=== PATIENT | female | born 1930 | race Caucasian/White ===

== ENCOUNTER → 2017-06-02 | Outpatient (CLI) | payer BC ==
[~2017-06-02] MED LIST: ACET1TAB84 PO; ALPPOPS5 OPL; AMLO2.5T PO; ASCA500 PO; ASCO100061 PO; CALCTAB7 PO; CARB0.5D28 OPL; CITA20TA9 PO; CLTP PO; DORZ1SOL6 OPL; GLCSC500400 PO; GLUC500C60 PO; LATA0.009 OPL; MULT-602 PO; MULT60CA PO; MULTTAB58 PO; NAPR1TAB9 PO; OMEG10007 PO; OMEP40CA PO; OMEP40CA41 PO; POTA20TA16 PO; PRD10 PO; SIMV20TA2 PO; SYMIN160 INH; XLTOPS OPL
[2017-06-02 13:32] LABS: BASO % 0.2 %; BASO ABS # 0.01 K/uL (0-0.2); COMPLETE YES; EOS % 1.3 %; HEMATOCRIT 39.7 % (37-47); IG% 0.2 %; LYMPH % 22.9 %; LYMPH ABS # 1.03 K/uL (1.2-3.4); MEAN CELL VOLUME 100.3 fL (80-100); MEAN CORPUSCULAR HEMOGLOBIN 34.8 pg (25-34); MEAN CORPUSCULAR HGB CONC 34.8 g/dl (32-36); MEAN PLATELET VOLUME 11.3 fL (7.4-10.4); NEUT % 61.4 %; PLATELET COUNT 165 K/uL (130-400); RED BLOOD COUNT 3.96 M/uL (4.2-5.4); WHITE BLOOD COUNT 4.49 K/uL (4.8-10.8)
[2017-06-02 14:00] LABS: ALT/SGPT 23 U/L (12-78); AST/SGOT 15 U/L (15-37); BLOOD UREA NITROGEN 18 mg/dl (7-18); BUN/CREATININE RATIO 16.2 (10-20); CALCIUM 8.8 mg/dl (8.5-10.1); CARBON DIOXIDE 32 mmol/L (21-32); CHLORIDE 105 mmol/L (98-107); GLUCOSE 94 mg/dl (70-99); POTASSIUM 3.7 mmol/L (3.5-5.1); SODIUM 141 mmol/L (136-145)
[2017-06-02 14:11] LABS: ALB/GLOB RATIO 1.2 (0.9-2); ALKALINE PHOSPHATASE 47 U/L (45-117); CHOLESTEROL 197 mg/dl (0-200); CHOLESTEROL/HDL RATIO 2.5; HDL CHOLESTEROL 78 mg/dl; LDL CHOLESTEROL CALCULATED 103 mg/dl; TRIGLYCERIDES 79 mg/dl (0-150); VERY LOW DENSITY LIPOPROT CALC 16 mg/dl
--- NOTE | 2017-06-19 10:44 | CODING QUERY MEDICAL NECESSITY ---
SUPPORTING DIAGNOSIS NEEDED Dr. Church, A supporting diagnosis is required for the test/procedure performed on this patient in order for us to be reimbursed by the patient's insurance. Please provide a supporting diagnosis for the following test/procedure listed below next to the test name along with your signature. *If there is no additional diagnosis for this patient that would support the following test/procedure please document that below next to the test/procedure. Test(s)/Procedure(s) that require a supporting diagnosis: * ([id number]) VITAMIN D ASSAY DIAGNOSIS: DATE OF SERVICE: 06/02/17 Provider Signature: Date: Thank you Andry Garcia [facility] Information Management Once completed, please kindly fax back to [phone] For questions please call [phone]
== END | disposition home or self-care (01) ==
LOC: C.LABBC 09:16
PROVIDERS: ATTEND Internal Medicine
DX: Z87.19 Personal history of other diseases of the digestive system (principal); M81.0 Age-related osteoporosis without current pathological fracture

== ENCOUNTER → 2017-07-17 | Outpatient (CLI) | payer BC | END | disposition home or self-care (01) | LOC: C.RDSM 17:09 | PROVIDERS: ATTEND Physical Medicine & Rehabilitation Sports Medicine | DX: S89.92XA Unspecified injury of left lower leg, initial encounter (principal); X58.XXXA Exposure to other specified factors, initial encounter; M70.52 Other bursitis of knee, left knee; M25.552 Pain in left hip; M17.12 Unilateral primary osteoarthritis, left knee ==

== ENCOUNTER 2017-08-05 03:24 | Inpatient (IN) | payer BC, OTHER ==
[2017-08-05] VITALS (8 sets, daily range): BP systolic 131–181; BP diastolic 76–89; PULSE 77–86; TEMP 36.4–37.6; O2SAT 90–95; Ht 154.9 cm; Wt 70.7 kg
[~2017-08-05] VITALS: Ht 154.9 cm; Wt 70.7 kg
[~2017-08-05 03:24] MED LIST changes: -ACET1TAB84 PO; -ALPPOPS5 OPL; -ASCO100061 PO; -CALCTAB7 PO; -CARB0.5D28 OPL; -GLUC500C60 PO; -LATA0.009 OPL; -MULT-602 PO; -OMEP40CA41 PO; -PRD10 PO
[2017-08-05] MEDS ORDERED: MoRPHine SULFATE 4 MG/ML 1 ML CARP\\VIAL IV STA ×2 (03:41→04:59)
--- NOTE | 2017-08-05 03:42 | EMERGENCY ROOM VISIT NOTE ---
History Report prepared by Geraldine: Marina Portillo Under the Supervision of: Dr. Merrill Almaraz M.D. First contact with patient: 03:33 Chief Complaint: KNEEPAIN Stated Complaint: RT. KNEE PAIN History of Present Illness The patient is a 87 year old female who presents to the Emergency Room with complaints of sudden right knee pain beginning at 1600 today. She rates her pain at a 10/10. The patient denies falling, and states that she has taken 6 Tylenol today. The patient reports that she has an itching problem. She states that she has a history of knee and hip surgeries, and a history of cellulitis on her great toe. The patient denies having other symptoms. Source of History: patient Onset: 1600 today Position: knee (right) Symptom Intensity: rated at a 10/10 Timing: other (sudden) Associated Symptoms: No fevers Review of Systems See HPI for pertinent positives & negatives. A total of 10 systems reviewed and were otherwise negative. Past Medical & Surgical Medical Problems: (1) ASTHMA, UNSPECIFIED (2) Episode of syncope (3) HYPERLIPIDEMIA NEC/NOS (4) HYPERTENSION NOS (5) Left knee pain (6) Right leg DVT (7) syncope (8) syncope Family History Hypertension Social History Smoking Status: Never Smoker Alcohol Use: none, occasionally Drug Use: none Marital Status: single Occupation Status: employed Current/Historical Medications Scheduled Acetaminophen (Tylenol Arthritis Ext Rel), 1,300 MG PO AMPM Amlodipine (Norvasc), 2.5 MG PO DAILY Ascorbic Acid (Ascorbic Acid), 1,000 MG PO DAILY Brimonidine Tartrate (Alphagan P), 1 DROPS OPL TID Budesonide/Formoterol Fumarate (Symbicort 160/4.5 Inhaler ), 2 PUFFS INH BID Calcium Carbonate-Vitamin D W/ (Caltrate 600 Plus), 1 TAB PO DAILY Carboxymethylcellulose Sodium (Refresh Tears), 1 DROP OPL QID Citalopram Hydrobromide (Celexa), 30 MG PO DAILY Dorzolamide Hcl-Timolol Maleat (Cosopt Oph), 1 DROP OPL BID Fish Oil (Oberlin-3), 1 CAP PO DAILY Glucosamine-Chondroitin 500MG/400 Mg (Glucosamine-Chondroitin 500 Mg/400 Mg), 1 CAP PO DAILY Latanoprost (Xalatan 0.005% Oph Marifer), 1 DROPS OPL HS Multiple Vitamins W/ Minerals (Womens 50+ Multi Vitamin), 1 TAB PO DAILY Omeprazole (Prilosec), 40 MG PO DAILY Potassium Ext Rel (Klor-Con), 20 MEQ PO DAILY Prednisone (Prednisone), 20 MG PO DAILY Simvastatin (Zocor), 20 MG PO QPM Allergies Coded Allergies: No Known Allergies (Verified , 08/05/17) Physical Exam Vital Signs Date Time Temp Pulse Resp B/P (MAP) Pulse Ox O2 Delivery O2 Flow Rate FiO2 08/05/17 05:41 79 18 159/81 98 Room Air 08/05/17 03:27 36.7 73 18 171/95 96 Room Air Physical Exam GENERAL: Patient is anxious appearing and in moderate distress. HEENT: No acute trauma, normocephalic atraumatic, mucous membranes moist, no nasal congestion, no scleral icterus. NECK: No stridor, no adenopathy, no meningismus, trachea is midline. LUNGS: No dyspnea. Clear to auscultation and equal bilaterally. No wheeze, no rhonchi. HEART: Regular rate and rhythm. No murmurs, rubs, gallops appreciated. ABDOMEN: Soft, nontender, bowel sounds positive, no masses appreciated, no peritonitis. BACK: No midline tenderness, no CVA tenderness EXTREMITIES: Erythema and warmth over anterior right knee extending down to the anterior right gonzalez to the medial malleolus. Bruising of inner right thigh and petechiae bilaterally on the anterior shins which she states is due to itching chronically. NEUROLOGIC: Alert and oriented, no acute motor or sensory deficits, no focal weakness, cranial nerves grossly intact. SKIN: No rash, no jaundice, no diaphoresis. Medical Decision & Procedures ER Provider Diagnostic Interpretation: Radiology results and stated below per my review and radiologist interpretation: 2 View right knee: Status post knee replacement. No fracture, no dislocation. Moderate arthritic changes. No significant effusion. Laboratory Results 08/05/17 03:54 Red Blood Count 3.89, Mean Corpuscular Volume 99.2, Mean Corpuscular Hemoglobin 34.2, Mean Corpuscular Hemoglobin Concent 34.5, Mean Platelet Volume 10.0, Neutrophils (%) (Auto) 87.0, Lymphocytes (%) (Auto) 5.9, Monocytes (%) (Auto) 6.8, Eosinophils (%) (Auto) 0.0, Basophils (%) (Auto) 0.0, Neutrophils # (Auto) 16.80, Lymphocytes # (Auto) 1.15, Monocytes # (Auto) 1.32, Eosinophils # (Auto) 0.00, Basophils # (Auto) 0.00 08/05/17 03:54 Test 08/05/17 03:54 08/05/17 05:13 White Blood Count 19.33 K/uL (4.8-10.8) Red Blood Count 3.89 M/uL (4.2-5.4) Hemoglobin 13.3 g/dL (12.0-16.0) Hematocrit 38.6 % (37-47) Mean Corpuscular Volume 99.2 fL (80-100) Mean Corpuscular Hemoglobin 34.2 pg (25-34) Mean Corpuscular Hemoglobin Concent 34.5 g/dl (32-36) Platelet Count 154 K/uL (130-400) Mean Platelet Volume 10.0 fL (7.4-10.4) Neutrophils (%) (Auto) 87.0 % Lymphocytes (%) (Auto) 5.9 % Monocytes (%) (Auto) 6.8 % Eosinophils (%) (Auto) 0.0 % Basophils (%) (Auto) 0.0 % Neutrophils # (Auto) 16.80 K/uL (1.4-6.5) Lymphocytes # (Auto) 1.15 K/uL (1.2-3.4) Monocytes # (Auto) 1.32 K/uL (0.11-0.59) Eosinophils # (Auto) 0.00 K/uL (0-0.5) Basophils # (Auto) 0.00 K/uL (0-0.2) RDW Standard Deviation 49.6 fL (36.4-46.3) RDW Coefficient of Variation 13.9 % (11.5-14.5) Immature Granulocyte % (Auto) 0.3 % Immature Granulocyte # (Auto) 0.06 K/uL (0.00-0.02) Prothrombin Time 10.0 SECONDS (9.0-12.0) Prothromb Time International Ratio 0.9 (0.9-1.1) Activated Partial Thromboplast Time 23.1 SECONDS (21.0-31.0) Partial Thromboplastin Ratio 0.9 Anion Gap 5.0 mmol/L (3-11) Est Creatinine Clear Calc Drug Dose 33.0 ml/min Estimated GFR () 52.3 Estimated GFR (Non- 45.1 BUN/Creatinine Ratio 16.8 (10-20) Calcium Level 8.8 mg/dl (8.5-10.1) Total Bilirubin 0.9 mg/dl (0.2-1) Direct Bilirubin 0.3 mg/dl (0-0.2) Aspartate Amino Transf (AST/SGOT) 13 U/L (15-37) Alanine Aminotransferase (ALT/SGPT) 29 U/L (12-78) Alkaline Phosphatase 55 U/L (45-117) C-Reactive Protein 8.28 mg/dl (0-0.29) Total Protein 6.4 gm/dl (6.4-8.2) Albumin 3.3 gm/dl (3.4-5.0) Bedside Lactic Acid Venous 1.39 mmol/L (0.90-1.70) Laboratory results as reviewed by me. Medications Administered Medications (Trade) Dose Ordered Sig/Peterson Route Start Time Stop Time Status Last Admin Dose Admin Morphine Sulfate (MoRPHine SULFATE INJ) 4 mg NOW STAT IV 08/05/17 03:41 08/05/17 03:42 DC 08/05/17 04:02 4 MG Vancomycin HCl 1800 mg/Sodium Chloride 536 ml @ 200 mls/hr ONE STAT IV 08/05/17 04:54 08/05/17 07:34 08/05/17 05:14 200 MLS/HR Ceftriaxone Sodium (Rocephin Inj) 1 gm NOW STAT IV 08/05/17 04:54 08/05/17 04:56 DC 08/05/17 05:13 1 GM Morphine Sulfate (MoRPHine SULFATE INJ) 4 mg NOW STAT IV 08/05/17 04:59 08/05/17 05:00 DC 08/05/17 05:13 4 MG Heparin Sodium/ Dextrose (Heparin 25,000 Unit/500ml D5W) 25,000 unit STK-MED ONCE .ROUTE 08/05/17 06:44 08/05/17 06:45 DC 08/05/17 06:50 25,000 UNIT ED Course 0335: The patient was evaluated in room A10. A complete history and physical exam was performed. 0341: Ordered Morphine Sulfate 4 mg IV. 0454: Ordered Vancomycin HCl 1,800 mg/Sodium Chloride 536 ml @ 200 mls/hr IV. 0457: The patient states that her pain is starting to return. She is willing to be admitted. 0459: Ordered Morphine Sulfate 4 mg IV. 0500: Discussed the patient's case with Dr. Funez of [facility]. 0505: Upon reevaluation, the patient is resting. Discussed results and treatment plan with the patient. She verbalized understanding and agreement with the treatment plan. The patient will be evaluated for further management. Medical Decision Differential: Fracture, Dislocation, Cellulitis, Septic Joint, Ligamentous Injury, Effusion, DVT, amongst other pathologies entertained. 87 yr old female with rash and erythema/pain of anterior right knee. On exam she has cellulitis of anterior right knee without clear evidence of septic joint. Cellulitis extends from medial right ankle radiating up above knee. Suspect from scratching area. Also with bruising inner thigh which she related to scratching hard. No over swelling though there are some petechia bilateral lower shins. With WBC 19 and infection in her age/medical history I feel she will need to come in for sepsis treatment. Discussed US with hospitalist who will order that. She is not septic shock and is not overtly dehydrated nor needing significant fluid resus at this time. Medication Reconcilliation Current Medication List: was personally reviewed by me Blood Pressure Screening Patient's blood pressure: Elevated blood pressure will be monitored by hospitalist Consults Time Called: 0450 Consulting Physician: Dr. Funez- [facility] Returned Call: 0500 Discussed the patient's case with Dr. Funez of [facility]. The patient will be evaluated for further treatment and disposition. Impression Primary Impression: Cellulitis Additional Impression: Sepsis Scribe Attestation The scribe's documentation has been prepared under my direction and personally reviewed by me in its entirety. I confirm that the note above accurately reflects all work, treatment, procedures, and medical decision making performed by me. Departure Information Dispostion Being Evaluated By Hospitalist Referrals Lucio Church M.D. (PCP) Patient Instructions [facility] Health Problem Qualifiers
[2017-08-05] MEDS ORDERED: CALCTAB7 PO (03:59)
[2017-08-05] MEDS ORDERED: OMEP40CA41 PO (03:59)
[2017-08-05] MEDS ORDERED: GLUC500C60 PO (03:59)
[2017-08-05] MEDS ORDERED: ALPPOPS5 OPL (03:59)
[2017-08-05] MEDS ORDERED: PRD10 PO (03:59)
[2017-08-05] MEDS ORDERED: CARB0.5D28 OPL (03:59)
[2017-08-05] MEDS ORDERED: ASCO100061 PO (03:59)
[2017-08-05] MEDS ORDERED: LATA0.009 OPL (03:59)
[2017-08-05] MEDS ORDERED: MULT-602 PO (03:59)
[2017-08-05] MEDS ORDERED: ACET1TAB84 PO (03:59)
[2017-08-05 04:16] LABS: INR 0.9 (0.9-1.1); PARTIAL THROMBOPLASTIN RATIO 0.9
[2017-08-05 04:28] LABS: COMPLETE YES; HEMATOCRIT 38.6 % (37-47); IG% 0.3 %; LYMPH % 5.9 %; LYMPH ABS # 1.15 K/uL (1.2-3.4); MEAN CELL VOLUME 99.2 fL (80-100); MEAN CORPUSCULAR HEMOGLOBIN 34.2 pg (25-34); MEAN CORPUSCULAR HGB CONC 34.5 g/dl (32-36); MONO % 6.8 %; PLATELET COUNT 154 K/uL (130-400); RED BLOOD COUNT 3.89 M/uL (4.2-5.4); WHITE BLOOD COUNT 19.33 K/uL (4.8-10.8)
[2017-08-05 04:31] LABS: BUN/CREATININE RATIO 16.8 (10-20); CALCIUM 8.8 mg/dl (8.5-10.1); CREATININE 1.1 mg/dl (0.60-1.20); POTASSIUM 3.5 mmol/L (3.5-5.1)
[2017-08-05 04:34] LABS: C-REACTIVE PROTEIN 8.28 mg/dl (0-0.29)
[2017-08-05] MEDS ORDERED: VANCOMYCIN INJ 1,800 MG in SODIUM CHLORIDE 0.9% 500ML 500 ML IV STA (04:54)
[2017-08-05] MEDS ORDERED: CEFTRIAXONE SOD INJ 1 GM ADDVIAL IV STA (04:54)
--- NOTE | 2017-08-05 06:08 | History and Physical ---
History & Physical Date & Time of Service: Aug 05, 2017 at 06:07 Chief Complaint: Rt. Knee Pain Primary Care Physician: Lucio Church M.D. History of Present Illness Source: patient, hospital records Mrs Leonard is an 87 year old female who presents to the ER with leg swelling, right knee pain and erythema. Her symptoms started at 4pm the previous day, getting slowly progressively worse. The pain became so intense overnight that she decided to come to the ER. Her pain was 10/10 in the ER, currently 2/10 until I press on her knee. She denies any trauma or fall. She is concerned about cellulitis as she had this in her big toe in 2016. 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 The persistent scratching causes petechia. Past Medical/Surgical History Medical Problems: (1) ASTHMA, UNSPECIFIED Status: Chronic (2) Episode of syncope Status: Resolved (3) HYPERLIPIDEMIA NEC/NOS Status: Chronic (4) HYPERTENSION NOS Status: Chronic (5) syncope Status: Resolved (6) syncope Status: Resolved Family History Hypertension Social History Smoking Status: Never Smoker Smokeless Tobacco Use: No Alcohol Use: none Drug Use: none Marital Status: single Housing status: lives alone Occupational Status: employed Immunizations History of Influenza Vaccine: N/A History of Tetanus Vaccine?: Yes History of Pneumococcal: Yes History of Hepatitis B Vaccine: Unknown Multi-Drug Resistant Organisms History of MDRO: No Allergies Coded Allergies: No Known Allergies (Verified , 08/05/17) Home Medications Scheduled Acetaminophen (Tylenol Arthritis Ext Rel), 1,300 MG PO AMPM Amlodipine (Norvasc), 2.5 MG PO DAILY Apixaban (Eliquis), 2.5 MG PO BID Ascorbic Acid (Ascorbic Acid), 1,000 MG PO DAILY Brimonidine Tartrate (Alphagan P), 1 DROPS OPL TID Budesonide/Formoterol Fumarate (Symbicort 160/4.5 Inhaler ), 2 PUFFS INH BID Calcium Carbonate-Vitamin D W/ (Caltrate 600 Plus), 1 TAB PO DAILY Carboxymethylcellulose Sodium (Refresh Tears), 1 DROP OPL QID Cefazolin In D5w (Cefazolin Sodium), 2 GM IV Q8 Citalopram Hydrobromide (Celexa), 30 MG PO DAILY Dorzolamide Hcl-Timolol Maleat (Cosopt Oph), 1 DROP OPL BID Fish Oil (Milroy-3), 1 CAP PO DAILY Glucosamine-Chondroitin 500MG/400 Mg (Glucosamine-Chondroitin 500 Mg/400 Mg), 1 CAP PO DAILY Latanoprost (Xalatan 0.005% Oph Marifer), 1 DROPS OPL HS Metoprolol Tartrate (Lopressor) (Lopressor), 50 MG PO BID Multiple Vitamins W/ Minerals (Womens 50+ Multi Vitamin), 1 TAB PO DAILY Omeprazole (Prilosec), 40 MG PO DAILY Potassium Ext Rel (Klor-Con), 20 MEQ PO DAILY Prednisone (Prednisone), 20 MG PO DAILY Simvastatin (Zocor), 20 MG PO QPM Scheduled PRN Oxycodone HCl (Oxycodone HCl), 5-10 MG PO Q4H PRN for Pain Review of Systems Constitutional: + chills, No fever Eyes: No worsening of vision ENT: No hearing loss Cardiovascular: No chest pain, No edema Abdomen: No pain, No nausea, No vomiting, No diarrhea, No constipation, No GI bleeding Musculoskeletal: No joint pain, No muscle pain Genitourinary - Female: No dysuria Hematologic / Lymphatic: + abnormal bleeding/bruising (petechia on skin from itching) Integumentary: + rash Physical Exam Vital Signs Date Time Temp Pulse Resp B/P (MAP) Pulse Ox O2 Delivery O2 Flow Rate FiO2 08/05/17 05:41 79 18 159/81 98 Room Air 08/05/17 03:27 36.7 73 18 171/95 96 Room Air General Appearance: WD/WN, no apparent distress Head: normocephalic, atraumatic Eyes: normal inspection, PERRL, EOMI Neck: supple, no JVD Respiratory/Chest: chest non-tender, lungs clear, normal breath sounds, no respiratory distress, no accessory muscle use Cardiovascular: regular rate, rhythm, no murmur, normal peripheral pulses Abdomen/GI: normal bowel sounds, non tender, soft Extremities/Musculoskelatal: no calf tenderness (but R > L size), normal capillary refill, + pedal edema (3+ up to thighs right sided, 1+ left sided), + pertinent finding (flex knee to 20 degrees after which she resists due to pain, anterior inferior knee joint pain on palpation both medially and laterally) 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, no motor/sensory deficits, alert, oriented x 3 Skin: + pertinent finding (petechial rash on bilateral legs and arm but more extensive on her right leg.) Diagnostics Laboratory Results Results Past 24 Hours Test 08/05/17 03:54 08/05/17 05:13 Range/Units White Blood Count 19.33 4.8-10.8 K/uL Red Blood Count 3.89 4.2-5.4 M/uL Hemoglobin 13.3 12.0-16.0 g/dL Hematocrit 38.6 37-47 % Mean Corpuscular Volume 99.2 80-100 fL Mean Corpuscular Hemoglobin 34.2 25-34 pg Mean Corpuscular Hemoglobin Concent 34.5 32-36 g/dl Platelet Count 154 130-400 K/uL Mean Platelet Volume 10.0 7.4-10.4 fL Neutrophils (%) (Auto) 87.0 % Lymphocytes (%) (Auto) 5.9 % Monocytes (%) (Auto) 6.8 % Eosinophils (%) (Auto) 0.0 % Basophils (%) (Auto) 0.0 % Neutrophils # (Auto) 16.80 1.4-6.5 K/uL Lymphocytes # (Auto) 1.15 1.2-3.4 K/uL Monocytes # (Auto) 1.32 0.11-0.59 K/uL Eosinophils # (Auto) 0.00 0-0.5 K/uL Basophils # (Auto) 0.00 0-0.2 K/uL RDW Standard Deviation 49.6 36.4-46.3 fL RDW Coefficient of Variation 13.9 11.5-14.5 % Immature Granulocyte % (Auto) 0.3 % Immature Granulocyte # (Auto) 0.06 0.00-0.02 K/uL Prothrombin Time 10.0 9.0-12.0 SECONDS Prothromb Time International Ratio 0.9 0.9-1.1 Activated Partial Thromboplast Time 23.1 21.0-31.0 SECONDS Partial Thromboplastin Ratio 0.9 Sodium Level 136 136-145 mmol/L Potassium Level 3.5 3.5-5.1 mmol/L Chloride Level 101 98-107 mmol/L Carbon Dioxide Level 30 21-32 mmol/L Anion Gap 5.0 3-11 mmol/L Blood Urea Nitrogen 18 7-18 mg/dl Creatinine 1.10 0.60-1.20 mg/dl Est Creatinine Clear Calc Drug Dose 33.0 ml/min Estimated GFR () 52.3 Estimated GFR (Non- 45.1 BUN/Creatinine Ratio 16.8 10-20 Random Glucose 158 70-99 mg/dl Calcium Level 8.8 8.5-10.1 mg/dl Total Bilirubin 0.9 0.2-1 mg/dl Direct Bilirubin 0.3 0-0.2 mg/dl Aspartate Amino Transf (AST/SGOT) 13 15-37 U/L Alanine Aminotransferase (ALT/SGPT) 29 12-78 U/L Alkaline Phosphatase 55 45-117 U/L C-Reactive Protein 8.28 0-0.29 mg/dl Total Protein 6.4 6.4-8.2 gm/dl Albumin 3.3 3.4-5.0 gm/dl Bedside Lactic Acid Venous 1.39 0.90-1.70 mmol/L Microbiology Results 08/05/17 Blood Culture, Received Pending 08/05/17 Blood Culture, Received Pending Diagnostic Radiology R KNEE 1 OR 2 VIEWS ROUTINE HISTORY: 87 years-old Female right knee pain/rash acute right knee pain with a skin rash COMPARISON: knee radiographs 02/02/2015 TECHNIQUE: 2 views of the right knee FINDINGS: Right knee arthroplasty in place without evidence of complication. Prior patellar resurfacing. Small to moderate joint effusion is noted without acute fracture or dislocation. Vascular calcifications are noted. Mild soft tissue prominence is seen about the knee. There is a 2.0 cm linear calcification within the distribution of the proximal MCL compatible with dystrophic calcification (Pradip-Stieda lesion). IMPRESSION: 1. No acute fracture or dislocation. 2. Mild soft tissue swelling about the knee with small to moderate joint effusion. The above report was generated using voice recognition software. It may contain grammatical, syntax or spelling errors. Electronically signed by: Neftlay Doe M.D. 08/05/2017 8:48 AM Dictated Date/Time: 08/05/2017 8:47 AM BILATERAL LOWER EXTREMITY VENOUS DOPPLER HISTORY: Acute right lower extremity pain and swelling RLE swelling and pain COMPARISON STUDY: Right knee radiographs of same day. FINDINGS: One of the peroneal veins is not compressible with occlusive deep venous thrombosis. Otherwise, there is normal compressibility, flow, and augmentation within the remaining right lower extremity deep venous structures. Incidentally noted is a fluid collection within the anterior suprapatellar distribution. IMPRESSION: 1. Occlusive deep venous thrombosis of the right peroneal vein. No DVT seen above the level of the knee. 2. Incidental note is made of a small fluid collection within the anterior suprapatellar region suggesting joint effusion as seen on comparison radiographs. Electronically signed by: Neftaly Doe M.D. 08/05/2017 7:33 AM Dictated Date/Time: 08/05/2017 7:30 AM EKG Sinus rhythm with premature ventricular or aberrantly conducted complexes (PAC) ; rate 82bpm Inferior infarct , age undetermined T wave abnormality, consider anterior ischemia When compared with ECG of 23-JUL-2015 11:13, Premature ventricular complexes are now Present Anterior T inversions are more prominent Impression Assessment and Plan 87 year old female admitted with rapid progressively worsening leg edema and right knee pain. Right lower leg DVT - heparin IV drip - stop antibiotics; does not appear cellulitic HTN - continue amlodipine 2.5 mg PO daily Glaucoma - continue Alphagan P, Cosopt ophthalmic, Xalatan GERD - switch omeprazole to pantoprazole 40mg PO daily COPD - continue Symbicort. Hyperlipidemia - continue simvastatin 20mg HS Depression - continue citalopram 30mg PO daily .Attending Addendum: I have physically seen and examined this patient, have directed the resident medical activities, and agree with the H&P as noted above with the following exceptions as noted. Assessment and Plan: Right lower extremity DVT-- Patient examination was consistent with DVT, as was demonstrated by venous Dopplers that I ordered. Start heparin drip standard dose without bolus per protocol. Patient be relative bedrest for the first 24 hours. Allow to use bedside commode. She has received IV antibiotics in the ED for possible overlying cellulitis of right lower extremity. Follow clinical examination and cultures. Hypertension-- continue amlodipine 2.5 mg by mouth daily. Glaucoma-- Continue Alphagan P, Cosopt ophthalmic, Xalatan. GERD-- Change omeprazole 40 mg by mouth daily to pantoprazole 40 mg by mouth daily. COPD-- Continue Symbicort. Hyperlipidemia-- Continue simvastatin 20 mg at bedtime and Fish oil daily. Depression-- Continue citalopram 30 mg by mouth daily. Level of Care Telemetry Advanced Directives Existing Advance Directive: No Existing Living Will: No Existing Power of Line Erector: No Resuscitation Status FULL RESUSCITATION VTE Prophylaxis Risk Level: High Given or contraindicated: Unfractionated heparin SQ Additional Copies To Lucio Church M.D. Resident Tracking Resident Involvement: Resident Care Provided Care Provided: Adult Hospital Medicine
[2017-08-05] MEDS ORDERED: HEPARIN 25000 UNIT/500 ML D5W ONE (06:44)
--- NOTE | 2017-08-05 07:35 | DIAGNOSTIC IMAGING REPORT ---
BILATERAL LOWER EXTREMITY VENOUS DOPPLER HISTORY: Acute right lower extremity pain and swelling RLE swelling and pain COMPARISON STUDY: Right knee radiographs of same day. FINDINGS: One of the peroneal veins is not compressible with occlusive deep venous thrombosis. Otherwise, there is normal compressibility, flow, and augmentation within the remaining right lower extremity deep venous structures. Incidentally noted is a fluid collection within the anterior suprapatellar distribution. IMPRESSION: 1. Occlusive deep venous thrombosis of the right peroneal vein. No DVT seen above the level of the knee. 2. Incidental note is made of a small fluid collection within the anterior suprapatellar region suggesting joint effusion as seen on comparison radiographs. Electronically signed by: Neftaly Doe M.D. 08/05/2017 7:33 AM Dictated Date/Time: 08/05/2017 7:30 AM
[2017-08-05] MEDS ORDERED: NSS + 20MEQ KCL 1000ML 1,000 ML IV SCH (08:00)
--- NOTE | 2017-08-05 08:49 | DIAGNOSTIC IMAGING REPORT ---
R KNEE 1 OR 2 VIEWS ROUTINE HISTORY: 87 years-old Female right knee pain/rash acute right knee pain with a skin rash COMPARISON: knee radiographs 02/02/2015 TECHNIQUE: 2 views of the right knee FINDINGS: Right knee arthroplasty in place without evidence of complication. Prior patellar resurfacing. Small to moderate joint effusion is noted without acute fracture or dislocation. Vascular calcifications are noted. Mild soft tissue prominence is seen about the knee. There is a 2.0 cm linear calcification within the distribution of the proximal MCL compatible with dystrophic calcification (Pradip-Stieda lesion). IMPRESSION: 1. No acute fracture or dislocation. 2. Mild soft tissue swelling about the knee with small to moderate joint effusion. The above report was generated using voice recognition software. It may contain grammatical, syntax or spelling errors. Electronically signed by: Neftaly Doe M.D. 08/05/2017 8:48 AM Dictated Date/Time: 08/05/2017 8:47 AM
[2017-08-05] MEDS ORDERED: [UNRECOGNIZED DRUG - OTHER] PO SCH (09:00)
[2017-08-05] MEDS ORDERED: GLUCOSAMINE CHONDROITIN PO SCH (09:00)
[2017-08-05] MEDS: CALCIUM 600MG + VIT D 400 IU TAB PO SCH (09:04)
[2017-08-05] MEDS: ASCORBIC ACID 500 MG TAB PO SCH (09:04)
[2017-08-05] MEDS: ACETAMINOPHEN 325 MG TAB PO PRN ×2 (09:04→19:05)
[2017-08-05] MEDS: OMEGA-3 (PURIFIED FISH OIL) 1 GM CAP PO SCH (09:05)
[2017-08-05] MEDS: CEROVITE ADV FORMULA TAB PO SCH (09:05)
[2017-08-05] MEDS: POTASSIUM CHLORIDE 20 MEQ TABCR PO SCH (09:05)
[2017-08-05] MEDS: BRIMONIDINE TARTRATE-P 0.15% 5 ML BTL OPL SCH ×3 (09:06→20:30)
[2017-08-05] MEDS: DORZOLAMIDE/TIMOLOL 22.3/6.8MG/ML 10 ML BTL OPL SCH ×2 (09:06→20:31)
[2017-08-05] MEDS: BUDESONIDE/FORMOTEROL FUMARATE 160/4.5 60 PUFFS/INHALER INH SCH ×2 (09:07→20:30)
[2017-08-05] MEDS ORDERED: MoRPHine SULFATE 4 MG/ML 1 ML CARP\\VIAL IM ONE (09:15)
[2017-08-05] MEDS ORDERED: NURSING VERBAL MED ORDER ONE (10:00)
[2017-08-05] MEDS ORDERED: MoRPHine SULFATE 4 MG/ML 1 ML CARP\\VIAL IV ONE (10:15)
[2017-08-05] MEDS: AMLODIPINE BESYLATE 5 MG TAB PO SCH (10:17)
[2017-08-05] MEDS: PANTOprazole SOD 40 MG TAB PO SCH (10:17)
[2017-08-05] MEDS: CITALOPRAM 20 MG TAB PO SCH (10:17)
--- NOTE | 2017-08-05 10:53 | Family Medicine Progress Note ---
Progress Note Date of Service Aug 05, 2017. Subjective Pt evaluation today including: conversation w/ patient, conversation w/ family , physical exam, chart review, lab review, review of inpatient medication list Pain: 10/10 pain reported in right leg PO Intake: Tolerating PO intake Voiding: no voiding problems Ms. Leonard states that she is experiencing 10/10 pain in her left leg. She states it came on suddenly at 4pm yesterday. She has no prior history of blood clots, no recent surgeries, no recent long haul flights or car rides, and is not on any hormone supplementation. This is her first blood clot, and she has previously had her right knee replaced. 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 She denies chest pain, shortness of breath, or coughing. Constitutional: No fever, No chills, No sweats ENT: + hearing loss (wears hearing aids) Respiratory: No cough, No sputum, No wheezing, No shortness of breath, No dyspnea on exertion, No hemoptysis Cardiovascular: No chest pain, No orthopnea, No PND Abdomen: No pain, No nausea, No vomiting All Other Systems: Reviewed and Negative Medications Current Inpatient Medications Medications (Trade) Dose Ordered Sig/Peterson Route Start Time Stop Time Status Last Admin Dose Admin Heparin Sodium/ Dextrose 1 ea Q15M N/A 08/05/17 06:37 09/04/17 06:36 Potassium Chloride/Sodium Chloride 1,000 ml @ 100 mls/hr Q10H IV 08/05/17 08:00 09/04/17 07:59 08/05/17 08:57 100 MLS/HR Acetaminophen (Tylenol Tab) 650 mg Q4H PRN PO 08/05/17 06:45 09/04/17 06:44 08/05/17 09:04 650 MG Amlodipine Besylate (Norvasc Tab) 2.5 mg DAILY PO 08/05/17 09:00 09/04/17 08:59 08/05/17 10:17 2.5 MG Brimonidine Tartrate (Alphagan-P 0.15% Oph Soln) 1 drops TID OPL 08/05/17 09:00 09/04/17 08:59 08/05/17 09:06 1 DROPS Budesonide/ Formoterol Fumarate (Symbicort 160/ 4.5 Inh) 2 puffs BID INH 08/05/17 09:00 09/04/17 08:59 08/05/17 09:07 2 PUFFS Calcium/Vitamin D (Caltrate Plus Tab) 1 tab DAILY PO 08/05/17 09:00 09/04/17 08:59 08/05/17 09:04 1 TAB Citalopram Hydrobromide (celeXA TAB) 30 mg DAILY PO 08/05/17 09:00 09/04/17 08:59 08/05/17 10:17 30 MG Dorzolamide/ Timolol (Cosopt Op Soln) 1 drops BID OPL 08/05/17 09:00 09/04/17 08:59 08/05/17 09:06 1 DROPS Fish Oil ([place]-3 (Purified Fish Oil) Cap) 1 gm DAILY PO 08/05/17 09:00 09/04/17 08:59 08/05/17 09:05 1 GM Latanoprost (Xalatan Oph Soln) 1 drops HS OPL 08/05/17 21:00 09/04/17 20:59 Multivitamins/ Minerals (Multivitamin W/ Minerals Tab) 1 tab DAILY PO 08/05/17 09:00 09/04/17 08:59 08/05/17 09:05 1 TAB Potassium Chloride (Klor-Con Tab) 20 meq DAILY PO 08/05/17 09:00 09/04/17 08:59 08/05/17 09:05 20 MEQ Prednisone (PredniSONE TAB) 20 mg DAILY PO 08/05/17 09:00 09/04/17 08:59 08/05/17 09:05 20 MG Simvastatin (Zocor Tab) 20 mg QPM PO 08/05/17 21:00 09/04/17 20:59 Ascorbic Acid (Vitamin C Tab) 1,000 mg DAILY PO 08/05/17 09:00 09/04/17 08:59 08/05/17 09:04 1,000 MG Artificial Tears (Artificial Tears) 1 drops QID OPL 08/05/17 09:00 09/04/17 08:59 Pantoprazole Sodium (Protonix Tab) 40 mg QAM PO 08/05/17 09:00 09/04/17 08:59 08/05/17 10:17 40 MG Objective Vital Signs Date Time Temp Pulse Resp B/P (MAP) Pulse Ox O2 Delivery O2 Flow Rate FiO2 08/05/17 09:00 36.5 82 18 152/76 94 Room Air 08/05/17 05:41 79 18 159/81 98 Room Air 08/05/17 03:27 36.7 73 18 171/95 96 Room Air Physical Exam General Appearance: WD/WN, no apparent distress Respiratory/Chest: chest non-tender, lungs clear, normal breath sounds, no respiratory distress, no accessory muscle use Cardiovascular: regular rate, rhythm, no edema, no gallop, no JVD, no murmur Abdomen: normal bowel sounds, non tender, soft Extremities: normal capillary refill, + calf tenderness, + pertinent finding ( swollen right knee and leg, hot to touch, excoriations on anterior aspect of calf) Laboratory Results Last 24 Hours Test 08/05/17 03:54 08/05/17 05:13 08/05/17 13:08 White Blood Count 19.33 K/uL Red Blood Count 3.89 M/uL Hemoglobin 13.3 g/dL Hematocrit 38.6 % Mean Corpuscular Volume 99.2 fL Mean Corpuscular Hemoglobin 34.2 pg Mean Corpuscular Hemoglobin Concent 34.5 g/dl Platelet Count 154 K/uL Mean Platelet Volume 10.0 fL Neutrophils (%) (Auto) 87.0 % Lymphocytes (%) (Auto) 5.9 % Monocytes (%) (Auto) 6.8 % Eosinophils (%) (Auto) 0.0 % Basophils (%) (Auto) 0.0 % Neutrophils # (Auto) 16.80 K/uL Lymphocytes # (Auto) 1.15 K/uL Monocytes # (Auto) 1.32 K/uL Eosinophils # (Auto) 0.00 K/uL Basophils # (Auto) 0.00 K/uL RDW Standard Deviation 49.6 fL RDW Coefficient of Variation 13.9 % Immature Granulocyte % (Auto) 0.3 % Immature Granulocyte # (Auto) 0.06 K/uL Prothrombin Time 10.0 SECONDS Prothromb Time International Ratio 0.9 Activated Partial Thromboplast Time 23.1 SECONDS 68.9 SECONDS Partial Thromboplastin Ratio 0.9 2.7 Sodium Level 136 mmol/L Potassium Level 3.5 mmol/L Chloride Level 101 mmol/L Carbon Dioxide Level 30 mmol/L Anion Gap 5.0 mmol/L Blood Urea Nitrogen 18 mg/dl Creatinine 1.10 mg/dl Est Creatinine Clear Calc Drug Dose 33.0 ml/min Estimated GFR () 52.3 Estimated GFR (Non- 45.1 BUN/Creatinine Ratio 16.8 Random Glucose 158 mg/dl Calcium Level 8.8 mg/dl Total Bilirubin 0.9 mg/dl Direct Bilirubin 0.3 mg/dl Aspartate Amino Transf (AST/SGOT) 13 U/L Alanine Aminotransferase (ALT/SGPT) 29 U/L Alkaline Phosphatase 55 U/L C-Reactive Protein 8.28 mg/dl Total Protein 6.4 gm/dl Albumin 3.3 gm/dl Bedside Lactic Acid Venous 1.39 mmol/L Assessment and Plan 87 year old female admitted with sudden onset severe pain in her left leg Right lower extremity DVT- - Venous dopplers revealed an occlusive DVT in the right peroneal vein - heparin drip discontinued and 10mg Apixaban started - will d/c on 3 months of apixaban - transferred to med/surg and counselled to begin walking and moving around 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 Glaucoma - Continue Alphagan P, Cosopt ophthalmic, Xalatan. GERD - Change omeprazole 40 mg by mouth daily to pantoprazole 40 mg by mouth daily. COPD - Continue Symbicort. Hyperlipidemia - Continue simvastatin 20 mg at bedtime and Fish oil daily. Depression - Continue citalopram 30 mg by mouth daily. Disposition: step down to med/surg Code: Full DVT Prophylaxis: Giovanni Resident Physician Supervision Note: I interviewed and examined the patient. Discussed with Dr. Fierro and agree with findings and plan as documented in the note. Any exceptions or clarifications are listed here: None Documented By: Carl Baron pain improved discussed DVT extensively w pt and family - discussed that actually she's quite stable and pain was the main reason to require hospital - with improvement in pain anticipate home tomorrrow. discussed NOAC vs coumadin she's OK w noac vitals noted nad RLE diffuse dull edema and scattered petechaie mild tender notes was better than before (+) DP pulse acute distal DVT - main reason for treatment and obs is pain control - move to med surg, start eliquis, pain better - as long as can walk then home tomorrow leukocytosis - ?etiology - admitting team started brian for concern on leg cellulitis - will continue for now pending f/u otherwise as above Resident Tracking Resident Involvement: Resident Care Provided Care Provided: Adult Hospital Medicine
[2017-08-05] MEDS ORDERED: INFLUENZA ADMINISTRATION CHARGE ONE (12:15)
[2017-08-05] MEDS ORDERED: INFLUENZA VACCINE HIGH DOSE 65+ 0.5 ML SYR IM. ONE (12:15)
[2017-08-05 13:41] LABS: PARTIAL THROMBOPLASTIN RATIO 2.7
[2017-08-05] MEDS ORDERED: HEPARIN 25,000 UNIT/500ML D5W 500 ML IV PRN (15:45)
[2017-08-05] MEDS: ARTIFICIAL TEARS OP SOLN OPL SCH ×6 (16:00→20:30)
[2017-08-05] MEDS: SIMVASTATIN 20 MG TAB PO SCH (20:31)
[2017-08-05] MEDS: LATANOPROST 0.005% OP SOLN 2.5 ML BTL OPL SCH (20:31)
[2017-08-05] MEDS: APIXABAN 2.5 MG TAB PO SCH (21:26)
[2017-08-05] MEDS ORDERED: VANCOMYCIN CONSULT ACTIVE PRN (23:45)
[2017-08-06] MEDS ORDERED: CEFTRIAXONE SOD INJ 1 GM in DEXTROSE 5% ADD-VANTAGE 50ML 50 ML IV SCH (05:00)
[2017-08-06] MEDS ORDERED: VANCOMYCIN INJ 1,000 MG in SODIUM CHLORIDE 0.9% 250ML 250 ML IV SCH (05:00)
[2017-08-06 07:16] VITALS: BP 163/79; PULSE 86; TEMP 37; O2SAT 92
[2017-08-06] MEDS: BUDESONIDE/FORMOTEROL FUMARATE 160/4.5 60 PUFFS/INHALER INH SCH ×2 (08:44→20:53)
[2017-08-06] MEDS: BRIMONIDINE TARTRATE-P 0.15% 5 ML BTL OPL SCH ×3 (08:44→20:53)
[2017-08-06] MEDS: DORZOLAMIDE/TIMOLOL 22.3/6.8MG/ML 10 ML BTL OPL SCH ×2 (08:45→20:53)
[2017-08-06] MEDS: CITALOPRAM 20 MG TAB PO SCH (08:46)
[2017-08-06] MEDS: CEROVITE ADV FORMULA TAB PO SCH (08:46)
[2017-08-06] MEDS: AMLODIPINE BESYLATE 5 MG TAB PO SCH (08:46)
[2017-08-06] MEDS: CALCIUM 600MG + VIT D 400 IU TAB PO SCH (08:46)
[2017-08-06] MEDS: PANTOprazole SOD 40 MG TAB PO SCH (08:46)
[2017-08-06] MEDS: POTASSIUM CHLORIDE 20 MEQ TABCR PO SCH (08:48)
[2017-08-06] MEDS: OMEGA-3 (PURIFIED FISH OIL) 1 GM CAP PO SCH (08:48)
[2017-08-06] MEDS: ASCORBIC ACID 500 MG TAB PO SCH (08:48)
[2017-08-06] MEDS: APIXABAN 2.5 MG TAB PO SCH (08:48)
[2017-08-06] MEDS: ARTIFICIAL TEARS OP SOLN OPL SCH ×8 (08:49→20:53)
[2017-08-06] MEDS: ACETAMINOPHEN 325 MG TAB PO PRN (10:29)
--- NOTE | 2017-08-06 10:39 | Family Medicine Progress Note ---
Progress Note Date of Service Aug 06, 2017. Subjective Pt evaluation today including: conversation w/ patient, conversation w/ family , physical exam, chart review, review of studies, review of inpatient medication list Pain: 8/10 pain reported on standing/walking PO Intake: Tolerating PO intake Voiding: no voiding problems Ms. Leonard reports she feels well today. She does not have any pain lying in bed, but states that it goes up to a 8-9/10 when she tries to walk. She denies chest pain, shortness of breath. She states she has no history of trauma to the right knee, no history of ulcers on that side, but reports that her right leg can be more swollen at times than her left leg, and that she often has excoriations due to scratching from her asteatotic dermatitis. She also states that she is often dehydrated and has come in to [facility] after collapsing due to dehydration. Constitutional: No fever, No chills, No sweats, No weight loss Respiratory: No cough, No sputum, No wheezing, No shortness of breath, No dyspnea on exertion Cardiovascular: No chest pain Abdomen: No pain, No nausea, No vomiting Musculoskeletal: + joint pain, + swelling All Other Systems: Reviewed and Negative Medications Current Inpatient Medications Medications (Trade) Dose Ordered Sig/Peterson Route Start Time Stop Time Status Last Admin Dose Admin Acetaminophen (Tylenol Tab) 650 mg Q4H PRN PO 08/05/17 06:45 09/04/17 06:44 08/06/17 10:29 650 MG Amlodipine Besylate (Norvasc Tab) 2.5 mg DAILY PO 08/05/17 09:00 09/04/17 08:59 08/06/17 08:46 2.5 MG Brimonidine Tartrate (Alphagan-P 0.15% Oph Soln) 1 drops TID OPL 08/05/17 09:00 09/04/17 08:59 08/06/17 08:44 1 DROPS Budesonide/ Formoterol Fumarate (Symbicort 160/ 4.5 Inh) 2 puffs BID INH 08/05/17 09:00 09/04/17 08:59 08/06/17 08:44 2 PUFFS Calcium/Vitamin D (Caltrate Plus Tab) 1 tab DAILY PO 08/05/17 09:00 09/04/17 08:59 08/06/17 08:46 1 TAB Citalopram Hydrobromide (celeXA TAB) 30 mg DAILY PO 08/05/17 09:00 09/04/17 08:59 08/06/17 08:46 30 MG Dorzolamide/ Timolol (Cosopt Op Soln) 1 drops BID OPL 08/05/17 09:00 09/04/17 08:59 08/06/17 08:45 1 DROPS Fish Oil ([place]-3 (Purified Fish Oil) Cap) 1 gm DAILY PO 08/05/17 09:00 09/04/17 08:59 08/06/17 08:48 1 GM Latanoprost (Xalatan Oph Soln) 1 drops HS OPL 08/05/17 21:00 09/04/17 20:59 08/05/17 20:31 1 DROPS Multivitamins/ Minerals (Multivitamin W/ Minerals Tab) 1 tab DAILY PO 08/05/17 09:00 09/04/17 08:59 08/06/17 08:46 1 TAB Potassium Chloride (Klor-Con Tab) 20 meq DAILY PO 08/05/17 09:00 09/04/17 08:59 08/06/17 08:48 20 MEQ Prednisone (PredniSONE TAB) 20 mg DAILY PO 08/05/17 09:00 09/04/17 08:59 08/06/17 08:47 20 MG Simvastatin (Zocor Tab) 20 mg QPM PO 08/05/17 21:00 09/04/17 20:59 08/05/17 20:31 20 MG Ascorbic Acid (Vitamin C Tab) 1,000 mg DAILY PO 08/05/17 09:00 09/04/17 08:59 08/06/17 08:48 1,000 MG Artificial Tears (Artificial Tears) 1 drops QID OPL 08/05/17 09:00 09/04/17 08:59 08/06/17 08:49 1 DROPS Pantoprazole Sodium (Protonix Tab) 40 mg QAM PO 08/05/17 09:00 09/04/17 08:59 08/06/17 08:46 40 MG Apixaban (Eliquis Tab) 10 mg BID PO 08/05/17 21:00 08/12/17 20:59 08/06/17 08:48 10 MG Vancomycin HCl 1000 mg/Sodium Chloride 270 ml @ 125 mls/hr DAILY@0500 IV 08/06/17 05:00 08/18/17 07:10 08/06/17 06:00 125 MLS/HR Ceftriaxone Sodium 1 gm/ Dextrose 50 ml @ 100 mls/hr Q24H IV 08/06/17 05:00 08/18/17 05:29 08/06/17 04:56 100 MLS/HR Vancomycin HCl (Consult) 1 ea UD PRN N/A 08/05/17 23:45 09/04/17 23:44 Objective Vital Signs Date Time Temp Pulse Resp B/P (MAP) Pulse Ox O2 Delivery O2 Flow Rate FiO2 08/06/17 07:59 Room Air 08/06/17 07:16 37.0 86 18 163/79 (107) 92 Room Air 08/06/17 00:15 Room Air 08/05/17 22:50 36.9 78 18 153/81 (105) 94 Room Air 08/05/17 22:11 155/76 (102) 08/05/17 21:00 36.8 78 16 95 08/05/17 21:00 36.8 78 16 179/80 (113) 95 Room Air 08/05/17 21:00 95 Room Air 08/05/17 19:45 37.6 78 22 152/80 (104) 90 Room Air 08/05/17 16:35 83 169/89 (115) 08/05/17 16:00 Room Air 08/05/17 16:00 36.4 86 18 181/82 (115) 90 Room Air 08/05/17 12:29 36.7 77 18 131/78 (95) 92 08/05/17 12:00 Room Air Physical Exam General Appearance: WD/WN, no apparent distress Respiratory/Chest: chest non-tender, lungs clear, normal breath sounds, no respiratory distress, no accessory muscle use Cardiovascular: regular rate, rhythm, no edema, no gallop, no JVD, no murmur Abdomen: normal bowel sounds, non tender, soft Extremities: + pertinent finding (Swollen, tender and hot to touch right knee. Anterior calf also has excoriations from scratching) Laboratory Results Last 24 Hours Test 08/05/17 13:08 Activated Partial Thromboplast Time 68.9 SECONDS Partial Thromboplastin Ratio 2.7 Assessment and Plan 87 year old female admitted with sudden onset severe pain in her right leg Septic arthritis - right knee is hot, swollen and exquisitely tender - Dr. Shin from ortho consulted - thank you for input - joint aspirated, awaiting cell counts and culture - surgery is best management - however pt is on Eliquis and took one dose this morning - surgery tomorrow - will be NPO after midnight, and on maintenance fluids - ringer's lactate at 125 mls/hr - continue vanc Right lower extremity DVT- - Venous dopplers revealed an occlusive DVT in the right peroneal vein - hold apixaban given upcoming surgery - will d/c on 3 months of apixaban Positive Blood Cultures - staph aureus x2, awaiting sensitivities - likely from excoriations on her right leg - continue vanc (day 1) - ID consulted - d/c Rocephin 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 Glaucoma - Continue Alphagan P, Cosopt ophthalmic, Xalatan. GERD - Continue pantoprazole 40 mg by mouth daily. COPD - Continue Symbicort. Hyperlipidemia - Continue simvastatin 20 mg at bedtime and Fish oil daily. Depression - Continue citalopram 30 mg by mouth daily. Disposition: remains on med/surg. Will need PT/OT evals before d/c to determine [facility] Code: Full DVT Prophylaxis: Eliquis on hold Resident Physician Supervision Note: I interviewed and examined the patient. Discussed with Dr. Fierro and agree with findings and plan as documented in the note. Any exceptions or clarifications are listed here: see below Documented By: Carl Loraine knee hurts worse. blood cultures noted. extensive discussion w pt and dtr later d/w ortho, consulted ID - input appreciated vitals noted nad breathing unlabored, R knee edematous, joint effusion noted, VERY tender c/w septic joint a/p staph bacteremia - likely from skin source. did tell ortho re dental visit this past week, but with current skin condition and constant pruritis, suspect breaks in skin from itching as source. vanco pending further ID and S septic knee - likely seeding from above - ortho to surgically eval tomorrow ( allowing time off NOAC since non-emergent) distal DVT - since needing surgery, will hold anticoagulation altogether for now , and follow as needed w serial dopplers. given the pain she had (and it seemed separate from the septic joint since she was in more pain w DVT prior to septic knee "blossoming") i would prefer to treat DVT w anticoagulation post knee surgery unless a clear contraindication arises. for now since small and distal DVT and pain improved from this, will hold all anticoagulation. surgery asked when safe to proceed - given short half life and the fact that she'd had 2 doses, i suspect by tomorrow >24hrs off all dosing she should be safe, will ask anticoagulation physician for opinion as well Resident Tracking Resident Involvement: Resident Care Provided Care Provided: Adult Hospital Medicine
[2017-08-06 11:27] VITALS: BP 152/77; PULSE 85
[2017-08-06] MEDS ORDERED: NURSING VERBAL MED ORDER ONE (13:00)
[2017-08-06] MEDS ORDERED: LIDOCAINE HCL 1% MPF 5 ML VIAL IV ONE (14:00)
[2017-08-06 14:41] LABS: FLUID APPEARANCE TURBID; FLUID MONONUC 4.7 %; FLUID POLYNUC 95.3 %; FLUID RBC (A) 48000 /uL; FLUID WBC (A) 118890 /uL
--- NOTE | 2017-08-06 15:10 | Orthopedic Consultation ---
Orthopedic Consultation Date of Consultation: Aug 06, 2017. Attending Physician: Carl Baron D.O. Reason for Consultation: Right knee pain History of Present Illness Mrs. Leonard is a very pleasant 87-year-old female who came into the emergency room on early Monday morning after her knee began hurting on Monday afternoon and worsening throughout the evening. 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 She said the knee has been doing perfectly fine up until Monday. A Doppler ultrasound was ordered and a small popliteal DVT was noticed. She was therefore admitted to internal medicine and started on a heparin drip transitioning to Eliquis. Her most recent dose of Eliquis was at 9:00 this morning. Orthopedics was consult it at 12:30 after she already had her lunch. The patient states she went to the dentist on Monday this week and had her teeth cleaned. She did not take antibiotics before teeth cleaning. She has been on prednisone 20 mg twice a day for history of dermatitis which is causing her significant itching. However she has not had any redness or pain in the areas where she's been scratching. Patient was seen on the floor. She denies any fevers or chills. She says her knee hurts all over. She says it is painful to move her knee or bear any weight. Past Medical/Surgical History Medical Problems: (1) Cellulitis Status: Acute (2) Cellulitis of great toe of right foot Status: Acute (3) Knee pain Status: Acute (4) Osteoarthritis Status: Acute (5) Sepsis Status: Acute Family History Hypertension Social History Smoking Status: Never Smoker Smokeless Tobacco Use: No Alcohol Use: none Drug Use: none Marital Status: single Occupation Status: employed Allergies Coded Allergies: No Known Allergies (Verified , 08/05/17) Home Medications Scheduled Acetaminophen (Tylenol Arthritis Ext Rel), 1,300 MG PO AMPM Amlodipine (Norvasc), 2.5 MG PO DAILY Ascorbic Acid (Ascorbic Acid), 1,000 MG PO DAILY Brimonidine Tartrate (Alphagan P), 1 DROPS OPL TID Budesonide/Formoterol Fumarate (Symbicort 160/4.5 Inhaler ), 2 PUFFS INH BID Calcium Carbonate-Vitamin D W/ (Caltrate 600 Plus), 1 TAB PO DAILY Carboxymethylcellulose Sodium (Refresh Tears), 1 DROP OPL QID Citalopram Hydrobromide (Celexa), 30 MG PO DAILY Dorzolamide Hcl-Timolol Maleat (Cosopt Oph), 1 DROP OPL BID Fish Oil ([place]-3), 1 CAP PO DAILY Glucosamine-Chondroitin 500MG/400 Mg (Glucosamine-Chondroitin 500 Mg/400 Mg), 1 CAP PO DAILY Latanoprost (Xalatan 0.005% Oph Marifer), 1 DROPS OPL HS Multiple Vitamins W/ Minerals (Womens 50+ Multi Vitamin), 1 TAB PO DAILY Omeprazole (Prilosec), 40 MG PO DAILY Potassium Ext Rel (Klor-Con), 20 MEQ PO DAILY Prednisone (Prednisone), 20 MG PO DAILY Simvastatin (Zocor), 20 MG PO QPM Current Inpatient Medications Current Inpatient Medications Medications (Trade) Dose Ordered Sig/Peterson Route Start Time Stop Time Status Last Admin Dose Admin Acetaminophen (Tylenol Tab) 650 mg Q4H PRN PO 08/05/17 06:45 09/04/17 06:44 08/06/17 10:29 650 MG Amlodipine Besylate (Norvasc Tab) 2.5 mg DAILY PO 08/05/17 09:00 09/04/17 08:59 08/06/17 08:46 2.5 MG Brimonidine Tartrate (Alphagan-P 0.15% Oph Soln) 1 drops TID OPL 08/05/17 09:00 09/04/17 08:59 08/06/17 13:43 1 DROPS Budesonide/ Formoterol Fumarate (Symbicort 160/ 4.5 Inh) 2 puffs BID INH 08/05/17 09:00 09/04/17 08:59 08/06/17 08:44 2 PUFFS Calcium/Vitamin D (Caltrate Plus Tab) 1 tab DAILY PO 08/05/17 09:00 09/04/17 08:59 08/06/17 08:46 1 TAB Citalopram Hydrobromide (celeXA TAB) 30 mg DAILY PO 08/05/17 09:00 09/04/17 08:59 08/06/17 08:46 30 MG Dorzolamide/ Timolol (Cosopt Op Soln) 1 drops BID OPL 08/05/17 09:00 09/04/17 08:59 08/06/17 08:45 1 DROPS Fish Oil ([place]-3 (Purified Fish Oil) Cap) 1 gm DAILY PO 08/05/17 09:00 09/04/17 08:59 08/06/17 08:48 1 GM Latanoprost (Xalatan Oph Soln) 1 drops HS OPL 08/05/17 21:00 09/04/17 20:59 08/05/17 20:31 1 DROPS Multivitamins/ Minerals (Multivitamin W/ Minerals Tab) 1 tab DAILY PO 08/05/17 09:00 09/04/17 08:59 08/06/17 08:46 1 TAB Potassium Chloride (Klor-Con Tab) 20 meq DAILY PO 08/05/17 09:00 09/04/17 08:59 08/06/17 08:48 20 MEQ Prednisone (PredniSONE TAB) 20 mg DAILY PO 08/05/17 09:00 09/04/17 08:59 Future Hold 08/06/17 08:47 20 MG Simvastatin (Zocor Tab) 20 mg QPM PO 08/05/17 21:00 09/04/17 20:59 08/05/17 20:31 20 MG Ascorbic Acid (Vitamin C Tab) 1,000 mg DAILY PO 08/05/17 09:00 09/04/17 08:59 08/06/17 08:48 1,000 MG Artificial Tears (Artificial Tears) 1 drops QID OPL 08/05/17 09:00 09/04/17 08:59 08/06/17 12:43 1 DROPS Pantoprazole Sodium (Protonix Tab) 40 mg QAM PO 08/05/17 09:00 09/04/17 08:59 08/06/17 08:46 40 MG Apixaban (Eliquis Tab) 10 mg BID PO 08/05/17 21:00 08/12/17 20:59 Future Hold 08/06/17 08:48 10 MG Vancomycin HCl 1000 mg/Sodium Chloride 270 ml @ 125 mls/hr DAILY@0500 IV 08/06/17 05:00 08/18/17 07:10 08/06/17 06:00 125 MLS/HR Vancomycin HCl (Consult) 1 ea UD PRN N/A 08/05/17 23:45 09/04/17 23:44 Ibuprofen (Motrin Tab) 600 mg TID PRN PO 08/06/17 11:30 09/05/17 11:29 Review of Systems Constitutional: No fever, No chills, No sweats Cardiovascular: No chest pain Musculoskeletal: + joint pain, + swelling Physical Exam Date Time Temp Pulse Resp B/P (MAP) Pulse Ox O2 Delivery O2 Flow Rate FiO2 08/06/17 11:27 85 152/77 (102) 08/06/17 07:59 Room Air 08/06/17 07:16 37.0 86 18 163/79 (107) 92 Room Air 08/06/17 00:15 Room Air 08/05/17 22:50 36.9 78 18 153/81 (105) 94 Room Air 08/05/17 22:11 155/76 (102) 08/05/17 21:00 36.8 78 16 95 08/05/17 21:00 36.8 78 16 179/80 (113) 95 Room Air 08/05/17 21:00 95 Room Air 08/05/17 19:45 37.6 78 22 152/80 (104) 90 Room Air 08/05/17 16:35 83 169/89 (115) 08/05/17 16:00 Room Air 08/05/17 16:00 36.4 86 18 181/82 (115) 90 Room Air General Appearance: no apparent distress Extremities/Musculoskelatal: + swelling, + pertinent finding (examination of her right knee reveals the patient to have tenderness along the medial and lateral joint lines as well as into the suprapatellar pouch and the gutters. Range of motion is limited both actively and passively secondary to pain. Actively she can go from 20-30. Passively I can bring her from 10 to 40 but with significant pain. Her knee is warm compared with the remainder of her skin. It is swollen. There is really no swelling at her ankle or into her foot and toes. She has palpable posterior tibialis pulse. Toes are warm and well perfused. She sensory intact to light touch throughout. She has some well -healed midline incision from her prior total knee.) Laboratory Results Last 24 Hours Test 08/06/17 13:35 08/06/17 14:25 Body Fluid Source KNEE Body Fluid Color DEEPALI Body Fluid Appearance TURBID Body Fluid WBC 649512 /uL Body Fluid RBC 15692 /uL Body Fluid Polynuclear WBCs (%) 95.3 % Body Fluid Mononuclear WBCs (%) 4.7 % Erythrocyte Sedimentation Rate 38 mm/hr Assessment & Plan Impression right total knee acute hematogenous infection likely secondary to recent dental cleaning. Plan after informed consent was obtained knee was scrubbed chlorhexidine and draped out sterilely. The skin was numbed with 5 mL 1% lidocaine. An 18-gauge spinal needle was then placed into the suprapatellar pouch and 25 mL of cloudy fluid was aspirated. This fluid was sent for cell count as well as stat Gram stain and culture. There was evidence of purulence and is concerning for infection. She has blood cultures are growing staph aureus. The stat Gram stain came back with gram-positive cocci. I spoke with Dr. Marshall. Our plan is to do an I&D and poly-exchange of her knee tomorrow. Because she is taken Eliquis we need to wait to allow her coagulopathy to reverse, otherwise she is at real risk of getting a postoperative hematoma in her knee which would require a second I&D surgical procedure with associated risks. She will remain on broad-spectrum antibiotics. She'll be nothing by mouth after midnight tonight with fluids. Informed consent was obtained for tomorrow's procedure and the surgical site was marked. The plan was discussed with the primary team.
[2017-08-06 15:29] VITALS: BP 136/76; PULSE 75; TEMP 36.4; O2SAT 94
[2017-08-06 17:05] LABS: CREATININE 1.3 mg/dl (0.60-1.20)
--- NOTE | 2017-08-06 17:28 | Medical Consult ---
Consultation Date of Consultation: Aug 06, 2017. Attending Physician: Carl Baron D.O. Reason for Consultation: Gram-positive bacteremia History of Present Illness 87-year-old female in relatively good health was well until 2 days prior to admission, when she noted the onset of severe pain in her right leg associated with swelling and erythema. She developed low-grade fever and increasing swelling of her knee and was brought to the emergency department and admitted for further management. she is found to have evidence of deep vein thrombosis in right leg and started on anticoagulation. She has now been found to have positive blood cultures for Staph aureus, and has been seen by Orthopedic surgery with aspiration of right knee showing purulent fluid. Patient now scheduled for arthroscopy tomorrow. Patient states she has been feeling entirely well prior to this event, with no systemic complaints. She has been treated for chronic dermatitis and has been on prednisone. No other localized pain. Has been started on vancomycin and tolerating without apparent difficulty. Past Medical/Surgical History Medical Problems: (1) Cellulitis Status: Acute (2) Cellulitis of great toe of right foot Status: Acute (3) Knee pain Status: Acute (4) Osteoarthritis Status: Acute (5) Sepsis Status: Acute Medical Problems: (1) ASTHMA, UNSPECIFIED (2) Episode of syncope (3) HYPERLIPIDEMIA NEC/NOS (4) HYPERTENSION NOS (5) Left knee pain (6) Right leg DVT (7) syncope (8) syncope Family History Hypertension Social History Smoking Status: Never Smoker Smokeless Tobacco Use: No Alcohol Use: none Drug Use: none Marital Status: single Occupation Status: employed Allergies Coded Allergies: No Known Allergies (Verified , 08/05/17) Current Inpatient Medications Current Inpatient Medications Medications (Trade) Dose Ordered Sig/Peterson Route Start Time Stop Time Status Last Admin Dose Admin Acetaminophen (Tylenol Tab) 650 mg Q4H PRN PO 08/05/17 06:45 09/04/17 06:44 08/06/17 10:29 650 MG Amlodipine Besylate (Norvasc Tab) 2.5 mg DAILY PO 08/05/17 09:00 09/04/17 08:59 08/06/17 08:46 2.5 MG Brimonidine Tartrate (Alphagan-P 0.15% Oph Soln) 1 drops TID OPL 08/05/17 09:00 09/04/17 08:59 08/06/17 13:43 1 DROPS Budesonide/ Formoterol Fumarate (Symbicort 160/ 4.5 Inh) 2 puffs BID INH 08/05/17 09:00 09/04/17 08:59 08/06/17 08:44 2 PUFFS Calcium/Vitamin D (Caltrate Plus Tab) 1 tab DAILY PO 08/05/17 09:00 09/04/17 08:59 08/06/17 08:46 1 TAB Citalopram Hydrobromide (celeXA TAB) 30 mg DAILY PO 08/05/17 09:00 09/04/17 08:59 08/06/17 08:46 30 MG Dorzolamide/ Timolol (Cosopt Op Soln) 1 drops BID OPL 08/05/17 09:00 09/04/17 08:59 08/06/17 08:45 1 DROPS Fish Oil ([place]-3 (Purified Fish Oil) Cap) 1 gm DAILY PO 08/05/17 09:00 09/04/17 08:59 08/06/17 08:48 1 GM Latanoprost (Xalatan Oph Soln) 1 drops HS OPL 08/05/17 21:00 09/04/17 20:59 08/05/17 20:31 1 DROPS Multivitamins/ Minerals (Multivitamin W/ Minerals Tab) 1 tab DAILY PO 08/05/17 09:00 09/04/17 08:59 08/06/17 08:46 1 TAB Potassium Chloride (Klor-Con Tab) 20 meq DAILY PO 08/05/17 09:00 09/04/17 08:59 08/06/17 08:48 20 MEQ Prednisone (PredniSONE TAB) 20 mg DAILY PO 08/05/17 09:00 09/04/17 08:59 Future Hold 08/06/17 08:47 20 MG Simvastatin (Zocor Tab) 20 mg QPM PO 08/05/17 21:00 09/04/17 20:59 08/05/17 20:31 20 MG Ascorbic Acid (Vitamin C Tab) 1,000 mg DAILY PO 08/05/17 09:00 09/04/17 08:59 08/06/17 08:48 1,000 MG Artificial Tears (Artificial Tears) 1 drops QID OPL 08/05/17 09:00 09/04/17 08:59 08/06/17 12:43 1 DROPS Pantoprazole Sodium (Protonix Tab) 40 mg QAM PO 08/05/17 09:00 09/04/17 08:59 08/06/17 08:46 40 MG Apixaban (Eliquis Tab) 10 mg BID PO 08/05/17 21:00 08/12/17 20:59 Future Hold 08/06/17 08:48 10 MG Vancomycin HCl 1000 mg/Sodium Chloride 270 ml @ 125 mls/hr DAILY@0500 IV 08/06/17 05:00 08/18/17 07:10 08/06/17 06:00 125 MLS/HR Vancomycin HCl (Consult) 1 ea UD PRN N/A 08/05/17 23:45 09/04/17 23:44 Ibuprofen (Motrin Tab) 600 mg TID PRN PO 08/06/17 11:30 09/05/17 11:29 Lactated Ringer's 1,000 ml @ 125 mls/hr Q8H IV 08/07/17 00:00 09/06/17 00:00 Review of Systems All systems were reviewed and are negative except as per HPI Physical Exam Date Time Temp Pulse Resp B/P (MAP) Pulse Ox O2 Delivery O2 Flow Rate FiO2 08/06/17 15:45 Room Air 08/06/17 15:29 36.4 75 16 136/76 (96) 94 Room Air 08/06/17 11:27 85 152/77 (102) 08/06/17 07:59 Room Air 08/06/17 07:16 37.0 86 18 163/79 (107) 92 Room Air 08/06/17 00:15 Room Air 08/05/17 22:50 36.9 78 18 153/81 (105) 94 Room Air 08/05/17 22:11 155/76 (102) 08/05/17 21:00 36.8 78 16 95 08/05/17 21:00 36.8 78 16 179/80 (113) 95 Room Air 08/05/17 21:00 95 Room Air 08/05/17 19:45 37.6 78 22 152/80 (104) 90 Room Air General Appearance: WD/WN, no apparent distress Head: normocephalic, atraumatic Eyes: normal inspection, EOMI, sclerae normal ENT: normal ENT inspection, pharynx normal Neck: supple, no adenopathy, thyroid normal, trachea midline Respiratory/Chest: chest non-tender, lungs clear, normal breath sounds, no respiratory distress Cardiovascular: regular rate, rhythm, no gallop, no murmur Abdomen/GI: normal bowel sounds, non tender, soft, no organomegaly Back: normal inspection, no CVA tenderness Extremities/Musculoskelatal: + inflammation ( right leg below knee), + swelling ( right leg) Neurologic/Psych: alert, oriented x 3 Skin: normal color, no rash Lymphatic: no adenopathy Laboratory Results the Date/Time Source Procedure Growth Status 08/06/17 13:35 Joint Fluid/Space (Synovial) Knee Right Gram Stain - Final Resulted 08/06/17 13:35 Joint Fluid/Space (Synovial) Knee Right Bacterial Culture Pending Resulted 08/06/17 13:45 Nasal MRSA DNA Surveillance Screen - Final Specimen Negative for MRSA by DNA Probe Complete Last 24 Hours Test 08/06/17 13:35 08/06/17 14:25 08/06/17 16:22 Body Fluid Source KNEE Body Fluid Color DEEPALI Body Fluid Appearance TURBID Body Fluid WBC 995915 /uL Body Fluid RBC 35922 /uL Body Fluid Polynuclear WBCs (%) 95.3 % Body Fluid Mononuclear WBCs (%) 4.7 % Erythrocyte Sedimentation Rate 38 mm/hr Creatinine 1.30 mg/dl Est Creatinine Clear Calc Drug Dose 27.4 ml/min Estimated GFR () 42.7 Estimated GFR (Non- 36.9 Patient Name: VITALIY YOO Unit Number: [id number] Dictated: 08/05/17729 Transcribed: 08/05/17729 JRB Printed Date/Time: [~ rep prt dt]/[~ rep prt tm] [~ rep ct labl] - [~ rep ct ivnm] [facility] [place] [address] Dictated: 08/05/17729 Transcribed: 08/05/17729 JRB Printed Date/Time: [~ rep prt dt]/[~ rep prt tm] [~ rep ct labl] - [~ rep ct ivnm] BILATERAL LOWER EXTREMITY VENOUS DOPPLER HISTORY: Acute right lower extremity pain and swelling RLE swelling and pain COMPARISON STUDY: Right knee radiographs of same day. FINDINGS: One of the peroneal veins is not compressible with occlusive deep venous thrombosis. Otherwise, there is normal compressibility, flow, and augmentation within the remaining right lower extremity deep venous structures. Incidentally noted is a fluid collection within the anterior suprapatellar distribution. IMPRESSION: 1. Occlusive deep venous thrombosis of the right peroneal vein. No DVT seen above the level of the knee. 2. Incidental note is made of a small fluid collection within the anterior suprapatellar region suggesting joint effusion as seen on comparison radiographs. Electronically signed by: Neftaly Doe M.D. 08/05/2017 7:33 AM Dictated Date/Time: 08/05/2017 7:30 AM The status of this report is Signed. Draft = Not yet reviewed or approved by Radiologist. Signed = Reviewed and approved by Radiologist. <AttendingPhy></AttendingPhy> <FamilyPhy>Lucio Church M.D.</FamilyPhy> < PrimaryPhy>Lucio Church M.D.</PrimaryPhy> <UnitNumber>[id number]</UnitNumber> <VisitNumber>[id number]</VisitNumber> <PatientName>VITALIY YOO</ PatientName> <DateOfBirth>1930</DateOfBirth> <Location>[facility]</Location> < ServiceDate>08/05/17</ServiceDate> <MNE>ESINDI</MNE> <OrderingPhy>Kye Martinez M.D.</OrderingPhy> <OrderingPhyMNE>f rep ord dr obrien</OrderingPhyMNE> < DictatingPhyMNE>f rep dict dr obrien</DictatingPhyMNE> <CCListMNE>f rep ct micah</ CCListMNE> <AdmittingPhyMNE>f pt admit dr obrien</AdmittingPhyMNE> <AttendingPhyMNE >f pt attend dr obrien</AttendingPhyMNE> <ConsultingPhyMNE>f pt consult dr obrien</ConsultingPhyMNE> <FamilyPhyMNE>f pt fam dr obrien</FamilyPhyMNE> <OtherPhyMNE>f pt other dr obrien</OtherPhyMNE> < PrimaryPhyMNE>f pt prim care dr obrien</PrimaryPhyMNE> <ReferringPhyMNE>f pt referring dr obrien</ReferringPhyMNE> Assessment & Plan 87-year-old female with remote history of right knee replacement, now presents with acute deep vein thrombosis of right leg but with likely septic arthritis with bacteremia with Staph aureus, potentially from skin source. Vancomycin appropriate therapy pending sensitivity results. 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 Will discuss with all involved. Will follow.
--- NOTE | 2017-08-06 17:32 | Pharmacy Progress Note ---
Pharmacy Abx Initial Consult Date of Service Aug 06, 2017. Pharmacy Dosing Scope Date of Consult: 08/05/07 Consultation requested by: Dr. Funez Pharmacy is consulted to initiate Vancomycin IV dosing therapy, order appropriate labs and adjust drug dose/frequency. Subjective The patient is a 87 year old female admitted on Aug 05, 2017 at 06:31. Objective Height (Feet): 5 Height (Inches): 1.00 Weight (Kilograms): 70.700 Vital Signs (Past 12Hrs) Vital Signs Past 12 Hours Date Time Temp Pulse Resp B/P (MAP) Pulse Ox O2 Delivery O2 Flow Rate FiO2 08/06/17 15:45 Room Air 08/06/17 15:29 36.4 75 16 136/76 (96) 94 Room Air 08/06/17 11:27 85 152/77 (102) 08/06/17 07:59 Room Air 08/06/17 07:16 37.0 86 18 163/79 (107) 92 Room Air Lab Results (24Hrs) Item Value Date Time White Blood Count 19.33 K/uL H 08/05/17353 Red Blood Count 3.89 M/uL L 08/05/17353 Hemoglobin 13.3 g/dL 08/05/17353 Hematocrit 38.6 % 08/05/17353 Mean Corpuscular Volume 99.2 fL 08/05/17353 Mean Corpuscular Hemoglobin 34.2 pg H 08/05/17353 Mean Corpuscular Hemoglobin Concent 34.5 g/dl 08/05/17353 RDW Standard Deviation 49.6 fL H 08/05/17353 RDW Coefficient of Variation 13.9 % 08/05/17353 Platelet Count 154 K/uL 08/05/17353 Mean Platelet Volume 10.0 fL 08/05/17353 Immature Granulocyte % (Auto) 0.3 % 08/05/17353 Neutrophils (%) (Auto) 87.0 % 08/05/17353 Lymphocytes (%) (Auto) 5.9 % 08/05/17353 Monocytes (%) (Auto) 6.8 % 08/05/17353 Eosinophils (%) (Auto) 0.0 % 08/05/17353 Basophils (%) (Auto) 0.0 % 10/7/17 0354 Immature Granulocyte # (Auto) 0.06 K/uL H 08/05/17 0354 Neutrophils # (Auto) 16.80 K/uL H 08/05/17 0354 Lymphocytes # (Auto) 1.15 K/uL L 08/05/17 0354 Monocytes # (Auto) 1.32 K/uL H 08/05/17 0354 Item Value Date Time Creatinine 1.30 mg/dl H 08/06/17 1622 Est Creatinine Clear Calc Drug Dose 27.4 ml/min 08/06/17 1622 Estimated GFR () 42.7 08/06/17 1622 Estimated GFR (Non- 36.9 08/06/17 1622 Laboratory Tests (24 Hours) Test 08/06/17 14:25 Erythrocyte Sedimentation Rate 38 mm/hr (0-21) H Micro Results Date/Time Source Procedure Growth Status 08/05/17 05:07 Blood Blood Culture - Preliminary Staphylococcus Aureus Resulted 08/05/17 05:04 Blood Blood Culture - Preliminary Gram Positive Cocci Resulted 08/06/17 13:35 Joint Fluid/Space (Synovial) Knee Right Gram Stain - Final Resulted 08/06/17 13:35 Joint Fluid/Space (Synovial) Knee Right Bacterial Culture Pending Resulted 08/06/17 13:45 Nasal MRSA DNA Surveillance Screen - Final Specimen Negative for MRSA by DNA Probe Complete Assessment & Plan Assessment 87 year old female admitted with right painful swollen knee. Impression right total knee acute hematogenous infection likely secondary to recent dental cleaning. Vancomycin for treatment of positive blood cultures x 2 and joint aspiration of right knee with moderate gram + cocci. Vancomycin IV * Loading dose: 1800 mg (25.3 mg/kg) started 08/05 @0514 * Maintenance dose: 1000 mg IV (14.1 mg/kg) every 24 hours started 08/06 @0500 * Goal trough level for bacteremia/joint : 15 to 20 mcg/mL * Random level ordered for 08/06/17 @1622 reported as 14.5 mcg/ml. Plan Vancomycin IV * Vancomycin 1250mg IV x 1 ordered for 08/06 @1800 * Random level ordered for 08/07/17 with am labs Will assess level and continued vancomycin dosing with am labs. Patient with changing renal function and positive cultures scheduled for OR tomorrow. Pharmacy will continue to follow and will adjust dose/frequency as necessary. Thank you.
[2017-08-06] MEDS ORDERED: VANCOMYCIN INJ 1,250 MG in SODIUM CHLORIDE 0.9% 250ML 250 ML IV STA (17:35)
[2017-08-06] MEDS: LATANOPROST 0.005% OP SOLN 2.5 ML BTL OPL SCH (20:53)
[2017-08-06] MEDS: SIMVASTATIN 20 MG TAB PO SCH (20:54)
--- NOTE | 2017-08-06 21:06 | PROGRESS NOTE ---
DATE: 08/06/2017 At this point in time, the patient is resting comfortably in bed. She denies chest pain, shortness of breath, fever, chills, nausea or vomiting. She is afebrile. Exam of the knee reveals it to be warm and has pain with range of motion. As the history as noted, she was fine until 2 days ago. Knee has been in for over 8 years now. Whether or not it is related to dental cleaning or related to dermatitis and scratching of the skin is a moot point. She will require semi-urgent I&D and poly exchange. At this point in time since she is on Eliquis and took her dose today, will have to wait 24 hours to let that canseco off a bit. Appreciate ID input. Due to scheduling issues, Dr. Shin will likely be the operating surgeon. The patient is aware of that and she is consenting to that and has no issues with that. We will follow daily. LUCRECIA
[2017-08-06 23:35] VITALS: BP 165/75; PULSE 72; TEMP 37; O2SAT 92
[2017-08-07] VITALS (8 sets, daily range): BP systolic 130–199; BP diastolic 63–97; PULSE 74–118; TEMP 36.3–36.9; O2SAT 92–97
[2017-08-07] MEDS: LACTATED RINGER'S 1000ML 1,000 ML IV SCH ×4 (00:03→23:46)
[2017-08-07] MEDS ORDERED: HydrALAZINE HCL 20 MG/ML VIAL IV. STA (04:04)
[2017-08-07] MEDS ORDERED: HydrALAZINE HCL 20 MG/ML VIAL ONE (04:15)
[2017-08-07 06:08] LABS: BASO % 0.1 %; BASO ABS # 0.01 K/uL (0-0.2); COMPLETE YES; HEMATOCRIT 38.4 % (37-47); IG% 0.5 %; LYMPH % 2.8 %; LYMPH ABS # 0.47 K/uL (1.2-3.4); MEAN CELL VOLUME 99.7 fL (80-100); MEAN CORPUSCULAR HEMOGLOBIN 33.5 pg (25-34); MEAN CORPUSCULAR HGB CONC 33.6 g/dl (32-36); MEAN PLATELET VOLUME 10.3 fL (7.4-10.4); MONO % 9.3 %; NEUT % 87.3 %; PLATELET COUNT 154 K/uL (130-400); RED BLOOD COUNT 3.85 M/uL (4.2-5.4); WHITE BLOOD COUNT 16.69 K/uL (4.8-10.8)
[2017-08-07 06:15] LABS: PARTIAL THROMBOPLASTIN RATIO 1.1; PROTHROMBIN TIME (PATIENT) 10.2 SECONDS (9.0-12.0)
[2017-08-07 06:49] LABS: BUN/CREATININE RATIO 18.9 (10-20); CALCIUM 9.1 mg/dl (8.5-10.1); CREATININE 1.2 mg/dl (0.60-1.20); POTASSIUM 3.5 mmol/L (3.5-5.1)
[2017-08-07] MEDS ORDERED: VANCOMYCIN INJ 1,000 MG in SODIUM CHLORIDE 0.9% 250ML 250 ML IV STA (08:09)
--- NOTE | 2017-08-07 08:27 | Pharmacy Progress Note ---
Pharmacy Abx Dose Short Note Date of Service Aug 07, 2017. Assessment & Plan Assessment * 87 year old female receiving vancomycin IV for treatment of staph aureus bacteremia + septic arthritis of R knee in setting of TKA * Today is Day # 3 IV vancomycin therapy * Patient is likely to go to the OR today ~24 hrs after last dose of Eliquis Plan Vancomycin * Thus far patient has received: * 1800mg x 1 08/05 @ 0514 * 1000mg x 1 08/06 @ 0600 * 1250mg x 1 08/06 @ 1807 * Random vancomycin level drawn this AM = 18.7, therapeutic * Will repeat a 1gm IV dose x 1 this AM per prior pharmacist report that dose needed VIK * Will repeat random level w/ AM labs tomorrow * Goal trough level for bacteremia / bone/joint infxn : 15 to 20 mcg/mL Pharmacy will continue to follow and will adjust dose/frequency as necessary. Thank you.
[2017-08-07] MEDS: BUDESONIDE/FORMOTEROL FUMARATE 160/4.5 60 PUFFS/INHALER INH SCH ×2 (08:48→20:39)
[2017-08-07] MEDS: BRIMONIDINE TARTRATE-P 0.15% 5 ML BTL OPL SCH ×3 (08:49→20:39)
[2017-08-07] MEDS: ARTIFICIAL TEARS OP SOLN OPL SCH ×8 (08:49→20:35)
[2017-08-07] MEDS: CALCIUM 600MG + VIT D 400 IU TAB PO SCH (08:50)
[2017-08-07] MEDS: DORZOLAMIDE/TIMOLOL 22.3/6.8MG/ML 10 ML BTL OPL SCH ×2 (08:50→20:35)
[2017-08-07] MEDS: CITALOPRAM 20 MG TAB PO SCH (08:51)
[2017-08-07] MEDS: POTASSIUM CHLORIDE 20 MEQ TABCR PO SCH (08:52)
[2017-08-07] MEDS: CEROVITE ADV FORMULA TAB PO SCH (08:53)
[2017-08-07] MEDS: PANTOprazole SOD 40 MG TAB PO SCH (08:54)
[2017-08-07] MEDS: AMLODIPINE BESYLATE 5 MG TAB PO SCH (08:54)
[2017-08-07] MEDS: OMEGA-3 (PURIFIED FISH OIL) 1 GM CAP PO SCH (08:55)
[2017-08-07] MEDS: ASCORBIC ACID 500 MG TAB PO SCH (08:56)
[2017-08-07] MEDS ORDERED: EpHEDrine SULFATE 50MG/5ML SYR ONE (09:09)
[2017-08-07] MEDS ORDERED: PROPOFOL IV EMULSION 10 MG/ML 20 ML VIAL IV ONE (09:09)
[2017-08-07] MEDS ORDERED: LIDOCAINE HCL 2% 2 ML VIAL (20MG/ML) ONE (09:09)
[2017-08-07] MEDS ORDERED: FENTANYL CITRATE INJ 50 MCG/1 ML 2 ML VIAL ONE ×2 (09:10→12:38)
[2017-08-07] MEDS ORDERED: MIDAZOLAM HCL 1 MG/ML 2ML VIAL ONE (09:10)
[2017-08-07] MEDS ORDERED: BACITRACIN 50000 UNIT VIAL ONE ×2 (09:34→12:26)
[2017-08-07] MEDS ORDERED: ORTHO JOINT ANESTHETIC ONE (09:34)
[2017-08-07] MEDS ORDERED: POVIDONE-IODINE OP SOLN 30 ML BTL ONE (09:34)
[2017-08-07] MEDS ORDERED: BUPIVACAINE 0.25% 30 ML VIAL ONE (09:52)
[2017-08-07] MEDS ORDERED: BUPIVACAINE 0.5 % 5 MG/1 ML PF 10ML VIAL ONE (09:52)
[2017-08-07] MEDS ORDERED: METOPROLOL TARTRATE 1 MG/ML VIAL IV ONE ×2 (11:00)
[2017-08-07] MEDS ORDERED: ONDANSETRON INJ 2 MG/ML 2 ML VIAL IV PRN (12:00)
[2017-08-07] MEDS ORDERED: HYDROmorphone INJ 1 MG/ML SYR IV PRN (12:00)
[2017-08-07] MEDS: CEFAZOLIN IV 2,000 MG in DEXTROSE 5% 50ML 50 ML IV SCH ×2 (12:00→20:33)
[2017-08-07] MEDS ORDERED: ATROPINE SULFATE 0.1 MG/ML 5ML SYR IV PRN (12:00)
[2017-08-07] MEDS ORDERED: EpHEDrine SULFATE INJ 50 MG/ML AMP IV PRN (12:00)
[2017-08-07] MEDS ORDERED: FENTANYL CITRATE INJ 50 MCG/1 ML 2 ML VIAL IV PRN (12:00)
--- NOTE | 2017-08-07 12:13 | History & Physical Bridge Note ---
H&P Re-Evaluation Bridge Note: I have examined the patient, reviewed the History & Physical and in the interval since the performance of the History & Physical I have noted the following changes of clinical significance: No changes noted
--- NOTE | 2017-08-07 12:33 | Progress Note ---
Subjective Date of Service: Aug 07, 2017. Subjective Pt evaluation today including: conversation w/ patient, conversation w/ family , physical exam Right knee swelling and pain and right lower extremity swelling and pain is much better No fever and chill This morning nurse reported patient possible has A. fib EKG was done Patient denied chest pain Problem List Medical Problems: (1) Cellulitis Status: Acute (2) Cellulitis of great toe of right foot Status: Acute (3) Knee pain Status: Acute (4) Osteoarthritis Status: Acute (5) Sepsis Status: Acute Review of Systems Constitutional: No fever, No chills, No sweats, No weight loss, No weakness, No fatigue, No problem reported Eyes: No worsening of vision, No eye pain, No redness, No discharge, No diplopia ENT: No hearing loss, No unusual epistaxis, No nasal symptoms, No sore throat, No tinnitus, No dental problems, No trouble swallowing Respiratory: No cough, No sputum, No wheezing, No shortness of breath, No dyspnea on exertion, No dyspnea at rest, No hemoptysis Cardiac: No chest pain, No orthopnea, No PND, No edema, No claudication, No palpitations Abdomen: No pain, No nausea, No vomiting, No diarrhea, No constipation Musculoskeletal: + see HPI, + joint pain, + swelling, + calf pain, No muscle pain Female : No dysuria, No urinary frequency, No hematuria, No incontinence, No abnormal vaginal bleeding, No vaginal discharge Neurologic: No memory loss, No paralysis, No weakness, No numbness/tingling, No vertigo, No balance problems Psychiatric: No depression symptoms, No anhedonism, No anxiety, No insomnia, No substance abuse Heme: No abnormal bleeding/bruising, No clotting problems, No swollen lymph nodes, No night sweats Endo: No fatigue, No excessive thirst, No excessive urination Skin: No rash, No itch, No new/changing skin lesions, No color change, No bleeding Objective Vital Signs Date Time Temp Pulse Resp B/P (MAP) Pulse Ox O2 Delivery O2 Flow Rate FiO2 08/07/17 10:39 36.9 118 18 92 08/07/17 07:15 Room Air 08/07/17 07:14 36.9 89 18 152/91 (111) 92 Room Air 08/07/17 03:54 87 182/82 (115) 08/07/17 03:30 98 199/63 (108) 08/06/17 23:35 37.0 72 16 165/75 (105) 92 Room Air 08/06/17 23:30 Room Air 08/06/17 15:45 Room Air 08/06/17 15:29 36.4 75 16 136/76 (96) 94 Room Air Physical Exam General Appearance: WD/WN, no apparent distress Eyes: normal inspection, PERRL, EOMI, sclerae normal ENT: normal ENT inspection, hearing grossly normal, pharynx normal Neck: supple, no adenopathy, thyroid normal, no JVD, no carotid bruits, trachea midline Respiratory/Chest: chest non-tender, normal breath sounds, no respiratory distress, no accessory muscle use, + decreased breath sounds Cardiovascular: no edema, no gallop, no JVD, no murmur, + irregularly irregular Abdomen: normal bowel sounds, non tender, soft, no organomegaly, no pulsatile mass Extremities: normal range of motion, normal inspection, normal capillary refill , pelvis stable, + calf tenderness (in right lower extremity), + swelling ( right lower treatment) 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, no motor/sensory deficits, alert, normal mood/affect, oriented x 3 Skin: normal color, warm/dry, no rash Lymphatic: no adenopathy Laboratory Results Last 24 Hours Test 08/06/17 13:35 08/06/17 14:25 08/06/17 16:22 08/07/17 05:38 Body Fluid Source KNEE Body Fluid Color DEEPALI Body Fluid Appearance TURBID Body Fluid WBC 097559 /uL Body Fluid RBC 51109 /uL Body Fluid Polynuclear WBCs (%) 95.3 % Body Fluid Mononuclear WBCs (%) 4.7 % Erythrocyte Sedimentation Rate 38 mm/hr Creatinine 1.30 mg/dl 1.20 mg/dl Est Creatinine Clear Calc Drug Dose 27.4 ml/min 29.7 ml/min Estimated GFR () 42.7 47.1 Estimated GFR (Non- 36.9 40.6 Random Vancomycin Level 14.5 mcg/ml 18.7 mcg/ml White Blood Count 16.69 K/uL Red Blood Count 3.85 M/uL Hemoglobin 12.9 g/dL Hematocrit 38.4 % Mean Corpuscular Volume 99.7 fL Mean Corpuscular Hemoglobin 33.5 pg Mean Corpuscular Hemoglobin Concent 33.6 g/dl Platelet Count 154 K/uL Mean Platelet Volume 10.3 fL Neutrophils (%) (Auto) 87.3 % Lymphocytes (%) (Auto) 2.8 % Monocytes (%) (Auto) 9.3 % Eosinophils (%) (Auto) 0.0 % Basophils (%) (Auto) 0.1 % Neutrophils # (Auto) 14.56 K/uL Lymphocytes # (Auto) 0.47 K/uL Monocytes # (Auto) 1.56 K/uL Eosinophils # (Auto) 0.00 K/uL Basophils # (Auto) 0.01 K/uL RDW Standard Deviation 51.3 fL RDW Coefficient of Variation 14.1 % Immature Granulocyte % (Auto) 0.5 % Immature Granulocyte # (Auto) 0.09 K/uL Prothrombin Time 10.2 SECONDS Prothromb Time International Ratio 1.0 Activated Partial Thromboplast Time 28.4 SECONDS Partial Thromboplastin Ratio 1.1 Sodium Level 139 mmol/L Potassium Level 3.5 mmol/L Chloride Level 104 mmol/L Carbon Dioxide Level 24 mmol/L Anion Gap 11.0 mmol/L Blood Urea Nitrogen 23 mg/dl BUN/Creatinine Ratio 18.9 Random Glucose 136 mg/dl Calcium Level 9.1 mg/dl Assessment and Plan 87 year old female admitted on August 05 because of sudden right knee pain beginning at 1600 today. Per report She rates her pain at a 10/10. The patient denies falling, and states that she has taken 6 Tylenol today. The patient reports that she has an itching problem. She states that she has a history of knee and hip surgeries, and a history of cellulitis on her great toe. She was phoned has possible right knee sepsis, and right lower extremity acute DVT staph bacteremia - likely from skin source. Likely from right knee sepsis , all from recent dental work, continue vanco , and appreciate infectious disease input septic knee - likely seeding from from previous procedure years ago ortho to surgically is going to do I&D, Eliquis has been hold , distal acute right lower extremity DVT Hold oral anticoagulation Will need to start heparin drip as soon as possible if surgeon agree or if patient tolerate New diagnosis of A. fib with rapid ventricular response heart rate at 110, transferred to telemetry for now and continue school bus monitor after procedure Discussed with patient and family, discussed proper and cons of the procedure, family weaning to take on the risks Discussed with anesthesiologist, he will be taking care outpatient during the procedure, we agreed to put the patient in school bus monitor after the procedure , Will order echocardiogram, TSH, GI prophylaxis is ordered DVT prophylaxis we will talk to surgeon PT OT and discharge plan Continued [facility] stay due to: multiple IV medications needed Discharge planning: rehab hospital
[2017-08-07] MEDS ORDERED: METOPROLOL TARTRATE 1 MG/ML VIAL ONE (12:38)
[2017-08-07] MEDS ORDERED: ONDANSETRON INJ 2 MG/ML 2 ML VIAL ONE (12:39)
[2017-08-07] MEDS ORDERED: ROPIVACAINE 5MG/ML 30 ML 150 MG, BUPIVACAINE/EPINEPHR 0.5% MPF 30 ML, KETOROLAC TROMETH... INFIL SCH ×7 (13:00)
--- NOTE | 2017-08-07 14:03 | [facility] Post Operative Brief Note ---
Immediate Operative Summary Operative Date Aug 07, 2017. Pre-Operative Diagnosis Infected Right Total Knee Post-Operative Diagnosis Infected Right Total Knee Procedure(s) Performed Incision and Drainage, Poly Exchange Right Knee Surgeon Dr. Shin Surface Supervisor Surgeon(s) Byron Connolly PA-C Estimated Blood Loss 100 cc Findings No chronic synovitis. Synovectomy performed. New poly liner place, same size as one implanted (3 rotating platform, 10 thickness). Fluids (cc crystalloids) 1300 Specimens Cultures: #1 Right Knee Synovial Fluid gram stain aerobic and anaerobic #2 Suprapatellar Synovium gram stain, culture and sensitivity, aerobic and anaerobic #3 Medial Gutter Synovium gram stain, culture and sensitivity, aerobic and anaerobic Specimen: A: explanted hardware Drains None Anesthesia General with local Complication(s) None Disposition Recovery Room / PACU
--- NOTE | 2017-08-07 14:10 | [facility] Operative Report ---
Operative Report Operative Date Aug 07, 2017. Pre-Operative Diagnosis Infected Right Total Knee Post-Operative Diagnosis Infected Right Total Knee Procedure(s) Performed Incision and Drainage, Poly Exchange Right Knee Surgeon Dr. Shin Counter Server Surgeon(s) Byron Connolly PA-C Estimated Blood Loss 100 cc Findings n/a Fluids 1300 Specimens Cultures: #1 Right Knee Synovial Fluid gram stain aerobic and anaerobic #2 Suprapatellar Synovium gram stain, culture and sensitivity, aerobic and anaerobic #3 Medial Gutter Synovium gram stain, culture and sensitivity, aerobic and anaerobic Specimen: A: explanted hardware Drains None Anesthesia General with local Complication(s) None Disposition Recovery Room / PACU I attest to the content of the Intraoperative Record and any orders documented therein. Any exceptions are noted below.
--- NOTE | 2017-08-07 14:13 | Medical Consult ---
Consultation Note Date of Service Aug 07, 2017. Consultation Note Asked by medical service to provide opinion on this 87 year old woman who is s/p right total knee replacement in 2007; now presenting with pain and swelling in the right lower extremity. Ultrasound of the right leg showed an occlusive deep venous thrombosis of the peroneal vein. No DVT was present above the level of the knee. She was started on IV heparin but was subsequently switched to Apixaban 10 mg BID. She received two doses. Joint fluid was subsequently aspirated and showed a purulent material with culture positive for Staph aureus. Blood cultures are similarly positive for Staph aureus. She is now in atrial fibrillation. She requires immediate incision and drainage of her knee and I am asked to provided opinion on the length of time needed for the effects of apixaban to be eliminated. Case discussed with Drs. Wilkerson and Kip. The patient received two (2) 10 mg doses of Apixaban. Given her renal function, the estimated half life of the drug is about 17 hours, thus the anticoagulation effects of a 10 mg dose will likely still be present at 24 hours. Fortunately, since she received only two doses, she has not had a chance to accumulate drug. While additional elimination time would be optimal, the clinical situation warrants the procedure be done as soon as possible. General anesthesia will be utilized, to avoid any issues with neuraxial procedures. The surgeon will have the OR contact me on my cell should an abnormal bleeding situation arise. As far as resumption of anticoagulation post procedure, I would resume anticoagulation with intravenous heparin, low dose nomogram, without a bolus, as soon as the surgeon is confident that hemostasis has been achieved. Additional anticoagulation recommendations will be based on the patient's clinical course.
--- NOTE | 2017-08-07 14:34 | Anesthesiology Progress Note ---
Anesthesia Post Op Note Date & Time Aug 07, 2017 at 14:33 Vital Signs Pain Intensity: 0 Vital Signs Past 12 Hours Date Time Temp Pulse Resp B/P (MAP) Pulse Ox O2 Delivery O2 Flow Rate FiO2 08/07/17 14:22 112 23 08/07/17 14:22 127 23 95 08/07/17 14:21 157/97 08/07/17 14:17 115 21 97 08/07/17 14:17 122 21 08/07/17 14:16 168/84 08/07/17 14:12 119 20 96 08/07/17 14:12 117 20 08/07/17 14:11 159/78 08/07/17 14:10 159/102 08/07/17 14:08 169/107 08/07/17 14:07 118 93 08/07/17 14:07 36.4 116 18 159/102 (106) 95 Mask 10 08/07/17 14:07 118 08/07/17 10:39 36.9 118 18 92 08/07/17 07:15 Room Air 08/07/17 07:14 36.9 89 18 152/91 (111) 92 Room Air 08/07/17 03:54 87 182/82 (115) 08/07/17 03:30 98 199/63 (108) Notes Mental Status: alert / awake / arousable, participated in evaluation Pt Amnestic to Procedure: Yes Nausea / Vomiting: adequately controlled Pain: adequately controlled Airway Patency, RR, SpO2: stable & adequate BP & HR: stable & adequate, see Notes Hydration State: stable & adequate Anesthetic Complications: no major complications apparent Patient found to be in A fib with RVR this AM. Primary team aware but proceeded with surgery given that her knee was infected. Worked in lopressor during the case to control her HR and added labetalol for both HR and BP control postoperatively. Patient is awake and conversant. Plan is for patient to go to telemetry once she meets discharge criteria and has medication PRN for HR control. Primary team to continue to manage her A fib.
[2017-08-07] MEDS ORDERED: LABETALOL HCL IV 5 MG/ML 20ML IV ONE (14:35)
[2017-08-07] MEDS ORDERED: LABETALOL HCL IV 5 MG/ML 20ML IV PRN (14:45)
--- NOTE | 2017-08-07 14:52 | Infectious Disease Progress Nt ---
Progress Note Date of Service Aug 07, 2017. Subjective Pt evaluation today including: conversation w/ patient, conversation w/ family , physical exam, chart review, conversation w/ credit consultant, review of inpatient medication list Status post right knee debridement and poly exchange. Expected postop discomfort. Currently afebrile, hemodynamically stable. Operative cultures and Gram stain pending. Blood culture with methicillin sensitive Staph aureus. Antibiotics changed to cefazolin. All Other Systems: Reviewed and Negative Medications Current Inpatient Medications Medications (Trade) Dose Ordered Sig/Peterson Route Start Time Stop Time Status Last Admin Dose Admin Acetaminophen (Tylenol Tab) 650 mg Q4H PRN PO 08/05/17 06:45 09/04/17 06:44 08/06/17 10:29 650 MG Amlodipine Besylate (Norvasc Tab) 2.5 mg DAILY PO 08/05/17 09:00 09/04/17 08:59 08/07/17 08:54 2.5 MG Brimonidine Tartrate (Alphagan-P 0.15% Oph Soln) 1 drops TID OPL 08/05/17 09:00 09/04/17 08:59 08/07/17 08:49 1 DROPS Budesonide/ Formoterol Fumarate (Symbicort 160/ 4.5 Inh) 2 puffs BID INH 08/05/17 09:00 09/04/17 08:59 08/07/17 08:48 2 PUFFS Calcium/Vitamin D (Caltrate Plus Tab) 1 tab DAILY PO 08/05/17 09:00 09/04/17 08:59 08/07/17 08:50 1 TAB Citalopram Hydrobromide (celeXA TAB) 30 mg DAILY PO 08/05/17 09:00 09/04/17 08:59 08/07/17 08:51 30 MG Dorzolamide/ Timolol (Cosopt Op Soln) 1 drops BID OPL 08/05/17 09:00 09/04/17 08:59 08/07/17 08:50 1 DROPS Fish Oil ([place]-3 (Purified Fish Oil) Cap) 1 gm DAILY PO 08/05/17 09:00 09/04/17 08:59 08/07/17 08:55 1 GM Latanoprost (Xalatan Oph Soln) 1 drops HS OPL 08/05/17 21:00 09/04/17 20:59 08/06/17 20:53 1 DROPS Multivitamins/ Minerals (Multivitamin W/ Minerals Tab) 1 tab DAILY PO 08/05/17 09:00 09/04/17 08:59 08/07/17 08:53 1 TAB Potassium Chloride (Klor-Con Tab) 20 meq DAILY PO 08/05/17 09:00 09/04/17 08:59 08/07/17 08:52 20 MEQ Prednisone (PredniSONE TAB) 20 mg DAILY PO 08/05/17 09:00 09/04/17 08:59 Future Hold 08/06/17 08:47 20 MG Simvastatin (Zocor Tab) 20 mg QPM PO 08/05/17 21:00 09/04/17 20:59 08/06/17 20:54 20 MG Ascorbic Acid (Vitamin C Tab) 1,000 mg DAILY PO 08/05/17 09:00 09/04/17 08:59 08/07/17 08:56 1,000 MG Artificial Tears (Artificial Tears) 1 drops QID OPL 08/05/17 09:00 09/04/17 08:59 08/07/17 08:49 1 DROPS Pantoprazole Sodium (Protonix Tab) 40 mg QAM PO 08/05/17 09:00 09/04/17 08:59 08/07/17 08:54 40 MG Apixaban (Eliquis Tab) 10 mg BID PO 08/05/17 21:00 08/12/17 20:59 Future Hold 08/06/17 08:48 10 MG Ibuprofen (Motrin Tab) 600 mg TID PRN PO 08/06/17 11:30 09/05/17 11:29 Lactated Ringer's 1,000 ml @ 125 mls/hr Q8H IV 08/07/17 00:00 09/06/17 00:00 08/07/17 08:45 125 MLS/HR Prednisone (PredniSONE TAB) 20 mg DAILY PO 08/07/17 09:00 09/06/17 08:59 08/07/17 08:55 20 MG Metoprolol Tartrate (Lopressor Iv) 2.5 mg Q6 IV. 08/07/17 18:00 09/06/17 17:59 Cefazolin Sodium 2000 mg/Dextrose 60 ml @ 100 mls/hr Q8H IV 08/07/17 12:00 09/18/17 11:59 Fentanyl Citrate (Fentanyl Inj) 25 mcg Q5M PRN IV 08/07/17 12:00 08/07/17 17:00 Hydromorphone HCl (Dilaudid Inj) 0.25 mg Q5M PRN IV 08/07/17 12:00 08/07/17 17:00 Ondansetron HCl (Zofran Inj) 4 mg ONE PRN IV 08/07/17 12:00 08/07/17 17:00 Ephedrine Sulfate (EpHEDrine SULFATE INJ) 5 mg Q5M PRN IV 08/07/17 12:00 08/07/17 17:00 Atropine Sulfate (Atropine Sulfate 0.1MG/Ml Inj) 0.5 mg Q1M PRN IV 08/07/17 12:00 08/07/17 17:00 Labetalol HCl (Normodyne IV) 5 mg Q5M PRN IV 08/07/17 14:45 08/07/17 19:45 Objective Vital Signs Date Time Temp Pulse Resp B/P (MAP) Pulse Ox O2 Delivery O2 Flow Rate FiO2 08/07/17 14:22 112 23 08/07/17 14:22 127 23 95 08/07/17 14:21 157/97 08/07/17 14:17 115 21 97 08/07/17 14:17 122 21 08/07/17 14:16 168/84 08/07/17 14:12 119 20 96 08/07/17 14:12 117 20 08/07/17 14:11 159/78 08/07/17 14:10 159/102 08/07/17 14:08 169/107 08/07/17 14:07 118 93 08/07/17 14:07 36.4 116 18 159/102 (106) 95 Mask 10 08/07/17 14:07 118 08/07/17 10:39 36.9 118 18 92 08/07/17 07:15 Room Air 08/07/17 07:14 36.9 89 18 152/91 (111) 92 Room Air 08/07/17 03:54 87 182/82 (115) 08/07/17 03:30 98 199/63 (108) 08/06/17 23:35 37.0 72 16 165/75 (105) 92 Room Air 08/06/17 23:30 Room Air 08/06/17 15:45 Room Air 08/06/17 15:29 36.4 75 16 136/76 (96) 94 Room Air Physical Exam General Appearance: WD/WN, no apparent distress Eyes: normal inspection, sclerae normal ENT: normal ENT inspection, pharynx normal Neck: supple, no adenopathy, trachea midline Respiratory/Chest: chest non-tender, lungs clear, normal breath sounds, no respiratory distress Cardiovascular: regular rate, rhythm, no gallop, no murmur Abdomen: normal bowel sounds, non tender, soft, no organomegaly Extremities: non-tender, no calf tenderness Neurologic/Psychiatric: alert, oriented x 3 Skin: normal color, no rash, + pertinent finding (Surgical dressing intact right knee) Lymphatic: no adenopathy Laboratory Results Date/Time Source Procedure Growth Status 08/07/17 12:45 Joint Fluid/Space (Synovial) Knee Right Gram Stain Pending Received 08/07/17 12:45 Joint Fluid/Space (Synovial) Knee Right Bacterial Culture Pending Received 08/07/17 12:55 Tissue Knee Right Gram Stain Pending Received 08/07/17 12:55 Tissue Knee Right Bacterial Culture Pending Received 08/07/17 12:51 Tissue Knee Right Gram Stain Pending Received 08/07/17 12:51 Tissue Knee Right Bacterial Culture Pending Received Last 24 Hours Test 08/06/17 16:22 08/07/17 05:38 Creatinine 1.30 mg/dl 1.20 mg/dl Est Creatinine Clear Calc Drug Dose 27.4 ml/min 29.7 ml/min Estimated GFR () 42.7 47.1 Estimated GFR (Non- 36.9 40.6 Random Vancomycin Level 14.5 mcg/ml 18.7 mcg/ml White Blood Count 16.69 K/uL Red Blood Count 3.85 M/uL Hemoglobin 12.9 g/dL Hematocrit 38.4 % Mean Corpuscular Volume 99.7 fL Mean Corpuscular Hemoglobin 33.5 pg Mean Corpuscular Hemoglobin Concent 33.6 g/dl Platelet Count 154 K/uL Mean Platelet Volume 10.3 fL Neutrophils (%) (Auto) 87.3 % Lymphocytes (%) (Auto) 2.8 % Monocytes (%) (Auto) 9.3 % Eosinophils (%) (Auto) 0.0 % Basophils (%) (Auto) 0.1 % Neutrophils # (Auto) 14.56 K/uL Lymphocytes # (Auto) 0.47 K/uL Monocytes # (Auto) 1.56 K/uL Eosinophils # (Auto) 0.00 K/uL Basophils # (Auto) 0.01 K/uL RDW Standard Deviation 51.3 fL RDW Coefficient of Variation 14.1 % Immature Granulocyte % (Auto) 0.5 % Immature Granulocyte # (Auto) 0.09 K/uL Prothrombin Time 10.2 SECONDS Prothromb Time International Ratio 1.0 Activated Partial Thromboplast Time 28.4 SECONDS Partial Thromboplastin Ratio 1.1 Sodium Level 139 mmol/L Potassium Level 3.5 mmol/L Chloride Level 104 mmol/L Carbon Dioxide Level 24 mmol/L Anion Gap 11.0 mmol/L Blood Urea Nitrogen 23 mg/dl BUN/Creatinine Ratio 18.9 Random Glucose 136 mg/dl Calcium Level 9.1 mg/dl Assessment and Plan 87-year-old female with remote history of right knee replacement, now presents with acute deep vein thrombosis of right leg but with likely septic arthritis with bacteremia with Staph aureus, potentially from skin source. Patient be continued on IV cefazolin, will need prolonged IV 6-8 weeks of IV antibiotic therapy. Will follow..
--- NOTE | 2017-08-07 18:35 | OPERATIVE REPORT ---
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 POSTOPERATIVE DIAGNOSIS: Same. PROCEDURE: Irrigation and debridement with poly exchange of the right knee. SURGEON: Lucio Shin MD DIRECTOR INTELLIGENCE ANALYSIS PROGRAMS: Byron Connolly PA-C ESTIMATED BLOOD LOSS: 100 mL. FLUIDS: 1300 mL. SPECIMENS: 1. Right knee synovial fluid. 2. Suprapatellar synovium. 3. Medial gutter synovium all sent for Gram stain, aerobic and anaerobic culture. FINDINGS: There was no chronic synovitis or changes consistent with the chronic infection. This is clearly an acute hematogenous infection. A synovectomy was performed. The same size polyethylene liner was placed which was DePuy size 3 rotating platform 10 mm thickness. ANESTHESIA: General with local. COMPLICATIONS: None. INDICATIONS FOR PROCEDURE: Mrs. Leonard is an 87-year-old female status post right total knee arthroplasty by my partner Dr. Marshall in 2007. She was doing perfectly well until this Monday afternoon when she started getting pain in the knee. She presented to the Emergency Room on Monday where she was found to have a clot below the knee in a distal location and admitted to the hospital and started on Eliquis for anticoagulation. Orthopedics was consulted on Monday. I saw her yesterday and was concern for an infected total knee. An aspirate showed 118,000 white cells with over 95% polys. Her exam was consistent with infected total knee as well with pain with any motion, warmth and tenderness along the entirety of the synovium. Surgery is indicated to eradicate the infection and improve her long-term outcome. A long discussion was had with the patient and her family about the risks and benefits of the surgery, alternatives to surgery and expected outcomes. All questions were answered. Informed consent was signed. DESCRIPTION OF PROCEDURE: The patient was identified in the preoperative holding area where her surgical site was marked. She was brought back to main operating room. She was placed on the operating room table and general anesthesia was administered. All bony prominences were padded. Perioperative antibiotics were administered. She was prepped and draped in the normal sterile fashion. Prior to incision, a multidisciplinary timeout was called. All in the room were in agreement. We began by exsanguinating the knee with an Esmarch bandage. The tourniquet was inflated to 250 mmHg. Her previous incision was opened up for its length of approximately 16 cm. Also we dissected down through subcutaneous tissues to the level of fascia. The previous Ethibond sutures which were used to repair her arthrotomy were identified. The arthrotomy was carried down through the Ethibond suture markings following the medial border of the patella and down on to the proximal tibia. Suture material was then removed from the wound and discarded. The medial release was performed with electrocautery. Wound swabs from the joint fluid were sent for culture. Synovium was then excised from the suprapatellar pouch and sent for tissue culture. A third and final culture of the synovium from the medial gutter was sent for tissue culture as well. The patella was then subluxed laterally and the knee was flexed up. The old polyethylene liner was removed and it was confirmed to be a size 3 10 mm thickness as per the previous operative report. We then irrigated out the wound with copious amounts of normal saline for a total of 9 liters of irrigation through the duration of the case. I then placed the trial polyethylene 10 mm liner and a trial. She had full extension and flexion up to 130 degrees without difficulty. There was slight medial gapping at full extension at 30 degrees secondary to the medial release. We therefore elected to place the same size liner and simply place her in a hinged knee brace after surgery for added protection. At this point, the trial polyethylene was removed. 20 mL of the injection cocktail containing ropivacaine, clonidine and Toradol with epinephrine was injected into the posterior capsule, taking great care to aspirate first to ensure there was no intravascular injection. The arthrotomy was also injected with another 20 mL of the cocktail. We then continued to irrigate the wound and once we were finished irrigating, the new drape was placed on the field. All of our gloves were changed. New instruments were brought up on the table including a new sucker tip and new Bovie. The tourniquet was let down. Meticulous hemostasis was achieved. We then flexed the knee back up and placed the real polyethylene liner. Her knee was again examined through a full range of motion and was similar to her trial. We then irrigated the knee with a Betadine impregnated saline and closed the arthrotomy with #1 PDS sutures. We then irrigated the superficial tissues once again. A running #1 PDS was used for the deep subcutaneous layer. A 2-0 Quill was used for the deep dermis followed by a 3-0 Monocryl in a subcuticular fashion for the skin. Steri-Strips were applied followed by a Silverlon dressing. A compressive dressing with 4 x 4's, and ABDs was placed over the top of the Silverlon. The patient was placed into a hinged knee immobilizer. Of note, we did inject the remaining of the cocktail into the subcutaneous tissues prior to closure. The patient was then awoken from anesthesia and transferred to the recovery room in stable condition. POSTOPERATIVE COURSE: The patient will be readmitted to the floor from the recovery room. We will get postoperative x-rays in the recovery room. We will plan on placing her in a hinged knee brace simply for protection of her knee. She will be allowed full range of motion and be weightbearing as tolerated. We will keep her locked in extension, however, for the first couple of days to let her wound calm down. We will start her on Lovenox 40 mg once daily tomorrow morning and start her on Coumadin as per the protocol. The total duration of the Coumadin given her DVT will be at the discretion of the internal medicine service. I attest to the content of the Intraoperative Record and any orders documented therein. Any exception s are noted below.
[2017-08-07] MEDS: METOPROLOL TARTRATE 1 MG/ML VIAL IV. SCH ×2 (19:39→23:46)
[2017-08-07] MEDS: LATANOPROST 0.005% OP SOLN 2.5 ML BTL OPL SCH (20:35)
[2017-08-07] MEDS: SIMVASTATIN 20 MG TAB PO SCH (21:09)
[2017-08-08] VITALS (9 sets, daily range): BP systolic 146–179; BP diastolic 77–99; PULSE 72–93; TEMP 36.5–36.9; O2SAT 91–96
[2017-08-08] MEDS: CEFAZOLIN IV 2,000 MG in DEXTROSE 5% 50ML 50 ML IV SCH ×3 (04:17→19:53)
[2017-08-08] MEDS ORDERED: VANCOMYCIN TROUGH SCH (04:30)
[2017-08-08] MEDS: METOPROLOL TARTRATE 1 MG/ML VIAL IV. SCH ×4 (06:00→23:50)
--- NOTE | 2017-08-08 08:05 | Anesthesiology Progress Note ---
Anesthesia Post Op Note Date & Time Aug 08, 2017 at 08:04 Vital Signs Vital Signs Past 12 Hours Date Time Temp Pulse Resp B/P (MAP) Pulse Ox O2 Delivery O2 Flow Rate FiO2 08/08/17 06:00 56 08/08/17 05:04 36.6 89 18 160/77 (104) 96 08/08/17 04:00 Nasal Cannula 2.0 08/08/17 00:37 36.9 72 18 146/81 (102) 96 08/07/17 23:59 Nasal Cannula 2.0 08/07/17 23:46 69 146/81 Notes Mental Status: alert / awake / arousable, participated in evaluation Pt Amnestic to Procedure: Yes Nausea / Vomiting: adequately controlled Pain: adequately controlled Airway Patency, RR, SpO2: stable & adequate BP & HR: stable & adequate Hydration State: stable & adequate Anesthetic Complications: no major complications apparent
[2017-08-08 08:15] LABS: COMPLETE YES; HEMATOCRIT 32.8 % (37-47); IG% 0.5 %; LYMPH ABS # 0.89 K/uL (1.2-3.4); MEAN CELL VOLUME 100.6 fL (80-100); MEAN CORPUSCULAR HGB CONC 33.8 g/dl (32-36); MEAN PLATELET VOLUME 9.8 fL (7.4-10.4); MONO % 6.9 %; NEUT % 86.6 %; PLATELET COUNT 144 K/uL (130-400); RED BLOOD COUNT 3.26 M/uL (4.2-5.4); WHITE BLOOD COUNT 14.93 K/uL (4.8-10.8)
[2017-08-08] MEDS: LACTATED RINGER'S 1000ML 1,000 ML IV SCH (08:29)
[2017-08-08] MEDS: BUDESONIDE/FORMOTEROL FUMARATE 160/4.5 60 PUFFS/INHALER INH SCH ×2 (08:30→19:53)
[2017-08-08] MEDS: DORZOLAMIDE/TIMOLOL 22.3/6.8MG/ML 10 ML BTL OPL SCH ×2 (08:30→19:53)
[2017-08-08] MEDS: BRIMONIDINE TARTRATE-P 0.15% 5 ML BTL OPL SCH ×3 (08:31→19:53)
[2017-08-08] MEDS: ARTIFICIAL TEARS OP SOLN OPL SCH ×8 (08:31→19:55)
[2017-08-08] MEDS: IBUPROFEN 600 MG TAB PO PRN ×2 (08:32→18:13)
[2017-08-08 08:48] LABS: BUN/CREATININE RATIO 20.2 (10-20); CALCIUM 8.3 mg/dl (8.5-10.1); CREATININE 1.1 mg/dl (0.60-1.20); MAGNESIUM 2.2 mg/dl (1.8-2.4); POTASSIUM 4.3 mmol/L (3.5-5.1)
--- NOTE | 2017-08-08 08:52 | Progress Note ---
Orthopedic SOAP Note Subjective Date of Service: Aug 08, 2017. Post OP Day: 1 Reports: feeling well, pain controlled w PO medications, Denies: complaints, chest pain, SOB, nausea / vomiting, light headedness, calf pain, using MERCHANDISE CLERK Problem List Medical Problems: (1) Cellulitis Status: Acute (2) Cellulitis of great toe of right foot Status: Acute (3) Knee pain Status: Acute (4) Osteoarthritis Status: Acute (5) Sepsis Status: Acute Objective calves soft nontender, N/V intact, capillary refill less than 2 sec., dressing C /D/I, A&O x3, toes mobile hinged knee brace locked in full extension and intact. Ice placed on the anterior aspect of the right knee. Date Time Temp Pulse Resp B/P (MAP) Pulse Ox O2 Delivery O2 Flow Rate FiO2 08/08/17 08:00 36.7 74 22 178/99 (125) 95 Nasal Cannula 2.0 08/08/17 06:00 56 08/08/17 05:04 36.6 89 18 160/77 (104) 96 08/08/17 04:00 Nasal Cannula 2.0 08/08/17 00:37 36.9 72 18 146/81 (102) 96 08/07/17 23:59 Nasal Cannula 2.0 08/07/17 23:46 69 146/81 08/07/17 19:57 36.6 75 22 95 Nasal Cannula 2.0 08/07/17 19:39 79 139/84 08/07/17 19:25 Room Air 08/07/17 17:10 74 18 130/77 (94) 96 Nasal Cannula 2.0 08/07/17 16:50 75 18 142/80 (100) 97 Nasal Cannula 2.0 08/07/17 16:45 Nasal Cannula 2.0 08/07/17 16:35 36.3 80 18 132/75 (94) 96 Nasal Cannula 2.0 08/07/17 16:25 79 18 94 08/07/17 16:25 78 18 08/07/17 16:20 75 25 95 08/07/17 16:20 77 25 08/07/17 16:16 135/71 08/07/17 16:15 76 22 08/07/17 16:15 75 22 95 08/07/17 16:10 77 22 10/9/17 16:10 77 22 95 9/17 16:05 76 23 94 9/17 16:05 76 23 9/17 16:01 143/78 917 16:00 77 18 96 17 16:00 76 18 9/17 15:55 78 26 9/17 15:55 80 26 95 9/17 15:50 76 18 98 9/17 15:50 75 18 9/17 15:49 74 20 97 9/17 15:49 74 20 9/17 15:46 150/77 9/17 15:44 74 19 96 9/17 15:44 74 19 917 15:39 68 20 917 15:39 74 20 96 17 15:34 71 19 17 15:34 73 19 96 917 15:31 139/75 17 15:29 107 20 94 17 15:29 105 20 17 15:26 126/88 17 15:24 110 20 17 15:24 115 20 95 17 15:21 147/84 17 15:19 117 21 08/07/17 15:19 112 21 96 17 15:16 144/84 17 15:14 98 18 08/07/17 15:14 108 18 93 08/07/17 15:11 128/91 08/07/17 15:09 107 19 128/91 95 Nasal Cannula 3 08/07/17 15:09 100 27 17 15:09 102 27 94 08/07/17 15:06 143/97 17 15:04 97 21 08/07/17 15:04 97 21 95 08/07/17 15:01 140/92 08/07/17 14:59 36.5 108 19 142/89 95 Nasal Cannula 3 08/07/17 14:59 102 19 94 08/07/17 14:59 105 19 08/07/17 14:56 142/89 17 14:54 102 17 08/07/17 14:54 99 17 94 08/07/17 14:53 125 17 93 08/07/17 14:53 115 17 08/07/17 14:51 140/84 08/07/17 14:49 36.5 104 19 140/84 95 Nasal Cannula 3 08/07/17 14:48 104 19 91 08/07/17 14:48 106 19 08/07/17 14:46 146/108 08/07/17 14:43 105 24 93 08/07/17 14:43 106 24 08/07/17 14:41 152/96 08/07/17 14:38 93 22 08/07/17 14:38 108 22 94 08/07/17 14:36 155/98 08/07/17 14:33 114 20 08/07/17 14:33 112 20 94 08/07/17 14:31 162/108 08/07/17 14:28 124 22 92 08/07/17 14:28 122 22 08/07/17 14:26 164/91 08/07/17 14:23 133 22 90 08/07/17 14:23 132 22 08/07/17 14:22 112 23 08/07/17 14:22 127 23 95 08/07/17 14:21 157/97 08/07/17 14:17 115 21 97 08/07/17 14:17 122 21 08/07/17 14:16 168/84 08/07/17 14:12 119 20 96 08/07/17 14:12 117 20 08/07/17 14:11 159/78 08/07/17 14:10 159/102 08/07/17 14:08 169/107 08/07/17 14:07 118 93 08/07/17 14:07 36.4 116 18 159/102 (106) 95 Mask 10 08/07/17 14:07 118 08/07/17 10:39 36.9 118 18 92 Laboratory Results 24 Hours: Test 08/08/17 07:38 White Blood Count 14.93 K/uL Red Blood Count 3.26 M/uL Hemoglobin 11.1 g/dL Hematocrit 32.8 % Mean Corpuscular Volume 100.6 fL Mean Corpuscular Hemoglobin 34.0 pg Mean Corpuscular Hemoglobin Concent 33.8 g/dl Platelet Count 144 K/uL Mean Platelet Volume 9.8 fL Neutrophils (%) (Auto) 86.6 % Lymphocytes (%) (Auto) 6.0 % Monocytes (%) (Auto) 6.9 % Eosinophils (%) (Auto) 0.0 % Basophils (%) (Auto) 0.0 % Neutrophils # (Auto) 12.94 K/uL Lymphocytes # (Auto) 0.89 K/uL Monocytes # (Auto) 1.03 K/uL Eosinophils # (Auto) 0.00 K/uL Basophils # (Auto) 0.00 K/uL Assessment S/P Right knee I&D and poly exchange DVT right lower extremity Plan continue post op care Keep dressing intact for now knee brace locked in full extension but is permitted to be weightbearing with her walker and assist ice/elevate resume diet post-operative anticoagulation with Lovenox 40mg daily and Coumadin nomogram, Eliquis has been stopped and is not to be getting pain control with prescribed medications PT/OT ordered to mobilize and assist with gait training, otherwise understands they are to keep the knee in extension continue with ID and medicine input no other questions or concerns this morning by the patient or family call [facility] with any other questions, thank you
[2017-08-08] MEDS ORDERED: ENOXAPARIN 40 MG/0.4 ML SYR SQ SCH (09:00)
--- NOTE | 2017-08-08 09:51 | Hospitalist Progress Note ---
Hospitalist Progress Note Date of Service Aug 08, 2017. Subjective Pt evaluation today including: conversation w/ patient, conversation w/ family , physical exam, chart review, lab review, review of studies, conversation w/ industrial methods consultant Pain: None PO Intake: Good Voiding: no voiding problems The patient was seen and examined this morning. Pt reports doing well, she has no acute complaints. Family is present at bedside including her daughter and granddaughter, and another family friend. She reports ortho was in to see her this morning and loosened her brace due to worsening swelling in the RLE. Pt denies any acute pain in her leg or numbness or tingling. She has not yet worked with PT/OT. She denies any chest pain, sob, palpitations or flutter. Constitutional: No fever, No chills, No sweats Eyes: No redness, No diplopia ENT: No nasal symptoms, No sore throat, No trouble swallowing Respiratory: No cough, No shortness of breath Cardiovascular: No chest pain, No edema, No palpitations Abdomen: + problem reported (last BM was day of surgery), No pain, No nausea , No vomiting, No diarrhea, No constipation, No GI bleeding Musculoskeletal: + swelling (BLE), No joint pain Female : No dysuria, No hematuria Psychiatric: No depression symptoms, No anxiety Endo: No fatigue Skin: No rash, No itch Objective Vital Signs Date Time Temp Pulse Resp B/P (MAP) Pulse Ox O2 Delivery O2 Flow Rate FiO2 08/08/17 08:00 36.7 74 22 178/99 (125) 95 Nasal Cannula 2.0 08/08/17 08:00 95 Nasal Cannula 2.0 08/08/17 06:00 56 08/08/17 05:04 36.6 89 18 160/77 (104) 96 08/08/17 04:00 Nasal Cannula 2.0 08/08/17 00:37 36.9 72 18 146/81 (102) 96 08/07/17 23:59 Nasal Cannula 2.0 08/07/17 23:46 69 146/81 08/07/17 19:57 36.6 75 22 95 Nasal Cannula 2.0 08/07/17 19:39 79 139/84 08/07/17 19:25 Room Air 08/07/17 17:10 74 18 130/77 (94) 96 Nasal Cannula 2.0 08/07/17 16:50 75 18 142/80 (100) 97 Nasal Cannula 2.0 08/07/17 16:45 Nasal Cannula 2.0 08/07/17 16:35 36.3 80 18 132/75 (94) 96 Nasal Cannula 2.0 08/07/17 16:25 79 18 94 08/07/17 16:25 78 18 08/07/17 16:20 75 25 95 08/07/17 16:20 77 25 17 16:16 135/71 08/07/17 16:15 76 22 08/07/17 16:15 75 22 95 08/07/17 16:10 77 22 08/07/17 16:10 77 22 95 08/07/17 16:05 76 23 94 08/07/17 16:05 76 23 08/07/17 16:01 143/78 08/07/17 16:00 77 18 96 08/07/17 16:00 76 18 08/07/17 15:55 78 26 08/07/17 15:55 80 26 95 08/07/17 15:50 76 18 98 08/07/17 15:50 75 18 08/07/17 15:49 74 20 97 08/07/17 15:49 74 20 08/07/17 15:46 150/77 08/07/17 15:44 74 19 96 08/07/17 15:44 74 19 08/07/17 15:39 68 20 08/07/17 15:39 74 20 96 08/07/17 15:34 71 19 08/07/17 15:34 73 19 96 08/07/17 15:31 139/75 08/07/17 15:29 107 20 94 08/07/17 15:29 105 20 08/07/17 15:26 126/88 08/07/17 15:24 110 20 08/07/17 15:24 115 20 95 08/07/17 15:21 147/84 08/07/17 15:19 117 21 08/07/17 15:19 112 21 96 08/07/17 15:16 144/84 08/07/17 15:14 98 18 08/07/17 15:14 108 18 93 08/07/17 15:11 128/91 08/07/17 15:09 107 19 128/91 95 Nasal Cannula 3 08/07/17 15:09 100 27 08/07/17 15:09 102 27 94 08/07/17 15:06 143/97 08/07/17 15:04 97 21 08/07/17 15:04 97 21 95 08/07/17 15:01 140/92 08/07/17 14:59 36.5 108 19 142/89 95 Nasal Cannula 3 08/07/17 14:59 102 19 94 08/07/17 14:59 105 19 08/07/17 14:56 142/89 08/07/17 14:54 102 17 08/07/17 14:54 99 17 94 08/07/17 14:53 125 17 93 08/07/17 14:53 115 17 08/07/17 14:51 140/84 08/07/17 14:49 36.5 104 19 140/84 95 Nasal Cannula 3 08/07/17 14:48 104 19 91 08/07/17 14:48 106 19 08/07/17 14:46 146/108 08/07/17 14:43 105 24 93 08/07/17 14:43 106 24 08/07/17 14:41 152/96 08/07/17 14:38 93 22 08/07/17 14:38 108 22 94 08/07/17 14:36 155/98 08/07/17 14:33 114 20 08/07/17 14:33 112 20 94 08/07/17 14:31 162/108 08/07/17 14:28 124 22 92 08/07/17 14:28 122 22 08/07/17 14:26 164/91 08/07/17 14:23 133 22 90 08/07/17 14:23 132 22 08/07/17 14:22 112 23 08/07/17 14:22 127 23 95 08/07/17 14:21 157/97 08/07/17 14:17 115 21 97 08/07/17 14:17 122 21 08/07/17 14:16 168/84 08/07/17 14:12 119 20 96 08/07/17 14:12 117 20 08/07/17 14:11 159/78 08/07/17 14:10 159/102 08/07/17 14:08 169/107 08/07/17 14:07 118 93 08/07/17 14:07 36.4 116 18 159/102 (106) 95 Mask 10 08/07/17 14:07 118 08/07/17 10:39 36.9 118 18 92 Physical Exam General Appearance: WD/WN, no apparent distress Eyes: PERRL, EOMI ENT: pharynx normal, + pertinent finding (Hard of hearing) Neck: no adenopathy, no JVD Respiratory/Chest: no respiratory distress, no accessory muscle use, + pertinent finding (On 2 L O2 via NC, diminished breath sounds at bases, no adventitious sounds.) Cardiovascular: regular rate, rhythm, no murmur, + pertinent finding (few extra beats) Abdomen: normal bowel sounds, non tender, soft Extremities: non-tender, + pedal edema (2+ pitting edema in RLE worse than the LLE) Neurologic/Psychiatric: alert, oriented x 3 Skin: normal color, warm/dry Laboratory Results Last 24 Hours Test 08/08/17 07:38 White Blood Count 14.93 K/uL Red Blood Count 3.26 M/uL Hemoglobin 11.1 g/dL Hematocrit 32.8 % Mean Corpuscular Volume 100.6 fL Mean Corpuscular Hemoglobin 34.0 pg Mean Corpuscular Hemoglobin Concent 33.8 g/dl Platelet Count 144 K/uL Mean Platelet Volume 9.8 fL Neutrophils (%) (Auto) 86.6 % Lymphocytes (%) (Auto) 6.0 % Monocytes (%) (Auto) 6.9 % Eosinophils (%) (Auto) 0.0 % Basophils (%) (Auto) 0.0 % Neutrophils # (Auto) 12.94 K/uL Lymphocytes # (Auto) 0.89 K/uL Monocytes # (Auto) 1.03 K/uL Eosinophils # (Auto) 0.00 K/uL Basophils # (Auto) 0.00 K/uL RDW Standard Deviation 52.5 fL RDW Coefficient of Variation 14.3 % Immature Granulocyte % (Auto) 0.5 % Immature Granulocyte # (Auto) 0.07 K/uL Sodium Level 134 mmol/L Potassium Level 4.3 mmol/L Chloride Level 101 mmol/L Carbon Dioxide Level 27 mmol/L Anion Gap 6.0 mmol/L Blood Urea Nitrogen 22 mg/dl Creatinine 1.10 mg/dl Est Creatinine Clear Calc Drug Dose 32.4 ml/min Estimated GFR () 52.3 Estimated GFR (Non- 45.1 BUN/Creatinine Ratio 20.2 Random Glucose 145 mg/dl Calcium Level 8.3 mg/dl Magnesium Level 2.2 mg/dl Assessment and Plan This is an 87 Yo F with PMHx of S/p R knee revision and washout for Staph Bacteremia causing sepsis - POD #[address] Shin - Continue cefazolin per ID- likely will need 6-8 weeks of IV abx per their recommendations - Eliquis on hold - PT/OT on board - CM to assist with d/c planning for acute rehab Acute Distal peroneal RLE DVT - Was on eliquis prior to this admission and has been held- POD #1 - Discussion held with Jonn Santos PA-C regarding anticoagulation- Reports Dr. Jones who is caring for the patient does NOT want her started on heparin gtt, lovenox or coumadin. He wants her to resume eliquis 10 mg BID 24 hours after surgery which is at 1400. - Will start the first dose tonight - family updated New diagnosis of A. fib with RVR at time of admission heart rate at 110, transferred to telemetry for now and continue monitor tech after procedure - Discussed with anesthesiologist, he will be taking care outpatient during the procedure, we agreed to put the patient in monitor tech after the procedure - since being on tele she has been in NSR with few PACs. - ? need for cardiology consult - will at least need f/u with PCP regarding afib after dc. DVT prophylaxis: eliquis BID CODE STATUS: Full code Disposition: PT/OT, discharge per primary team
[2017-08-08] MEDS: CITALOPRAM 20 MG TAB PO SCH (10:10)
[2017-08-08] MEDS: PANTOprazole SOD 40 MG TAB PO SCH (10:10)
[2017-08-08] MEDS: OMEGA-3 (PURIFIED FISH OIL) 1 GM CAP PO SCH (10:11)
[2017-08-08] MEDS: AMLODIPINE BESYLATE 5 MG TAB PO SCH (10:11)
[2017-08-08] MEDS: ASCORBIC ACID 500 MG TAB PO SCH (10:11)
[2017-08-08 10:12] LABS: INR 0.9 (0.9-1.1); PROTHROMBIN TIME (PATIENT) 9.9 SECONDS (9.0-12.0)
[2017-08-08] MEDS: CALCIUM 600MG + VIT D 400 IU TAB PO SCH (10:12)
[2017-08-08] MEDS: CEROVITE ADV FORMULA TAB PO SCH (10:12)
[2017-08-08] MEDS: POTASSIUM CHLORIDE 20 MEQ TABCR PO SCH (10:12)
[2017-08-08] MEDS ORDERED: HEPARIN IV BOLUS 3,000 UNIT in SYRINGE 0 ML IV ONE (10:30)
[2017-08-08] MEDS ORDERED: HEPARIN 25,000 UNIT/500ML D5W 500 ML IV PRN (10:30)
--- NOTE | 2017-08-08 11:29 | DIAGNOSTIC IMAGING REPORT ---
R KNEE 1 OR 2 VIEWS ROUTINE CLINICAL HISTORY: Status post right knee incision and drainage. COMPARISON: Right knee radiographs August 05, 2017. FINDINGS: Alignment of the right knee arthroplasty is anatomic. No fracture or unexpected radiopaque foreign body is evident. Lateral view is compromised due to overlying devices. A linear calcific density along the medial femoral condyle suggest an old MCL injury. IMPRESSION: Total right knee arthroplasty. No periprosthetic fracture or unexpected radiopaque foreign body. Electronically signed by: Zach Nava M.D. 08/08/2017 11:28 AM Dictated Date/Time: 08/08/2017 11:17 AM
--- NOTE | 2017-08-08 12:28 | Infectious Disease Progress Nt ---
Progress Note Date of Service Aug 08, 2017. Subjective Pt evaluation today including: conversation w/ patient, conversation w/ family , physical exam, chart review, lab review, review of studies, conversation w/ renewable energy consultant, review of inpatient medication list Patient appears comfortable. Currently afebrile. Pain controlled. Operative cultures all growing Staph aureus. All Other Systems: Reviewed and Negative Medications Current Inpatient Medications Medications (Trade) Dose Ordered Sig/Peterson Route Start Time Stop Time Status Last Admin Dose Admin Acetaminophen (Tylenol Tab) 650 mg Q4H PRN PO 08/05/17 06:45 09/04/17 06:44 08/06/17 10:29 650 MG Amlodipine Besylate (Norvasc Tab) 2.5 mg DAILY PO 08/05/17 09:00 09/04/17 08:59 08/08/17 10:11 2.5 MG Brimonidine Tartrate (Alphagan-P 0.15% Oph Soln) 1 drops TID OPL 08/05/17 09:00 09/04/17 08:59 08/08/17 08:31 1 DROPS Budesonide/ Formoterol Fumarate (Symbicort 160/ 4.5 Inh) 2 puffs BID INH 08/05/17 09:00 09/04/17 08:59 08/08/17 08:30 2 PUFFS Calcium/Vitamin D (Caltrate Plus Tab) 1 tab DAILY PO 08/05/17 09:00 09/04/17 08:59 08/08/17 10:12 1 TAB Citalopram Hydrobromide (celeXA TAB) 30 mg DAILY PO 08/05/17 09:00 09/04/17 08:59 08/08/17 10:10 30 MG Dorzolamide/ Timolol (Cosopt Op Soln) 1 drops BID OPL 08/05/17 09:00 09/04/17 08:59 08/08/17 08:30 1 DROPS Fish Oil (Enfield-3 (Purified Fish Oil) Cap) 1 gm DAILY PO 08/05/17 09:00 09/04/17 08:59 08/08/17 10:11 1 GM Latanoprost (Xalatan Oph Soln) 1 drops HS OPL 08/05/17 21:00 09/04/17 20:59 08/07/17 20:35 1 DROPS Multivitamins/ Minerals (Multivitamin W/ Minerals Tab) 1 tab DAILY PO 08/05/17 09:00 09/04/17 08:59 08/08/17 10:12 1 TAB Potassium Chloride (Klor-Con Tab) 20 meq DAILY PO 08/05/17 09:00 09/04/17 08:59 08/08/17 10:12 20 MEQ Prednisone (PredniSONE TAB) 20 mg DAILY PO 08/05/17 09:00 09/04/17 08:59 Future Hold 08/06/17 08:47 20 MG Simvastatin (Zocor Tab) 20 mg QPM PO 08/05/17 21:00 09/04/17 20:59 08/07/17 21:09 20 MG Ascorbic Acid (Vitamin C Tab) 1,000 mg DAILY PO 08/05/17 09:00 09/04/17 08:59 08/08/17 10:11 1,000 MG Artificial Tears (Artificial Tears) 1 drops QID OPL 08/05/17 09:00 09/04/17 08:59 08/08/17 08:31 1 DROPS Pantoprazole Sodium (Protonix Tab) 40 mg QAM PO 08/05/17 09:00 09/04/17 08:59 08/08/17 10:10 40 MG Ibuprofen (Motrin Tab) 600 mg TID PRN PO 08/06/17 11:30 09/05/17 11:29 08/08/17 08:32 600 MG Lactated Ringer's 1,000 ml @ 125 mls/hr Q8H IV 08/07/17 00:00 09/06/17 00:00 08/08/17 08:29 125 MLS/HR Prednisone (PredniSONE TAB) 20 mg DAILY PO 08/07/17 09:00 09/06/17 08:59 08/08/17 10:12 20 MG Metoprolol Tartrate (Lopressor Iv) 2.5 mg Q6 IV. 08/07/17 18:00 09/06/17 17:59 08/08/17 12:14 2.5 MG Cefazolin Sodium 2000 mg/Dextrose 60 ml @ 100 mls/hr Q8H IV 08/07/17 12:00 09/18/17 11:59 08/08/17 12:13 100 MLS/HR Apixaban (Eliquis Tab) 10 mg BID PO 08/08/17 21:00 08/15/17 09:01 Objective Vital Signs Date Time Temp Pulse Resp B/P (MAP) Pulse Ox O2 Delivery O2 Flow Rate FiO2 08/08/17 12:14 74 08/08/17 12:00 95 Nasal Cannula 2.0 08/08/17 11:55 36.7 75 22 167/82 (110) 91 Nasal Cannula 2.0 08/08/17 08:00 36.7 74 22 178/99 (125) 95 Nasal Cannula 2.0 08/08/17 08:00 95 Nasal Cannula 2.0 08/08/17 06:00 56 08/08/17 05:04 36.6 89 18 160/77 (104) 96 08/08/17 04:00 Nasal Cannula 2.0 08/08/17 00:37 36.9 72 18 146/81 (102) 96 08/07/17 23:59 Nasal Cannula 2.0 08/07/17 23:46 69 146/81 08/07/17 19:57 36.6 75 22 95 Nasal Cannula 2.0 08/07/17 19:39 79 139/84 08/07/17 19:25 Room Air 08/07/17 17:10 74 18 130/77 (94) 96 Nasal Cannula 2.0 08/07/17 16:50 75 18 142/80 (100) 97 Nasal Cannula 2.0 08/07/17 16:45 Nasal Cannula 2.0 08/07/17 16:35 36.3 80 18 132/75 (94) 96 Nasal Cannula 2.0 08/07/17 16:25 79 18 94 08/07/17 16:25 78 18 08/07/17 16:20 75 25 95 08/07/17 16:20 77 25 08/07/17 16:16 135/71 08/07/17 16:15 76 22 08/07/17 16:15 75 22 95 08/07/17 16:10 77 22 08/07/17 16:10 77 22 95 08/07/17 16:05 76 23 94 08/07/17 16:05 76 23 08/07/17 16:01 143/78 08/07/17 16:00 77 18 96 08/07/17 16:00 76 18 08/07/17 15:55 78 26 08/07/17 15:55 80 26 95 08/07/17 15:50 76 18 98 08/07/17 15:50 75 18 08/07/17 15:49 74 20 97 08/07/17 15:49 74 20 08/07/17 15:46 150/77 08/07/17 15:44 74 19 96 08/07/17 15:44 74 19 08/07/17 15:39 68 20 08/07/17 15:39 74 20 96 08/07/17 15:34 71 19 08/07/17 15:34 73 19 96 08/07/17 15:31 139/75 08/07/17 15:29 107 20 94 08/07/17 15:29 105 20 08/07/17 15:26 126/88 08/07/17 15:24 110 20 08/07/17 15:24 115 20 95 08/07/17 15:21 147/84 08/07/17 15:19 117 21 08/07/17 15:19 112 21 96 08/07/17 15:16 144/84 08/07/17 15:14 98 18 08/07/17 15:14 108 18 93 08/07/17 15:11 128/91 08/07/17 15:09 107 19 128/91 95 Nasal Cannula 3 08/07/17 15:09 100 27 08/07/17 15:09 102 27 94 08/07/17 15:06 143/97 08/07/17 15:04 97 21 08/07/17 15:04 97 21 95 08/07/17 15:01 140/92 08/07/17 14:59 36.5 108 19 142/89 95 Nasal Cannula 3 08/07/17 14:59 102 19 94 08/07/17 14:59 105 19 08/07/17 14:56 142/89 08/07/17 14:54 102 17 08/07/17 14:54 99 17 94 08/07/17 14:53 125 17 93 08/07/17 14:53 115 17 08/07/17 14:51 140/84 08/07/17 14:49 36.5 104 19 140/84 95 Nasal Cannula 3 08/07/17 14:48 104 19 91 08/07/17 14:48 106 19 08/07/17 14:46 146/108 08/07/17 14:43 105 24 93 08/07/17 14:43 106 24 08/07/17 14:41 152/96 08/07/17 14:38 93 22 08/07/17 14:38 108 22 94 08/07/17 14:36 155/98 08/07/17 14:33 114 20 08/07/17 14:33 112 20 94 08/07/17 14:31 162/108 08/07/17 14:28 124 22 92 08/07/17 14:28 122 22 08/07/17 14:26 164/91 08/07/17 14:23 133 22 90 08/07/17 14:23 132 22 08/07/17 14:22 112 23 08/07/17 14:22 127 23 95 08/07/17 14:21 157/97 08/07/17 14:17 115 21 97 08/07/17 14:17 122 21 08/07/17 14:16 168/84 08/07/17 14:12 119 20 96 08/07/17 14:12 117 20 08/07/17 14:11 159/78 08/07/17 14:10 159/102 08/07/17 14:08 169/107 08/07/17 14:07 118 93 08/07/17 14:07 36.4 116 18 159/102 (106) 95 Mask 10 08/07/17 14:07 118 Physical Exam General Appearance: WD/WN, no apparent distress Eyes: normal inspection, EOMI, sclerae normal ENT: normal ENT inspection, hearing grossly normal, pharynx normal Neck: supple, no adenopathy, + adenopathy present Respiratory/Chest: chest non-tender, lungs clear, normal breath sounds, no respiratory distress Cardiovascular: regular rate, rhythm, no gallop, no murmur Abdomen: normal bowel sounds, non tender, soft, no organomegaly Extremities: no calf tenderness, + swelling ( Right leg) Neurologic/Psychiatric: alert, oriented x 3 Skin: normal color, no rash Lymphatic: no adenopathy Laboratory Results RUN DATE: 08/08/17 [facility] LAB PAGE 1 RUN TIME: 0853 Specimen Inquiry PATIENT: VITALIY YOO LOC: [facility] U # : [id number] AGE/SX: 87/F ROOM: [facility] REG : 08/05/[address]: Merrill Wilkerson MD, PhD : 1930 BED: 1 DIS : STATUS: ADM IN TLOC: SPEC #: [id number] GIACOMO: 08/07/17 STATUS: RES REQ #: [id number] RECD: 08/07/[address] [facility] [address]: Merrill Wilkerson MD , PhD SOURCE: JOINT [facility]SP ENTR: 08/07/[address] [facility] [address]: Juventino Henriquez MD SPDESC: KNEE RIGHT Lucio Church M.D. Herickhoff, Paul K., MD Pasquariello, Rick D M.D. Tarmohamed, Zenovia ., M.D. ORDERED: AER/RUCHI CULTSMR Procedure Result Verified Site GRAM STAIN Final 08/08/17 RESULT MANY WBCs SEEN FEW GRAM POSITIVE COCCI OR AER/RUCHI CULT Preliminary 08/08/17 Organism 1 STAPHYLOCOCCUS AUREUS QUANITY FEW SENS SENSITIVITY TO FOLLOW Last 24 Hours Test 08/08/17 07:38 08/08/17 09:52 White Blood Count 14.93 K/uL Red Blood Count 3.26 M/uL Hemoglobin 11.1 g/dL Hematocrit 32.8 % Mean Corpuscular Volume 100.6 fL Mean Corpuscular Hemoglobin 34.0 pg Mean Corpuscular Hemoglobin Concent 33.8 g/dl Platelet Count 144 K/uL Mean Platelet Volume 9.8 fL Neutrophils (%) (Auto) 86.6 % Lymphocytes (%) (Auto) 6.0 % Monocytes (%) (Auto) 6.9 % Eosinophils (%) (Auto) 0.0 % Basophils (%) (Auto) 0.0 % Neutrophils # (Auto) 12.94 K/uL Lymphocytes # (Auto) 0.89 K/uL Monocytes # (Auto) 1.03 K/uL Eosinophils # (Auto) 0.00 K/uL Basophils # (Auto) 0.00 K/uL RDW Standard Deviation 52.5 fL RDW Coefficient of Variation 14.3 % Immature Granulocyte % (Auto) 0.5 % Immature Granulocyte # (Auto) 0.07 K/uL Sodium Level 134 mmol/L Potassium Level 4.3 mmol/L Chloride Level 101 mmol/L Carbon Dioxide Level 27 mmol/L Anion Gap 6.0 mmol/L Blood Urea Nitrogen 22 mg/dl Creatinine 1.10 mg/dl Est Creatinine Clear Calc Drug Dose 32.4 ml/min Estimated GFR () 52.3 Estimated GFR (Non- 45.1 BUN/Creatinine Ratio 20.2 Random Glucose 145 mg/dl Calcium Level 8.3 mg/dl Magnesium Level 2.2 mg/dl Prothrombin Time 9.9 SECONDS Prothromb Time International Ratio 0.9 Activated Partial Thromboplast Time 26.8 SECONDS Partial Thromboplastin Ratio 1.0 Assessment and Plan 87-year-old female with remote history of right knee replacement, admitted with right leg DVT, now found to have septic arthritis with methicillin sensitive Staph aureus involving her right knee. She is status post debridement and poly exchange. She will continue on IV cefazolin for now, will require prolonged IV antibiotics. Will follow.
[2017-08-08] MEDS ORDERED: WARFARIN SOD 3 MG TAB PO SCH (16:00)
--- NOTE | 2017-08-08 16:30 | ECHOCARDIOGRAM REPORT ---
*NOTICE TO RECEIVING CONSTITUTION [employer]Y AGENCY This information is strictly Confidential and protected under [place] law. [place] law prohibits you from making any further disclosure of this information unless further disclosure is expressly permitted by the written consent of the person to whom it pertains or is authorized by law. A general authorization for the release of medical or other information is not sufficient for this purpose. Hospital accepts no responsibility if the information is made available to any other person, INCLUDING THE PATIENT. Interpretation Summary * Name: VITALIY YOO Study Date: 08/08/2017 07:05 AM BP: 160/77 mmHg * Patient Location: C.2T\S\S243\S\1 HR: 89 * : 1930 (M/d/yyyy) Gender: Female Height: 61 in * Age: 87 yrs Ethnicity: [place] Weight: 155 lb * Ordering Physician: Merrill Wilkerson * Performed By: Eunice Maldonado * * Reason For Study: A-FIB * BSA: 1.7 m2 * -- Conclusions -- * 1. Normal LV size. Mild concentric LVH. * 2. Normal LV systolic function. LVEF 60-65%. No regional wall motion abnormalities. * 3. Normal RV size and function. * 4. Mild mitral regurgitation. * 5. Grade II diastolic dysfunctin. * 6. Compared with prior study on 07/24/2015: No significant changes. Procedure Details * A complete two-dimensional transthoracic echocardiogram was performed (2D, M-mode, Doppler and color flow Doppler). * The study was technically difficult. * There were technical limitations due to patient'spoor positioning Left Ventricle * The left ventricle is grossly normal size. * There is mild concentric left ventricular hypertrophy. * Ejection Fraction = 60-65%. * No regional wall motion abnormalities noted. Right Ventricle * The right ventricle is grossly normal size. * The right ventricular systolic function is normal as assessed by tricuspid annular plane systolic excursion (TAPSE) (normal >1.5 cm). Atria * The left atrium is mildly dilated. * The right atrium is mildly dilated. * No ASD detected; PFO is not assessed. Mitral Valve * The mitral valve is grossly normal. * Mitral stenosis is absent. * There is mild mitral regurgitation. Tricuspid Valve * The tricuspid valve is not well visualized, but is grossly normal. * There is no tricuspid stenosis. * There is trace tricuspid regurgitation. Aortic Valve * The aortic valve opens well. * The aortic valve is trileaflet. * No hemodynamically significant valvular aortic stenosis. * There is no significant aortic regurgitation. Pulmonic Valve * The pulmonary valve is inadequately visualized, but the Doppler data is adequate for interpretation. * Mild pulmonic valvular regurgitation. Great Vessels * The aortic root and proximal ascending aorta are normal sized. Pericardium/Pleural * There is no pericardial effusion. Great Vessels * Normal inferior vena cava size and collapsability with sniff indicates a normal right atrial pressure of 3 mmHg Left Ventricular Diastolic Function * Diastolic dysfunction, Grade II (pseudonormalization pattern). MMode 2D Measurements and Calculations IVSd 1.5 cm IVSs 2.3 cm LVIDd 4.2 cm LVIDs 2.8 cm LVPWd 1.3 cm LVPWs 2.1 cm IVS/LVPW 1.1 FS 33.2 % EDV(Teich) 76.5 ml ESV(Teich) 28.9 ml EF(Teich) 62.2 % EDV(cubed) 71.6 ml ESV(cubed) 21.4 ml EF(cubed) 70.1 % % IVS thick 57.8 % % LVPW thick 58.7 % LV mass(C)d 220.3 grams LV mass(C)dI 130.0 grams/m\S\2 LV mass(C)s 293.6 grams LV mass(C)sI 173.2 grams/m\S\2 SV(Teich) 47.6 ml SI(Teich) 28.1 ml/m\S\2 SV(cubed) 50.2 ml SI(cubed) 29.6 ml/m\S\2 ACS 1.6 cm LA dimension 4.2 cm asc Aorta Diam 3.3 cm LVOT diam 1.5 cm LVOT area 1.8 cm\S\2 LVAd ap4 21.8 cm\S\2 LVLd ap4 6.5 cm EDV(MOD-sp4) 59.9 ml EDV(sp4-el) 62.4 ml LVAs ap4 12.4 cm\S\2 LVLs ap4 5.6 cm ESV(MOD-sp4) 22.1 ml ESV(sp4-el) 23.6 ml EF(MOD-sp4) 63.1 % EF(sp4-el) 62.2 % LVAd ap2 17.6 cm\S\2 LVLd ap2 5.7 cm EDV(MOD-sp2) 42.8 ml EDV(sp2-el) 45.6 ml LVAs ap2 9.9 cm\S\2 LVLs ap2 5.0 cm ESV(MOD-sp2) 15.7 ml ESV(sp2-el) 16.4 ml EF(MOD-sp2) 63.3 % EF(sp2-el) 64.2 % LVLd %diff -12.34 % EDV(MOD-bp) 53.3 ml LVLs %diff -10.26 % ESV(MOD-bp) 19.9 ml EF(MOD-bp) 62.6 % SV(MOD-sp4) 37.8 ml SI(MOD-sp4) 22.3 ml/m\S\2 SV(MOD-sp2) 27.1 ml SI(MOD-sp2) 16.0 ml/m\S\2 SV(MOD-bp) 33.3 ml SI(MOD-bp) 19.7 ml/m\S\2 SV(sp4-el) 38.8 ml SI(sp4-el) 22.9 ml/m\S\2 SV(sp2-el) 29.3 ml SI(sp2-el) 17.3 ml/m\S\2 Doppler Measurements and Calculations MV E max latesha 110.0 cm/sec MV A max latesha 36.1 cm/sec MV E/A 3.0 MV dec time 0.19 sec Ao V2 max 106.4 cm/sec Ao max PG 4.5 mmHg Ao max PG (full) 1.3 mmHg JOSE(V,A) 1.5 cm\S\2 JOSE(V,D) 1.5 cm\S\2 LV V1 max PG 3.2 mmHg LV V1 max 89.5 cm/sec MR max latehsa 360.2 cm/sec MR max PG 51.9 mmHg PA V2 max 70.1 cm/sec PA max PG 2.0 mmHg PI end-d latesha 96.6 cm/sec TR max latesha 267.8 cm/sec
[2017-08-08] MEDS: IPRATROPIUM BROMIDE NEB SOLN 0.02% 2.5 ML VIAL INH SCH (19:51)
[2017-08-08] MEDS: LEVALBUTEROL 1.25MG/0.5ML NEB INH SCH (19:51)
[2017-08-08] MEDS: LATANOPROST 0.005% OP SOLN 2.5 ML BTL OPL SCH (19:54)
[2017-08-08] MEDS: SIMVASTATIN 20 MG TAB PO SCH (19:54)
[2017-08-08] MEDS: APIXABAN 2.5 MG TAB PO SCH (19:54)
[2017-08-08] MEDS ORDERED: LEVALBUTEROL/IPRATROPIUM NEB INH SCH (21:00)
[2017-08-09] VITALS (16 sets, daily range): BP systolic 144–176; BP diastolic 79–98; PULSE 71–134; TEMP 36.4–37.2; O2SAT 91–100
[2017-08-09] MEDS: LEVALBUTEROL 1.25MG/0.5ML NEB INH SCH ×4 (02:23→19:51)
[2017-08-09] MEDS: IPRATROPIUM BROMIDE NEB SOLN 0.02% 2.5 ML VIAL INH SCH ×4 (02:23→19:51)
[2017-08-09] MEDS: IBUPROFEN 600 MG TAB PO PRN ×2 (03:27→08:02)
[2017-08-09] MEDS: CEFAZOLIN IV 2,000 MG in DEXTROSE 5% 50ML 50 ML IV SCH ×3 (03:28→20:31)
[2017-08-09] MEDS: METOPROLOL TARTRATE 1 MG/ML VIAL IV. SCH ×2 (06:12→11:13)
[2017-08-09 07:40] LABS: HEMATOCRIT 32.8 % (37-47); MEAN CELL VOLUME 100.3 fL (80-100); MEAN CORPUSCULAR HGB CONC 32.9 g/dl (32-36); MEAN PLATELET VOLUME 9.2 fL (7.4-10.4); PLATELET COUNT 161 K/uL (130-400); RED BLOOD COUNT 3.27 M/uL (4.2-5.4); WHITE BLOOD COUNT 10.29 K/uL (4.8-10.8)
[2017-08-09 07:48] LABS: PROTHROMBIN TIME (PATIENT) 10.7 SECONDS (9.0-12.0)
[2017-08-09] MEDS: BUDESONIDE/FORMOTEROL FUMARATE 160/4.5 60 PUFFS/INHALER INH SCH ×2 (08:00→20:17)
[2017-08-09] MEDS: BRIMONIDINE TARTRATE-P 0.15% 5 ML BTL OPL SCH ×3 (08:00→20:17)
[2017-08-09] MEDS: OMEGA-3 (PURIFIED FISH OIL) 1 GM CAP PO SCH (08:00)
[2017-08-09] MEDS: DORZOLAMIDE/TIMOLOL 22.3/6.8MG/ML 10 ML BTL OPL SCH ×2 (08:00→20:18)
[2017-08-09] MEDS: ARTIFICIAL TEARS OP SOLN OPL SCH ×8 (08:00→20:17)
[2017-08-09] MEDS: PANTOprazole SOD 40 MG TAB PO SCH (08:01)
[2017-08-09] MEDS: CEROVITE ADV FORMULA TAB PO SCH (08:01)
[2017-08-09] MEDS: ASCORBIC ACID 500 MG TAB PO SCH (08:01)
[2017-08-09] MEDS: CALCIUM 600MG + VIT D 400 IU TAB PO SCH (08:01)
[2017-08-09] MEDS: AMLODIPINE BESYLATE 5 MG TAB PO SCH (08:01)
[2017-08-09] MEDS: POTASSIUM CHLORIDE 20 MEQ TABCR PO SCH (08:02)
[2017-08-09] MEDS: APIXABAN 2.5 MG TAB PO SCH ×2 (08:02→20:20)
[2017-08-09] MEDS: CITALOPRAM 20 MG TAB PO SCH (08:03)
[2017-08-09 08:11] LABS: CREATININE 1.1 mg/dl (0.60-1.20)
--- NOTE | 2017-08-09 08:49 | Progress Note ---
Orthopedic SOAP Note Subjective Date of Service: Aug 09, 2017. Reports: feeling well, pain controlled w PO medications, Denies: complaints, chest pain, SOB, nausea / vomiting, light headedness, calf pain, using NANNY BAB[employer]ITTER Problem List Medical Problems: (1) Cellulitis Status: Acute (2) Cellulitis of great toe of right foot Status: Acute (3) Knee pain Status: Acute (4) Osteoarthritis Status: Acute (5) Sepsis Status: Acute Objective calves soft nontender, N/V intact, capillary refill less than 2 sec., dressing C /D/I (I changed dressing today, placed THOMAS hose over multiple layers of webril and adjusted brace, which is locked in full extension.), incision C/D/I ( subcuticular suturing used for wound closure with steri-strips), A&O x3, toes mobile Resting comfortably in bed. Eating breakfast. Pleasant as always. Date Time Temp Pulse Resp B/P (MAP) Pulse Ox O2 Delivery O2 Flow Rate FiO2 08/09/17 07:45 36.7 82 20 151/91 (111) 95 Nasal Cannula 3.0 08/09/17 07:35 91 16 94 Nasal Cannula 3.0 08/09/17 06:12 98 163/95 08/09/17 04:00 Nasal Cannula 3.0 08/09/17 02:55 36.5 92 20 144/85 (104) 94 3.0 08/09/17 02:24 100 16 91 Nasal Cannula 3.0 08/08/17 23:59 Nasal Cannula 3.0 08/08/17 23:50 93 162/95 08/08/17 23:40 36.6 93 20 162/95 (117) 95 Nasal Cannula 3.0 08/08/17 20:11 36.5 84 20 179/95 (123) 94 Nasal Cannula 3.0 08/08/17 20:00 Nasal Cannula 3.0 08/08/17 19:56 73 14 92 Nasal Cannula 3.0 08/08/17 18:09 84 170/84 08/08/17 16:11 36.6 84 20 170/84 (112) 91 Nasal Cannula 2.0 08/08/17 16:00 Nasal Cannula 2.0 08/08/17 12:14 74 08/08/17 12:00 95 Nasal Cannula 2.0 08/08/17 11:55 36.7 75 22 167/82 (110) 91 Nasal Cannula 2.0 Laboratory Results 24 Hours: Test 08/08/17 09:52 08/09/17 07:14 Prothromb Time International Ratio 0.9 1.0 Prothrombin Time 9.9 SECONDS 10.7 SECONDS Hematocrit 32.8 % Hemoglobin 10.8 g/dL Assessment S/P Right knee I&D and poly exchange DVT right lower extremity Plan continue post op care Dressing changed this AM by myself knee brace locked in full extension but is permitted to be weightbearing with her walker and assist ice/elevate continue diet post-operative anticoagulation with Eliquis pain control with prescribed medications PT/OT ordered to mobilize and assist with gait training, otherwise understands they are to keep the knee in extension continue with ID and medicine input no other questions or concerns this morning by the patient or family will discuss findings further with Dr. Marshall call [facility] with any other questions, thank you
--- NOTE | 2017-08-09 09:23 | Hospitalist Progress Note ---
Hospitalist Progress Note Date of Service Aug 09, 2017. Subjective Pt evaluation today including: conversation w/ patient, physical exam, chart review, lab review, review of studies Pain: None PO Intake: Good Voiding: no voiding problems The patient was seen and examined this morning. Pt reports doing well. She was just up and walking with the physical therapist and did well, was able to ambulate to the bathroom. Her pain is well controlled and swelling seems to be decreasing. She denies any chest pain, palpitations, flutter, headache or dizziness. Shes tolerating a diet without difficulty. Her bowels have not moved since surgery but she is passing gas. Denies n/v/d. Denies any numbness or tingling into her foot on the surgical leg. Overnight events: Pt flipped into afib around 2100 - has been relatively rate controlled ROS: 6 point ROS reviewed and otherwise neg. Objective Vital Signs Date Time Temp Pulse Resp B/P (MAP) Pulse Ox O2 Delivery O2 Flow Rate FiO2 08/09/17 08:00 95 Nasal Cannula 2.0 08/09/17 07:45 36.7 82 20 151/91 (111) 95 Nasal Cannula 3.0 08/09/17 07:35 91 16 94 Nasal Cannula 3.0 08/09/17 06:12 98 163/95 08/09/17 04:00 Nasal Cannula 3.0 08/09/17 02:55 36.5 92 20 144/85 (104) 94 3.0 08/09/17 02:24 100 16 91 Nasal Cannula 3.0 08/08/17 23:59 Nasal Cannula 3.0 08/08/17 23:50 93 162/95 08/08/17 23:40 36.6 93 20 162/95 (117) 95 Nasal Cannula 3.0 08/08/17 20:11 36.5 84 20 179/95 (123) 94 Nasal Cannula 3.0 08/08/17 20:00 Nasal Cannula 3.0 08/08/17 19:56 73 14 92 Nasal Cannula 3.0 08/08/17 18:09 84 170/84 08/08/17 16:11 36.6 84 20 170/84 (112) 91 Nasal Cannula 2.0 08/08/17 16:00 Nasal Cannula 2.0 08/08/17 12:14 74 08/08/17 12:00 95 Nasal Cannula 2.0 08/08/17 11:55 36.7 75 22 167/82 (110) 91 Nasal Cannula 2.0 Physical Exam Notes: General Appearance: WD/WN, no apparent distress Eyes: PERRL, EOMI ENT: pharynx normal, + pertinent finding (Hard of hearing) Neck: no adenopathy, no JVD Respiratory/Chest: no respiratory distress, no accessory muscle use, + pertinent finding (On 2 L O2 via NC, diminished breath sounds at bases, no adventitious sounds.) Cardiovascular: + irregularly irregular, rate controlled. Abdomen: normal bowel sounds, non tender, soft Extremities: non-tender, + pedal edema (1+ pitting edema in RLE , minimal edema in the LLE. appears improved today) Neurologic/Psychiatric: alert, oriented x 3 Skin: normal color, warm/dry Laboratory Results Last 24 Hours Test 08/08/17 09:52 08/09/17 07:14 Prothrombin Time 9.9 SECONDS 10.7 SECONDS Prothromb Time International Ratio 0.9 1.0 Activated Partial Thromboplast Time 26.8 SECONDS 26.4 SECONDS Partial Thromboplastin Ratio 1.0 1.0 White Blood Count 10.29 K/uL Red Blood Count 3.27 M/uL Hemoglobin 10.8 g/dL Hematocrit 32.8 % Mean Corpuscular Volume 100.3 fL Mean Corpuscular Hemoglobin 33.0 pg Mean Corpuscular Hemoglobin Concent 32.9 g/dl RDW Standard Deviation 51.9 fL RDW Coefficient of Variation 14.2 % Platelet Count 161 K/uL Mean Platelet Volume 9.2 fL Creatinine 1.10 mg/dl Est Creatinine Clear Calc Drug Dose 32.4 ml/min Estimated GFR () 52.3 Estimated GFR (Non- 45.1 Assessment and Plan This is an 87 Yo F with PMHx of S/p R knee revision and washout for Staph Bacteremia causing sepsis - POD #[address] Shin - Continue cefazolin per ID- likely will need 6-8 weeks of IV abx per their recommendations - Repeat blood cultures drawn for negatives. Will then proceed with PICC placement. - Eliquis resumed - PT/OT on board- will need PT at time of discharge- referrals to [facility] have been placed. - CM to assist with d/c planning for acute rehab Acute Distal peroneal RLE DVT - Was on eliquis prior to this admission and has been held- POD #1 - Discussion held with Jonn Santos PA-C regarding anticoagulation- Reports Dr. Jones who is caring for the patient does NOT want her started on heparin gtt, lovenox or coumadin. He wants her to resume eliquis 10 mg BID 24 hours after surgery which is at 1400. - Will start the first dose tonight - family updated New diagnosis of A. fib with RVR at time of admission heart rate at 110, transferred to telemetry for now and continue desk monitor after procedure - Pt is back in afib this morning but is relatively rate controlled in the low 100s, she has occasional bursts up into the 120s with activity. - She is asymptomatic - Echo complete: * 1. Normal LV size. Mild concentric LVH. * 2. Normal LV systolic function. LVEF 60-65%. No regional wall motion abnormalities. * 3. Normal RV size and function. * 4. Mild mitral regurgitation. * 5. Grade II diastolic dysfunctin. * 6. Compared with prior study on 07/24/2015: No significant changes. - Continue Eliquis 10 mg BID for anticoagulation - May initiate PO rate control agent if does develop high rates - for now continue w/ IV lopressor prn. DVT prophylaxis: eliquis BID CODE STATUS: Full code Disposition: PT/OT, move off tele to med surg today with rate controlled afib and asymptomatic, d/c per primary team.
[2017-08-09] MEDS ORDERED: MULTIVITAMIN TAB PO SCH (09:34)
[2017-08-09] MEDS ORDERED: PANTOprazole SOD 40 MG TAB PO SCH (09:34)
[2017-08-09] MEDS ORDERED: ENOXAPARIN 40 MG/0.4 ML SYR SQ SCH (09:34)
[2017-08-09] MEDS ORDERED: BISACODYL 10 MG SUPP PR PRN (09:45)
[2017-08-09] MEDS ORDERED: ONDANSETRON INJ 2 MG/ML 2 ML VIAL IV PRN (09:45)
[2017-08-09] MEDS ORDERED: MAGNESIUM HYDROXIDE SUSP 30 ML UDC PO PRN (09:45)
[2017-08-09] MEDS ORDERED: DiphenhydrAMINE HCL 50 MG/ML VIAL IV PRN (09:45)
[2017-08-09] MEDS ORDERED: METOCLOPRAMIDE HCL INJ 5 MG/ML 2 ML VIAL IV PRN (09:45)
[2017-08-09] MEDS ORDERED: MoRPHine SULFATE 2 MG/ML CARP IV PRN ×2 (09:45→12:30)
[2017-08-09] MEDS ORDERED: ALUMINUM/MAGNESIUM/SIMETH (MAALOX MAX) 30 ML UDC PO PRN (09:45)
[2017-08-09] MEDS ORDERED: MoRPHine SULFATE 4 MG/ML 1 ML CARP\\VIAL IV PRN ×2 (12:15→12:30)
[2017-08-09] MEDS: FERROUS GLUCONATE 324 MG TAB PO SCH ×2 (13:14→17:29)
[2017-08-09] MEDS: DOCUSATE SODIUM 100 MG CAP PO SCH ×2 (13:14→20:19)
--- NOTE | 2017-08-09 13:27 | DIAGNOSTIC IMAGING REPORT ---
R KNEE 1 OR 2 VIEWS ROUTINE CLINICAL HISTORY: 87 years-old Female presenting with AP/LATERAL IN PACU RIGHT KNEE. TECHNIQUE: Frontal and lateral views of the right knee were obtained. COMPARISON: 08/08/2017. 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 Expected intra-articular gas. Apparent malalignment evidenced by medial joint space loss on frontal view is likely projectional as no joint space loss is evident on lateral view. No fracture. Linear calcification along the medial femoral condyle suggests prior medial collateral ligament injury. Atherosclerosis. 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 Apparent malalignment on frontal view is likely due to suboptimal positioning. Recommend repeat frontal radiograph for confirmation. Electronically signed by: Lucio Cabrera M.D. 08/09/2017 1:25 PM Dictated Date/Time: 08/09/2017 1:22 PM
--- NOTE | 2017-08-09 13:43 | Progress Note ---
Progress Note Date of Service Aug 09, 2017. Progress Note Patient is tired because of PT. Denies chest pain but she's back in atrial fibrillation. Vital signs stable afebrile. Wound is clean. Assessment awaiting placement however atrial fibrillation issues make this more complicated. Will continue with present antibiotic regimen per infectious disease. Will likely need viscose supplementation treatment for the left knee. Dictated not read.
[2017-08-09] MEDS: OXYCODONE HCL IR 5 MG TAB (IMMEDIATE RELEASE) PO PRN (14:07)
[2017-08-09] MEDS ORDERED: METOPROLOL TARTRATE 1 MG/ML VIAL IV PRN (15:15)
[2017-08-09] MEDS: METOPROLOL TARTRATE 25 MG TAB PO SCH ×2 (15:38→20:22)
[2017-08-09] MEDS ORDERED: NURSING VERBAL MED ORDER ONE (17:30)
[2017-08-09] MEDS ORDERED: METOPROLOL TARTRATE 25 MG TAB PO ONE (17:30)
--- NOTE | 2017-08-09 20:03 | Infectious Disease Progress Nt ---
Progress Note Date of Service Aug 09, 2017. Subjective Pt evaluation today including: conversation w/ patient, physical exam, chart review, lab review, review of studies, conversation w/ weight loss sales consultant, review of inpatient medication list offering no new complaints today. Pain controlled. Remains afebrile. Cultures are growing Staph aureus. Follow-up blood cultures negative so far. All Other Systems: Reviewed and Negative Medications Current Inpatient Medications Medications (Trade) Dose Ordered Sig/Peterson Route Start Time Stop Time Status Last Admin Dose Admin Acetaminophen (Tylenol Tab) 650 mg Q4H PRN PO 08/05/17 06:45 09/04/17 06:44 08/06/17 10:29 650 MG Amlodipine Besylate (Norvasc Tab) 2.5 mg DAILY PO 08/05/17 09:00 09/04/17 08:59 08/09/17 08:01 2.5 MG Brimonidine Tartrate (Alphagan-P 0.15% Oph Soln) 1 drops TID OPL 08/05/17 09:00 09/04/17 08:59 08/09/17 13:15 1 DROPS Budesonide/ Formoterol Fumarate (Symbicort 160/ 4.5 Inh) 2 puffs BID INH 08/05/17 09:00 09/04/17 08:59 08/09/17 08:00 2 PUFFS Calcium/Vitamin D (Caltrate Plus Tab) 1 tab DAILY PO 08/05/17 09:00 09/04/17 08:59 08/09/17 08:01 1 TAB Citalopram Hydrobromide (celeXA TAB) 30 mg DAILY PO 08/05/17 09:00 09/04/17 08:59 08/09/17 08:03 30 MG Dorzolamide/ Timolol (Cosopt Op Soln) 1 drops BID OPL 08/05/17 09:00 09/04/17 08:59 08/09/17 08:00 1 DROPS Fish Oil (Liberty-3 (Purified Fish Oil) Cap) 1 gm DAILY PO 08/05/17 09:00 09/04/17 08:59 08/09/17 08:00 1 GM Latanoprost (Xalatan Oph Soln) 1 drops HS OPL 08/05/17 21:00 09/04/17 20:59 08/08/17 19:54 1 DROPS Multivitamins/ Minerals (Multivitamin W/ Minerals Tab) 1 tab DAILY PO 08/05/17 09:00 09/04/17 08:59 08/09/17 08:01 1 TAB Potassium Chloride (Klor-Con Tab) 20 meq DAILY PO 08/05/17 09:00 09/04/17 08:59 08/09/17 08:02 20 MEQ Prednisone (PredniSONE TAB) 20 mg DAILY PO 08/05/17 09:00 09/04/17 08:59 Future Hold 08/06/17 08:47 20 MG Simvastatin (Zocor Tab) 20 mg QPM PO 08/05/17 21:00 09/04/17 20:59 08/08/17 19:54 20 MG Ascorbic Acid (Vitamin C Tab) 1,000 mg DAILY PO 08/05/17 09:00 09/04/17 08:59 08/09/17 08:01 1,000 MG Artificial Tears (Artificial Tears) 1 drops QID OPL 08/05/17 09:00 09/04/17 08:59 08/09/17 13:14 1 DROPS Pantoprazole Sodium (Protonix Tab) 40 mg QAM PO 08/05/17 09:00 09/04/17 08:59 08/09/17 08:01 40 MG Ibuprofen (Motrin Tab) 600 mg TID PRN PO 08/06/17 11:30 09/05/17 11:29 08/09/17 08:02 600 MG Prednisone (PredniSONE TAB) 20 mg DAILY PO 08/07/17 09:00 09/06/17 08:59 08/09/17 08:02 20 MG Cefazolin Sodium 2000 mg/Dextrose 60 ml @ 100 mls/hr Q8H IV 08/07/17 12:00 09/18/17 11:59 08/09/17 12:36 100 MLS/HR Apixaban (Eliquis Tab) 10 mg BID PO 08/08/17 21:00 08/15/17 09:01 08/09/17 08:02 10 MG Levalbuterol (Xopenex 1.25MG/ 0.5ML Neb) 1.25 mg Q6R INH 08/08/17 21:00 09/07/17 20:59 08/09/17 19:51 1.25 MG Ipratropium [place] (Atrovent 0.02% 0.5MG/2.5ML Neb) 0.5 mg Q6R INH 08/08/17 21:00 09/07/17 20:59 08/09/17 19:51 0.5 MG Oxycodone HCl (Roxicodone Immediate Rel Tab) 1 TABLET FOR PAIN RATING... Q4H PRN PO 08/09/17 09:45 08/23/17 09:44 08/09/17 14:07 10 MG Magnesium Hydroxide (Milk Of Magnesia Susp) 30 ml Q6H PRN PO 08/09/17 09:45 09/08/17 09:44 Bisacodyl (Dulcolax Supp) 10 mg DAILY PRN DC 08/09/17 09:45 09/08/17 09:44 Senna (Senokot Tab) 17.2 mg HS PO 08/09/17 21:00 09/08/17 20:59 Docusate Sodium (coLACE CAP) 100 mg BID PO 08/09/17 13:00 09/08/17 12:59 08/09/17 13:14 100 MG Diphenhydramine HCl (Benadryl Inj) 25 mg Q8H PRN IV 08/09/17 09:45 09/08/17 09:44 Al Hydrox/Mg Hydrox/Simethicone (Maalox Max Susp) 15 ml Q4H PRN PO 08/09/17 09:45 09/08/17 09:44 Ondansetron HCl (Zofran Inj) 4 mg Q6H PRN IV 08/09/17 09:45 09/08/17 09:44 Metoclopramide HCl (Reglan Inj) 10 mg Q6H PRN IV 08/09/17 09:45 09/08/17 09:44 Ferrous Gluconate (Ferrous Gluconate Tab) 324 mg TIDM PO 08/09/17 13:00 09/08/17 12:59 08/09/17 17:29 324 MG Morphine Sulfate (MoRPHine SULFATE INJ) 2 mg Q4H PRN IV 08/09/17 12:30 08/23/17 12:29 Morphine Sulfate (MoRPHine SULFATE INJ) 4 mg Q4H PRN IV 08/09/17 12:30 08/23/17 12:29 Metoprolol Tartrate (Lopressor Tab) 12.5 mg BID PO 08/09/17 15:30 09/08/17 15:29 08/09/17 15:38 12.5 MG Metoprolol Tartrate (Lopressor Iv) 2.5 mg Q6 PRN IV 08/09/17 15:15 09/08/17 15:14 Objective Vital Signs Date Time Temp Pulse Resp B/P (MAP) Pulse Ox O2 Delivery O2 Flow Rate FiO2 08/09/17 19:52 71 16 100 Nasal Cannula 3.0 08/09/17 17:25 134 163/96 (118) 08/09/17 16:00 Nasal Cannula 3.0 08/09/17 15:27 36.4 106 18 176/79 (111) 97 Nasal Cannula 3.0 08/09/17 14:33 104 16 95 Nasal Cannula 3.0 08/09/17 13:03 104 08/09/17 12:00 95 Nasal Cannula 2.0 08/09/17 11:58 37.2 76 20 155/98 (117) 93 Nasal Cannula 3.0 08/09/17 11:50 92 99 08/09/17 11:13 112 08/09/17 09:03 36.5 08/09/17 08:00 95 Nasal Cannula 2.0 08/09/17 07:45 36.7 82 20 151/91 (111) 95 Nasal Cannula 3.0 08/09/17 07:35 91 16 94 Nasal Cannula 3.0 08/09/17 06:12 98 163/95 08/09/17 04:00 Nasal Cannula 3.0 08/09/17 02:55 36.5 92 20 144/85 (104) 94 3.0 08/09/17 02:24 100 16 91 Nasal Cannula 3.0 08/08/17 23:59 Nasal Cannula 3.0 08/08/17 23:50 93 162/95 08/08/17 23:40 36.6 93 20 162/95 (117) 95 Nasal Cannula 3.0 08/08/17 20:11 36.5 84 20 179/95 (123) 94 Nasal Cannula 3.0 Physical Exam General Appearance: WD/WN, no apparent distress Eyes: normal inspection, EOMI, sclerae normal ENT: normal ENT inspection, pharynx normal Neck: supple, no adenopathy ( Right now), thyroid normal, trachea midline Respiratory/Chest: chest non-tender, lungs clear, normal breath sounds ( [employer] 1), no respiratory distress Cardiovascular: regular rate, rhythm ( but on what), no gallop, no murmur Abdomen: normal bowel sounds, non tender ( all ), soft, no organomegaly ( home are got 20,000) Extremities: normal range of motion, no calf tenderness, normal capillary refill Neurologic/Psychiatric: alert, oriented x 3 Skin: normal color, no rash Lymphatic: no adenopathy Laboratory Results Last 24 Hours Test 08/09/17 07:14 White Blood Count 10.29 K/uL Red Blood Count 3.27 M/uL Hemoglobin 10.8 g/dL Hematocrit 32.8 % Mean Corpuscular Volume 100.3 fL Mean Corpuscular Hemoglobin 33.0 pg Mean Corpuscular Hemoglobin Concent 32.9 g/dl RDW Standard Deviation 51.9 fL RDW Coefficient of Variation 14.2 % Platelet Count 161 K/uL Mean Platelet Volume 9.2 fL Prothrombin Time 10.7 SECONDS Prothromb Time International Ratio 1.0 Activated Partial Thromboplast Time 26.4 SECONDS Partial Thromboplastin Ratio 1.0 Creatinine 1.10 mg/dl Est Creatinine Clear Calc Drug Dose 32.4 ml/min Estimated GFR () 52.3 Estimated GFR (Non- 45.1 Assessment and Plan 87-year-old female with remote history of right knee replacement, admitted with right leg DVT, now found to have septic arthritis with methicillin sensitive Staph aureus involving her right knee. She is status post debridement and poly exchange. She will continue on IV cefazolin for now, will require prolonged IV antibiotics. Will follow.
[2017-08-09] MEDS: LATANOPROST 0.005% OP SOLN 2.5 ML BTL OPL SCH (20:18)
[2017-08-09] MEDS: SENNA 8.6 MG TAB PO SCH (20:19)
[2017-08-09] MEDS: SIMVASTATIN 20 MG TAB PO SCH (20:22)
[2017-08-10] VITALS (13 sets, daily range): BP systolic 151–169; BP diastolic 73–96; PULSE 69–103; TEMP 36.5–37; O2SAT 91–100
[2017-08-10] MEDS: LEVALBUTEROL 1.25MG/0.5ML NEB INH SCH ×4 (01:58→19:15)
[2017-08-10] MEDS: IPRATROPIUM BROMIDE NEB SOLN 0.02% 2.5 ML VIAL INH SCH ×4 (01:58→19:15)
[2017-08-10] MEDS: CEFAZOLIN IV 2,000 MG in DEXTROSE 5% 50ML 50 ML IV SCH ×3 (03:20→20:18)
[2017-08-10] MEDS: OXYCODONE HCL IR 5 MG TAB (IMMEDIATE RELEASE) PO PRN ×2 (03:20→20:23)
[2017-08-10 07:21] LABS: PROTHROMBIN TIME (PATIENT) 10.5 SECONDS (9.0-12.0)
[2017-08-10] MEDS: DOCUSATE SODIUM 100 MG CAP PO SCH ×2 (08:13→19:38)
[2017-08-10] MEDS: OMEGA-3 (PURIFIED FISH OIL) 1 GM CAP PO SCH (08:13)
[2017-08-10] MEDS: ASCORBIC ACID 500 MG TAB PO SCH (08:13)
[2017-08-10] MEDS: BUDESONIDE/FORMOTEROL FUMARATE 160/4.5 60 PUFFS/INHALER INH SCH ×2 (08:14→19:39)
[2017-08-10] MEDS: LATANOPROST 0.005% OP SOLN 2.5 ML BTL OPL SCH (08:14)
[2017-08-10] MEDS: POTASSIUM CHLORIDE 20 MEQ TABCR PO SCH (08:14)
[2017-08-10] MEDS: FERROUS GLUCONATE 324 MG TAB PO SCH ×3 (08:14→16:47)
[2017-08-10] MEDS: BRIMONIDINE TARTRATE-P 0.15% 5 ML BTL OPL SCH ×3 (08:15→19:39)
[2017-08-10] MEDS: ARTIFICIAL TEARS OP SOLN OPL SCH ×8 (08:15→19:39)
[2017-08-10] MEDS: DORZOLAMIDE/TIMOLOL 22.3/6.8MG/ML 10 ML BTL OPL SCH ×2 (08:15→19:42)
[2017-08-10] MEDS: CALCIUM 600MG + VIT D 400 IU TAB PO SCH (08:16)
[2017-08-10] MEDS: PANTOprazole SOD 40 MG TAB PO SCH (08:16)
[2017-08-10] MEDS: CEROVITE ADV FORMULA TAB PO SCH (08:16)
[2017-08-10] MEDS: AMLODIPINE BESYLATE 5 MG TAB PO SCH (08:16)
[2017-08-10] MEDS: CITALOPRAM 20 MG TAB PO SCH (08:17)
[2017-08-10] MEDS: APIXABAN 2.5 MG TAB PO SCH ×2 (08:17→19:39)
[2017-08-10] MEDS: METOPROLOL TARTRATE 25 MG TAB PO SCH ×2 (08:18→19:38)
[2017-08-10] MEDS: IBUPROFEN 600 MG TAB PO PRN (08:20)
--- NOTE | 2017-08-10 09:52 | Orthopedic Progress Note ---
Orthopedic Progress Note Date of Service Aug 10, 2017. Subjective Post OP Day: 3 Reports: feeling well, pain controlled w PO medications, Denies: complaints, chest pain, SOB, nausea / vomiting, light headedness, calf pain, using ETYMOLOGY TEACHER Objective calves soft nontender, N/V intact, capillary refill less than 2 sec., dressing C /D/I, incision C/D/I, A&O x3, toes mobile, CMS intact Date Time Temp Pulse Resp B/P (MAP) Pulse Ox O2 Delivery O2 Flow Rate FiO2 08/10/17 08:00 95 Nasal Cannula 2.0 08/10/17 07:33 99 16 93 Nasal Cannula 2.0 08/10/17 07:30 36.8 69 24 158/89 (112) 100 Nasal Cannula 2.0 08/10/17 04:00 36.7 92 16 169/84 (112) 95 Nasal Cannula 2.0 08/10/17 04:00 Nasal Cannula 2.0 08/10/17 01:58 93 16 98 Nasal Cannula 2.0 08/10/17 00:00 Nasal Cannula 2.0 08/09/17 23:37 36.4 90 18 175/91 (119) 93 Nasal Cannula 2.0 08/09/17 20:00 Nasal Cannula 2.0 08/09/17 19:52 71 16 100 Nasal Cannula 3.0 08/09/17 19:21 36.8 82 18 144/92 (109) 95 Nasal Cannula 3.0 08/09/17 17:25 134 163/96 (118) 08/09/17 16:00 Nasal Cannula 3.0 08/09/17 15:27 36.4 106 18 176/79 (111) 97 Nasal Cannula 3.0 08/09/17 14:33 104 16 95 Nasal Cannula 3.0 08/09/17 13:03 104 08/09/17 12:00 95 Nasal Cannula 2.0 08/09/17 11:58 37.2 76 20 155/98 (117) 93 Nasal Cannula 3.0 08/09/17 11:50 92 99 08/09/17 11:13 112 Laboratory Results 24 Hours: Test 08/10/17 06:34 Prothromb Time International Ratio 1.0 Prothrombin Time 10.5 SECONDS Assessment & Plan Assessment: Day 3 S/P Right knee I&D and poly exchange DVT right lower extremity Plan: continue post op care Dressing changed this AM by myself knee brace locked in full extension but is permitted to be weightbearing with her walker and assist ice/elevate continue diet post-operative anticoagulation with Eliquis pain control with prescribed medications PT/OT ordered to mobilize and assist with gait training, otherwise understands they are to keep the knee in extension continue with ID and medicine input no other questions or concerns this morning by the patient or family will discuss findings further with Dr. Marshall call [facility] with any other questions, thank you
--- NOTE | 2017-08-10 10:19 | Hospitalist Progress Note ---
Hospitalist Progress Note Date of Service Aug 10, 2017. Subjective Pt evaluation today including: conversation w/ patient, conversation w/ family , physical exam, chart review, lab review, review of studies Pain: minimal soreness PO Intake: Good Voiding: no voiding problems The patient was seen and examined this morning. Pts son in law is present at bedside. Pt reports she is doing well this morning, her pain is well controlled , and the dressing over her just was changed. She has been ambulating to the bathroom without difficulty, using a walker. Discussion was held regarding afib and rate control - it appears better overnight with intitiation of metprolol 12.5 BID, but was given an extra dose of metprolol last evening for elevated rate. She denies any sensation of lightheadedness, dizziness, chest pain, tightness or flutter/palpitations. They are requesting a cardiology consultation at this time. Constitutional: No fever, No chills, No sweats Eyes: No diplopia ENT: No nasal symptoms, No trouble swallowing Respiratory: No cough, No sputum, No wheezing, No shortness of breath Cardiovascular: + edema (RLE), No chest pain, No palpitations Abdomen: + constipation (last BM was 3 days ago), No pain, No nausea, No vomiting, No diarrhea Musculoskeletal: + swelling (RLE), No joint pain Neurologic: No weakness, No numbness/tingling, No balance problems Skin: No rash, No itch Objective Vital Signs Date Time Temp Pulse Resp B/P (MAP) Pulse Ox O2 Delivery O2 Flow Rate FiO2 08/10/17 08:00 95 Nasal Cannula 2.0 08/10/17 07:33 99 16 93 Nasal Cannula 2.0 08/10/17 07:30 36.8 69 24 158/89 (112) 100 Nasal Cannula 2.0 08/10/17 04:00 36.7 92 16 169/84 (112) 95 Nasal Cannula 2.0 08/10/17 04:00 Nasal Cannula 2.0 08/10/17 01:58 93 16 98 Nasal Cannula 2.0 08/10/17 00:00 Nasal Cannula 2.0 08/09/17 23:37 36.4 90 18 175/91 (119) 93 Nasal Cannula 2.0 08/09/17 20:00 Nasal Cannula 2.0 08/09/17 19:52 71 16 100 Nasal Cannula 3.0 08/09/17 19:21 36.8 82 18 144/92 (109) 95 Nasal Cannula 3.0 08/09/17 17:25 134 163/96 (118) 08/09/17 16:00 Nasal Cannula 3.0 08/09/17 15:27 36.4 106 18 176/79 (111) 97 Nasal Cannula 3.0 08/09/17 14:33 104 16 95 Nasal Cannula 3.0 08/09/17 13:03 104 08/09/17 12:00 95 Nasal Cannula 2.0 08/09/17 11:58 37.2 76 20 155/98 (117) 93 Nasal Cannula 3.0 08/09/17 11:50 92 99 08/09/17 11:13 112 Physical Exam Notes: General Appearance: WD/WN, no apparent distress Eyes: PERRL, EOMI ENT: pharynx normal, + pertinent finding (Hard of hearing) Neck: no adenopathy, no JVD Respiratory/Chest: no respiratory distress, no accessory muscle use, + pertinent finding (On 2 L O2 via NC, improving breath sounds, still diminished in bilateral bases, no adventitious sounds.) Cardiovascular: + irregularly irregular, rate controlled. Abdomen: normal bowel sounds, non tender, soft Extremities: non-tender, + pedal edema (1+ pitting edema in RLE , minimal edema in the LLE) Neurologic/Psychiatric: alert, oriented x 3 Skin: normal color, warm/dry Laboratory Results Last 24 Hours Test 08/10/17 06:34 Prothrombin Time 10.5 SECONDS Prothromb Time International Ratio 1.0 Activated Partial Thromboplast Time 26.8 SECONDS Partial Thromboplastin Ratio 1.0 Assessment and Plan This is an 87 Yo F with PMHx of S/p R knee revision and washout for Staph Bacteremia causing sepsis - POD #[address] Shin - Continue cefazolin per ID- likely will need 6-8 weeks of IV abx per their recommendations - Repeat blood cultures drawn for negatives on 08/09 - should have results by tomorrow. Will then proceed with PICC placement. - Eliquis resumed - PT/OT on board- will need PT at time of discharge- referrals to [facility] have been placed. - CM to assist with d/c planning for acute rehab Acute Distal peroneal RLE DVT - Was on eliquis prior to this admission and had been held for surgery- Discussion held with Jonn Santos PA-C regarding anticoagulation on 08/08- Reports Dr. Jones who is caring for the patient does NOT want her started on heparin gtt, lovenox or coumadin. - Resumed eliquis New diagnosis of A. fib with RVR at time of admission heart rate at 110, transferred to telemetry for now and continue secured entrance monitor after procedure - Started metoprolol 12.5 mg BID on 08/09 with improvement in rate control. She did have an extra 12.5 mg administered after dinner last night. Overnight was in the low 100s-110s. BP has room for increase in metoprolol- Family is requesting cardiology consultation- will ask them to make adjustments to meds if indicated - appreciate. - Continue Eliquis 10 mg BID for anticoagulation - remains asymptomatic - Echo complete: * 1. Normal LV size. Mild concentric LVH. * 2. Normal LV systolic function. LVEF 60-65%. No regional wall motion abnormalities. * 3. Normal RV size and function. * 4. Mild mitral regurgitation. * 5. Grade II diastolic dysfunctin. * 6. Compared with prior study on 07/24/2015: No significant changes. DVT prophylaxis: eliquis BID CODE STATUS: Full code Disposition: PT/OT, possible will move off tele to med surg todayif remains rate controlled afib and asymptomatic, d/c per primary team.
--- NOTE | 2017-08-10 11:46 | Cardiology Consultation ---
Cardiology Consultation Date of Consultation: Aug 10, 2017. Requesting Physician: Dr. Flores Reason for Consultation: Atrial fibrillation Pt evaluation today including: conversation w/ patient, physical exam, lab review, review of studies, review of inpatient medication list History of Present Illness This is a very pleasant 87-year-old woman who was recently identified as having atrial fibrillation during this hospitalization. Historically she is not known to have atrial fibrillation but has symptoms possibly compatible with it, she is unaware of it here in the hospital and does not have palpitations. Several years ago she had an episode of loss of consciousness where she was hospitalized and that was felt to be due to dehydration, however she has intermittent lightheaded spells which she is quite vague in describing but they only last a few minutes and occur sporadically. These are possibly episodes of atrial fibrillation. She has had paroxysmal atrial fibrillation during this hospitalization, it was identified prior to her surgery and I don't think is related to the surgery. She does not have exertional cardiac vascular symptoms but she does not perform very much exertion due to her arthritis and now her knee infection. At home she was on no AV sandee blocking medications, but she was on medications for hypertension. Here she is on metoprolol 12.5 mg twice a day following identification of atrial fibrillation. I believe her atrial fibrillation was identified on the morning of 08/07/2017 prior to surgery. This was identified on routine vital signs, she was transferred to telemetry. Initial rhythm strips suggest atrial flutter, although the ventricular response is irregular. The heart rate on initial evaluation on the rhythm strip appears quite fast, around 120 bpm. Subsequently she was in sinus rhythm, and then had recurrence of atrial fibrillation, now with a more controlled heart rate. Currently she is sitting in her chair next to the bed, she is in atrial fibrillation but has no awareness of it. She has no palpitations, lightheadedness or dizziness. Past Medical/Surgical History (1) ASTHMA, UNSPECIFIED (2) HYPERTENSION NOS (3) syncope (4) Right leg DVT Family History Hypertension Social History Smoking Status: Never Smoker History of Alcohol Use: No Review of Systems Constitutional: No fever, No weight loss, No weakness Respiratory: No cough, No sputum, No wheezing, No shortness of breath Cardiac: + edema (RLE), No chest pain, No palpitations Abdomen: No pain, No nausea, No vomiting, No diarrhea, No GI bleeding Female : No problem reported Neurologic: No paralysis, No weakness, No numbness/tingling, No balance problems Heme: No abnormal bleeding/bruising, No clotting problems Endo: No fatigue Skin: No problem reported Right knee discomfort following surgery All Other Systems: Reviewed and Negative Allergies Coded Allergies: No Known Allergies (Verified , 08/05/17) Medications Current Inpatient Medications Medications (Trade) Dose Ordered Sig/Peterson Route Start Time Stop Time Status Last Admin Dose Admin Acetaminophen (Tylenol Tab) 650 mg Q4H PRN PO 08/05/17 06:45 09/04/17 06:44 08/06/17 10:29 650 MG Amlodipine Besylate (Norvasc Tab) 2.5 mg DAILY PO 08/05/17 09:00 09/04/17 08:59 08/10/17 08:16 2.5 MG Brimonidine Tartrate (Alphagan-P 0.15% Oph Soln) 1 drops TID OPL 08/05/17 09:00 09/04/17 08:59 08/10/17 08:15 1 DROPS Budesonide/ Formoterol Fumarate (Symbicort 160/ 4.5 Inh) 2 puffs BID INH 08/05/17 09:00 09/04/17 08:59 08/10/17 08:14 2 PUFFS Calcium/Vitamin D (Caltrate Plus Tab) 1 tab DAILY PO 08/05/17 09:00 09/04/17 08:59 08/10/17 08:16 1 TAB Citalopram Hydrobromide (celeXA TAB) 30 mg DAILY PO 08/05/17 09:00 09/04/17 08:59 08/10/17 08:17 30 MG Dorzolamide/ Timolol (Cosopt Op Soln) 1 drops BID OPL 08/05/17 09:00 09/04/17 08:59 08/10/17 08:15 1 DROPS Fish Oil ([place]-3 (Purified Fish Oil) Cap) 1 gm DAILY PO 08/05/17 09:00 09/04/17 08:59 08/10/17 08:13 1 GM Latanoprost (Xalatan Oph Soln) 1 drops HS OPL 08/05/17 21:00 09/04/17 20:59 08/10/17 08:14 1 DROPS Multivitamins/ Minerals (Multivitamin W/ Minerals Tab) 1 tab DAILY PO 08/05/17 09:00 09/04/17 08:59 08/10/17 08:16 1 TAB Potassium Chloride (Klor-Con Tab) 20 meq DAILY PO 08/05/17 09:00 09/04/17 08:59 08/10/17 08:14 20 MEQ Prednisone (PredniSONE TAB) 20 mg DAILY PO 08/05/17 09:00 09/04/17 08:59 Future Hold 08/06/17 08:47 20 MG Simvastatin (Zocor Tab) 20 mg QPM PO 08/05/17 21:00 09/04/17 20:59 08/09/17 20:22 20 MG Ascorbic Acid (Vitamin C Tab) 1,000 mg DAILY PO 08/05/17 09:00 09/04/17 08:59 08/10/17 08:13 1,000 MG Artificial Tears (Artificial Tears) 1 drops QID OPL 08/05/17 09:00 09/04/17 08:59 08/10/17 08:15 1 DROPS Pantoprazole Sodium (Protonix Tab) 40 mg QAM PO 08/05/17 09:00 09/04/17 08:59 08/10/17 08:16 40 MG Ibuprofen (Motrin Tab) 600 mg TID PRN PO 08/06/17 11:30 09/05/17 11:29 08/10/17 08:20 600 MG Prednisone (PredniSONE TAB) 20 mg DAILY PO 08/07/17 09:00 09/06/17 08:59 08/10/17 08:16 20 MG Cefazolin Sodium 2000 mg/Dextrose 60 ml @ 100 mls/hr Q8H IV 08/07/17 12:00 09/18/17 11:59 08/10/17 03:20 100 MLS/HR Apixaban (Eliquis Tab) 10 mg BID PO 08/08/17 21:00 08/15/17 09:01 08/10/17 08:17 10 MG Levalbuterol (Xopenex 1.25MG/ 0.5ML Neb) 1.25 mg Q6R INH 08/08/17 21:00 09/07/17 20:59 08/10/17 07:33 1.25 MG Ipratropium [place] (Atrovent 0.02% 0.5MG/2.5ML Neb) 0.5 mg Q6R INH 08/08/17 21:00 09/07/17 20:59 08/10/17 07:33 0.5 MG Oxycodone HCl (Roxicodone Immediate Rel Tab) 1 TABLET FOR PAIN RATING... Q4H PRN PO 08/09/17 09:45 08/23/17 09:44 08/10/17 03:20 10 MG Magnesium Hydroxide (Milk Of Magnesia Susp) 30 ml Q6H PRN PO 08/09/17 09:45 09/08/17 09:44 Bisacodyl (Dulcolax Supp) 10 mg DAILY PRN RI 08/09/17 09:45 09/08/17 09:44 Senna (Senokot Tab) 17.2 mg HS PO 08/09/17 21:00 09/08/17 20:59 08/09/17 20:19 17.2 MG Docusate Sodium (coLACE CAP) 100 mg BID PO 08/09/17 13:00 09/08/17 12:59 08/10/17 08:13 100 MG Diphenhydramine HCl (Benadryl Inj) 25 mg Q8H PRN IV 08/09/17 09:45 09/08/17 09:44 Al Hydrox/Mg Hydrox/Simethicone (Maalox Max Susp) 15 ml Q4H PRN PO 08/09/17 09:45 09/08/17 09:44 Ondansetron HCl (Zofran Inj) 4 mg Q6H PRN IV 08/09/17 09:45 09/08/17 09:44 Metoclopramide HCl (Reglan Inj) 10 mg Q6H PRN IV 08/09/17 09:45 09/08/17 09:44 Ferrous Gluconate (Ferrous Gluconate Tab) 324 mg TIDM PO 08/09/17 13:00 09/08/17 12:59 08/10/17 08:14 324 MG Morphine Sulfate (MoRPHine SULFATE INJ) 2 mg Q4H PRN IV 08/09/17 12:30 08/23/17 12:29 Morphine Sulfate (MoRPHine SULFATE INJ) 4 mg Q4H PRN IV 08/09/17 12:30 10/25/17 12:29 Metoprolol Tartrate (Lopressor Tab) 12.5 mg BID PO 08/09/17 15:30 09/08/17 15:29 08/10/17 08:18 12.5 MG Metoprolol Tartrate (Lopressor Iv) 2.5 mg Q6 PRN IV 08/09/17 15:15 09/08/17 15:14 Physical Exam Vital Signs Past 12 Hours Date Time Temp Pulse Resp B/P (MAP) Pulse Ox O2 Delivery O2 Flow Rate FiO2 08/10/17 08:00 95 Nasal Cannula 2.0 08/10/17 07:33 99 16 93 Nasal Cannula 2.0 08/10/17 07:30 36.8 69 24 158/89 (112) 100 Nasal Cannula 2.0 08/10/17 04:00 36.7 92 16 169/84 (112) 95 Nasal Cannula 2.0 08/10/17 04:00 Nasal Cannula 2.0 08/10/17 01:58 93 16 98 Nasal Cannula 2.0 08/10/17 00:00 Nasal Cannula 2.0 08/09/17 23:37 36.4 90 18 175/91 (119) 93 Nasal Cannula 2.0 Constitutional: General Apperance: heathly-appearing Level of Distress: NAD Psychiatric: Mental Status: active & alert Head: normocephalic Eyes: EOM: EOMI ENMT: normal ENT inspection, pertinent finding (quite hard of hearing without her hearing aids) Neck: supple, no masses Lungs: Respiratory effort: no dyspnea, good air movement Auscultation: breath sounds normal, no wheezing Cardiovascular: Heart Auscultation: no murmurs, no rubs, no gallops, irregular rate rhythm Peripheral Pulses: Bruits: none appreciated Abdomen: Bowel Sounds: normal Inspection & Palpation: soft, no tenderness, guarding & rebound, no masses Musculoskeletal: normal strength (5/5 throughout) Extremities: no edema Neurologic: Cranial Nerves: grossly intact Sensation: grossly intact Data Laboratory Results: Last 24 Hours Test 08/10/17 06:34 Prothrombin Time 10.5 SECONDS Prothromb Time International Ratio 1.0 Activated Partial Thromboplast Time 26.8 SECONDS Partial Thromboplastin Ratio 1.0 Imaging: An echocardiogram on 08/08/2017 shows normal left ventricular size and function with mild left ventricular hypertrophy, normal right ventricular size and function. EKG: an electrocardiogram from 08/05/2017 shows sinus rhythm with premature atrial beats. An electrocardiogram from 08/17/2017 at 7:45 AM shows atrial fibrillation with a heart rate of 116 bpm. Telemetry reviewed: Periods of sinus rhythm but predominantly atrial fibrillation, now with a reasonably well-controlled heart rate although overall is a little bit fast. Assessment & Plan #1. Atrial fibrillation: I suspect this is not a new arrhythmia, she is going in and out of it here in the hospital and I suspect she has had this before. She is asymptomatic and therefore is not aware of it and would not of been at home either. Her baseline rhythm is sinus with premature beats and may be somewhat irregular as well which would make detection of atrial fibrillation more difficult. Since she tolerates it so well and the rate is reasonably well controlled I would recommend leaving her in atrial fibrillation on anticoagulation. I would like to increase her AV sandee blocking medications somewhat but would recommend continuing her on Eliquis for anticoagulation. #2. Intermittent lightheadedness: I suspect this may be also be due to atrial fibrillation but can't be sure, I don't think her rhythm has been recorded during these events. I doubt it is bradycardia since she has not shown that here. If the symptoms continue it would be reasonable to record them, I can't get a sense for how often she has it but it sounds like it is relatively frequent. Perhaps it will resolve with rate control of her atrial arrhythmia. Thank you for allowing me to participate in her care.
[2017-08-10] MEDS ORDERED: METOPROLOL TARTRATE 25 MG TAB PO STA (11:47)
--- NOTE | 2017-08-10 11:56 | Infectious Disease Progress Nt ---
Progress Note Date of Service Aug 10, 2017. Subjective Pt evaluation today including: conversation w/ patient, physical exam, chart review, lab review, review of studies, conversation w/ [employer] consultant, review of inpatient medication list Pain relatively well controlled. Being treated for atrial fibrillation. No fever. Follow-up blood cultures negative thus far. All Other Systems: Reviewed and Negative Medications Current Inpatient Medications Medications (Trade) Dose Ordered Sig/Peterson Route Start Time Stop Time Status Last Admin Dose Admin Acetaminophen (Tylenol Tab) 650 mg Q4H PRN PO 08/05/17 06:45 09/04/17 06:44 08/06/17 10:29 650 MG Amlodipine Besylate (Norvasc Tab) 2.5 mg DAILY PO 08/05/17 09:00 09/04/17 08:59 08/10/17 08:16 2.5 MG Brimonidine Tartrate (Alphagan-P 0.15% Oph Soln) 1 drops TID OPL 08/05/17 09:00 09/04/17 08:59 08/10/17 08:15 1 DROPS Budesonide/ Formoterol Fumarate (Symbicort 160/ 4.5 Inh) 2 puffs BID INH 08/05/17 09:00 09/04/17 08:59 08/10/17 08:14 2 PUFFS Calcium/Vitamin D (Caltrate Plus Tab) 1 tab DAILY PO 08/05/17 09:00 09/04/17 08:59 08/10/17 08:16 1 TAB Citalopram Hydrobromide (celeXA TAB) 30 mg DAILY PO 08/05/17 09:00 09/04/17 08:59 08/10/17 08:17 30 MG Dorzolamide/ Timolol (Cosopt Op Soln) 1 drops BID OPL 08/05/17 09:00 09/04/17 08:59 08/10/17 08:15 1 DROPS Fish Oil ([place]-3 (Purified Fish Oil) Cap) 1 gm DAILY PO 08/05/17 09:00 09/04/17 08:59 08/10/17 08:13 1 GM Latanoprost (Xalatan Oph Soln) 1 drops HS OPL 08/05/17 21:00 09/04/17 20:59 08/10/17 08:14 1 DROPS Multivitamins/ Minerals (Multivitamin W/ Minerals Tab) 1 tab DAILY PO 08/05/17 09:00 09/04/17 08:59 08/10/17 08:16 1 TAB Potassium Chloride (Klor-Con Tab) 20 meq DAILY PO 08/05/17 09:00 09/04/17 08:59 08/10/17 08:14 20 MEQ Prednisone (PredniSONE TAB) 20 mg DAILY PO 08/05/17 09:00 09/04/17 08:59 Future Hold 08/06/17 08:47 20 MG Simvastatin (Zocor Tab) 20 mg QPM PO 08/05/17 21:00 09/04/17 20:59 08/09/17 20:22 20 MG Ascorbic Acid (Vitamin C Tab) 1,000 mg DAILY PO 08/05/17 09:00 09/04/17 08:59 08/10/17 08:13 1,000 MG Artificial Tears (Artificial Tears) 1 drops QID OPL 08/05/17 09:00 09/04/17 08:59 08/10/17 08:15 1 DROPS Pantoprazole Sodium (Protonix Tab) 40 mg QAM PO 08/05/17 09:00 09/04/17 08:59 08/10/17 08:16 40 MG Ibuprofen (Motrin Tab) 600 mg TID PRN PO 08/06/17 11:30 09/05/17 11:29 08/10/17 08:20 600 MG Prednisone (PredniSONE TAB) 20 mg DAILY PO 08/07/17 09:00 09/06/17 08:59 08/10/17 08:16 20 MG Cefazolin Sodium 2000 mg/Dextrose 60 ml @ 100 mls/hr Q8H IV 08/07/17 12:00 09/18/17 11:59 08/10/17 11:53 100 MLS/HR Apixaban (Eliquis Tab) 10 mg BID PO 08/08/17 21:00 08/15/17 09:01 08/10/17 08:17 10 MG Levalbuterol (Xopenex 1.25MG/ 0.5ML Neb) 1.25 mg Q6R INH 08/08/17 21:00 09/07/17 20:59 08/10/17 07:33 1.25 MG Ipratropium [place] (Atrovent 0.02% 0.5MG/2.5ML Neb) 0.5 mg Q6R INH 08/08/17 21:00 09/07/17 20:59 08/10/17 07:33 0.5 MG Oxycodone HCl (Roxicodone Immediate Rel Tab) 1 TABLET FOR PAIN RATING... Q4H PRN PO 08/09/17 09:45 08/23/17 09:44 08/10/17 03:20 10 MG Magnesium Hydroxide (Milk Of Magnesia Susp) 30 ml Q6H PRN PO 08/09/17 09:45 09/08/17 09:44 Bisacodyl (Dulcolax Supp) 10 mg DAILY PRN AL 08/09/17 09:45 09/08/17 09:44 Senna (Senokot Tab) 17.2 mg HS PO 08/09/17 21:00 09/08/17 20:59 08/09/17 20:19 17.2 MG Docusate Sodium (coLACE CAP) 100 mg BID PO 08/09/17 13:00 09/08/17 12:59 08/10/17 08:13 100 MG Diphenhydramine HCl (Benadryl Inj) 25 mg Q8H PRN IV 08/09/17 09:45 09/08/17 09:44 Al Hydrox/Mg Hydrox/Simethicone (Maalox Max Susp) 15 ml Q4H PRN PO 08/09/17 09:45 09/08/17 09:44 Ondansetron HCl (Zofran Inj) 4 mg Q6H PRN IV 08/09/17 09:45 09/08/17 09:44 Metoclopramide HCl (Reglan Inj) 10 mg Q6H PRN IV 08/09/17 09:45 09/08/17 09:44 Ferrous Gluconate (Ferrous Gluconate Tab) 324 mg TIDM PO 08/09/17 13:00 09/08/17 12:59 08/10/17 11:54 324 MG Morphine Sulfate (MoRPHine SULFATE INJ) 2 mg Q4H PRN IV 08/09/17 12:30 08/23/17 12:29 Morphine Sulfate (MoRPHine SULFATE INJ) 4 mg Q4H PRN IV 08/09/17 12:30 08/23/17 12:29 Metoprolol Tartrate (Lopressor Iv) 2.5 mg Q6 PRN IV 08/09/17 15:15 09/08/17 15:14 Metoprolol Tartrate (Lopressor Tab) 12.5 mg NOW STAT PO 08/10/17 11:47 08/10/17 11:48 UNV Metoprolol Tartrate (Lopressor Tab) 25 mg BID PO 08/10/17 21:00 09/09/17 20:59 UNV Objective Vital Signs Date Time Temp Pulse Resp B/P (MAP) Pulse Ox O2 Delivery O2 Flow Rate FiO2 08/10/17 11:48 36.5 103 16 160/96 (117) 99 Nasal Cannula 2.0 08/10/17 08:00 95 Nasal Cannula 2.0 08/10/17 07:33 99 16 93 Nasal Cannula 2.0 08/10/17 07:30 36.8 69 24 158/89 (112) 100 Nasal Cannula 2.0 08/10/17 04:00 36.7 92 16 169/84 (112) 95 Nasal Cannula 2.0 08/10/17 04:00 Nasal Cannula 2.0 08/10/17 01:58 93 16 98 Nasal Cannula 2.0 08/10/17 00:00 Nasal Cannula 2.0 08/09/17 23:37 36.4 90 18 175/91 (119) 93 Nasal Cannula 2.0 08/09/17 20:00 Nasal Cannula 2.0 08/09/17 19:52 71 16 100 Nasal Cannula 3.0 08/09/17 19:21 36.8 82 18 144/92 (109) 95 Nasal Cannula 3.0 08/09/17 17:25 134 163/96 (118) 08/09/17 16:00 Nasal Cannula 3.0 08/09/17 15:27 36.4 106 18 176/79 (111) 97 Nasal Cannula 3.0 08/09/17 14:33 104 16 95 Nasal Cannula 3.0 08/09/17 13:03 104 08/09/17 12:00 95 Nasal Cannula 2.0 08/09/17 11:58 37.2 76 20 155/98 (117) 93 Nasal Cannula 3.0 Physical Exam General Appearance: WD/WN, no apparent distress Eyes: normal inspection, EOMI, sclerae normal ENT: normal ENT inspection, pharynx normal Neck: supple, no adenopathy, trachea midline Respiratory/Chest: chest non-tender, lungs clear, normal breath sounds, no respiratory distress Cardiovascular: regular rate, rhythm, no gallop, no murmur Abdomen: normal bowel sounds, non tender, soft, no organomegaly Extremities: non-tender, no calf tenderness Neurologic/Psychiatric: alert, oriented x 3 Skin: normal color, no rash Lymphatic: no adenopathy Laboratory Results Last 24 Hours Test 08/10/17 06:34 Prothrombin Time 10.5 SECONDS Prothromb Time International Ratio 1.0 Activated Partial Thromboplast Time 26.8 SECONDS Partial Thromboplastin Ratio 1.0 Assessment and Plan 87-year-old female with remote history of right knee replacement, admitted with right leg DVT, now found to have septic arthritis with methicillin sensitive Staph aureus involving her right knee. She is status post debridement and poly exchange. She will continue on IV cefazolin for now, will require prolonged IV antibiotics. Will follow.
[2017-08-10] MEDS: SENNA 8.6 MG TAB PO SCH (19:38)
[2017-08-10] MEDS: SIMVASTATIN 20 MG TAB PO SCH (19:39)
[2017-08-11] VITALS (11 sets, daily range): BP systolic 129–177; BP diastolic 80–106; PULSE 68–104; TEMP 36.4–36.9; O2SAT 93–99
[2017-08-11] MEDS: LEVALBUTEROL 1.25MG/0.5ML NEB INH SCH ×4 (01:43→19:11)
[2017-08-11] MEDS: IPRATROPIUM BROMIDE NEB SOLN 0.02% 2.5 ML VIAL INH SCH ×4 (01:43→19:11)
[2017-08-11] MEDS: CEFAZOLIN IV 2,000 MG in DEXTROSE 5% 50ML 50 ML IV SCH ×3 (04:07→20:06)
[2017-08-11] MEDS: OXYCODONE HCL IR 5 MG TAB (IMMEDIATE RELEASE) PO PRN ×2 (06:28→10:59)
[2017-08-11 07:25] LABS: HEMATOCRIT 33.7 % (37-47); MEAN CELL VOLUME 98.8 fL (80-100); MEAN CORPUSCULAR HEMOGLOBIN 33.1 pg (25-34); MEAN CORPUSCULAR HGB CONC 33.5 g/dl (32-36); MEAN PLATELET VOLUME 9.2 fL (7.4-10.4); PLATELET COUNT 184 K/uL (130-400); RED BLOOD COUNT 3.41 M/uL (4.2-5.4); WHITE BLOOD COUNT 12.36 K/uL (4.8-10.8)
--- NOTE | 2017-08-11 07:26 | ORTHOPEDICS PROGRESS NOTE ---
DATE: 08/11/2017 This is based on seeing her yesterday afternoon. At this point in time, the patient is moving well. Helped her get from the bathroom to bed. She sat up for a while. Her dressing was changed and the wound was clean. Neurovascular check is normal. She is anticoagulated per medicine. At this point in time, IV antibiotic choice is per Dr. Henriquez and infectious disease. From an orthopedic perspective, can be discharged at any point. Dressing does not need to be changed daily. If it is clean and dry, just leave in place. She will need to be followed up roughly 2-1/2 weeks postop for staple removal.
[2017-08-11 07:33] LABS: PROTHROMBIN TIME (PATIENT) 10.9 SECONDS (9.0-12.0)
[2017-08-11] MEDS: BUDESONIDE/FORMOTEROL FUMARATE 160/4.5 60 PUFFS/INHALER INH SCH ×2 (07:52→20:06)
[2017-08-11] MEDS: FERROUS GLUCONATE 324 MG TAB PO SCH ×3 (07:52→18:01)
[2017-08-11] MEDS: DORZOLAMIDE/TIMOLOL 22.3/6.8MG/ML 10 ML BTL OPL SCH ×2 (07:53→20:07)
[2017-08-11] MEDS: ARTIFICIAL TEARS OP SOLN OPL SCH ×8 (07:53→20:07)
[2017-08-11] MEDS: BRIMONIDINE TARTRATE-P 0.15% 5 ML BTL OPL SCH ×3 (07:53→20:07)
[2017-08-11] MEDS: CALCIUM 600MG + VIT D 400 IU TAB PO SCH (07:54)
[2017-08-11] MEDS: DOCUSATE SODIUM 100 MG CAP PO SCH ×2 (07:54→20:08)
[2017-08-11] MEDS: CITALOPRAM 20 MG TAB PO SCH (07:54)
[2017-08-11] MEDS: APIXABAN 2.5 MG TAB PO SCH ×2 (07:55→20:09)
[2017-08-11] MEDS: POTASSIUM CHLORIDE 20 MEQ TABCR PO SCH (07:55)
[2017-08-11] MEDS: CEROVITE ADV FORMULA TAB PO SCH (07:55)
[2017-08-11] MEDS: METOPROLOL TARTRATE 25 MG TAB PO SCH (07:55)
[2017-08-11] MEDS: ASCORBIC ACID 500 MG TAB PO SCH (07:56)
[2017-08-11] MEDS: AMLODIPINE BESYLATE 5 MG TAB PO SCH (07:56)
[2017-08-11] MEDS: PANTOprazole SOD 40 MG TAB PO SCH (07:56)
[2017-08-11] MEDS: OMEGA-3 (PURIFIED FISH OIL) 1 GM CAP PO SCH (07:56)
--- NOTE | 2017-08-11 09:10 | Cardiology Follow-Up ---
Subjective Date of Service: Aug 11, 2017. Pt evaluation today including: conversation w/ patient, physical exam, lab review, review of studies, review of inpatient medication list History of Present Illness This is a very pleasant 87-year-old woman who was recently identified as having atrial fibrillation during this hospitalization. Historically she is not known to have atrial fibrillation but has symptoms possibly compatible with it, she is unaware of it here in the hospital and does not have palpitations. Several years ago she had an episode of loss of consciousness where she was hospitalized and that was felt to be due to dehydration, however she has intermittent lightheaded spells which she is quite vague in describing but they only last a few minutes and occur sporadically. These are possibly episodes of atrial fibrillation. She has had paroxysmal atrial fibrillation during this hospitalization, it was identified prior to her surgery and I don't think is related to the surgery. She does not have exertional cardiac vascular symptoms but she does not perform very much exertion due to her arthritis and now her knee infection. At home she was on no AV sandee blocking medications, but she was on medications for hypertension. Here she is on metoprolol 12.5 mg twice a day following identification of atrial fibrillation. I believe her atrial fibrillation was identified on the morning of 08/07/2017 prior to surgery. This was identified on routine vital signs, she was transferred to telemetry. Initial rhythm strips suggest atrial flutter, although the ventricular response is irregular. The heart rate on initial evaluation on the rhythm strip appears quite fast, around 120 bpm. Subsequently she was in sinus rhythm, and then had recurrence of atrial fibrillation, which is evidently paroxysmal. I did increase her metoprolol to 25 mg twice a day yesterday. Currently she is sitting in her chair next to the bed, she continues to have atrial fibrillation but does not feel it. She has no palpitations, lightheadedness or dizziness. Social History Smoking Status: Never Smoker History of Alcohol Use: No Review of Systems Respiratory: No cough, No sputum, No wheezing, No shortness of breath Cardiac: + edema (RLE), No chest pain, No palpitations Right knee discomfort following surgery Medications Cardiovascular: Item Value Date Time Metoprolol 25 mg 08/10/17 2100 Tartrate BID/PO 08/11/17 0755 (Lopressor Tab) Apixaban 10 mg 08/08/17 2100 (Eliquis Tab) BID/PO 08/11/17 0755 Simvastatin 20 mg 08/05/17 2100 (Zocor Tab) QPM/PO 08/10/17 1939 Amlodipine 2.5 mg 08/05/17 0900 Besylate DAILY/PO 08/11/17 0756 (Norvasc Tab) Objective Vital Signs Past 12 Hours Date Time Temp Pulse Resp B/P (MAP) Pulse Ox O2 Delivery O2 Flow Rate FiO2 08/11/17 07:36 36.9 70 16 174/80 (111) 98 Nasal Cannula 2.0 08/11/17 07:16 78 16 98 Nasal Cannula 2.0 08/11/17 05:05 36.9 104 20 155/90 (111) 99 Nasal Cannula 2.0 08/11/17 04:00 Nasal Cannula 2.0 08/11/17 01:43 81 16 98 Nasal Cannula 2.0 08/11/17 00:00 Nasal Cannula 2.0 08/10/17 22:58 37.0 100 18 153/78 (103) 97 Nasal Cannula 2.0 Last Recorded Weight-Kilograms: 70.700 Physical Exam Constitutional: General Apperance: heathly-appearing Level of Distress: NAD Lungs: Respiratory effort: no dyspnea, good air movement Auscultation: breath sounds normal, no wheezing Cardiovascular: Heart Auscultation: no murmurs, no rubs, no gallops, irregular rate rhythm Peripheral Pulses: Bruits: none appreciated Extremities: no edema Data Laboratory Results: Last 24 Hours Test 08/11/17 06:40 08/11/17 06:52 Prothrombin Time 10.9 SECONDS Prothromb Time International Ratio 1.0 Activated Partial Thromboplast Time 26.7 SECONDS Partial Thromboplastin Ratio 1.0 White Blood Count 12.36 K/uL Red Blood Count 3.41 M/uL Hemoglobin 11.3 g/dL Hematocrit 33.7 % Mean Corpuscular Volume 98.8 fL Mean Corpuscular Hemoglobin 33.1 pg Mean Corpuscular Hemoglobin Concent 33.5 g/dl RDW Standard Deviation 50.2 fL RDW Coefficient of Variation 14.1 % Platelet Count 184 K/uL Mean Platelet Volume 9.2 fL Nucleated RBC Absolute Count (auto) 0.02 K/uL Nucleated Red Blood Cells % 0.2 % Telemetry reviewed: Remains in atrial fibrillation with a somewhat rapid heart rate, generally over 100 bpm Assessment and Plan #1. Atrial fibrillation: I suspect this is not a new arrhythmia, she is going in and out of it here in the hospital and I suspect she has had this before. She is asymptomatic and therefore is not aware of it and would not of been at home either. Her baseline rhythm is sinus with premature beats and may be somewhat irregular as well which would make detection of atrial fibrillation more difficult on exam. Since she tolerates it well and if we can get the rate controlled I would recommend leaving her in atrial fibrillation on anticoagulation. I would like to increase her AV sandee blocking medications again today and would recommend continuing her on Eliquis for anticoagulation. #2. Intermittent lightheadedness: I suspect this may be also be due to atrial fibrillation but can't be sure, I don't think her rhythm has been recorded during these events. I doubt it is bradycardia since she has not shown that here. If the symptoms continue it would be reasonable to record them, I can't get a sense for how often she has it but it sounds like it is relatively frequent. Perhaps it will resolve with rate control of her atrial arrhythmia. Thank you for allowing me to participate in her care.
[2017-08-11] MEDS ORDERED: METOPROLOL TARTRATE 25 MG TAB PO ONE (09:30)
--- NOTE | 2017-08-11 14:49 | Infectious Disease Progress Nt ---
Progress Note Date of Service Aug 11, 2017. Subjective Pt evaluation today including: conversation w/ patient, physical exam, chart review, lab review, review of studies, conversation w/ licensed tax consultant, review of inpatient medication list Cardiology follow-up noted. Patient offers no new complaints today. Remains afebrile. Tolerating antibiotics without apparent difficulty.Follow-up blood cultures remain negative All Other Systems: Reviewed and Negative Medications Current Inpatient Medications Medications (Trade) Dose Ordered Sig/Peterson Route Start Time Stop Time Status Last Admin Dose Admin Acetaminophen (Tylenol Tab) 650 mg Q4H PRN PO 08/05/17 06:45 09/04/17 06:44 08/06/17 10:29 650 MG Amlodipine Besylate (Norvasc Tab) 2.5 mg DAILY PO 08/05/17 09:00 09/04/17 08:59 08/11/17 07:56 2.5 MG Brimonidine Tartrate (Alphagan-P 0.15% Oph Soln) 1 drops TID OPL 08/05/17 09:00 09/04/17 08:59 08/11/17 13:37 1 DROPS Budesonide/ Formoterol Fumarate (Symbicort 160/ 4.5 Inh) 2 puffs BID INH 08/05/17 09:00 09/04/17 08:59 08/11/17 07:52 2 PUFFS Calcium/Vitamin D (Caltrate Plus Tab) 1 tab DAILY PO 08/05/17 09:00 09/04/17 08:59 08/11/17 07:54 1 TAB Citalopram Hydrobromide (celeXA TAB) 30 mg DAILY PO 08/05/17 09:00 09/04/17 08:59 08/11/17 07:54 30 MG Dorzolamide/ Timolol (Cosopt Op Soln) 1 drops BID OPL 08/05/17 09:00 09/04/17 08:59 08/11/17 07:53 1 DROPS Fish Oil ([place]-3 (Purified Fish Oil) Cap) 1 gm DAILY PO 08/05/17 09:00 09/04/17 08:59 08/11/17 07:56 1 GM Latanoprost (Xalatan Oph Soln) 1 drops HS OPL 08/05/17 21:00 09/04/17 20:59 08/10/17 08:14 1 DROPS Multivitamins/ Minerals (Multivitamin W/ Minerals Tab) 1 tab DAILY PO 08/05/17 09:00 09/04/17 08:59 08/11/17 07:55 1 TAB Potassium Chloride (Klor-Con Tab) 20 meq DAILY PO 08/05/17 09:00 09/04/17 08:59 08/11/17 07:55 20 MEQ Prednisone (PredniSONE TAB) 20 mg DAILY PO 08/05/17 09:00 09/04/17 08:59 Future Hold 08/06/17 08:47 20 MG Simvastatin (Zocor Tab) 20 mg QPM PO 08/05/17 21:00 09/04/17 20:59 08/10/17 19:39 20 MG Ascorbic Acid (Vitamin C Tab) 1,000 mg DAILY PO 08/05/17 09:00 09/04/17 08:59 08/11/17 07:56 1,000 MG Artificial Tears (Artificial Tears) 1 drops QID OPL 08/05/17 09:00 09/04/17 08:59 08/11/17 13:37 1 DROPS Pantoprazole Sodium (Protonix Tab) 40 mg QAM PO 08/05/17 09:00 09/04/17 08:59 08/11/17 07:56 40 MG Ibuprofen (Motrin Tab) 600 mg TID PRN PO 08/06/17 11:30 09/05/17 11:29 08/10/17 08:20 600 MG Prednisone (PredniSONE TAB) 20 mg DAILY PO 08/07/17 09:00 09/06/17 08:59 08/11/17 07:56 20 MG Cefazolin Sodium 2000 mg/Dextrose 60 ml @ 100 mls/hr Q8H IV 08/07/17 12:00 09/18/17 11:59 08/11/17 11:45 100 MLS/HR Apixaban (Eliquis Tab) 10 mg BID PO 08/08/17 21:00 08/15/17 09:01 08/11/17 07:55 10 MG Levalbuterol (Xopenex 1.25MG/ 0.5ML Neb) 1.25 mg Q6R INH 08/08/17 21:00 09/07/17 20:59 08/11/17 14:08 1.25 MG Ipratropium [place] (Atrovent 0.02% 0.5MG/2.5ML Neb) 0.5 mg Q6R INH 08/08/17 21:00 09/07/17 20:59 08/11/17 14:08 0.5 MG Oxycodone HCl (Roxicodone Immediate Rel Tab) 1 TABLET FOR PAIN RATING... Q4H PRN PO 08/09/17 09:45 08/23/17 09:44 08/11/17 10:59 10 MG Magnesium Hydroxide (Milk Of Magnesia Susp) 30 ml Q6H PRN PO 08/09/17 09:45 09/08/17 09:44 Bisacodyl (Dulcolax Supp) 10 mg DAILY PRN OR 08/09/17 09:45 09/08/17 09:44 Senna (Senokot Tab) 17.2 mg HS PO 08/09/17 21:00 09/08/17 20:59 08/10/17 19:38 17.2 MG Docusate Sodium (coLACE CAP) 100 mg BID PO 08/09/17 13:00 09/08/17 12:59 08/11/17 07:54 100 MG Diphenhydramine HCl (Benadryl Inj) 25 mg Q8H PRN IV 08/09/17 09:45 09/08/17 09:44 Al Hydrox/Mg Hydrox/Simethicone (Maalox Max Susp) 15 ml Q4H PRN PO 08/09/17 09:45 09/08/17 09:44 Ondansetron HCl (Zofran Inj) 4 mg Q6H PRN IV 08/09/17 09:45 09/08/17 09:44 Metoclopramide HCl (Reglan Inj) 10 mg Q6H PRN IV 08/09/17 09:45 09/08/17 09:44 Ferrous Gluconate (Ferrous Gluconate Tab) 324 mg TIDM PO 08/09/17 13:00 09/08/17 12:59 08/11/17 10:59 324 MG Morphine Sulfate (MoRPHine SULFATE INJ) 2 mg Q4H PRN IV 08/09/17 12:30 08/23/17 12:29 Morphine Sulfate (MoRPHine SULFATE INJ) 4 mg Q4H PRN IV 08/09/17 12:30 08/23/17 12:29 Metoprolol Tartrate (Lopressor Iv) 2.5 mg Q6 PRN IV 08/09/17 15:15 09/08/17 15:14 Metoprolol Tartrate (Lopressor Tab) 50 mg BID PO 08/11/17 21:00 09/10/17 20:59 Objective Vital Signs Date Time Temp Pulse Resp B/P (MAP) Pulse Ox O2 Delivery O2 Flow Rate FiO2 08/11/17 14:10 68 16 97 Room Air 08/11/17 12:41 36.4 101 16 177/106 (129) 96 Room Air 165/96 (119) 08/11/17 12:00 Room Air 08/11/17 08:00 Nasal Cannula 2.0 08/11/17 07:36 36.9 70 16 174/80 (111) 98 Nasal Cannula 2.0 08/11/17 07:16 78 16 98 Nasal Cannula 2.0 08/11/17 05:05 36.9 104 20 155/90 (111) 99 Nasal Cannula 2.0 08/11/17 04:00 Nasal Cannula 2.0 08/11/17 01:43 81 16 98 Nasal Cannula 2.0 08/11/17 00:00 Nasal Cannula 2.0 08/10/17 22:58 37.0 100 18 153/78 (103) 97 Nasal Cannula 2.0 08/10/17 20:01 37.0 94 18 154/91 (112) 98 Nasal Cannula 2.0 08/10/17 20:00 Nasal Cannula 2.0 08/10/17 19:17 77 16 98 Nasal Cannula 2.0 08/10/17 16:00 95 Nasal Cannula 2.0 08/10/17 15:21 36.6 96 20 151/73 (99) 96 Nasal Cannula 2.0 Physical Exam General Appearance: WD/WN, no apparent distress Eyes: normal inspection, EOMI, sclerae normal ENT: normal ENT inspection, pharynx normal Neck: supple, no adenopathy, thyroid normal, trachea midline Respiratory/Chest: chest non-tender, lungs clear, normal breath sounds, no respiratory distress Cardiovascular: no gallop, no murmur, + irregularly irregular Abdomen: normal bowel sounds, non tender, soft, no organomegaly Extremities: normal range of motion, non-tender, normal capillary refill Neurologic/Psychiatric: alert, oriented x 3 Skin: normal color, no rash Lymphatic: no adenopathy Laboratory Results Last 24 Hours Test 08/11/17 06:40 08/11/17 06:52 Prothrombin Time 10.9 SECONDS Prothromb Time International Ratio 1.0 Activated Partial Thromboplast Time 26.7 SECONDS Partial Thromboplastin Ratio 1.0 White Blood Count 12.36 K/uL Red Blood Count 3.41 M/uL Hemoglobin 11.3 g/dL Hematocrit 33.7 % Mean Corpuscular Volume 98.8 fL Mean Corpuscular Hemoglobin 33.1 pg Mean Corpuscular Hemoglobin Concent 33.5 g/dl RDW Standard Deviation 50.2 fL RDW Coefficient of Variation 14.1 % Platelet Count 184 K/uL Mean Platelet Volume 9.2 fL Nucleated RBC Absolute Count (auto) 0.02 K/uL Nucleated Red Blood Cells % 0.2 % Assessment and Plan 87-year-old female with remote history of right knee replacement, admitted with right leg DVT, now found to have septic arthritis with methicillin sensitive Staph aureus involving her right knee. She is status post debridement and poly exchange. Would continue on IV cefazolin for now, and would continue this if she goes to rehab. If she is being discharged home, would consider change to daptomycin to allow easier outpatient therapy.
--- NOTE | 2017-08-11 16:17 | Progress Note ---
Subjective Date of Service: Aug 11, 2017. Subjective Pt evaluation today including: conversation w/ patient, conversation w/ family , physical exam, chart review, lab review, review of studies, conversation w/ senior management consultant, review of inpatient medication list Has been out of bed and up and walk with walker, and walk with therapist in the hallway, blood pressure and heart rate is still not optimized, business support specialist is adjusting medication Patient has no complaint Problem List Medical Problems: (1) Cellulitis Status: Acute (2) Cellulitis of great toe of right foot Status: Acute (3) Knee pain Status: Acute (4) Osteoarthritis Status: Acute (5) Sepsis Status: Acute Review of Systems Constitutional: + weakness, + fatigue, No fever, No chills, No sweats, No weight loss, No problem reported Eyes: No worsening of vision, No eye pain, No redness, No discharge, No diplopia ENT: No hearing loss, No unusual epistaxis, No nasal symptoms, No sore throat, No tinnitus, No dental problems, No trouble swallowing Respiratory: No cough, No sputum, No wheezing, No shortness of breath, No dyspnea on exertion, No dyspnea at rest, No hemoptysis Cardiac: No chest pain, No orthopnea, No PND, No edema, No claudication, No palpitations Abdomen: No pain, No nausea, No vomiting, No diarrhea, No constipation Musculoskeletal: + joint pain, No muscle pain, No swelling, No calf pain Female : No dysuria, No urinary frequency, No hematuria, No incontinence, No abnormal vaginal bleeding, No vaginal discharge Neurologic: No memory loss, No paralysis, No weakness, No numbness/tingling, No vertigo, No balance problems Psychiatric: No depression symptoms, No anhedonism, No anxiety, No insomnia, No substance abuse Heme: No abnormal bleeding/bruising, No clotting problems, No swollen lymph nodes, No night sweats Endo: No fatigue, No excessive thirst, No excessive urination Skin: No rash, No itch, No new/changing skin lesions, No color change, No bleeding Objective Vital Signs Date Time Temp Pulse Resp B/P (MAP) Pulse Ox O2 Delivery O2 Flow Rate FiO2 08/11/17 14:10 68 16 97 Room Air 08/11/17 12:41 36.4 101 16 177/106 (129) 96 Room Air 165/96 (119) 08/11/17 12:00 Room Air 08/11/17 08:00 Nasal Cannula 2.0 08/11/17 07:36 36.9 70 16 174/80 (111) 98 Nasal Cannula 2.0 08/11/17 07:16 78 16 98 Nasal Cannula 2.0 08/11/17 05:05 36.9 104 20 155/90 (111) 99 Nasal Cannula 2.0 08/11/17 04:00 Nasal Cannula 2.0 08/11/17 01:43 81 16 98 Nasal Cannula 2.0 08/11/17 00:00 Nasal Cannula 2.0 08/10/17 22:58 37.0 100 18 153/78 (103) 97 Nasal Cannula 2.0 08/10/17 20:01 37.0 94 18 154/91 (112) 98 Nasal Cannula 2.0 08/10/17 20:00 Nasal Cannula 2.0 08/10/17 19:17 77 16 98 Nasal Cannula 2.0 Physical Exam General Appearance: WD/WN, no apparent distress, + pertinent finding (present conversational) Eyes: normal inspection, PERRL, EOMI, sclerae normal ENT: normal ENT inspection, hearing grossly normal, pharynx normal Neck: supple, no adenopathy, thyroid normal, no JVD, no carotid bruits, trachea midline Respiratory/Chest: chest non-tender, normal breath sounds, no respiratory distress, no accessory muscle use Cardiovascular: regular rate, rhythm, no edema, no gallop, no JVD, no murmur, + irregularly irregular Abdomen: normal bowel sounds, non tender, soft, no organomegaly, no pulsatile mass Extremities: normal range of motion, non-tender, normal inspection, no pedal edema, no calf tenderness, normal capillary refill, pelvis stable Neurologic/Psychiatric: physician relations manager II-XII nml as tested, no motor/sensory deficits, alert, normal mood/affect, oriented x 3 Skin: normal color, warm/dry, no rash Lymphatic: no adenopathy Laboratory Results Last 24 Hours Test 08/11/17 06:40 08/11/17 06:52 Prothrombin Time 10.9 SECONDS Prothromb Time International Ratio 1.0 Activated Partial Thromboplast Time 26.7 SECONDS Partial Thromboplastin Ratio 1.0 White Blood Count 12.36 K/uL Red Blood Count 3.41 M/uL Hemoglobin 11.3 g/dL Hematocrit 33.7 % Mean Corpuscular Volume 98.8 fL Mean Corpuscular Hemoglobin 33.1 pg Mean Corpuscular Hemoglobin Concent 33.5 g/dl RDW Standard Deviation 50.2 fL RDW Coefficient of Variation 14.1 % Platelet Count 184 K/uL Mean Platelet Volume 9.2 fL Nucleated RBC Absolute Count (auto) 0.02 K/uL Nucleated Red Blood Cells % 0.2 % Assessment and Plan 87 year old female admitted on August 05 because of sudden right knee pain Per report She rates her pain at a 10/10. The patient denies falling, and states that she has taken 6 Tylenol was found possible right knee sepsis, and right lower extremity acute DVT staph bacteremia - likely from skin source. Likely from right knee sepsis , or from recent dental work, was on Vanco And was changed to Ancef for totally six-week , Repeated blood culture was negative for more than 48 hours, has request benign for on time antibiotic treatment septic knee - likely seeding from from previous procedure years ago ortho to surgically did I&D, antibiotic see above distal acute right lower extremity DVT Continue Eliquis New diagnosis of A. fib with rapid ventricular response HR still high and blood pressure is out off range Cardiology increase metoprolol to 50 twice a day DVT prophylaxis is covered, Full resuscitation called daughter , updated her patient Continued [facility] stay due to: multiple IV medications needed Discharge planning: rehab hospital
--- NOTE | 2017-08-11 16:56 | Consultant Recommendations ---
Wood Car Builder Recommendations Date of Service Aug 11, 2017. Wood Car Builder Recommendations From an orthopedic standpoint patient is cleared to be discharged to a rehab facility. We will have patient f/u in our clinic in ~2 wks for staple removal from her Right knee / post surgical eval (Irrigation and debridement with Poly exchange). Patient will cont on Eliquis for DVT / PE prophylaxis. Cont to be WBAT on Right LE with knee locked in extension (by brace) and with aid of a walker until your 2 wk f/u with [facility] . Pain Expect to be in a fair amount of pain after surgery. Remember, our goal is not to eliminate your pain, but to make it tolerable. It is a good idea to stay ahead of your pain by taking the medications you were prescribed once you get home. Typically, the pain starts improving 3-7 days after surgery. You should start weaning off the narcotic pain medication (oxycodone, hydrocodone, hydromorphone, morphine) as soon as your pain improves. Please call our office if your pain is not adequately controlled. Ice Ice your operative site at least 5 times a day for 15-30 minutes at a time. Make sure you have a thin cloth between the ice or cooling unit and your skin to prevent thompson bite. This is especially important if you received a nerve block. Continue icing your operative site for the first 5-7 days after surgery , then as needed. Wound care and showering We will inspect your wound at your first post-operative visit, and may do a dressing change at that time. Most patients will be in a water-proof dressing that is removed 14 days after surgery. It is normal to see some dried blood on the dressing. Do not remove your dressing, paper strips or sutures yourself unless you are given permission. Showering is allowed the day after surgery. Do not scrub or remove any dressings. The wound should not be submerged underwater (i.e. in a bathtub or pool) until 4 weeks after surgery THOMAS stockings If you were given white stockings, these are to be worn at all times except to shower (on both legs) for the first 2 weeks after surgery. When to call the office It is normal to have swelling and bruising in the limb that was operated on. This will improve with time. It is also normal to have fevers for the first 2 days after surgery. Reasons you should call your doctor include: Uncontrolled pain; Nausea, vomiting, or constipation that does not improve with medication; Fevers over 101.5, chills, sweats; Drainage or bleeding from the wound; Foul odor; Spreading areas of redness; Any other concerns. Cont IV ABX per Infections Disease. Will need cardiology f/u due to new onset Atrial Fibrillation. Pending medicine clearance and discharge.
--- NOTE | 2017-08-11 18:07 | DIAGNOSTIC IMAGING REPORT ---
SINGLE VIEW CHEST CLINICAL HISTORY: PICC placement. FINDINGS: An AP, portable, upright chest radiograph is compared to study dated 07/23/2015. The examination is degraded by portable technique and patient rotation. A right PICC line has been placed. The tip of the catheter projects over the cavoatrial junction. The heart is enlarged and there is atherosclerotic calcification of the thoracic aorta. The pulmonary vasculature is noncongested. Chronic interstitial thickening is similar to previous. Bibasilar atelectasis is noted. No airspace consolidation, pleural effusion, or pneumothorax is seen. The skeletal structures are osteopenic. The bony thorax is grossly intact. There is mild thoracolumbar scoliosis. IMPRESSION: 1. A right PICC line has been placed. The tip projects over the cavoatrial junction. 2. Cardiomegaly with no acute cardiopulmonary abnormality. Electronically signed by: Telly Roach M.D. 08/11/2017 6:05 PM Dictated Date/Time: 08/11/2017 5:59 PM
[2017-08-11] MEDS: LATANOPROST 0.005% OP SOLN 2.5 ML BTL OPL SCH (20:07)
[2017-08-11] MEDS: METOPROLOL TARTRATE 50 MG TAB PO SCH (20:09)
[2017-08-11] MEDS: SENNA 8.6 MG TAB PO SCH (20:10)
[2017-08-11] MEDS: SIMVASTATIN 20 MG TAB PO SCH (20:10)
[2017-08-12] VITALS (14 sets, daily range): BP systolic 119–158; BP diastolic 80–107; PULSE 78–98; TEMP 36.4–36.8; O2SAT 93–97
[2017-08-12] MEDS: OXYCODONE HCL IR 5 MG TAB (IMMEDIATE RELEASE) PO PRN ×2 (01:27→07:26)
[2017-08-12] MEDS: LEVALBUTEROL 1.25MG/0.5ML NEB INH SCH ×4 (02:19→19:21)
[2017-08-12] MEDS: IPRATROPIUM BROMIDE NEB SOLN 0.02% 2.5 ML VIAL INH SCH ×4 (02:19→19:21)
[2017-08-12] MEDS: CEFAZOLIN IV 2,000 MG in DEXTROSE 5% 50ML 50 ML IV SCH ×3 (04:20→20:42)
[2017-08-12 06:37] LABS: BUN/CREATININE RATIO 23.5 (10-20); CALCIUM 8.3 mg/dl (8.5-10.1); CREATININE 1.2 mg/dl (0.60-1.20); MAGNESIUM 2.3 mg/dl (1.8-2.4); POTASSIUM 3.7 mmol/L (3.5-5.1)
[2017-08-12 06:40] LABS: PHOSPHORUS 2.6 mg/dl (2.5-4.9)
[2017-08-12] MEDS: POTASSIUM CHLORIDE 20 MEQ TABCR PO SCH (08:36)
[2017-08-12] MEDS: OMEGA-3 (PURIFIED FISH OIL) 1 GM CAP PO SCH (08:36)
[2017-08-12] MEDS: CEROVITE ADV FORMULA TAB PO SCH (08:36)
[2017-08-12] MEDS: IBUPROFEN 600 MG TAB PO PRN (08:36)
[2017-08-12] MEDS: METOPROLOL TARTRATE 50 MG TAB PO SCH ×2 (08:36→20:58)
[2017-08-12] MEDS: ASCORBIC ACID 500 MG TAB PO SCH (08:36)
[2017-08-12] MEDS: AMLODIPINE BESYLATE 5 MG TAB PO SCH (08:37)
[2017-08-12] MEDS: FERROUS GLUCONATE 324 MG TAB PO SCH ×3 (08:37→17:07)
[2017-08-12] MEDS: DOCUSATE SODIUM 100 MG CAP PO SCH ×2 (08:37→20:55)
[2017-08-12] MEDS: BUDESONIDE/FORMOTEROL FUMARATE 160/4.5 60 PUFFS/INHALER INH SCH ×2 (08:37→20:51)
[2017-08-12] MEDS: PANTOprazole SOD 40 MG TAB PO SCH (08:37)
[2017-08-12] MEDS: CITALOPRAM 20 MG TAB PO SCH (08:37)
[2017-08-12] MEDS: CALCIUM 600MG + VIT D 400 IU TAB PO SCH (08:37)
[2017-08-12] MEDS: DORZOLAMIDE/TIMOLOL 22.3/6.8MG/ML 10 ML BTL OPL SCH ×2 (08:38→20:53)
[2017-08-12] MEDS: ARTIFICIAL TEARS OP SOLN OPL SCH ×8 (08:38→20:59)
[2017-08-12] MEDS: APIXABAN 2.5 MG TAB PO SCH ×2 (08:38→20:54)
[2017-08-12] MEDS: BRIMONIDINE TARTRATE-P 0.15% 5 ML BTL OPL SCH ×3 (08:38→20:59)
--- NOTE | 2017-08-12 10:33 | ORTHOPEDICS PROGRESS NOTE ---
DATE: 08/12/2017 DATE: 08/12/2017 SUBJECTIVE: Followup of her right knee. At this point in time, the patient has been afebrile. She notes that she had some pain this morning which was well managed with medication. She notes that she has no fever, chills, nausea, vomiting or headache. She denies any chest pain, shortness of breath. Vital signs are stable. She is afebrile. Wound dressing clean, dry and intact. Brace is not digging in anywhere in her leg. Sensorimotor exam both lower extremities within normal limits. ASSESSMENT: Status post incision and drainage with poly exchange secondarily septic right knee from either dental source, unprotected dental cleaning versus skin scratch cellulitis/dermatitis which she was also being suppressed with steroids. At this point in time she seems to have responded well to present surgical and IV antibiotic management. PICC line was inserted yesterday. PLAN: At this point in time is to continue with brace for 1 more week. Follow up as an outpatient in roughly 1 week for staple removal. Keep the knee immobilized for 1 more week to protect the wound. Again, weightbearing as tolerated. Deep venous thrombosis prophylaxis per medicine. Follow up in roughly a week.
--- NOTE | 2017-08-12 15:59 | Progress Note ---
Subjective Date of Service: Aug 12, 2017. Subjective Pt evaluation today including: conversation w/ patient, conversation w/ family , physical exam, chart review, lab review, review of studies, conversation w/ workforce consultant, review of inpatient medication list Reported was have right knee pain possible from cast, no pain now Problem List Medical Problems: (1) Cellulitis Status: Acute (2) Cellulitis of great toe of right foot Status: Acute (3) Knee pain Status: Acute (4) Osteoarthritis Status: Acute (5) Sepsis Status: Acute Review of Systems Constitutional: + fatigue, No fever, No chills, No sweats, No weight loss, No weakness, No problem reported Eyes: No worsening of vision, No eye pain, No redness, No discharge, No diplopia ENT: No hearing loss, No unusual epistaxis, No nasal symptoms, No sore throat, No tinnitus, No dental problems, No trouble swallowing Respiratory: No cough, No sputum, No wheezing, No shortness of breath, No dyspnea on exertion, No dyspnea at rest, No hemoptysis Cardiac: No chest pain, No orthopnea, No PND, No edema, No claudication, No palpitations Abdomen: No pain, No nausea, No vomiting, No diarrhea, No constipation Musculoskeletal: + problem reported (right knee dress and supported with cast) , No muscle pain, No swelling, No calf pain Female : No dysuria, No urinary frequency, No hematuria, No incontinence, No abnormal vaginal bleeding, No vaginal discharge Neurologic: No memory loss, No paralysis, No weakness, No numbness/tingling, No vertigo, No balance problems Psychiatric: No depression symptoms, No anhedonism, No anxiety, No insomnia, No substance abuse Heme: No abnormal bleeding/bruising, No clotting problems, No swollen lymph nodes, No night sweats Endo: No fatigue, No excessive thirst, No excessive urination Skin: No rash, No itch, No new/changing skin lesions, No color change, No bleeding Objective Vital Signs Date Time Temp Pulse Resp B/P (MAP) Pulse Ox O2 Delivery O2 Flow Rate FiO2 08/12/17 12:14 36.4 79 16 158/91 (113) 93 Room Air 08/12/17 12:00 95 Nasal Cannula 2.0 08/12/17 08:00 95 Nasal Cannula 2.0 08/12/17 07:53 36.4 84 18 154/107 (123) 97 Room Air 08/12/17 06:53 95 16 94 Room Air 08/12/17 04:15 Room Air 08/12/17 04:06 36.7 82 19 158/99 (118) 96 Room Air 08/12/17 02:20 95 16 94 Room Air 08/12/17 00:20 Room Air 08/11/17 23:09 36.8 93 19 135/86 (102) 95 Room Air 08/11/17 20:30 96 Room Air 08/11/17 19:41 36.7 91 18 129/83 (98) 96 Room Air 08/11/17 19:12 81 16 94 Room Air 08/11/17 16:01 36.5 94 18 154/93 (113) 93 Room Air 08/11/17 16:00 Room Air Physical Exam General Appearance: WD/WN, no apparent distress Eyes: normal inspection, PERRL, EOMI, sclerae normal ENT: normal ENT inspection, hearing grossly normal, pharynx normal Neck: supple, no adenopathy, thyroid normal, no JVD, no carotid bruits, trachea midline Respiratory/Chest: chest non-tender, normal breath sounds, no respiratory distress, no accessory muscle use, + decreased breath sounds Cardiovascular: regular rate, rhythm, no edema, no gallop, no JVD, no murmur, + pertinent finding (right knee in Cast and support) Abdomen: normal bowel sounds, non tender, soft, no organomegaly, no pulsatile mass Extremities: non-tender, normal inspection, no pedal edema, no calf tenderness , normal capillary refill, pelvis stable, + pertinent finding Neurologic/Psychiatric: form setter II-XII nml as tested, no motor/sensory deficits, alert, normal mood/affect, oriented x 3 Skin: normal color, warm/dry, no rash Lymphatic: no adenopathy Laboratory Results Last 24 Hours Test 08/12/17 05:38 Activated Partial Thromboplast Time 26.6 SECONDS Partial Thromboplastin Ratio 1.0 Sodium Level 134 mmol/L Potassium Level 3.7 mmol/L Chloride Level 98 mmol/L Carbon Dioxide Level 29 mmol/L Anion Gap 7.0 mmol/L Blood Urea Nitrogen 28 mg/dl Creatinine 1.20 mg/dl Est Creatinine Clear Calc Drug Dose 29.7 ml/min Estimated GFR () 47.1 Estimated GFR (Non- 40.6 BUN/Creatinine Ratio 23.5 Random Glucose 116 mg/dl Calcium Level 8.3 mg/dl Phosphorus Level 2.6 mg/dl Magnesium Level 2.3 mg/dl Assessment and Plan 87 year old female admitted on August 05 because of sudden right knee pain. Per report She rates her pain at a 10/10. The patient denies falling, and states that she has taken 6 Tylenol , was found possible right knee sepsis, and right lower extremity acute DVT staph bacteremia - likely from skin source. Likely from right knee sepsis , was on Vanco was changed to Ancef for totally six-week , Repeated blood culture was negative for more than 48 hours, PICC line placed for long-term antibiotic treatment, 5 out of 42 days septic knee - likely seeding from from previous procedure years ago ortho to surgically did I&D, antibiotic see above distal acute right lower extremity DVT Continue Eliquis New diagnosis of A. fib with rapid ventricular response HR improved, however and blood pressure is out off range Cardiology increase metoprolol to 50 twice a day 2 days ago, DVT prophylaxis is covered, Full resuscitation called daughter , updated her patient , possible discharge tomorrow Continued [facility] stay due to: multiple IV medications needed Discharge planning: rehab hospital
--- NOTE | 2017-08-12 17:05 | Infectious Disease Progress Nt ---
Progress Note Date of Service Aug 12, 2017. Subjective Pt evaluation today including: conversation w/ patient, physical exam, chart review, lab review, review of studies, conversation w/ travel consultant, review of inpatient medication list had worsening right knee pain overnight, now much improved. Remains afebrile. Tolerating antibiotics without apparent difficulty. All Other Systems: Reviewed and Negative Medications Current Inpatient Medications Medications (Trade) Dose Ordered Sig/Peterson Route Start Time Stop Time Status Last Admin Dose Admin Acetaminophen (Tylenol Tab) 650 mg Q4H PRN PO 08/05/17 06:45 09/04/17 06:44 08/06/17 10:29 650 MG Amlodipine Besylate (Norvasc Tab) 2.5 mg DAILY PO 08/05/17 09:00 09/04/17 08:59 08/12/17 08:37 2.5 MG Brimonidine Tartrate (Alphagan-P 0.15% Oph Soln) 1 drops TID OPL 08/05/17 09:00 09/04/17 08:59 08/12/17 14:35 1 DROPS Budesonide/ Formoterol Fumarate (Symbicort 160/ 4.5 Inh) 2 puffs BID INH 08/05/17 09:00 09/04/17 08:59 08/12/17 08:37 2 PUFFS Calcium/Vitamin D (Caltrate Plus Tab) 1 tab DAILY PO 08/05/17 09:00 09/04/17 08:59 08/12/17 08:37 1 TAB Citalopram Hydrobromide (celeXA TAB) 30 mg DAILY PO 08/05/17 09:00 09/04/17 08:59 08/12/17 08:37 30 MG Dorzolamide/ Timolol (Cosopt Op Soln) 1 drops BID OPL 08/05/17 09:00 09/04/17 08:59 08/12/17 08:38 1 DROPS Fish Oil ([place]-3 (Purified Fish Oil) Cap) 1 gm DAILY PO 08/05/17 09:00 09/04/17 08:59 08/12/17 08:36 1 GM Latanoprost (Xalatan Oph Soln) 1 drops HS OPL 08/05/17 21:00 09/04/17 20:59 08/11/17 20:07 1 DROPS Multivitamins/ Minerals (Multivitamin W/ Minerals Tab) 1 tab DAILY PO 08/05/17 09:00 09/04/17 08:59 08/12/17 08:36 1 TAB Potassium Chloride (Klor-Con Tab) 20 meq DAILY PO 08/05/17 09:00 09/04/17 08:59 08/12/17 08:36 20 MEQ Prednisone (PredniSONE TAB) 20 mg DAILY PO 08/05/17 09:00 09/04/17 08:59 Future Hold 08/06/17 08:47 20 MG Simvastatin (Zocor Tab) 20 mg QPM PO 08/05/17 21:00 09/04/17 20:59 08/11/17 20:10 20 MG Ascorbic Acid (Vitamin C Tab) 1,000 mg DAILY PO 08/05/17 09:00 09/04/17 08:59 08/12/17 08:36 1,000 MG Artificial Tears (Artificial Tears) 1 drops QID OPL 08/05/17 09:00 09/04/17 08:59 08/12/17 08:38 1 DROPS Pantoprazole Sodium (Protonix Tab) 40 mg QAM PO 08/05/17 09:00 09/04/17 08:59 08/12/17 08:37 40 MG Ibuprofen (Motrin Tab) 600 mg TID PRN PO 08/06/17 11:30 09/05/17 11:29 08/12/17 08:36 600 MG Prednisone (PredniSONE TAB) 20 mg DAILY PO 08/07/17 09:00 09/06/17 08:59 08/12/17 08:37 20 MG Cefazolin Sodium 2000 mg/Dextrose 60 ml @ 100 mls/hr Q8H IV 08/07/17 12:00 09/18/17 11:59 08/12/17 12:10 100 MLS/HR Apixaban (Eliquis Tab) 10 mg BID PO 08/08/17 21:00 08/15/17 09:01 08/12/17 08:38 10 MG Levalbuterol (Xopenex 1.25MG/ 0.5ML Neb) 1.25 mg Q6R INH 08/08/17 21:00 09/07/17 20:59 08/12/17 14:07 1.25 MG Ipratropium [place] (Atrovent 0.02% 0.5MG/2.5ML Neb) 0.5 mg Q6R INH 08/08/17 21:00 09/07/17 20:59 08/12/17 14:07 0.5 MG Oxycodone HCl (Roxicodone Immediate Rel Tab) 1 TABLET FOR PAIN RATING... Q4H PRN PO 08/09/17 09:45 08/23/17 09:44 08/12/17 07:26 10 MG Magnesium Hydroxide (Milk Of Magnesia Susp) 30 ml Q6H PRN PO 08/09/17 09:45 09/08/17 09:44 Bisacodyl (Dulcolax Supp) 10 mg DAILY PRN [place] 08/09/17 09:45 09/08/17 09:44 Senna (Senokot Tab) 17.2 mg HS PO 08/09/17 21:00 09/08/17 20:59 08/11/17 20:10 17.2 MG Docusate Sodium (coLACE CAP) 100 mg BID PO 08/09/17 13:00 09/08/17 12:59 08/12/17 08:37 100 MG Diphenhydramine HCl (Benadryl Inj) 25 mg Q8H PRN IV 08/09/17 09:45 09/08/17 09:44 Al Hydrox/Mg Hydrox/Simethicone (Maalox Max Susp) 15 ml Q4H PRN PO 08/09/17 09:45 09/08/17 09:44 Ondansetron HCl (Zofran Inj) 4 mg Q6H PRN IV 08/09/17 09:45 09/08/17 09:44 Metoclopramide HCl (Reglan Inj) 10 mg Q6H PRN IV 08/09/17 09:45 09/08/17 09:44 Ferrous Gluconate (Ferrous Gluconate Tab) 324 mg TIDM PO 08/09/17 13:00 09/08/17 12:59 08/12/17 12:10 324 MG Morphine Sulfate (MoRPHine SULFATE INJ) 2 mg Q4H PRN IV 08/09/17 12:30 08/23/17 12:29 08/12/17 09:26 2 MG Morphine Sulfate (MoRPHine SULFATE INJ) 4 mg Q4H PRN IV 08/09/17 12:30 08/23/17 12:29 Metoprolol Tartrate (Lopressor Iv) 2.5 mg Q6 PRN IV 08/09/17 15:15 09/08/17 15:14 Metoprolol Tartrate (Lopressor Tab) 50 mg BID PO 08/11/17 21:00 09/10/17 20:59 08/12/17 08:36 50 MG Heparin Sodium (Porcine) (Heparin 10 Unit/ ml 5 ml Flush) 5 ml PRN PRN FLUSH 08/11/17 18:00 09/10/17 17:59 Objective Vital Signs Date Time Temp Pulse Resp B/P (MAP) Pulse Ox O2 Delivery O2 Flow Rate FiO2 08/12/17 16:09 36.4 91 18 119/80 (93) 97 Room Air 08/12/17 16:00 95 Nasal Cannula 2.0 08/12/17 12:14 36.4 79 16 158/91 (113) 93 Room Air 08/12/17 12:00 95 Nasal Cannula 2.0 08/12/17 08:00 95 Nasal Cannula 2.0 08/12/17 07:53 36.4 84 18 154/107 (123) 97 Room Air 08/12/17 06:53 95 16 94 Room Air 08/12/17 04:15 Room Air 08/12/17 04:06 36.7 82 19 158/99 (118) 96 Room Air 08/12/17 02:20 95 16 94 Room Air 08/12/17 00:20 Room Air 08/11/17 23:09 36.8 93 19 135/86 (102) 95 Room Air 08/11/17 20:30 96 Room Air 08/11/17 19:41 36.7 91 18 129/83 (98) 96 Room Air 08/11/17 19:12 81 16 94 Room Air Physical Exam General Appearance: WD/WN, no apparent distress Eyes: normal inspection, sclerae normal ENT: normal ENT inspection, hearing grossly normal, pharynx normal Neck: supple, no adenopathy, trachea midline Respiratory/Chest: chest non-tender, lungs clear, normal breath sounds, no respiratory distress Cardiovascular: regular rate, rhythm, no gallop, no murmur Abdomen: normal bowel sounds, non tender, soft, no organomegaly Extremities: non-tender, no calf tenderness Neurologic/Psychiatric: alert, oriented x 3 Skin: normal color, no rash, + pertinent finding ( Surgical dressing intact) Lymphatic: no adenopathy Laboratory Results Last 24 Hours Test 08/12/17 05:38 Activated Partial Thromboplast Time 26.6 SECONDS Partial Thromboplastin Ratio 1.0 Sodium Level 134 mmol/L Potassium Level 3.7 mmol/L Chloride Level 98 mmol/L Carbon Dioxide Level 29 mmol/L Anion Gap 7.0 mmol/L Blood Urea Nitrogen 28 mg/dl Creatinine 1.20 mg/dl Est Creatinine Clear Calc Drug Dose 29.7 ml/min Estimated GFR () 47.1 Estimated GFR (Non- 40.6 BUN/Creatinine Ratio 23.5 Random Glucose 116 mg/dl Calcium Level 8.3 mg/dl Phosphorus Level 2.6 mg/dl Magnesium Level 2.3 mg/dl Assessment and Plan 87-year-old female with remote history of right knee replacement, admitted with right leg DVT, now found to have septic arthritis with methicillin sensitive Staph aureus involving her right knee. She is status post debridement and poly exchange. Would continue on IV cefazolin for now, and would continue this if she goes to rehab. If she is being discharged home, would consider change to daptomycin to allow easier outpatient therapy. will follow.
[2017-08-12] MEDS: LATANOPROST 0.005% OP SOLN 2.5 ML BTL OPL SCH (20:49)
[2017-08-12] MEDS: SENNA 8.6 MG TAB PO SCH (20:55)
[2017-08-12] MEDS: SIMVASTATIN 20 MG TAB PO SCH (20:55)
[2017-08-13] VITALS (8 sets, daily range): BP systolic 133–172; BP diastolic 70–97; PULSE 72–102; TEMP 36.4–36.7; O2SAT 92–95
[2017-08-13] MEDS: LEVALBUTEROL 1.25MG/0.5ML NEB INH SCH ×4 (02:03→19:26)
[2017-08-13] MEDS: IPRATROPIUM BROMIDE NEB SOLN 0.02% 2.5 ML VIAL INH SCH ×4 (02:03→19:26)
[2017-08-13] MEDS: CEFAZOLIN IV 2,000 MG in DEXTROSE 5% 50ML 50 ML IV SCH ×3 (03:45→20:20)
[2017-08-13] MEDS: OXYCODONE HCL IR 5 MG TAB (IMMEDIATE RELEASE) PO PRN ×2 (03:56→09:26)
[2017-08-13 06:30] LABS: HEMATOCRIT 30.9 % (37-47); MEAN CELL VOLUME 99.4 fL (80-100); MEAN CORPUSCULAR HEMOGLOBIN 34.1 pg (25-34); MEAN CORPUSCULAR HGB CONC 34.3 g/dl (32-36); MEAN PLATELET VOLUME 9.1 fL (7.4-10.4); PLATELET COUNT 231 K/uL (130-400); RED BLOOD COUNT 3.11 M/uL (4.2-5.4)
[2017-08-13 07:11] LABS: BUN/CREATININE RATIO 24.6 (10-20); CALCIUM 8.6 mg/dl (8.5-10.1); MAGNESIUM 2.4 mg/dl (1.8-2.4); POTASSIUM 3.7 mmol/L (3.5-5.1)
[2017-08-13] MEDS ORDERED: RXC5 PO (07:21)
[2017-08-13] MEDS ORDERED: PRD10 PO (07:21)
[2017-08-13] MEDS ORDERED: METO50TA16 PO (07:21)
[2017-08-13] MEDS ORDERED: CEFA1INJ3 IV (07:21)
[2017-08-13] MEDS ORDERED: ELQ25 PO (07:21)
--- NOTE | 2017-08-13 07:22 | Discharge Instructions ---
Discharge Instructions Date of Service Aug 13, 2017. Admission Reason for Admission: Rt Leg Dvt Discharge Discharge Diagnosis / Problem: staph bacteremia, right knee sepsis DVT Discharge Goals Goal(s): Decrease discomfort, Improve function, Increase independence, Improve disease control, Improve nutritional status, Learn about illness, Diagnostic testing, Therapeutic intervention, Prevent Disease Progression, Specific goals Activity Recommendations Activity Level: Assistance Required Therapies: Physical Therapy, Occupational Therapy . Additional Information Patient informed of condition: Yes Advance Directives: No DNR: No Level of Care: Skilled Communicable Disease: No Prognosis: Other (guarded) Instructions / Follow-Up Instructions / Follow-Up you have staph bacteremia Likely from right knee sepsis , you can continue on IV cefazolin for now, and would continue this if she goes to rehab. Per infectious disease Dr. Henriquez, if you are going discharged home from rehab , would consider change to daptomycin to allow easier outpatient therapy. you need to follow up with dr. Henriquez in 2-3 weeks you have distal acute right lower extremity DVT, Continue Eliquis you have New diagnosis of A. 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 Keep the knee immobilized for 1 more week to protect the wound, weightbearing as tolerated. - you need to follow up with your primary care physician in 1 week, - take medication as instructed, never overdose or any misuse, or take with alcohol, because misuse of medicine may cause organ damage or , call your primary care physician if have questions of medicaitons. - call your primary care physician OR go to local emergency room if has any fever/chill, chest pain, shortness of breathing, nausea/vomiting/abdominal pain , facial droop/slurry speech/local weakness, or if has any questions. - fall precaution - diet as instructed - you need to follow up with your subspecialists - you should understand that it is important to follow up the above instruction , and "not following the above instruction" may cause delayed or missed care of your medical conditions which may cause permanent organ damage and even . Current Hospital Diet Patient's current hospital diet: Regular Diet Discharge Diet Recommended Diet: Regular Diet Procedures Procedures Performed: Incision and Drainage, Poly Exchange Right Knee Pending Studies Studies pending at discharge: no Physician Orders On Transfer POLST Discussion: without POLST completion Laboratory Results Lipid Panel Test 06/02/17 09:20 Range/Units Triglycerides Level 79 0-150 mg/dl Cholesterol Level 197 0-200 mg/dl HDL Cholesterol 78 mg/dl Cholesterol/HDL Ratio 2.5 LDL Cholesterol, Calculated 103 mg/dl Medical Emergencies . Who to Call and When: Medical Emergencies: If at any time you feel your situation is an emergency, please call 911 immediately. . Non-Emergent Contact Non-Emergency issues call your: Primary Care Provider, Business Solutions Architect, Surgeon Call Non-Emergent contact if: you have a fever . . "Provider Documentation" section prepared by Merrill Wilkerson. . Acetylene Operator Recommendations Acetylene Operator Recommendations: From an orthopedic standpoint patient is cleared to be discharged to a rehab facility. We will have patient f/u in our clinic in ~2 wks for staple removal from her Right knee / post surgical eval (Irrigation and debridement with Poly exchange). Patient will cont on Eliquis for DVT / PE prophylaxis. Cont to be WBAT on Right LE with knee locked in extension (by brace) and with aid of a walker until your 2 wk f/u with [facility] . Pain Expect to be in a fair amount of pain after surgery. Remember, our goal is not to eliminate your pain, but to make it tolerable. It is a good idea to stay ahead of your pain by taking the medications you were prescribed once you get home. Typically, the pain starts improving 3-7 days after surgery. You should start weaning off the narcotic pain medication (oxycodone, hydrocodone, hydromorphone, morphine) as soon as your pain improves. Please call our office if your pain is not adequately controlled. Ice Ice your operative site at least 5 times a day for 15-30 minutes at a time. Make sure you have a thin cloth between the ice or cooling unit and your skin to prevent thompson bite. This is especially important if you received a nerve block. Continue icing your operative site for the first 5-7 days after surgery , then as needed. Wound care and showering We will inspect your wound at your first post-operative visit, and may do a dressing change at that time. Most patients will be in a water-proof dressing that is removed 14 days after surgery. It is normal to see some dried blood on the dressing. Do not remove your dressing, paper strips or sutures yourself unless you are given permission. Showering is allowed the day after surgery. Do not scrub or remove any dressings. The wound should not be submerged underwater (i.e. in a bathtub or pool) until 4 weeks after surgery THOMAS stockings If you were given white stockings, these are to be worn at all times except to shower (on both legs) for the first 2 weeks after surgery. When to call the office It is normal to have swelling and bruising in the limb that was operated on. This will improve with time. It is also normal to have fevers for the first 2 days after surgery. Reasons you should call your doctor include: Uncontrolled pain; Nausea, vomiting, or constipation that does not improve with medication; Fevers over 101.5, chills, sweats; Drainage or bleeding from the wound; Foul odor; Spreading areas of redness; Any other concerns. Cont IV ABX per Infections Disease. Will need cardiology f/u due to new onset Atrial Fibrillation. Pending medicine clearance and discharge. Core Measure Problem Core Measures: VTE VTE Core Measures Date of VTE Diagnosis: Aug 05, 2017 Time of VTE Diagnosis: 07:30 Reason no anticoag overlap I/P: Treatment provided - N/A Reason no anticoag overlap @DC: Treatment provided - N/A
[2017-08-13] MEDS: BUDESONIDE/FORMOTEROL FUMARATE 160/4.5 60 PUFFS/INHALER INH SCH ×2 (08:56→20:38)
[2017-08-13] MEDS: FERROUS GLUCONATE 324 MG TAB PO SCH ×3 (08:57→18:27)
[2017-08-13] MEDS: CEROVITE ADV FORMULA TAB PO SCH (08:57)
[2017-08-13] MEDS: PANTOprazole SOD 40 MG TAB PO SCH (08:57)
[2017-08-13] MEDS: ASCORBIC ACID 500 MG TAB PO SCH (08:58)
[2017-08-13] MEDS: OMEGA-3 (PURIFIED FISH OIL) 1 GM CAP PO SCH (08:59)
[2017-08-13] MEDS: METOPROLOL TARTRATE 50 MG TAB PO SCH ×2 (08:59→20:37)
[2017-08-13] MEDS: POTASSIUM CHLORIDE 20 MEQ TABCR PO SCH (08:59)
[2017-08-13] MEDS: DOCUSATE SODIUM 100 MG CAP PO SCH ×2 (09:00→20:39)
[2017-08-13] MEDS: APIXABAN 2.5 MG TAB PO SCH ×2 (09:00→20:39)
[2017-08-13] MEDS: AMLODIPINE BESYLATE 5 MG TAB PO SCH (09:00)
[2017-08-13] MEDS: CALCIUM 600MG + VIT D 400 IU TAB PO SCH (09:01)
[2017-08-13] MEDS: CITALOPRAM 20 MG TAB PO SCH (09:01)
[2017-08-13] MEDS: ARTIFICIAL TEARS OP SOLN OPL SCH ×8 (09:02→20:38)
[2017-08-13] MEDS: LATANOPROST 0.005% OP SOLN 2.5 ML BTL OPL SCH ×2 (09:02→20:39)
[2017-08-13] MEDS: DORZOLAMIDE/TIMOLOL 22.3/6.8MG/ML 10 ML BTL OPL SCH ×2 (09:04→20:38)
[2017-08-13] MEDS: BRIMONIDINE TARTRATE-P 0.15% 5 ML BTL OPL SCH ×3 (09:04→20:38)
--- NOTE | 2017-08-13 09:59 | Progress Note ---
Subjective Date of Service: Aug 13, 2017. Subjective Pt evaluation today including: conversation w/ patient, conversation w/ family , physical exam, chart review, lab review, review of studies, review of inpatient medication list Voiding: no voiding problems Doing well, no complaining, pain fairly controlled Problem List Medical Problems: (1) Cellulitis Status: Acute (2) Cellulitis of great toe of right foot Status: Acute (3) Knee pain Status: Acute (4) Osteoarthritis Status: Acute (5) Sepsis Status: Acute Review of Systems Constitutional: + weakness, + fatigue, No fever, No chills, No sweats, No weight loss, No problem reported Eyes: No worsening of vision, No eye pain, No redness, No discharge, No diplopia ENT: No hearing loss, No unusual epistaxis, No nasal symptoms, No sore throat, No tinnitus, No dental problems, No trouble swallowing Respiratory: No cough, No sputum, No wheezing, No shortness of breath, No dyspnea on exertion, No dyspnea at rest, No hemoptysis Cardiac: No chest pain, No orthopnea, No PND, No edema, No claudication, No palpitations Abdomen: No pain, No nausea, No vomiting, No diarrhea, No constipation Musculoskeletal: No joint pain, No muscle pain, No swelling, No calf pain Female : No dysuria, No urinary frequency, No hematuria, No incontinence, No abnormal vaginal bleeding, No vaginal discharge Neurologic: No memory loss, No paralysis, No weakness, No numbness/tingling, No vertigo, No balance problems Psychiatric: No depression symptoms, No anhedonism, No anxiety, No insomnia, No substance abuse Heme: No abnormal bleeding/bruising, No clotting problems, No swollen lymph nodes, No night sweats Endo: No fatigue, No excessive thirst, No excessive urination Skin: No rash, No itch, No new/changing skin lesions, No color change, No bleeding Objective Vital Signs Date Time Temp Pulse Resp B/P (MAP) Pulse Ox O2 Delivery O2 Flow Rate FiO2 08/13/17 07:20 36.6 74 16 172/97 (122) 94 Room Air 08/13/17 07:05 72 16 93 Room Air 08/13/17 02:04 75 16 95 Room Air 08/13/17 00:00 Room Air 08/12/17 22:55 36.5 85 17 146/81 (102) 97 Room Air 08/12/17 20:57 84 151/93 (112) 08/12/17 19:24 98 16 93 Room Air 08/12/17 18:40 36.8 78 18 142/82 (102) 96 Room Air 08/12/17 18:40 96 Room Air 08/12/17 18:40 36.8 78 18 142/82 (102) 96 Room Air 08/12/17 18:13 36.4 91 18 97 2.0 08/12/17 16:09 36.4 91 18 119/80 (93) 97 Room Air 08/12/17 16:00 95 Nasal Cannula 2.0 08/12/17 12:14 36.4 79 16 158/91 (113) 93 Room Air 08/12/17 12:00 95 Nasal Cannula 2.0 Physical Exam General Appearance: WD/WN, no apparent distress Eyes: normal inspection, PERRL, EOMI, sclerae normal ENT: normal ENT inspection, hearing grossly normal, pharynx normal Neck: supple, no adenopathy, thyroid normal, no JVD, no carotid bruits, trachea midline Respiratory/Chest: chest non-tender, normal breath sounds, no respiratory distress, no accessory muscle use, + decreased breath sounds Cardiovascular: regular rate, rhythm, no edema, no gallop, no JVD, no murmur Abdomen: normal bowel sounds, non tender, soft, no organomegaly, no pulsatile mass Extremities: normal inspection, no pedal edema, no calf tenderness, normal capillary refill, pelvis stable, + pertinent finding (right knee in dress and cast) Neurologic/Psychiatric: bottom pounder cement shoes II-XII nml as tested, no motor/sensory deficits, alert, normal mood/affect, oriented x 3, + abnormal cerebellar tests Skin: normal color, warm/dry, no rash Lymphatic: no adenopathy Laboratory Results Last 24 Hours Test 08/13/17 05:36 White Blood Count 12.10 K/uL Red Blood Count 3.11 M/uL Hemoglobin 10.6 g/dL Hematocrit 30.9 % Mean Corpuscular Volume 99.4 fL Mean Corpuscular Hemoglobin 34.1 pg Mean Corpuscular Hemoglobin Concent 34.3 g/dl RDW Standard Deviation 50.7 fL RDW Coefficient of Variation 14.2 % Platelet Count 231 K/uL Mean Platelet Volume 9.1 fL Activated Partial Thromboplast Time 26.4 SECONDS Partial Thromboplastin Ratio 1.0 Sodium Level 136 mmol/L Potassium Level 3.7 mmol/L Chloride Level 100 mmol/L Carbon Dioxide Level 31 mmol/L Anion Gap 5.0 mmol/L Blood Urea Nitrogen 25 mg/dl Creatinine 1.00 mg/dl Est Creatinine Clear Calc Drug Dose 35.6 ml/min Estimated GFR () 58.7 Estimated GFR (Non- 50.6 BUN/Creatinine Ratio 24.6 Random Glucose 117 mg/dl Calcium Level 8.6 mg/dl Magnesium Level 2.4 mg/dl Assessment and Plan 87 year old female admitted on August 05 because of sudden right knee pain. Per report She rates her pain at a 10/10. The patient denies falling, and states that she has taken 6 Tylenol , was found possible right knee sepsis, and right lower extremity acute DVT staph bacteremia - likely from skin source. Likely from right knee sepsis , was on Vanco was changed to Ancef for totally six-week per recommendation of infectious disease, Repeated blood culture was negative for more than 48 hours, PICC line placed for long-term antibiotic treatment, 6 out of [address] Henriquez, if you are going discharged home from rehab , would consider change to daptomycin to allow easier outpatient therapy. you need to follow up with dr. Henriquez in 2-3 weeks septic knee - likely seeding from from previous procedure years ago ortho to surgically did I&D, antibiotic see above per ortho, for right knee sepsis continue with brace for 1 more week, follow up with orthopedic surgeon as an outpatient in roughly 1 week for staple removal. Keep the knee immobilized for 1 more week to protect the wound, weightbearing as tolerated. distal acute right lower extremity DVT Continue Eliquis New diagnosis of A. fib with rapid ventricular response HR improved, however and blood pressure is out off range Cardiology increase metoprolol to 50 twice a day 2 days ago, DVT prophylaxis is covered, Full resuscitation called daughter , updated her patient , was planning to discharge to [facility] today, however senior care not able to take her, possible discharge tomorrow. Discharge instruction is ready, narcotic prescription is printed Instructions / Follow-Up you have staph bacteremia Likely from right knee sepsis , you can continue on IV cefazolin for now, and would continue this if she goes to rehab. Per infectious disease Dr. Henriquez, if you are going discharged home from rehab , would consider change to daptomycin to allow easier outpatient therapy. you need to follow up with dr. Henriquez in 2-3 weeks you have distal acute right lower extremity DVT, Continue Eliquis you have New diagnosis of A. 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 Keep the knee immobilized for 1 more week to protect the wound, weightbearing as tolerated. - you need to follow up with your primary care physician in 1 week, - take medication as instructed, never overdose or any misuse, or take with alcohol, because misuse of medicine may cause organ damage or , call your primary care physician if have questions of medicaitons. - call your primary care physician OR go to local emergency room if has any fever/chill, chest pain, shortness of breathing, nausea/vomiting/abdominal pain , facial droop/slurry speech/local weakness, or if has any questions. - fall precaution - diet as instructed - you need to follow up with your subspecialists - you should understand that it is important to follow up the above instruction , and "not following the above instruction" may cause delayed or missed care of your medical conditions which may cause permanent organ damage and even . Continued [facility] stay due to: multiple IV medications needed Discharge planning: correction facility
[2017-08-13] MEDS: IBUPROFEN 600 MG TAB PO PRN (18:38)
[2017-08-13] MEDS: SIMVASTATIN 20 MG TAB PO SCH (20:39)
[2017-08-13] MEDS: SENNA 8.6 MG TAB PO SCH (20:39)
[2017-08-14] MEDS: LEVALBUTEROL 1.25MG/0.5ML NEB INH SCH ×2 (02:04→06:56)
[2017-08-14] MEDS: IPRATROPIUM BROMIDE NEB SOLN 0.02% 2.5 ML VIAL INH SCH ×2 (02:05→06:56)
[2017-08-14 02:06] VITALS: PULSE 88; O2SAT 92
[2017-08-14] MEDS: CEFAZOLIN IV 2,000 MG in DEXTROSE 5% 50ML 50 ML IV SCH ×2 (03:40→12:21)
[2017-08-14 06:15] VITALS: BP 159/85; PULSE 95; TEMP 36.6; O2SAT 91
[2017-08-14 06:58] VITALS: PULSE 86; O2SAT 94
[2017-08-14] MEDS: FERROUS GLUCONATE 324 MG TAB PO SCH ×2 (07:27→12:21)
[2017-08-14] MEDS: ARTIFICIAL TEARS OP SOLN OPL SCH ×4 (07:28→12:22)
[2017-08-14] MEDS: BUDESONIDE/FORMOTEROL FUMARATE 160/4.5 60 PUFFS/INHALER INH SCH (07:28)
[2017-08-14] MEDS: BRIMONIDINE TARTRATE-P 0.15% 5 ML BTL OPL SCH ×2 (07:28→13:18)
[2017-08-14] MEDS: CALCIUM 600MG + VIT D 400 IU TAB PO SCH (07:29)
[2017-08-14] MEDS: CITALOPRAM 20 MG TAB PO SCH (07:29)
[2017-08-14] MEDS: DORZOLAMIDE/TIMOLOL 22.3/6.8MG/ML 10 ML BTL OPL SCH (07:29)
[2017-08-14] MEDS: DOCUSATE SODIUM 100 MG CAP PO SCH (07:30)
[2017-08-14] MEDS: APIXABAN 2.5 MG TAB PO SCH (07:31)
[2017-08-14] MEDS: POTASSIUM CHLORIDE 20 MEQ TABCR PO SCH (07:31)
[2017-08-14] MEDS: CEROVITE ADV FORMULA TAB PO SCH (07:31)
[2017-08-14] MEDS: METOPROLOL TARTRATE 50 MG TAB PO SCH (07:31)
[2017-08-14] MEDS: AMLODIPINE BESYLATE 5 MG TAB PO SCH (07:32)
[2017-08-14] MEDS: OMEGA-3 (PURIFIED FISH OIL) 1 GM CAP PO SCH (07:32)
[2017-08-14] MEDS: ASCORBIC ACID 500 MG TAB PO SCH (07:33)
[2017-08-14] MEDS: PANTOprazole SOD 40 MG TAB PO SCH (07:33)
[2017-08-14] MEDS: IBUPROFEN 600 MG TAB PO PRN (07:34)
[2017-08-14 09:46] VITALS: BP 159/85; PULSE 86; TEMP 36.6; O2SAT 94
--- NOTE | 2017-08-14 10:27 | Orthopedic Progress Note ---
Orthopedic Progress Note Date of Service Aug 14, 2017. Subjective Post OP Day: Post op day 7 Reports: feeling well, pain controlled w PO medications, Denies: complaints, chest pain, SOB, nausea / vomiting, light headedness, calf pain, using PHARMACEUTICAL OFFICER Additional Notes: Patient was seen today with Dr. Lucio Shin. Objective calves soft nontender, N/V intact, capillary refill less than 2 sec., dressing C /D/I, incision C/D/I, A&O x3, toes mobile, CMS intact Date Time Temp Pulse Resp B/P (MAP) Pulse Ox O2 Delivery O2 Flow Rate FiO2 08/14/17 09:46 36.6 86 14 94 Room Air 08/14/17 09:12 Room Air 08/14/17 06:58 86 14 94 Room Air 08/14/17 06:15 36.6 95 17 159/85 (109) 91 Room Air 08/14/17 02:06 88 16 92 Room Air 08/13/17 23:55 135/82 (99) 08/13/17 23:45 Room Air 08/13/17 22:51 36.7 80 16 166/95 (118) 95 Room Air 08/13/17 19:30 99 16 92 Room Air 08/13/17 15:40 Room Air 08/13/17 15:15 36.4 102 16 133/70 (91) 93 Room Air 08/13/17 14:17 91 16 94 Room Air 08/13/17 11:47 Room Air Assessment & Plan Assessment: Day 7 S/P Right knee I&D and poly exchange DVT right lower extremity Plan: continue post op care Dressing changed this AM by myself knee brace locked in full extension but is permitted to be weightbearing with her walker and assist ice/elevate continue diet post-operative anticoagulation with Eliquis pain control with prescribed medications PT/OT ordered to mobilize and assist with gait training, otherwise understands they are to keep the knee in extension Will be discharged to [facility] today and will receive IV ABX through her PICC line no other questions or concerns this morning by the patient or family will discuss findings further with Dr. Marshall call [facility] with any other questions, thank you Discharge Planning Discharge Planning: rehab hospital
[2017-08-14] MEDS ORDERED: ELQ25 PO (12:13)
--- NOTE | 2017-08-14 16:10 | Discharge Summary ---
Discharge Summary Date of Service Aug 14, 2017. (Dee Dee Renee PA-C) Discharge Summary Admission Date: Aug 05, 2017 at 06:31 Discharge Date: Aug 14, 2017 [facility] Principal Diagnosis: RLE DVT and Septic R Knee Problems/Secondary Diagnoses: 1. HTN 2. Glaucoma 3. GERD 4. COPD 5. HLD 6. Depression Immunizations: Have You Had Influenza Vaccine: N/A History of Tetanus Vaccine?: Yes History of Pneumococcal: Yes History of Hepatitis B Vaccine: Unknown Procedures: R KNEE 1 OR 2 VIEWS ROUTINE FINDINGS: Right knee arthroplasty in place without evidence of complication. Prior patellar resurfacing. Small to moderate joint effusion is noted without acute fracture or dislocation. Vascular calcifications are noted. Mild soft tissue prominence is seen about the knee. There is a 2.0 cm linear calcification within the distribution of the proximal MCL compatible with dystrophic calcification (Pradip-Stieda lesion). IMPRESSION: 1. No acute fracture or dislocation. 2. Mild soft tissue swelling about the knee with small to moderate joint effusion. R KNEE 1 OR 2 VIEWS ROUTINE FINDINGS: Postsurgical changes of total right knee arthroplasty with patellar resurfacing. Expected intra-articular gas. Apparent malalignment evidenced by medial joint space loss on frontal view is likely projectional as no joint space loss is evident on lateral view. No fracture. Linear calcification along the medial femoral condyle suggests prior medial collateral ligament injury. Atherosclerosis. 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 Apparent malalignment on frontal view is likely due to suboptimal positioning. Recommend repeat frontal radiograph for confirmation. BILATERAL LOWER EXTREMITY VENOUS DOPPLER FINDINGS: One of the peroneal veins is not compressible with occlusive deep venous thrombosis. Otherwise, there is normal compressibility, flow, and augmentation within the remaining right lower extremity deep venous structures. Incidentally noted is a fluid collection within the anterior suprapatellar distribution. IMPRESSION: 1. Occlusive deep venous thrombosis of the right peroneal vein. No DVT seen above the level of the knee. 2. Incidental note is made of a small fluid collection within the anterior suprapatellar region suggesting joint effusion as seen on comparison radiographs. Consultations: 1. Orthopedics 2. Infectious Disease 3. Cardiology (Dee Dee Renee PA-C) Medication Reconciliation New Medications: Cefazolin In D5w (Cefazolin Sodium) 1 Inj Inj 2 GM IV Q8 for 35 Days Apixaban (Eliquis) 2.5 Mg Tab 2.5 MG PO BID for 30 Days, #60 TAB Take 10 mg BID x 3 doses then take 5 mg BID. Metoprolol Tartrate (Lopressor) (Lopressor) 50 Mg Tab 50 MG PO BID for 30 Days, #60 TAB Oxycodone HCl (Oxycodone HCl) 5 Mg Tab 5-10 MG PO Q4H PRN for Pain for 3 Days, #18 TAB Prednisone (Prednisone) 10 Mg Tab 20 MG PO DAILY for 2 Days, #1 TAB 10mg po daily for 2 days, then stop Continued Medications: Acetaminophen (Tylenol Arthritis Ext Rel) 650 Mg Cplt 1300 MG PO AMPM, CAP Amlodipine (Norvasc) 2.5 Mg Tab 2.5 MG PO DAILY, 0 Refills Ascorbic Acid (Ascorbic Acid) 1,000 Mg Tab 1000 MG PO DAILY Brimonidine Tartrate (Alphagan P) 75 Drops/5 Ml Soln 1 DROPS OPL TID, #5 ML 2 Refills Budesonide/Formoterol Fumarate (Symbicort 160/4.5 Inhaler ) Aero 2 PUFFS INH BID, INHALER Calcium Carbonate-Vitamin D W/ (Caltrate 600 Plus) 1 Tab Tab 1 TAB PO DAILY, TAB Carboxymethylcellulose Sodium (Refresh Tears) 0.5 % Matteo 1 DROP OPL QID Citalopram Hydrobromide (Celexa) 20 Mg Tab 30 MG PO DAILY, TAB Dorzolamide Hcl-Timolol Maleat (Cosopt Oph) 1 Marifer Marifer 1 DROP OPL BID, #2 Fish Oil (Sycamore-3) 1 Ea Cap 1 CAP PO DAILY, 0 Refills Glucosamine-Chondroitin 500MG/400 Mg (Glucosamine-Chondroitin 500 Mg/400 Mg) 1 Cap Cap 1 CAP PO DAILY Latanoprost (Xalatan 0.005% Oph Marifer) 0.005 % Marifer 1 DROPS OPL HS for 30 Days, #2.5 ML 6 Refills Multiple Vitamins W/ Minerals (Womens 50+ Multi Vitamin) 1 Tab Tab 1 TAB PO DAILY Omeprazole (Prilosec) 40 Mg Cap 40 MG PO DAILY, CAP Potassium Ext Rel (Klor-Con) 20 Meq Tabcr 20 MEQ PO DAILY, TAB take with food Simvastatin (Zocor) 20 Mg Tab 20 MG PO QPM, 0 Refills Discontinued Medications: Prednisone (Prednisone) 10 Mg Tab 20 MG PO DAILY STARTED 07/24/17-TAKE 20 MG X 2 WEEKS, THEN 10 MG X 1 WEEK. Discharge Exam Review of Systems: Constitutional: No fever, No chills ENT: No sore throat Respiratory: No cough, No shortness of breath Cardiovascular: No chest pain, No palpitations Abdomen: No pain, No nausea, No vomiting, No diarrhea, No constipation Musculoskeletal: + joint pain (R knee), No muscle pain, No swelling, No calf pain, No problem reported Genitourinary - Female: No dysuria Neurologic: No numbness/tingling Hematologic / Lymphatic: No abnormal bleeding/bruising Integumentary: No rash Physical Exam: General Appearance: WD/WN, no apparent distress Eyes: sclerae normal ENT: hearing grossly normal Neck: supple, no JVD, trachea midline Respiratory/Chest: lungs clear, normal breath sounds, no respiratory distress, no accessory muscle use Cardiovascular: regular rate, rhythm, no gallop, no murmur Abdomen / GI: normal bowel sounds, non tender, soft Extremities: no calf tenderness, + pertinent finding (R knee braced and wrapped - C/D/I) Neurologic/Psychiatric: alert, oriented x 3 Skin: normal color, warm/dry (Dee Dee Renee, PA-C) Hospital Course ADMISSION: Mrs Leonard is an 87 year old female who presents to the ER with leg swelling, right knee pain and erythema. Her symptoms started at 4pm the previous day, getting slowly progressively worse. The pain became so intense overnight that she decided to come to the ER. Her pain was 10/10 in the ER, currently 2/10 until I press on her knee. She denies any trauma or fall. She is concerned about cellulitis as she had this in her big toe in 2016. 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 The persistent scratching causes petechia. HOSPITAL COURSE: Ms. Leonard was admitted for R S. aureus Septic Knee, S. aureus Bacteremia, and Acute RLE DVT. She underwent I&D of R knee on 08/07. She was followed by ID with recommendations for 6 weeks IV Abx. PICC line was placed and Cefazolin was provided. Plan for knee brace times 1 week with WBAT. She was placed on Eliquis 10 mg BID x 7 days and will be converted to 5 mg BID. Recommend continued monitoring of kidney function and possible renal dosing if necessary. She was noted to have episodes of paroxysmal A Fib and cardiology was consulted. Question possible arrhythmias in the past and suspect that this is not a new occurrence. She was continued on Metoprolol 50 mg BID and will have anticoagulation per Eliquis. Plan for outpatient F/U with ID in 2-3 weeks and orthopedic in 1 week. She will be D/C'd to [facility]. Total Time Spent: Greater than 30 minutes This includes examination of the patient, discharge planning, medication reconciliation, and communication with other providers. (Dee Dee Renee, PA-C) i personally examined pt and verified all lackey points w A Víctor PAC feeling good ready to go to SNF vitals noted nad breathing unlabored no pallor or icterus bacteremia/septic joint - for ongoing IV abx, stable for SNF (Carl Baron, D.O.) Discharge Instructions Please refer to the electronic Patient Visit Report (Discharge Instructions) for additional information. (Dee Dee Renee, MALA-C) Additional Copies To Lucio Church M.D.
[2017-09-18] MEDS ORDERED: diclofenac sodium (10:54)
[2017-09-18] MEDS ORDERED: APIX1TAB3 PO (10:54)
[2017-09-18] MEDS ORDERED: NYSTCRE11 (10:54)
[2017-09-18] MEDS ORDERED: METO50TA7 PO (10:54)
[2017-09-18] MEDS ORDERED: VNTHFA/IN INH (10:54)
[2017-09-18] MEDS ORDERED: SALI1SPR3 (10:54)
[2017-09-18] MEDS ORDERED: AMOX500C3 PO (10:54)
[2017-09-18] MEDS ORDERED: OXYC1TAB3 PO (10:54)
== END 2017-08-14 14:32 | DRG 486 ==
LOC: EDBD 03:24 → C.EDA 03:25 → C.2T 06:31 → ENRESERV 06:45 → C.MSN 21:05 → CANRESERV 08-07 10:38 → ENRESERV 08-07 10:38 → C.2T 08-07 16:47 → CANBEDREQ 08-09 02:27 → ENRESERV 08-09 10:36 → CANBEDREQ 08-09 11:25 → ENRESERV 08-12 18:07 → EDBEDREQSVC 08-12 18:11 → EDBEDREQ 08-12 18:11 → C.3E 08-12 18:35
PROVIDERS: ADMIT Hospitalist; ATTEND Family Medicine
PROC: 0S9C3ZX Drainage of Right Knee Joint, Percutaneous Approach, Diagnostic (ICD-10-PCS; principal; 2017-08-06)
PROC: 0SUV09Z Supplement Right Knee Joint, Tibial Surface with Liner, Open Approach (ICD-10-PCS; 2017-08-07 07:00)
PROC: 0SPC09Z Removal of Liner from Right Knee Joint, Open Approach (ICD-10-PCS; 2017-08-07 07:00)
DX: T84.53XA Infection and inflammatory reaction due to internal right knee prosthesis, initial encounter (principal); I82.491 Acute embolism and thrombosis of other specified deep vein of right lower extremity; R78.81 Bacteremia; M00.061 Staphylococcal arthritis, right knee; L30.9 Dermatitis, unspecified; L29.9 Pruritus, unspecified; R23.3 Spontaneous ecchymoses; I10 Essential (primary) hypertension; H40.9 Unspecified glaucoma; K21.9 Gastro-esophageal reflux disease without esophagitis; J44.9 Chronic obstructive pulmonary disease, unspecified; E78.5 Hyperlipidemia, unspecified; F32.9 Major depressive disorder, single episode, unspecified; I48.91 Unspecified atrial fibrillation; Y83.1 Surgical operation with implant of artificial internal device as the cause of abnormal reaction of the patient, or of later complication, without mention of misadventure at the time of the procedure; Z96.651 Presence of right artificial knee joint; Z82.49 Family history of ischemic heart disease and other diseases of the circulatory system; Z79.52 Long term (current) use of systemic steroids

== ENCOUNTER → 2017-09-18 | Day surgery (SDC) | payer BC ==
[~2017-09-18] VITALS: Ht 154.9 cm; Wt 75.0 kg
[~2017-09-18] MED LIST changes: +ACET1TAB84 PO; +ALPPOPS5 OPL; +AMOX500C3 PO; +APIX1TAB3 PO; -ASCA500 PO; +ASCO100061 PO; +CALCTAB7 PO; +CARB0.5D28 OPL; +CEFA1INJ3 IV; -CLTP PO; +ELQ25 PO; -GLCSC500400 PO; +GLUC500C60 PO; +LATA0.009 OPL; +METO50TA16 PO; +METO50TA7 PO; +MULT-602 PO; -MULT60CA PO; -MULTTAB58 PO; -NAPR1TAB9 PO; +NYSTCRE11; -OMEP40CA PO; +OMEP40CA41 PO; +OXYC1TAB3 PO; +PRD10 PO; +RXC5 PO; +SALI1SPR3; +VNTHFA/IN INH; -XLTOPS OPL; +diclofenac sodium
[2017-09-18 10:56] VITALS: BP 137/76; PULSE 93; TEMP 36.8; O2SAT 94; Ht 154.9 cm; Wt 75.0 kg
== END | disposition home or self-care (01) ==
LOC: C.MTU 10:16
PROVIDERS: ATTEND Internal Medicine Infectious Disease
DX: T84.53XA Infection and inflammatory reaction due to internal right knee prosthesis, initial encounter (principal); Y83.1 Surgical operation with implant of artificial internal device as the cause of abnormal reaction of the patient, or of later complication, without mention of misadventure at the time of the procedure

== ENCOUNTER 2017-09-25 13:01 | Emergency (ER) | payer BC ==
[~2017-09-25] VITALS: Ht 154.9 cm; Wt 73.0 kg
[~2017-09-25 13:01] MED LIST changes: -CEFA1INJ3 IV; -ELQ25 PO; -METO50TA16 PO; -PRD10 PO; -RXC5 PO
[2017-09-25 13:03] VITALS: TEMP 36.5; Ht 154.9 cm; Wt 73.0 kg
--- NOTE | 2017-09-25 13:43 | DIAGNOSTIC IMAGING REPORT ---
SINGLE VIEW CHEST CLINICAL HISTORY: Dyspnea. Lower extremity edema. FINDINGS: An AP, portable, upright chest radiograph is compared to study dated 08/11/2014 and correlated with chest CT dated 09/11/2013. The heart is enlarged and there is atherosclerotic calcification of the thoracic aorta. The pulmonary vasculature is noncongested. Trace pleural effusions are questioned. Atelectasis versus scarring is seen at the left lung base. No pneumothorax is seen. The skeletal structures are osteopenic. Degenerative change and scoliosis are noted in the thoracic spine. IMPRESSION: 1. Cardiomegaly without radiographic evidence of congestive failure. 2. No airspace consolidation is seen typical for pneumonia. 3. Suspect trace pleural effusions. Electronically signed by: Telly Roach M.D. 09/25/2017 1:41 PM Dictated Date/Time: 09/25/2017 1:40 PM
[2017-09-25 13:45] LABS: BASO % 0.3 %; BASO ABS # 0.02 K/uL (0-0.2); COMPLETE YES; EOS % 0.4 %; IG% 0.4 %; LYMPH % 9.5 %; LYMPH ABS # 0.75 K/uL (1.2-3.4); MEAN CELL VOLUME 100.6 fL (80-100); MEAN CORPUSCULAR HEMOGLOBIN 32.2 pg (25-34); MEAN CORPUSCULAR HGB CONC 32.1 g/dl (32-36); MEAN PLATELET VOLUME 9.1 fL (7.4-10.4); MONO % 11.9 %; NEUT % 77.5 %; PLATELET COUNT 207 K/uL (130-400); RED BLOOD COUNT 3.38 M/uL (4.2-5.4); WHITE BLOOD COUNT 7.91 K/uL (4.8-10.8)
[2017-09-25 13:54] LABS: INR 1.1 (0.9-1.1); PARTIAL THROMBOPLASTIN RATIO 1.2; PROTHROMBIN TIME (PATIENT) 11.4 SECONDS (9.0-12.0)
[2017-09-25 14:07] LABS: BUN/CREATININE RATIO 15.7 (10-20); CALCIUM 8.8 mg/dl (8.5-10.1); CREATININE 1.1 mg/dl (0.60-1.20); MAGNESIUM 2.1 mg/dl (1.8-2.4); POTASSIUM 3.3 mmol/L (3.5-5.1)
[2017-09-25] MEDS ORDERED: FUROSEMIDE 40 MG/4 ML VIAL IV STA (14:17)
[2017-09-25] MEDS ORDERED: CEFA500C2 PO (14:46)
[2017-09-25] MEDS ORDERED: FURO-85 PO (14:58)
[2017-09-25] MEDS ORDERED: IPRASOL4 INH (14:58)
[2017-09-25] MEDS ORDERED: MULTCAP33 PO (14:58)
[2017-09-25] MEDS ORDERED: MELA1TAB5 PO (14:58)
[2017-09-25] MEDS ORDERED: NYSS/ PO (14:58)
[2017-09-25 15:08] LABS: MANUAL MICROSCOPIC REQUIRED? NO; REVIEW REQ? NO; URINE APPEARANCE CLEAR (CLEAR); URINE BILIRUBIN NEG (NEG); URINE COLOR YELLOW; URINE NITRITE NEG (NEG); URINE SPECIFIC GRAVITY 1.011 (1.000-1.030); UROBILINOGEN NEG (NEG); ZZUR CULT IF INDIC CLEAN CATCH NO
[2017-09-25 15:35] VITALS: BP 159/105; PULSE 85; O2SAT 96
--- NOTE | 2017-09-25 15:59 | EMERGENCY ROOM VISIT NOTE ---
"History Report prepared by Geraldine: Landon Serrano Under the Supervision of: Dr. Anyi Crocker M.D. First contact with patient: 13:10 Chief Complaint: REFERRED BY DOCTOR Stated Complaint: EDEMA & AFIB History of Present Illness The patient is a 87 year old female who presents to the Emergency Room with complaints of persistent bilateral leg swelling beginning a few weeks ago. She was referred to the ED by his PCP's office. Per daughter, the patient has a recent diagnosis of A-fib, and has been experiencing a large amount of pedal edema with weeping recently. The patient was started on Lasix two weeks ago, but this has not improved her edema. She states that the patient has hardly urinated since she began taking Lasix. She states that the patient is short of breath at baseline, but has had increased difficulty breathing recently. The patient has a history of a knee replacement, and had a maintenance surgery recently. Her symptoms began several weeks after this surgery. She has a history of RLE DVT. Source of History: patient, family (daughter) Onset: A few weeks ago Position: leg (bilateral) Quality: other (swelling) Timing: other (persistent) Associated Symptoms: + SOB Review of Systems See HPI for pertinent positives & negatives. A total of 10 systems reviewed and were otherwise negative. 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 (6) Left knee pain (7) Right leg DVT (8) syncope (9) syncope Family History Hypertension Social History Smoking Status: Never Smoker Alcohol Use: none, occasionally Drug Use: none Marital Status: single Occupation Status: employed Current/Historical Medications Scheduled Amlodipine (Norvasc), 2.5 MG PO DAILY Apixaban (Eliquis), 5 MG PO BID Ascorbic Acid (Ascorbic Acid), 1,000 MG PO DAILY Brimonidine Tartrate (Alphagan P), 1 DROPS OPL TID Budesonide/Formoterol Fumarate (Symbicort 160/4.5 Inhaler ), 2 PUFFS INH BID Calcium Carbonate-Vitamin D W/ (Caltrate 600 Plus), 1 TAB PO DAILY Carboxymethylcellulose Sodium (Refresh Tears), 1 DROP OPL QID Cefadroxil (Duricef), 1,000 MG PO BID Citalopram Hydrobromide (Celexa), 30 MG PO DAILY Dorzolamide Hcl-Timolol Maleat (Cosopt Oph), 1 DROP OPL BID Fish Oil (Scurry-3), 1 CAP PO DAILY Furosemide (Lasix), 40 MG PO QAM Ipratropium-Albuterol (Duoneb), 1 TREATMENT INH TID Latanoprost (Xalatan 0.005% Oph Marifer), 1 DROPS OPL HS Melatonin (Kp Melatonin), 3 MG PO HS Metoprolol Succ (Toprol Xl) (Toprol-Xl), 75 MG PO BID Multiple Vitamins W/ Minerals (Womens 50+ Multi Vitamin), 1 TAB PO DAILY Multiple Vitamins W/ Minerals (Preservision Areds), 2 CAP PO DAILY Nystatin (Nystatin Suspension), 5 ML PO TID Nystatin/Triamcinolone (Mycogen || ), 1 APPLN BID Omeprazole (Prilosec), 40 MG PO DAILY Potassium Ext Rel (Klor-Con), 20 MEQ PO DAILY Simvastatin (Zocor), 20 MG PO QPM Scheduled PRN Albuterol Hfa (Ventolin Hfa), 2-4 PUFFS INH Q6H PRN for Shortness of Breath Allergies Coded Allergies: Erythromycin (Verified Adverse Reaction, Unknown, nausea, 09/25/17) Nitrofurantoin (Verified Adverse Reaction, Unknown, not sure, 09/25/17) Physical Exam Vital Signs Date Time Temp Pulse Resp B/P (MAP) Pulse Ox O2 Delivery O2 Flow Rate FiO2 09/25/17 15:35 85 22 159/105 96 Room Air 09/25/17 15:15 92 18 159/105 97 Room Air 09/25/17 13:23 85 09/25/17 13:03 36.5 93 20 156/92 98 Room Air Physical Exam Vital signs reviewed. General: Well-appearing female, in no significant distress. HEENT: No scleral icterus, Pale conjunctiva, PERRLA, neck supple. Atraumatic. Dry mucous membranes. Cardiovascular: Irregular heart rate that is controlled. Pulmonary: Crackles at the bases bilaterally. Normal WOB Abdomen: Soft, nontender, nondistended, positive bowel sounds. Musculoskeletal: Atraumatic. 3+ lower extremity edema bilaterally. Several superficial blisters to the lower extremities. No active weeping. No signs of cellulitis. Neurologic: Patient awake alert and oriented x 3. Skin: Warm, dry, no rash Medical Decision & Procedures ER Provider Diagnostic Interpretation: X-ray results as stated below per interpretation by me and the radiologist: SINGLE VIEW CHEST FINDINGS: An AP, portable, upright chest radiograph is compared to study dated 08/11/2014 and correlated with chest CT dated 09/11/2013. The heart is enlarged and there is atherosclerotic calcification of the thoracic aorta. The pulmonary vasculature is noncongested. Trace pleural effusions are questioned. Atelectasis versus scarring is seen at the left lung base. No pneumothorax is seen. The skeletal structures are osteopenic. Degenerative change and scoliosis are noted in the thoracic spine. IMPRESSION: 1. Cardiomegaly without radiographic evidence of congestive failure. 2. No airspace consolidation is seen typical for pneumonia. 3. Suspect trace pleural effusions. Electronically signed by: Telly Roach M.D. 09/25/2017 1:41 PM Laboratory Results 09/25/17 13:30 Red Blood Count 3.38, Mean Corpuscular Volume 100.6, Mean Corpuscular Hemoglobin 32.2, Mean Corpuscular Hemoglobin Concent 32.1, Mean Platelet Volume 9.1, Neutrophils (%) (Auto) 77.5, Lymphocytes (%) (Auto) 9.5, Monocytes (%) ( Auto) 11.9, Eosinophils (%) (Auto) 0.4, Basophils (%) (Auto) 0.3, Neutrophils # (Auto) 6.14, Lymphocytes # (Auto) 0.75, Monocytes # (Auto) 0.94, Eosinophils # ( Auto) 0.03, Basophils # (Auto) 0.02 09/25/17 13:30 Test 09/25/17 13:30 09/25/17 13:38 09/25/17 14:40 White Blood Count 7.91 K/uL (4.8-10.8) Red Blood Count 3.38 M/uL (4.2-5.4) Hemoglobin 10.9 g/dL (12.0-16.0) Hematocrit 34.0 % (37-47) Mean Corpuscular Volume 100.6 fL (80-100) Mean Corpuscular Hemoglobin 32.2 pg (25-34) Mean Corpuscular Hemoglobin Concent 32.1 g/dl (32-36) Platelet Count 207 K/uL (130-400) Mean Platelet Volume 9.1 fL (7.4-10.4) Neutrophils (%) (Auto) 77.5 % Lymphocytes (%) (Auto) 9.5 % Monocytes (%) (Auto) 11.9 % Eosinophils (%) (Auto) 0.4 % Basophils (%) (Auto) 0.3 % Neutrophils # (Auto) 6.14 K/uL (1.4-6.5) Lymphocytes # (Auto) 0.75 K/uL (1.2-3.4) Monocytes # (Auto) 0.94 K/uL (0.11-0.59) Eosinophils # (Auto) 0.03 K/uL (0-0.5) Basophils # (Auto) 0.02 K/uL (0-0.2) RDW Standard Deviation 58.5 fL (36.4-46.3) RDW Coefficient of Variation 15.9 % (11.5-14.5) Immature Granulocyte % (Auto) 0.4 % Immature Granulocyte # (Auto) 0.03 K/uL (0.00-0.02) Prothrombin Time 11.4 SECONDS (9.0-12.0) Prothromb Time International Ratio 1.1 (0.9-1.1) Activated Partial Thromboplast Time 31.1 SECONDS (21.0-31.0) Partial Thromboplastin Ratio 1.2 Anion Gap 10.0 mmol/L (3-11) Est Creatinine Clear Calc Drug Dose 32.9 ml/min Estimated GFR () 52.3 Estimated GFR (Non- 45.1 BUN/Creatinine Ratio 15.7 (10-20) Calcium Level 8.8 mg/dl (8.5-10.1) Magnesium Level 2.1 mg/dl (1.8-2.4) Total Bilirubin 0.8 mg/dl (0.2-1) Direct Bilirubin 0.2 mg/dl (0-0.2) Aspartate Amino Transf (AST/SGOT) 38 U/L (15-37) Alanine Aminotransferase (ALT/SGPT) 31 U/L (12-78) Alkaline Phosphatase 101 U/L (45-117) Total Creatine Kinase 54 U/L (26-192) Creatine Kinase MB 1.6 ng/ml (0.5-3.6) Creatine Kinase MB Ratio 3.0 (0-3.0) Pro-B-Type Natriuretic Peptide 4163 pg/ml (0-1800) Total Protein 7.1 gm/dl (6.4-8.2) Albumin 3.3 gm/dl (3.4-5.0) Bedside Troponin I < 0.030 ng/ml (0-0.045) Urine Color YELLOW Urine Appearance CLEAR (CLEAR) Urine pH 7.0 (4.5-7.5) Urine Specific Freedom 1.011 (1.000-1.030) Urine Protein NEG (NEG) Urine Glucose (UA) NEG (NEG) Urine Ketones NEG (NEG) Urine Occult Blood NEG (NEG) Urine Nitrite NEG (NEG) Urine Bilirubin NEG (NEG) Urine Urobilinogen NEG (NEG) Urine Leukocyte Esterase NEG (NEG) Laboratory results per my review. Medications Administered Medications (Trade) Dose Ordered Sig/Peterson Route Start Time Stop Time Status Last Admin Dose Admin Furosemide (Lasix Inj) 40 mg NOW STAT IV 09/25/17 14:17 09/25/17 14:18 DC 09/25/17 15:34 40 MG ECG Indication: SOB/dyspnea Rate (beats per minute): 83 Rhythm: atrial fibrillation Findings: T-wave inversion (inferior and lateral), other (Previous inferior infarct. ) ED Course 1312: Past medical records reviewed. The patient was evaluated in room A9B. A complete history and physical examination was performed. 1417: Ordered Lasix Inj 40 mg IV. 1555: Upon reevaluation, the patient appeared to have improvement of her symptoms. I discussed findings with her. She verbalized agreement of the treatment plan. The patient was discharged home. Medical Decision Differential diagnosis: Etiologies such as rapid atrial fibrillation, infections, reactive airway disease, pneumonia, pneumothorax, COPD, CHF, cardiac ischemia, pulmonary embolism, musculoskeletal, gastrointestinal, as well as others were entertained. This patient was evaluated and appeared to be in no significant distress. IV access was obtained and laboratory work was drawn. The patient was placed on the monitoring analyst. Patient is a rate controlled atrial fibrillation. Chest x -ray was obtained and is negative for acute CHF. Laboratory work reveals mildly elevated BNP. The patient did void greater than 800 mL at once. A suspicious that perhaps she is retaining urine at times as opposed to a decreased urine output. Patient was given IV Lasix 40 mg for the persistent lower extremity edema. Patient's creatinine is 1.1 today, but creatinine clearance is diminished. Patient and daughter seem comfortable with the plan for discharge. She will follow-up with her PCP this week for reevaluation return to the ER for worsening of symptoms or any medical concerns. Medication Reconcilliation Current Medication List: was personally reviewed by me Blood Pressure Screening Patient's blood pressure: Elevated blood pressure Blood pressure disposition: Elevated BP felt to be situational Impression Primary Impression: Edema, peripheral Additional Impression: Atrial fibrillation Scribe Attestation The scribe's documentation has been prepared under my direction and personally reviewed by me in its entirety. I confirm that the note above accurately reflects all work, treatment, procedures, and medical decision making performed by me. Departure Information Dispostion Home / Self-Care Referrals Lucio Church M.D. (PCP) Forms HOME CARE DOCUMENTATION FORM, IMPORTANT VISIT INFORMATION, WORK / SCHOOL INSTRUCTIONS Patient Instructions My [facility] Additional Instructions Diagnosis: peripheral edema, atrial fibrillation Please continue lasix as prescribed. Follow up with Dr Church this week for reevaluation. Call sooner if edema is not improvong for possible lasix dosing adjustments. Return to the ED for worsening of symptoms or any medical concerns. Problem Qualifiers"
== END 2017-09-25 15:55 | disposition home or self-care (01) ==
LOC: C.EDB 13:02 → C.EDA 15:55
DX: R60.9 Edema, unspecified (principal); I48.91 Unspecified atrial fibrillation; I10 Essential (primary) hypertension; E78.5 Hyperlipidemia, unspecified; J45.909 Unspecified asthma, uncomplicated; Z86.19 Personal history of other infectious and parasitic diseases; Z86.718 Personal history of other venous thrombosis and embolism; Z79.899 Other long term (current) drug therapy; Z88.3 Allergy status to other anti-infective agents; Z88.8 Allergy status to other drugs, medicaments and biological substances; Z82.49 Family history of ischemic heart disease and other diseases of the circulatory system

== ENCOUNTER → 2017-09-29 | Outpatient (CLI) | payer BC ==
[~2017-09-29] MED LIST changes: -ACET1TAB84 PO; -AMOX500C3 PO; +CEFA500C2 PO; +FURO-85 PO; -GLUC500C60 PO; +IPRASOL4 INH; +MELA1TAB5 PO; +MULTCAP33 PO; +NYSS/ PO; -OXYC1TAB3 PO; -SALI1SPR3; -diclofenac sodium
[2017-09-29 12:47] LABS: BLOOD UREA NITROGEN 17 mg/dl (7-18); BUN/CREATININE RATIO 13.5 (10-20); CALCIUM 8.8 mg/dl (8.5-10.1); CARBON DIOXIDE 33 mmol/L (21-32); CHLORIDE 91 mmol/L (98-107); CREATININE 1.28 mg/dl (0.60-1.20); GLUCOSE 134 mg/dl (70-99); POTASSIUM 2.7 mmol/L (3.5-5.1); SODIUM 130 mmol/L (136-145)
== END | disposition home or self-care (01) ==
LOC: C.LAB 10:42
PROVIDERS: ATTEND Physician Assistant Medical
DX: I10 Essential (primary) hypertension (principal); Z87.898 Personal history of other specified conditions; R60.9 Edema, unspecified

== ENCOUNTER → 2017-10-02 | Outpatient (CLI) | payer BC ==
[2017-10-02 16:45] LABS: BLOOD UREA NITROGEN 27 mg/dl (7-18); BUN/CREATININE RATIO 18.9 (10-20); CALCIUM 9.1 mg/dl (8.5-10.1); CARBON DIOXIDE 36 mmol/L (21-32); CHLORIDE 81 mmol/L (98-107); CREATININE 1.44 mg/dl (0.60-1.20); GLUCOSE 130 mg/dl (70-99); POTASSIUM 2.5 mmol/L (3.5-5.1); SODIUM 122 mmol/L (136-145)
== END | disposition home or self-care (01) ==
LOC: C.LAB 15:08
PROVIDERS: ATTEND Physician Assistant
DX: I48.91 Unspecified atrial fibrillation (principal)

== ENCOUNTER → 2017-10-03 | Outpatient (CLI) | payer BC ==
[2017-10-03 10:23] LABS: BLOOD UREA NITROGEN 33 mg/dl (7-18); BUN/CREATININE RATIO 22.1 (10-20); CALCIUM 9.1 mg/dl (8.5-10.1); CARBON DIOXIDE 33 mmol/L (21-32); CHLORIDE 84 mmol/L (98-107); CREATININE 1.48 mg/dl (0.60-1.20); GLUCOSE 197 mg/dl (70-99); POTASSIUM 2.9 mmol/L (3.5-5.1); SODIUM 126 mmol/L (136-145)
== END | disposition home or self-care (01) ==
LOC: C.LAB 08:59
PROVIDERS: ATTEND Physician Assistant
DX: R79.9 Abnormal finding of blood chemistry, unspecified (principal)

== ENCOUNTER → 2017-10-06 | Outpatient (CLI) | payer BC ==
[2017-10-06 09:56] LABS: BLOOD UREA NITROGEN 29 mg/dl (7-18); BUN/CREATININE RATIO 24.9 (10-20); CARBON DIOXIDE 29 mmol/L (21-32); CHLORIDE 94 mmol/L (98-107); CREATININE 1.15 mg/dl (0.60-1.20); GLUCOSE 187 mg/dl (70-99); POTASSIUM 4.1 mmol/L (3.5-5.1); SODIUM 130 mmol/L (136-145)
== END | disposition home or self-care (01) ==
LOC: C.LAB 08:28
PROVIDERS: ATTEND Physician Assistant
DX: R79.9 Abnormal finding of blood chemistry, unspecified (principal)

== ENCOUNTER → 2017-10-12 | Outpatient (CLI) | payer BC ==
[2017-10-12 18:13] LABS: BASO % 0.7 %; BASO ABS # 0.04 K/uL (0-0.2); COMPLETE YES; EOS % 1.3 %; HEMATOCRIT 34.9 % (37-47); IG% 0.5 %; LYMPH % 20.6 %; LYMPH ABS # 1.23 K/uL (1.2-3.4); MEAN CELL VOLUME 100.6 fL (80-100); MEAN CORPUSCULAR HEMOGLOBIN 32.3 pg (25-34); MEAN CORPUSCULAR HGB CONC 32.1 g/dl (32-36); MEAN PLATELET VOLUME 9.1 fL (7.4-10.4); MONO % 16.1 %; NEUT % 60.8 %; PLATELET COUNT 206 K/uL (130-400); RED BLOOD COUNT 3.47 M/uL (4.2-5.4); WHITE BLOOD COUNT 5.98 K/uL (4.8-10.8)
[2017-10-12 18:45] LABS: ALT/SGPT 39 U/L (12-78); AST/SGOT 22 U/L (15-37); BLOOD UREA NITROGEN 27 mg/dl (7-18); BUN/CREATININE RATIO 24.5 (10-20); CALCIUM 8.7 mg/dl (8.5-10.1); CARBON DIOXIDE 29 mmol/L (21-32); CHLORIDE 99 mmol/L (98-107); CREATININE 1.11 mg/dl (0.60-1.20); GLUCOSE 101 mg/dl (70-99); POTASSIUM 4.8 mmol/L (3.5-5.1); SODIUM 131 mmol/L (136-145)
[2017-10-12 18:48] LABS: ALB/GLOB RATIO 0.9 (0.9-2); ALKALINE PHOSPHATASE 85 U/L (45-117)
== END | disposition home or self-care (01) ==
LOC: C.LAB 17:38
PROVIDERS: ATTEND Internal Medicine
DX: E87.6 Hypokalemia (principal)

== ENCOUNTER → 2017-10-27 | Outpatient (CLI) | payer BC ==
[~2017-10-27] MED LIST changes: +IPRA-64 INH; -IPRASOL4 INH; -METO50TA7 PO; +METO50TA8 PO; +POTA-639 PO; -POTA20TA16 PO
[2017-10-27 17:49] LABS: BASO % 0.5 %; BASO ABS # 0.04 K/uL (0-0.2); EOS % 3.7 %; EOS ABS # 0.27 K/uL (0-0.5); HEMATOCRIT 38.1 % (37-47); HEMOGLOBIN 12.4 g/dL (12.0-16.0); IG# 0.02 K/uL (0.00-0.02); LYMPH % 16.9 %; LYMPH ABS # 1.25 K/uL (1.2-3.4); MEAN CORPUSCULAR HEMOGLOBIN 32.5 pg (25-34); MEAN CORPUSCULAR HGB CONC 32.5 g/dl (32-36); MEAN PLATELET VOLUME 10.5 fL (7.4-10.4); MONO % 13.7 %; MONO ABS # 1.01 K/uL (0.11-0.59); NEUT % 64.9 %; NEUT ABS # 4.79 K/uL (1.4-6.5); PLATELET COUNT 253 K/uL (130-400); RED CELL DISTRIBUTION WIDTH CV 15.3 % (11.5-14.5); RED CELL DISTRIBUTION WIDTH SD 56.3 fL (36.4-46.3); WHITE BLOOD COUNT 7.38 K/uL (4.8-10.8)
[2017-10-27 18:09] LABS: BLOOD UREA NITROGEN 37 mg/dl (7-18); CALCIUM 8.7 mg/dl (8.5-10.1); CARBON DIOXIDE 27 mmol/L (21-32); CREATININE 1.45 mg/dl (0.60-1.20); GLUCOSE 121 mg/dl (70-99); POTASSIUM 4.7 mmol/L (3.5-5.1); SODIUM 134 mmol/L (136-145); TRANSFERRIN 267 mg/dl (200-360)
== END | disposition home or self-care (01) ==
LOC: C.LAB 16:19
PROVIDERS: ATTEND Internal Medicine
DX: I10 Essential (primary) hypertension (principal); E87.1 Hypo-osmolality and hyponatremia; D64.9 Anemia, unspecified

== ENCOUNTER → 2017-11-14 | Outpatient (CLI) | payer BC ==
[~2017-11-14] MED LIST changes: -IPRA-64 INH; +IPRASOL4 INH; +METO50TA7 PO; -METO50TA8 PO; -POTA-639 PO; +POTA20TA16 PO
[2017-11-14 17:12] LABS: BLOOD UREA NITROGEN 32 mg/dl (7-18); CALCIUM 9.1 mg/dl (8.5-10.1); CARBON DIOXIDE 29 mmol/L (21-32); CREATININE 1.52 mg/dl (0.60-1.20); GLUCOSE 118 mg/dl (70-99); POTASSIUM 4.1 mmol/L (3.5-5.1); SODIUM 135 mmol/L (136-145)
== END | disposition home or self-care (01) ==
LOC: C.LAB 14:58
PROVIDERS: ATTEND Internal Medicine
DX: I10 Essential (primary) hypertension (principal); I48.91 Unspecified atrial fibrillation; R79.9 Abnormal finding of blood chemistry, unspecified; D64.9 Anemia, unspecified; E87.6 Hypokalemia

== ENCOUNTER → 2017-11-22 | Outpatient (CLI) | payer BC ==
[2017-11-22 13:51] LABS: BASO % 0.3 %; BASO ABS # 0.02 K/uL (0-0.2); EOS % 1.1 %; EOS ABS # 0.07 K/uL (0-0.5); HEMATOCRIT 39.2 % (37-47); HEMOGLOBIN 13.3 g/dL (12.0-16.0); IG# 0.03 K/uL (0.00-0.02); LYMPH % 13.7 %; LYMPH ABS # 0.91 K/uL (1.2-3.4); MEAN CELL VOLUME 98.2 fL (80-100); MEAN CORPUSCULAR HEMOGLOBIN 33.3 pg (25-34); MEAN PLATELET VOLUME 9.4 fL (7.4-10.4); MONO % 14.5 %; MONO ABS # 0.96 K/uL (0.11-0.59); NEUT % 69.9 %; NEUT ABS # 4.64 K/uL (1.4-6.5); PLATELET COUNT 228 K/uL (130-400); RED CELL DISTRIBUTION WIDTH CV 15.2 % (11.5-14.5); RED CELL DISTRIBUTION WIDTH SD 54.7 fL (36.4-46.3); WHITE BLOOD COUNT 6.63 K/uL (4.8-10.8)
[2017-11-22 13:55] LABS: MEAN CORPUSCULAR HGB CONC 33.9 g/dl (32-36)
== END | disposition home or self-care (01) ==
LOC: C.LAB1850 13:19
PROVIDERS: ATTEND Physician Assistant
DX: T84.53XA Infection and inflammatory reaction due to internal right knee prosthesis, initial encounter (principal); Y83.1 Surgical operation with implant of artificial internal device as the cause of abnormal reaction of the patient, or of later complication, without mention of misadventure at the time of the procedure; Z96.651 Presence of right artificial knee joint

== ENCOUNTER → 2018-02-06 | Outpatient (CLI) | payer BC ==
[~2018-02-06] MED LIST changes: -METO50TA7 PO; +METO50TA8 PO; +POTA-639 PO; -POTA20TA16 PO
[2018-02-06 17:13] LABS: BASO % 0.2 %; BASO ABS # 0.02 K/uL (0-0.2); EOS % 0.8 %; EOS ABS # 0.07 K/uL (0-0.5); HEMATOCRIT 40.5 % (37-47); HEMOGLOBIN 13.8 g/dL (12.0-16.0); IG# 0.02 K/uL (0.00-0.02); LYMPH ABS # 0.84 K/uL (1.2-3.4); MEAN CELL VOLUME 100.2 fL (80-100); MEAN CORPUSCULAR HEMOGLOBIN 34.2 pg (25-34); MEAN CORPUSCULAR HGB CONC 34.1 g/dl (32-36); MEAN PLATELET VOLUME 10.1 fL (7.4-10.4); MONO % 10.4 %; MONO ABS # 0.87 K/uL (0.11-0.59); NEUT % 78.4 %; NEUT ABS # 6.55 K/uL (1.4-6.5); PLATELET COUNT 201 K/uL (130-400); RED CELL DISTRIBUTION WIDTH CV 13.7 % (11.5-14.5); RED CELL DISTRIBUTION WIDTH SD 50.3 fL (36.4-46.3); WHITE BLOOD COUNT 8.37 K/uL (4.8-10.8)
[2018-02-06 17:48] LABS: ALBUMIN 3.6 gm/dl (3.4-5.0); ALT/SGPT 23 U/L (12-78); AST/SGOT 17 U/L (15-37); BLOOD UREA NITROGEN 30 mg/dl (7-18); CALCIUM 8.8 mg/dl (8.5-10.1); CARBON DIOXIDE 27 mmol/L (21-32); CREATININE 1.07 mg/dl (0.60-1.20); GLUCOSE 97 mg/dl (70-99); POTASSIUM 4.1 mmol/L (3.5-5.1); SODIUM 136 mmol/L (136-145)
[2018-02-06 17:50] LABS: ALKALINE PHOSPHATASE 71 U/L (45-117); TOTAL PROTEIN 7.3 gm/dl (6.4-8.2)
== END | disposition home or self-care (01) ==
LOC: C.LAB1850 15:56
PROVIDERS: ATTEND Internal Medicine Infectious Disease
DX: T84.53XA Infection and inflammatory reaction due to internal right knee prosthesis, initial encounter (principal); X58.XXXA Exposure to other specified factors, initial encounter

== ENCOUNTER 2019-09-11 05:34 | Inpatient (IN) ==
--- NOTE | 2019-08-14 09:56 | PAT Medication Instructions ---
Medication Instructions Date of Service August 14, 2019 Home Medications Medication Instructions Recorded psyllium husk 0.4 gram capsule 0.4 gm PO BID #30 cap 04/01/19 nystatin-triamcinolone 100,000 1 appln TOP BID PRN #60 gm 07/18/19 unit/gram-0.1 % topical ointment Eliquis 5 mg PO BID Glucosamine Sulf-Chondroitin 1 tab PO DAILY Women's One Daily 1 tab PO QAM Zioptan (PF) 1 drp OPL HS acetaminophen [Tylenol Arthritis Pain] 2 tabs PO TID amlodipine 2.5 mg PO QAM budesonide-formoterol 2 puff INHALATION BID cefadroxil 1,000 mg PO QAM dorzolamide-timolol 1 drp OPL BID furosemide 40 mg PO QAM melatonin 20 mg PO HS PRN metoprolol tartrate [Lopressor] 1.5 tab PO BID simvastatin 20 mg PO QPM Rhopressa 1 drp OPHTHALMIC (EYE) HS ascorbic acid (vitamin C) 500 mg tablet 500 mg PO DAILY diclofenac 1 % topical gel 1 % TOPICAL QID PRN psyllium husk 0.4 gram capsule 0.4 gm PO BID vitamins A,C,C-qfhd-sjbifz 14,320 unit-226 mg-200 unit capsule 1 cap PO BID citalopram 20 mg tablet 30 mg PO QAM gabapentin 300 mg capsule 300 mg PO TID omeprazole 20 mg capsule,delayed release 40 mg PO QAM cannabidiol (CBD) 100 mg/mL oral solution See Rx Instructions PO .COMPLEX carboxymethylcellulose sodium 0.5 % eye drops 1 drops OP BID PRN nystatin-triamcinolone 100,000 unit/gram-0.1 % topical ointment 1 appln TOP BID PRN calcium carbonate-vitamin D3 [Calcium 600 + D(3)] 1 cap PO DAILY potassium chloride 40 meq PO QAM Continue as directed cefadroxil 1,000 mg PO QAM ASK your prescriber and surgeon Eliquis 5 mg PO BID (in order for spinal anesthesia, Eliquis needs to be stopped 72 hours/3 days before surgery. Please check if okay with doctor that prescribes this to you) STOP taking 2 weeks before surgery (or as soon as possible if surgery is within 2 weeks) Glucosamine Sulf-Chondroitin 1 tab PO DAILY vitamins A,C,Q-mcov-vqhsox 14,320 unit-226 mg-200 unit capsule 1 cap PO BID STOP taking 24 hours before surgery diclofenac 1 % topical gel 1 % TOPICAL QID PRN nystatin-triamcinolone 100,000 unit/gram-0.1 % topical ointment 1 appln TOP BID PRN DO NOT take the morning of surgery Women's One Daily 1 tab PO QAM furosemide 40 mg PO QAM ascorbic acid (vitamin C) 500 mg tablet 500 mg PO DAILY psyllium husk 0.4 gram capsule 0.4 gm PO BID cannabidiol (CBD) 100 mg/mL oral solution See Rx Instructions PO .COMPLEX calcium carbonate-vitamin D3 [Calcium 600 + D(3)] 1 cap PO DAILY potassium chloride 40 meq PO QAM Take morning of surgery With a small sip of water, OTHERWISE NOTHING TO EAT OR DRINK AFTER MIDNIGHT: acetaminophen [Tylenol Arthritis Pain] 2 tabs PO TID (okay to take up to 4 hours prior to surgery if needed) amlodipine 2.5 mg PO QAM budesonide-formoterol 2 puff INHALATION BID dorzolamide-timolol 1 drp OPL BID metoprolol tartrate [Lopressor] 1.5 tab PO BID citalopram 20 mg tablet 30 mg PO QAM gabapentin 300 mg capsule 300 mg PO TID omeprazole 20 mg capsule,delayed release 40 mg PO QAM carboxymethylcellulose sodium 0.5 % eye drops 1 drops OP BID PRN (if needed) Take evening before surgery Zioptan (PF) 1 drp OPL HS acetaminophen [Tylenol Arthritis Pain] 2 tabs PO TID budesonide-formoterol 2 puff INHALATION BID dorzolamide-timolol 1 drp OPL BID melatonin 20 mg PO HS PRN (if needed) metoprolol tartrate [Lopressor] 1.5 tab PO BID simvastatin 20 mg PO QPM Rhopressa 1 drp OPHTHALMIC (EYE) HS psyllium husk 0.4 gram capsule 0.4 gm PO BID gabapentin 300 mg capsule 300 mg PO TID carboxymethylcellulose sodium 0.5 % eye drops 1 drops OP BID PRN (if needed) Other Notes If you have any questions please call us at [phone] or [phone] or [phone] or [phone]
--- NOTE | 2019-08-15 15:49 | Anesthesiology Consultation ---
Date of Service August 15, 2019 Assessment & Plan (1) Encounter for pre-operative examination: - PCP: 07/18/19: Paroxysmal atrial fibrillation. Regular today. On rate control and anticoagulation. Presently asymptomatic. Recent echocardiogram reviewed with impaired left atrial dilatation noted. LV and RV function normal. " Using both the geriatric sensitive perioperative cardiac assessment and the revised cardiac risk index, her risk is .4% with both indicators. She is aware of any risk and wishes to proceed." - Cardiology: 06/06/19: "Per her daughter's description she had relatively sudden onset of quite severe peripheral edema, the cause seems unclear and it seems to have resolved quite well with only conservative treatment. I cannot really explain it, it is possible it was a combination of things, perhaps warm weather resulting in more fluid intake, perhaps some salt intake that she did not realize, perhaps leaving her feet down more than normal since she did not have a recliner, perhaps a contribution of the amlodipine, and finally it is conceivable that she has had worsening of her right ventricular function since she did have pulmonary hypertension on an echocardiogram nearly 2 years ago." ECHO ordered for further evaluation. ECHO done 06/2019 with EF 55-60%/No RWMA. F/U one year recommended. Continued on same regimen. - Eliquis: patient made aware that in order for spinal anesthesia, Eliquis needs to be held 72 hours/3 days prior to surgery. Patient voiced understanding/will check if okay with cardiology. Chart Review Chart Review: Pending: Refer to Additional Notes / Consult section (pending preop testing (labs, CXR)) and Patient seen in Pre Admission Testing Teaching & Discussion Pre-Anesthesia Teaching/Discussion Notes: Instructed NPO after midnight before surgery,except medications with 15 cc of water. Medication instructions provided according to the PAT guidelines. History Surgery Operation Date: 09/11/19 07:00 Proposed Procedures p Left Total Hip Arthroplasty - Raffi Marshall MD Height/Weight Height: 5 ft 1 in Weight: 69 kg Allergies Allergy/AdvReac Type Severity Reaction Status Date / Time nitrofurantoin Allergy Unknown unknown Verified 08/15/19 15:46 reaction erythromycin base AdvReac Unknown nausea Verified 08/07/19 10:20 Medications Home Medications Medication Instructions Recorded Confirmed Last Taken Eliquis 5 mg PO BID 08/17/18 08/07/19 02/14/19 Glucosamine Sulf-Chondroitin 1 tab PO DAILY 08/17/18 08/07/19 02/14/19 Women's One Daily 1 tab PO QAM 08/17/18 08/07/19 02/14/19 Zioptan (PF) 1 drp OPL HS 08/17/18 08/07/19 01/24/19 acetaminophen [Tylenol Arthritis 2 tabs PO TID 08/17/18 08/07/19 02/14/19 Pain] amlodipine 2.5 mg PO QAM 08/17/18 08/07/19 02/14/19 budesonide-formoterol 2 puff INHALATION BID 08/17/18 08/07/19 02/14/19 cefadroxil 1,000 mg PO QAM 08/17/18 08/07/19 02/14/19 dorzolamide-timolol 1 drp OPL BID 08/17/18 08/07/19 02/14/19 furosemide 40 mg PO QAM 08/17/18 08/07/19 02/14/19 melatonin 20 mg PO HS PRN 08/17/18 08/07/19 08/30/18 metoprolol tartrate [Lopressor] 1.5 tab PO BID 08/17/18 08/07/19 02/14/19 simvastatin 20 mg PO QPM 08/17/18 08/07/19 02/14/19 Rhopressa 1 drp OPHTHALMIC (EYE) HS 01/10/19 08/07/19 02/14/19 ascorbic acid (vitamin C) 500 mg 500 mg PO DAILY 04/01/19 08/07/19 Unknown tablet diclofenac 1 % topical gel 1 % TOPICAL QID PRN gm 04/01/19 08/07/19 Unknown psyllium husk 0.4 gram capsule 0.4 gm PO BID #30 cap 04/01/19 08/07/19 Unknown vitamins A,C,C-ahdr-dkhslv 14,320 1 cap PO BID 04/01/19 08/07/19 Unknown unit-226 mg-200 unit capsule citalopram 20 mg tablet 30 mg PO QAM #135 tab 06/06/19 08/07/19 Unknown gabapentin 300 mg capsule 300 mg PO TID #90 cap 06/06/19 08/07/19 Unknown omeprazole 20 mg capsule,delayed 40 mg PO QAM 07/12/19 08/07/19 Unknown release cannabidiol (CBD) 100 mg/mL oral See Rx Instructions PO .COMPLEX ml 07/18/19 08/07/19 Unknown solution carboxymethylcellulose sodium 0.5 1 drops OP BID PRN 07/18/19 08/07/19 Unknown % eye drops nystatin-triamcinolone 100,000 1 appln TOP BID PRN #60 gm 07/18/19 08/07/19 Unknown unit/gram-0.1 % topical ointment calcium carbonate-vitamin D3 1 cap PO DAILY 08/07/19 08/07/19 Unknown [Calcium 600 + D(3)] potassium chloride 40 meq PO QAM 08/07/19 08/07/19 Unknown Past Medical History Medical History Anxiety Asthma inhaler Atrial fibrillation Chronic back pain Degenerative disc disease Depression Foot drop, right foot GERD (gastroesophageal reflux disease) Glaucoma Hearing deficit History of infection hx infected right TKA- lifetime suppressive therapy (cefadroxil)-- follows with ID (Dr. Henriquez)/surgeon made aware Hyperlipidemia Hypertension IBS (irritable bowel syndrome) Osteoarthritis Osteoporosis Right leg DVT remote hx Spinal stenosis Vision loss, left eye Exercise / Class Metabolic Activity III < 4 Walking/Shop/Light housework Past Surgical History Surgical History History of appendectomy History of carpal tunnel surgery History of colonoscopy History of right knee surgery (for infection)- 2016 History of tonsillectomy History of total abdominal hysterectomy and bilateral salpingo-oophorectomy History of total right knee replacement (TKR) Status post glaucoma surgery 1 YR AGO /LASER PROCEDURE /LEFT Past Anesthesia History No Hx of Anesthesia Complications and No Family Hx of Anesthesia Complications History of PONV No Hx of PONV Social History Smoking Status: Never smoker Do You Dip or Chew Tobacco: No Hx Alcohol Use: Yes (OCCASSIONAL) Alcohol type: wine alcohol intake frequency: other Hx Substance Use: No substance use type: other Substance Use Type Other:: CBD Review of Systems Patient denies chest pain, shortness of breath, cough, wheezing, palpitations. Physical Exam Vital Signs VITALS BP 126/77 P 67 TEMP 98.0 SP02 96%RA RESP 18 PHYSICAL Full neck and c-spine range of motion. Full TMJ range of motion. TMD 3.5 finger breaths Mallampati Score 4 (small oral opening) Dentition: intact Lungs: clear throughout to auscultation Cardiac: regular rate and rhythm, no murmurs noted Spine: kyphosis Carotid arteries: negative bruit Extremities: no edema Testing Electrocardiogram Date: 06/06/19 SR at 64bpm per cardiology Echocardiogram Date: 07/11/19 EF 55-60%. No RWMA. Moderate LAD. Mild MR/TR. Mild cLVH.
[2019-08-15 17:20] LABS: Basophils # (auto) 0.01 K/uL (0-0.2); Basophils % (auto) 0.2 %; Eosinophils # (auto) 0.06 K/uL (0-0.5); Eosinophils % (auto) 1.2 %; Hematocrit (blood only) 38.5 % (37-47); Hemoglobin 12.5 g/dL (12.0-16.0); Immature Granulocytes # (auto) 0.01 K/uL (0.00-0.02); Immature Granulocytes % (auto) 0.2 %; Lymphocytes # (auto) 0.81 K/uL (1.2-3.4); Lymphocytes % (auto) 16.4 %; Mean Corpuscular Hemoglobin 34.2 pg (25-34); Mean Corpuscular Hgb Conc 32.5 g/dL (32-36); Mean Corpuscular Volume 105.2 fL (80-100); Mean Platelet Volume 10.2 fL (7.4-10.4); Monocytes # (auto) 0.74 K/uL (0.11-0.59); Neutrophils # (auto) 3.31 K/uL (1.4-6.5); Platelet Count 182 K/uL (130-400); RDW Coefficient of Variation 13.7 % (11.5-14.5); RDW Standard Deviation 52.9 fL (36.4-46.3); Red Blood Count 3.66 M/uL (4.2-5.4); White Blood Count 4.94 K/uL (4.8-10.8)
--- NOTE | 2019-08-15 17:24 | XRay Report ---
XR chest Pre-admission PA/Lat CLINICAL HISTORY: Preoperative chest COMPARISON STUDY: 09/25/2017 FINDINGS: The heart is mildly enlarged. There is no failure. There is no focal pulmonary consolidatio n. There are no pleural effusions. Increased density at the left lung base is felt to be secondary to a fat pad, and atelectasis/scarring.. There are several mild thoracic compression deformities.[ IMPRESSION: No active disease in the chest. Electronically signed by: Isaac Cabrera M.D. 08/15/2019 5:22 PM
[2019-08-15 17:27] LABS: BUN Creatinine Ratio 18.2 (10-20); Calcium 8.8 mg/dl (8.5-10.1); Creatinine Clr Calc Pharmacy 23.2 ml/min; Est GFR (African American) 36.6; Est GFR (Non-African American) 31.6; Potassium 4.2 mmol/L (3.5-5.1)
[2019-08-15 17:34] LABS: Partial Thromboplastin Time 27.3 Seconds (21.0-31.0); Prothrombin Time 10.3 Seconds (9.0-12.0)
[2019-08-15 17:58] LABS: Appearance Urine Clear (Clear); Bacteria Urine Automated Negative (Negative); Bilirubin Urine Negative (Negative); Blood Urine Negative (Negative); Color Urine Yellow; Glucose Urine UA Negative (Negative); Ketones Urine Trace (Negative); Leukocyte Esterase Urine Trace (Negative); Nitrite Urine Negative (Negative); Protein Urine Negative (Negative); RBC Urine Automated 0-4 /hpf (0-4); Specific Gravity Urine 1.023 (1.000-1.030); Urobilinogen Urine Negative (Negative); pH Urine 6.5 (4.5-7.5)
--- NOTE | 2019-08-29 14:05 | History and Physical Report ---
DATE OF ADMISSION: 09/11/2019 CHIEF COMPLAINT: Left hip pain. HISTORY OF PRESENT ILLNESS: This 89-year-old white female presents to the office with her daughter with complaints of left hip pain. It has been ongoing for over a year and a half. It has become worse with time. No known trauma. She is having difficulty with ambulation. Pain is affecting her ADLs. She has tried activity modification, physical therapy, corticosteroid injection, gabapentin and narcotic pain medication without lasting relief. She is at her wits end and says something must be done to address her hip pain. She ambulates with a walker. Preoperative imaging has been obtained. She elects to proceed with left total hip arthroplasty in hopes of alleviating her discomfort. PAST MEDICAL HISTORY: Significant for osteoarthritis, asthma, chronic back pain, depression, infected right total knee arthroplasty, irritable bowel syndrome, lumbar stenosis, hypertension, elevated cholesterol, paroxysmal atrial fibrillation, history of DVT, GERD, chronic pain syndrome. ALLERGIES: KNOWN ALLERGY TO ASPIRIN. This caused easy bruising and bleeding. CURRENT MEDICATIONS: Calcium 250 mg daily, cannabidiol tea 2 cups daily, cefadroxil 500 mg p.o. daily, citalopram 20 mg 1-1/2 tablets p.o. daily, potassium chloride 20 mEq daily, Refresh Tears 1 drop b.i.d. p.r.n., Alphagan 0.1% ophthalmic solution in the eyes daily, amlodipine 2.5 mg p.o. daily, dorzolamide 2% ophthalmic solution daily, Eliquis 5 mg p.o. b.i.d., fish oil daily, glucosamine chondroitin 1 tablet p.o. daily, multivitamin daily, Tylenol 2 tablets p.o. t.i.d. p.r.n., budesonide-formoterol 2 puffs inhaled b.i.d., furosemide 40 mg p.o. q.a.m., melatonin 10 mg p.o. at bedtime p.r.n., metoprolol 50 mg 1-1/2 tablets p.o. b.i.d., simvastatin 20 mg p.o. q.a.m., diclofenac 1% topical gel q.i.d. p.r.n., Metamucil p.o. b.i.d., gabapentin 300 mg p.o. t.i.d., vitamin C daily. FAMILY HISTORY: Noncontributory. Parents are . SOCIAL HISTORY: The patient resides at [facility] in an apartment. . No tobacco use, occasional ETOH use, (wine). PREVIOUS SURGERIES: Right total knee arthroplasty 08/28/2008, cataract surgery June 2008, hysterectomy in October 1969, appendectomy April 1939, tonsillectomy with adenoidectomy April 1939, wisdom tooth extraction, unknown date. REVIEW OF SYSTEMS: A total of 10 systems are reviewed and are significant only for above stated conditions. PHYSICAL EXAMINATION: VITAL SIGNS: Temperature 36.5, BP 138/62, heart rate 70, O2 sat 94% on room air. GENERAL: Well-developed, well-nourished elderly white female in no acute distress. Sitting in a chair. Alert and oriented. SKIN: Warm and dry with fair turgor. No rashes or lesions. No ecchymosis or erythema. Surgical scar present on the right knee. HEENT: Normocephalic, atraumatic. Eyes PERRLA, EOMI. Nares patent bilaterally without turbinate enlargement. Oropharynx without erythema or exudate. No lesions noted. Uvula midline. Oral mucosa moist. Fillings are noted. HEART: RRR. No MGR. She does not sound like she is in AFib at this time. LUNGS: Clear to auscultation bilaterally. No crackles, rhonchi or wheezing. Good air movement. ABDOMEN: Mildly obese. Bowel sounds present x4, soft, nontender. No organomegaly. No masses. MUSCULOSKELETAL: Left hip has no obvious asymmetry or deformity. She has very limited motion secondary to pain. Hip flexion to 90 degrees, external rotation of only around 10 degrees. Internal rotation only to neutral. Crepitus is palpable with motion. She has focal discomfort with palpation over the anterior flexion crease. No pain with palpation over her IT band or greater trochanters. Ambulates with an antalgic gait using a walker. NEUROLOGIC: Cranial nerves II through XII are intact. Gross sensation is intact across both lower extremities by soft touch. Peripheral pulses are 2+. DATA: Radiographic imaging previously obtained shows end-stage DJD of the left hip with femoral head collapse. Periarticular osteophytes, subchondral sclerosis, and joint space narrowing are all present. IMPRESSION: Left hip end-stage degenerative joint disease. PLAN: Approximately 20 minutes was spent with the patient and her daughter reviewing the procedure, postoperative recovery, and physical therapy requirements. Postoperative prescription for [place] or Percocet will be provided at discharge from the hospital. She will return to her [facility] at that time. She has already received medical clearance from her PCP, Dr. Church. She is awaiting medical clearance from cardiology as well as from Dr. Henriquez in Infectious Disease. She recently saw cardiology in June. She saw Dr. Avalos as well. Preoperative lab work, EKG, and chest x-ray have been ordered. She already has a walker. Anticipate return to [facility] through fpc as she currently lives alone. LUCRECIA
[~2019-09-11 05:34] MED LIST changes: -ALPPOPS5 OPL; -AMLO2.5T PO; -APIX1TAB3 PO; -ASCO100061 PO; -CALCTAB7 PO; -CARB0.5D28 OPL; -CEFA500C2 PO; -CITA20TA9 PO; -DORZ1SOL6 OPL; -FURO-85 PO; -IPRASOL4 INH; -LATA0.009 OPL; -MELA1TAB5 PO; -METO50TA8 PO; -MULT-602 PO; -MULTCAP33 PO; -NYSS/ PO; -NYSTCRE11; -OMEG10007 PO; -OMEP40CA41 PO; -POTA-639 PO; -SIMV20TA2 PO; -SYMIN160 INH; +VANCOMYCIN CONSULT ACTIVE PRN; -VNTHFA/IN INH
[2019-09-11] MEDS ORDERED: TRANEXAMIC ACID 1,000 MG x 1 **For Topical Use TOP SCH (06:00)
[2019-09-11] MEDS ORDERED: VANCOMYCIN HCL 1,000 MG/270 ML BAG IV SCH (06:00)
[2019-09-11] MEDS ORDERED: ROPIVACAINE 0.5% HCL/PF 150 MG, BUPIVACAINE 0.5% MPF 30 ML, EPINEPHrine 0.15 MG, Ketoro... INFIL SCH (06:00)
[2019-09-11] MEDS ORDERED: CEFAZOLIN 2000MG 2,000 MG/15 ML SYR IV SCH (06:00)
[2019-09-11] MEDS ORDERED: LR 500ML BOLUS, THEN 15ML/HR IV SCH (06:00)
[2019-09-11] MEDS ORDERED: VANCOMYCIN HCL 1,000 MG in SODIUM CHLORIDE 0.9% 500 ML IV SCH (06:00)
[2019-09-11] MEDS ORDERED: LR 60ML/HR IV SCH (06:00)
[2019-09-11] MEDS ORDERED: BUPIVACAINE 0.5 % 5 MG/1 ML PF 10ML VIAL ONE (06:34)
--- NOTE | 2019-09-11 06:35 | XRay Report ---
XR pelvis 1-2V routine CLINICAL HISTORY: Preoperative study COMPARISON: 08/17/2019 DISCUSSION: There are advanced arthritic changes involving the left hip with marked joint space narro wing, and subchondral erosive/subchondral cystic change. No acute fractures are visualized. Degenerat adonis changes are present within the lumbar spine. IMPRESSION: 1. No acute fractures 2. Advanced arthritic changes involving the left hip Electronically signed by: Isaac Cabrera M.D. 09/11/2019 6:34 AM
--- NOTE | 2019-09-11 06:37 | History & Physical Bridge Note ---
Date of Service September 11, 2019 History & Physical Bridge Note I have examined the patient, reviewed the History & Physical and in the interval since the performance of the History & Physical I have noted the following changes of clinical significance: consent obtained.no changes noted
--- NOTE | 2019-09-11 06:38 | History & Physical Bridge Note ---
Date of Service September 11, 2019 History & Physical Bridge Note I have examined the patient, reviewed the History & Physical and in the interval since the performance of the History & Physical I have noted the following changes of clinical significance:consent obtained. no changes noted
[2019-09-11] MEDS ORDERED: MIDAZOLAM HCL 1 MG/ML 2ML VIAL ONE ×2 (07:44→08:01)
[2019-09-11] MEDS ORDERED: fentaNYL citrate 100 MCG/2 ML VIAL ONE (07:44)
[2019-09-11] MEDS ORDERED: PROPOFOL IV EMULSION 10 MG/ML 20 ML VIAL IV ONE ×3 (07:44→09:43)
[2019-09-11] MEDS ORDERED: LIDOCAINE HCL 2% 2 ML VIAL/AMP(20MG/ML) INFIL ONE (07:44)
[2019-09-11] MEDS ORDERED: ATROPINE SULFATE 0.1 MG/ML 10ML SYR IV PRN (08:14)
[2019-09-11] MEDS ORDERED: ONDANSETRON INJ 2 MG/ML 2 ML VIAL IV PRN ×2 (08:14→11:38)
[2019-09-11] MEDS ORDERED: HYDROmorphone INJ 1 MG/ML SYRINGE IV PRN (08:14)
[2019-09-11] MEDS ORDERED: ePHEDrine sulfate 50 MG/ML AMP IV PRN (08:14)
[2019-09-11] MEDS ORDERED: ORTHO JOINT ANESTHETIC ONE (08:34)
[2019-09-11] MEDS ORDERED: ONDANSETRON INJ 2 MG/ML 2 ML VIAL ONE (09:06)
--- NOTE | 2019-09-11 10:15 | Post Operative Brief Note ---
Immediate Post Op Note v1 Date of Surgery September 11, 2019 Pre & Post Diagnosis Operation Date: 09/11/19 08:50 Pre-Op Diagnosis: Left Hip End-Stage Degenerative Joint Disease Post-Op Diagnosis: Left Hip End-Stage Degenerative Joint Disease I identified the patient and participated in the time-out.: Yes Procedure Operation Date: 09/11/19 08:50 Actual Procedures p Left Total Hip Arthroplasty--Uncemented(Left) - Raffi Marshall MD Surgeon Raffi Marshall MD Medical Doctor Md/Medical Director mariah/chantel Estimated Blood Loss 75 Findings Consistent with Post-Op Diagnosis
--- NOTE | 2019-09-11 10:28 | Operative Report ---
Post Operative Report Pre & Post Diagnosis Operation Date: 09/11/19 08:50 Pre-Op Diagnosis: Left Hip End-Stage Degenerative Joint Disease Post-Op Diagnosis: Left Hip End-Stage Degenerative Joint Disease I identified the patient and participated in the time-out.: Yes Procedure Operation Date: 09/11/19 08:50 Actual Procedures p Left Total Hip Arthroplasty--Uncemented(Left) - Raffi Marshall MD Surgeon JOSTIN Marshall MD Filament Maker mariah/chantel Estimated Blood Loss 75 Findings Consistent with Post-Op Diagnosis Specimens see operative report Drains none Complications none Disposition Accompanied Patient To Recovery: Yes Disposition: Recovery Room Indications This 89-year-old white female presented to the office with complaints of intractable left hip pain. She had tried conservative care measures, including use of narcotic medication and medical marijuana without improvement. She elected to proceed with surgical intervention after being educated about potent ial risks and outcomes. Preoperative imaging was obtained. Description of Procedure Patient was administered a spinal anesthetic and then taken to the operating room where she was given sedation. She was prepped and draped in the usual sterile fashion. Please see Dr. Marshall's operative report for specifics of the procedure. I was present for the entire case from initial patient positioning through final wound closure. Assistance was provided in tissue retraction, hemostasis, trial implant placement, final implant placement, and final wound closure. Patient was taken to the recovery room in satisfactory condition. I attest to the content of the Intraoperative Record and any orders documented therein. Any exceptions are noted below.
--- NOTE | 2019-09-11 10:31 | Operative Report ---
Post Operative Report Pre & Post Diagnosis Operation Date: 09/11/19 08:50 Pre-Op Diagnosis: Left Hip End-Stage Degenerative Joint Disease Post-Op Diagnosis: Left Hip End-Stage Degenerative Joint Disease I identified the patient and participated in the time-out.: Yes Procedure Operation Date: 09/11/19 08:50 Actual Procedures p Left Total Hip Arthroplasty--Uncemented(Left) - Raffi Marshall MD Surgeon Raffi Marshall MD Tiller Man mariah/chantel Estimated Blood Loss 75 Findings Consistent with Post-Op Diagnosis Specimens as per procedure notes Complications none Disposition Accompanied Patient To Recovery: Yes Disposition: Recovery Room Description of Procedure Lateral decubitus position, standard prep and drape, Posterior approach, Time- out Left Total Hip Arthroplasty--Uncemented Please see Dr Marshall's procedure notes for specific details I was present throughout the case, assisted for wound closure and transferred the patient to PACU in stable condition I attest to the content of the Intraoperative Record and any orders documented therein. Any exceptions are noted below.
--- NOTE | 2019-09-11 10:38 | Operative Report ---
DATE OF OPERATION: 09/11/2019 SURGEON: Raffi Marshall MD. WOLF HUNTER: Dr. Colby. SECOND WOLF HUNTER: Amish Pierre PA-C. PREOPERATIVE DIAGNOSIS: Osteoarthritis with severe deformity, left hip. POSTOPERATIVE DIAGNOSIS: Osteoarthritis with severe deformity, left hip. OPERATION PERFORMED: Noncemented left total hip replacement. PERIOPERATIVE SITUATION: Medically cleared male with a chronic history of multiple joint disorders including a primary total knee replacement that became septic following a total knee replacement 5-6 years after the original implant. At this point in time, she has been cleared by everyone including Cardiology and Infectious Disease as well as her primary care physician to proceed with left total hip with x-rays revealing significant erosive osteoarthritis. There is no sign of any infection. Again, she was cleared by ID. DESCRIPTION OF PROCEDURE: The patient appropriately identified, site verified, consent verified. Antibiotics confirmed as being given. The left lower extremity was prepped and draped in usual routine fashion with the patient in right lateral decubitus position. Posterior approach to the hip was then made. Sharp dissection carried through skin and blunt dissection down to the fascia. The IT band was incised under direct vision and extended up into the gluteus jeb fascia with care taken to protect the sciatic nerve. Excellent exposure was obtained. The short external rotators were identified and released. The abductors were preserved. The piriformis obturator internus and Gemelli brothers were released. The capsule was then identified and T'd and preserved. The hip was then dislocated. There was significant cartilage loss and synovial hypertrophy, this was all excised including the labrum. Excellent exposure was obtained after anterior capsule was released and the femur was able to be retracted anteriorly. Serial reaming was then carried up to a size 50 and a 50 cup impacted into appropriate inclination and anteversion with excellent rim fit and then secured with an additional 25 x 6.5 screw with excellent purchase. A trial liner was then seated. Excess osteophytes were removed. The femur was then flexed and internally rotated. The proximal femur prepared with a box sealing machine operator, the canal finder, the lateralizing rasp, and serial broaching up to a size 1; size 1 high offset, +9 gave leg lengths within millimeters of equality and excellent stability. The hip was then dislocated. All trial implants were then removed. The wound irrigated with Betadine and Pulsavac, hole eliminator seated, permanent liner seated, permanent stem and head seated. The hip reduced. It was stable in all planes. Leg lengths were good. Wound was then irrigated one final time with Betadine and Pulsavac and then closed using #2 Vicryl for the capsule and the piriformis and obturator internus and then #2 Vicryl for the gluteus jeb fascia and the IT band and then 2-0 plain for deep and superficial fat skin with jeimy. Appropriate dressing applied. Pathology pending on bone. EBL was 75 mL. DVT prophylaxis per protocol for 24 hours post op. Put a hip Prevena wound on to help out with that. Hopefully, not get any issues with that. Obviously at higher risk for all complications based on her age and comorbidities and previous history of infection. Everybody understood this. This was all described in multiple details by multiple providers. Follow up in the office in 2 weeks. Hopefully, discharge back to her nursing facility in 24-36 hours. I attest to the content of the Intraoperative Record and any orders documented therein. Any exception s are noted below.
--- NOTE | 2019-09-11 11:20 | Progress Note ---
DATE: 09/11/2019 SUBJECTIVE: Seen in recovery room status post left total hip replacement. The patient is resting comfortably. Denies any chest pain, shortness of breath, fever, chills, nausea, vomiting or headache. OBJECTIVE: Vital signs are stable. She is afebrile. Neurovascular check is limited by block, just starting to roll her legs. Wound dressing clean, dry and intact. Postop x-rays pending. ASSESSMENT: Overall, doing well. Continue with postop care pathway. We will need case management involvement medially to determine placement for rehab type facility with nursing help. She will need gait training, balance training and some gentle strengthening. Start heavy PT in roughly 10 days. We will put Prevena on tomorrow. She is on Eliquis and in a higher risk for hematoma.
--- NOTE | 2019-09-11 11:24 | XRay Report ---
XR pelvis 1-2V routine CLINICAL HISTORY: Postoperative examination DEGENERATIVE ARTHRITIS COMPARISON: 09/11/2019 DISCUSSION: There are postsurgical changes of a total left hip arthroplasty. The femoral and acetabul ar components appear well seated. There is no dislocation. There are overlying skin jeimy. There is gas in the soft tissues consistent with recent surgery. IMPRESSION: Postsurgical changes of a total left hip arthroplasty Electronically signed by: Isaac Cabrera M.D. 09/11/2019 11:23 AM
--- NOTE | 2019-09-11 11:29 | Discharge Summary ---
DATE OF ADMISSION: 09/11/2019 DATE OF DISCHARGE: Pending, tentatively 09/12/2019 pending placement into previous facility. CHIEF COMPLAINT: Left hip pain. HISTORY OF PRESENT ILLNESS: An 89-year-old female admitted for elective left total hip replacement. The patient's history is quite complicated with multiple comorbidities, back pain, significant neuropathy, history of knee replacement with remote dental induced infection, required I&D and exchange. On chronic suppressive antibiotics for urinary tract issues as well. 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 Everybody has cleared her medically. She has significant comorbidities and family is aware that this is a significant issue. The patient is also aware of the significant issue. PAST MEDICAL HISTORY: Remarkable for osteoarthritis, asthma, chronic back pain, depression, history of septic right total knee arthroplasty status post I&D, poly exchange, irritable bowel syndrome, lumbar stenosis, hypertension, elevated cholesterol, paroxysmal atrial fibrillation, history of DVT, GERD and chronic pain syndrome. ALLERGIES: ASPIRIN. Causes easy bruising or bleeding. PREADMISSION MEDICATIONS: Include calcium, cannabidiol, cefadroxil 500 mg daily, citalopram, potassium chloride, eyedrops Alphagan, Refresh ophthalmic solution, dorzolamide, Eliquis 5 mg p.o. b.i.d., fish oil, glucosamine chondroitin sulfate, multivitamins, Tylenol, budesonide-formoterol 2 puffs inhaled b.i.d., furosemide, melatonin, metoprolol, simvastatin, diclofenac, topical gel, Metamucil, gabapentin, vitamin C. She will continue all of her medications. FAMILY HISTORY: Noncontributory. Parents are . SOCIAL HISTORY: Reveals she resides in [facility] in an apartment. She is . No tobacco or alcohol use. PAST SURGICAL HISTORY: Include right total knee replacement in 2007, poly exchange 5 years later, I&D, wisdom tooth extraction, appendectomy, hysterectomy. REVIEW OF SYSTEMS: Noncontributory. ASSESSMENT: The patient is status post left total hip replacement. At this point in time, continue with postop care pathway. We will keep her on her chronic antibiotic suppression. She will follow up in the office in [address] her in Prevena to the high risk of bleeding from her Eliquis for atrial fibrillation. Overall prognosis at this point in time is guarded. However, the early course looks very good.
[2019-09-11] MEDS ORDERED: METOCLOPRAMIDE HCL INJ 5 MG/ML 2 ML VIAL IV PRN (11:38)
[2019-09-11] MEDS ORDERED: ALUMINUM/MAGNESIUM SUSP 30 ML UDC PO PRN (11:38)
[2019-09-11] MEDS ORDERED: MAGNESIUM HYDROXIDE SUSP 30 ML UDC PO PRN (11:38)
[2019-09-11] MEDS ORDERED: HYDROmorphone INJ 0.5 MG/0.5 ML SYR IV PRN (11:38)
[2019-09-11] MEDS ORDERED: NALOXONE HCL 0.4 MG/1 ML VIAL/CARP IV PRN (11:38)
[2019-09-11] MEDS ORDERED: BISACODYL 10 MG SUPP PR PRN (11:38)
[2019-09-11] MEDS ORDERED: NON-FORMULARY MEDICATION (Melatonin 20 MG) PO PRN (11:38)
[2019-09-11] MEDS ORDERED: SODIUM CHLORIDE 0.9% 1000ML 1,000 ML IV SCH (11:38)
[2019-09-11] MEDS ORDERED: DiphenhydrAMINE HCL 50 MG/ML VIAL IV PRN (11:38)
--- NOTE | 2019-09-11 11:44 | Anesthesiology Progress Note ---
Date of Service September 11, 2019 Anesthesia Post Procedure Vital Signs Vital Signs: Temp Pulse Pulse Resp BP Pulse Ox 09/11/19 11:05 36.6 C 57 L 17 137/65 94 09/11/19 10:55 58 L 15 141/82 H 97 09/11/19 10:45 58 L 21 139/66 99 09/11/19 10:35 58 L 18 141/71 H 100 09/11/19 10:24 36.3 C L 64 19 137/82 98 09/11/19 06:43 36.5 C 64 20 168/76 H 97 Pain Intensity Left Hip: Pain Intensity: 0 Transfer of Care Handoff Completed per policy Notes Mental Status: alert / awake / arousable Patient Amnestic to Procedure: Yes Nausea / Vomiting: adequately controlled Pain: adequately controlled Airway Patency, RR, SpO2: stable & adequate BP & HR: stable & adequate Hydration State: stable & adequate Neuraxial Anesthesia: was administered and sensory block is resolving Anesthetic Complications: no major complications apparent
[2019-09-11] MEDS ORDERED: ARTIFICIAL TEARS OP PRN (11:47)
[2019-09-11] MEDS: ACETAMINOPHEN 500 MG TAB PO SCH ×2 (13:01→21:34)
[2019-09-11] MEDS: KETOROLAC TROMETHAMINE 15 MG/ML VIAL IV SCH ×2 (13:01→17:28)
[2019-09-11] MEDS: GABAPENTIN 300 MG CAP PO SCH ×2 (13:06→21:34)
[2019-09-11] MEDS: [UNRECOGNIZED DRUG - OTHER] SCH (14:02)
[2019-09-11] MEDS: CEFAZOLIN 2000MG 2,000 MG/15 ML SYR IV SCH ×2 (14:03→21:34)
[2019-09-11] MEDS: OXYCODONE HCL IR 5 MG TAB (IMMEDIATE RELEASE) PO PRN ×2 (16:46→17:28)
[2019-09-11] MEDS: ASCORBIC ACID 500 MG TAB PO SCH (17:27)
[2019-09-11] MEDS: FERROUS GLUCONATE 324 MG TAB PO SCH (17:27)
[2019-09-11] MEDS: PSYLLIUM 58.6% POWDER PACKET PO SCH (21:33)
[2019-09-11] MEDS: SIMVASTATIN 20 MG TAB PO SCH (21:34)
[2019-09-11] MEDS: DOCUSATE SODIUM 100 MG CAP PO SCH (21:34)
[2019-09-11] MEDS: METOPROLOL TARTRATE 25 MG TAB PO SCH (21:34)
[2019-09-11] MEDS: BUDESONIDE/FORMOTEROL FUMARATE 160/4.5 60 PUFFS/INHALER INH SCH (21:34)
[2019-09-11] MEDS: DORZOLAMIDE/TIMOLOL 22.3/6.8MG/ML 10 ML BTL OPL SCH (21:34)
[2019-09-11] MEDS: SENNA 8.6 MG TAB PO SCH (21:34)
[2019-09-12] MEDS: KETOROLAC TROMETHAMINE 15 MG/ML VIAL IV SCH ×2 (00:59→05:28)
[2019-09-12] MEDS: [UNRECOGNIZED DRUG - OTHER] SCH ×2 (01:07→08:44)
[2019-09-12] MEDS: ACETAMINOPHEN 500 MG TAB PO SCH ×3 (05:28→21:51)
[2019-09-12 05:45] LABS: Eosinophils # (auto) 0.01 K/uL (0-0.5); Eosinophils % (auto) 0.1 %; Hematocrit (blood only) 31.7 % (37-47); Hemoglobin 10.4 g/dL (12.0-16.0); Immature Granulocytes # (auto) 0.03 K/uL (0.00-0.02); Immature Granulocytes % (auto) 0.4 %; Lymphocytes % (auto) 8.1 %; Mean Corpuscular Hemoglobin 34.3 pg (25-34); Mean Corpuscular Hgb Conc 32.8 g/dL (32-36); Mean Corpuscular Volume 104.6 fL (80-100); Mean Platelet Volume 10.3 fL (7.4-10.4); Monocytes # (auto) 1.02 K/uL (0.11-0.59); Monocytes % (auto) 13.8 %; Neutrophils # (auto) 5.71 K/uL (1.4-6.5); Neutrophils % (auto) 77.6 %; Platelet Count 138 K/uL (130-400); RDW Coefficient of Variation 13.6 % (11.5-14.5); RDW Standard Deviation 51.9 fL (36.4-46.3); Red Blood Count 3.03 M/uL (4.2-5.4); White Blood Count 7.37 K/uL (4.8-10.8)
[2019-09-12 06:22] LABS: Calcium 8.4 mg/dl (8.5-10.1); Est GFR (African American) 42.5; Est GFR (Non-African American) 36.7; Potassium 4.2 mmol/L (3.5-5.1)
[2019-09-12] MEDS ORDERED: dexAMETHasone 10 MG in SYRINGE 0 ML IV SCH (08:00)
--- NOTE | 2019-09-12 08:17 | Anesthesiology Progress Note ---
Date of Service September 12, 2019 Anesthesia Post Procedure Vital Signs Vital Signs: Temp Pulse Pulse Resp BP Pulse Ox 09/12/19 07:58 36.7 C 63 17 138/72 93 09/12/19 03:40 36.7 C 63 16 144/80 H 93 09/11/19 23:10 36.6 C 68 16 134/72 95 09/11/19 20:22 36.8 C 61 12 125/64 93 09/11/19 16:01 36.6 C 62 12 132/67 94 09/11/19 13:33 36.7 C 62 16 119/63 93 09/11/19 12:33 65 16 141/67 H 93 09/11/19 11:55 57 L 15 161/52 H 93 09/11/19 11:25 36.6 C 57 L 16 138/79 94 09/11/19 11:05 36.6 C 57 L 17 137/65 94 09/11/19 10:55 58 L 15 141/82 H 97 09/11/19 10:45 58 L 21 139/66 99 09/11/19 10:35 58 L 18 141/71 H 100 09/11/19 10:24 36.3 C L 64 19 137/82 98 Pain Intensity Left Hip: Pain Intensity: 3 Notes Mental Status: alert / awake / arousable and participated in evaluation Patient Amnestic to Procedure: Yes Nausea / Vomiting: adequately controlled Pain: adequately controlled Airway Patency, RR, SpO2: stable & adequate BP & HR: stable & adequate Hydration State: stable & adequate Neuraxial Anesthesia: was administered and sensory block resolved Anesthetic Complications: no major complications apparent and Pt Satisfied with anesthetic care
[2019-09-12] MEDS: BUDESONIDE/FORMOTEROL FUMARATE 160/4.5 60 PUFFS/INHALER INH SCH ×2 (09:03→21:51)
[2019-09-12] MEDS: GABAPENTIN 300 MG CAP PO SCH ×3 (09:04→21:51)
[2019-09-12] MEDS: METOPROLOL TARTRATE 25 MG TAB PO SCH ×2 (09:04→21:51)
[2019-09-12] MEDS: PSYLLIUM 58.6% POWDER PACKET PO SCH ×2 (09:04→21:52)
[2019-09-12] MEDS: POTASSIUM CHLORIDE 20 MEQ TABCR PO SCH (09:04)
[2019-09-12] MEDS: ASCORBIC ACID 500 MG TAB PO SCH ×2 (09:04→18:10)
[2019-09-12] MEDS: CITALOPRAM 20 MG TAB PO SCH (09:05)
[2019-09-12] MEDS: PANTOprazole 40 MG TAB PO SCH (09:05)
[2019-09-12] MEDS: MULTIVITAMIN TAB PO SCH (09:05)
[2019-09-12] MEDS: DOCUSATE SODIUM 100 MG CAP PO SCH ×2 (09:05→21:50)
[2019-09-12] MEDS: FERROUS GLUCONATE 324 MG TAB PO SCH ×2 (09:05→18:10)
[2019-09-12] MEDS: AMLODIPINE BESYLATE 5 MG TAB PO SCH (09:05)
[2019-09-12] MEDS: FUROSEMIDE 40 MG TAB PO SCH (09:05)
[2019-09-12] MEDS: DORZOLAMIDE/TIMOLOL 22.3/6.8MG/ML 10 ML BTL OPL SCH ×2 (09:06→21:50)
--- NOTE | 2019-09-12 09:37 | Orthopedic Progress Note ---
Date of Service September 12, 2019 Assessment & Plan (1) S/P total hip arthroplasty: Patient's dressing was removed and a Pravena wound VAC was placed today. It will be removed in the office in 1 week. Appointment has been made. PT/OT today. Resume her Eliquis this morning at 11 AM and resume her usual daily dose of Duricef 1 g. Anticipate transfer to detention facility at [facility] later this afternoon pending insurance authorization Follow-up in the office in 2 weeks for staple removal as scheduled Continue ambulate with her walker for stability and support. Subjective Patient is seen in her room this morning. She is eating breakfast. She states she did well overnight. She states she has less pain now than she has had in years. She has been able to walk without much discomfort. She is happy. No other complaints at this point. She denies any chest pain, nausea, vomiting, shortness of breath, or abdominal pain. Review of Systems Review of Systems: Unchanged from preop Physical Exam Physical Exam: General: Well-developed, well-nourished, elderly white female, in no acute distress. Sitting in a chair. Alert and oriented. Skin: Warm and dry with fair turgor. No rashes. Surgical bandage is in place on the left hip. No ecchymosis or erythema. The patient is not diaphoretic. No abrasions. Musculoskeletal: Supple motion of the left hip. Intact motor function of the left knee and ankle. Neurologic: Gross sensation is intact across the left leg by soft touch. Peripheral pulses are 2+. Results & Data Vital Signs (Past 12 Hours) Vital Signs Temp Pulse Resp BP Pulse Ox 09/12/19 07:58 36.7 C 63 17 138/72 93 09/12/19 03:40 36.7 C 63 16 144/80 H 93 09/11/19 23:10 36.6 C 68 16 134/72 95 Laboratory Results H&H are 10.4 and 31.7. PRP is unremarkable.
[2019-09-12] MEDS ORDERED: APIXABAN 5 MG TABLET PO ONE (11:00)
[2019-09-12] MEDS: CEFADROXIL PO SCH (14:11)
--- NOTE | 2019-09-12 18:22 | Orthopedic Progress Note ---
Date of Service September 12, 2019 Assessment & Plan (1) S/P total hip arthroplasty: Patient's Eliquis was reordered as twice daily due to her overnight stay. Her daughter did bring in her Duricef prescription and she did receive a dose today. She will receive her next dose tomorrow morning. Continue to ambulate with her walker. Anticipate discharge to [facility] tomorrow if insurance authorization is completed. As of this evening it was still listed as pending. Subjective Patient was seen in her room this evening. She is sitting in a chair. She denies any pain. She states she was walking around the halls and did well. She did not have any pain and feels good. No other complaints. She will not be going to [facility] this evening secondary to a delay in insurance authorization. Physical Exam Physical Exam: General: Well-developed, well-nourished, elderly white female, sitting in a chair. Alert and oriented. No signs of discomfort. Skin: Pravena wound VAC is in place. Musculoskeletal: Patient has supple motion of her left hip. Good active hip flexion as well as knee flexion and extension. Results & Data Vital Signs (Past 12 Hours) Vital Signs Temp Pulse Resp BP Pulse Ox 09/12/19 15:11 36.8 C 66 17 123/73 98 09/12/19 11:41 36.9 C 62 16 150/75 H 96 09/12/19 07:58 36.7 C 63 17 138/72 93
--- NOTE | 2019-09-12 19:05 | Progress Note ---
DATE: 09/12/2019 Apparently, the patient needs to spend another evening in the hospital because the insurance company never returned back multiple enquires from case management. The patient continues to be appropriately managed in the hospital and will require appropriate level of observation based on her age and comorbidities. LUCRECIA
[2019-09-12] MEDS: SENNA 8.6 MG TAB PO SCH (21:50)
[2019-09-12] MEDS: SIMVASTATIN 20 MG TAB PO SCH (21:51)
[2019-09-12] MEDS: APIXABAN 5 MG TABLET PO SCH (22:27)
[2019-09-12] MEDS: OXYCODONE HCL IR 5 MG TAB (IMMEDIATE RELEASE) PO PRN (23:20)
[2019-09-13 06:00] LABS: Hematocrit (blood only) 29.1 % (37-47); Hemoglobin 9.7 g/dL (12.0-16.0); Mean Corpuscular Hemoglobin 34.6 pg (25-34); Mean Corpuscular Hgb Conc 33.3 g/dL (32-36); Mean Corpuscular Volume 103.9 fL (80-100); Mean Platelet Volume 10.7 fL (7.4-10.4); Platelet Count 134 K/uL (130-400); RDW Coefficient of Variation 13.5 % (11.5-14.5); RDW Standard Deviation 51.3 fL (36.4-46.3); White Blood Count 11.43 K/uL (4.8-10.8)
[2019-09-13 06:27] LABS: Creatinine Clr Calc Pharmacy 27.5 ml/min; Est GFR (African American) 45.5; Est GFR (Non-African American) 39.2
[2019-09-13] MEDS: ACETAMINOPHEN 500 MG TAB PO SCH ×2 (06:29→13:48)
[2019-09-13] MEDS: ASCORBIC ACID 500 MG TAB PO SCH (07:27)
[2019-09-13] MEDS: FERROUS GLUCONATE 324 MG TAB PO SCH (07:27)
[2019-09-13] MEDS: POTASSIUM CHLORIDE 20 MEQ TABCR PO SCH (08:41)
[2019-09-13] MEDS: MULTIVITAMIN TAB PO SCH (08:41)
[2019-09-13] MEDS: PSYLLIUM 58.6% POWDER PACKET PO SCH (08:41)
[2019-09-13] MEDS: METOPROLOL TARTRATE 25 MG TAB PO SCH (08:41)
[2019-09-13] MEDS: PANTOprazole 40 MG TAB PO SCH (08:41)
[2019-09-13] MEDS: CITALOPRAM 20 MG TAB PO SCH (08:42)
[2019-09-13] MEDS: AMLODIPINE BESYLATE 5 MG TAB PO SCH (08:42)
[2019-09-13] MEDS: DOCUSATE SODIUM 100 MG CAP PO SCH (08:42)
[2019-09-13] MEDS: GABAPENTIN 300 MG CAP PO SCH ×2 (08:43→13:48)
[2019-09-13] MEDS: DORZOLAMIDE/TIMOLOL 22.3/6.8MG/ML 10 ML BTL OPL SCH (08:44)
[2019-09-13] MEDS: FUROSEMIDE 40 MG TAB PO SCH (08:44)
[2019-09-13] MEDS: CEFADROXIL PO SCH (08:44)
[2019-09-13] MEDS: BUDESONIDE/FORMOTEROL FUMARATE 160/4.5 60 PUFFS/INHALER INH SCH (08:46)
[2019-09-13] MEDS: APIXABAN 5 MG TABLET PO SCH (09:32)
--- NOTE | 2019-09-14 11:08 | Discharge Summary ---
Date of Service September 13, 2019 Admission HPI Per Admitting Provider Addendum to previous discharge summary Admission Exam (Per Admitting) Constitutional Upon reevaluation on 09/13/2019, patient was doing well. Supple motion of her hips. She was able to ambulate 125 feet with her walker and contact-guard per physical therapy. Pravena is intact and functioning. No ecchymosis or erythema. No edema. Neurologic: Gross sensation is intact across both lower extremities by soft touch. Labs: CBC obtained today was unremarkable. H&H is 9.7 and 29.1. Discharge Data Consultations 09/11/19 12:00 Consult Case Management - Discharge Planning Routine Procedures Performed Operation Date: 09/11/19 08:50 Actual Procedures p Left Total Hip Arthroplasty--Uncemented(Left) - Raffi Marshall MD Hospital Course (1) S/P total hip arthroplasty: Patient did well overnight. She did have an episode of pain that she states she let get away from her. She did take a tablet of tramadol and pain resolved. She was able to sleep. Patient initially was scheduled to go to [facility] yesterday but due to insurance issues, no authorization was obtained in time for transport. She remained overnight. This morning she states she is doing well. She is ready for discharge. [id number] was requested by the insurance company. I did complete this. After discussion with the manager medical device, admission to the SNF was denied. Options were given to the patient by social media intern. She elects to proceed with transfer to the personal care portion of [facility] at [id number] expense. Transportation arrangements were made. Discharge instructions were provided. Continue her Eliquis. Continue her Duricef. Prescriptions were given for Ultram 50 mg to be taken every 6 hours as needed for moderate pain. Additional prescription for Percocet was provided for more severe pain. Follow-up in the office on for Pravena removal. Discharge Instructions Written discharge instructions were provided to the patient.
== END 2019-09-13 15:25 | disposition home or self-care (01) | DRG 470 ==
LOC: ASU 05:34 → 3E 10:39

== ENCOUNTER 2019-09-27 03:31 | Inpatient (IN) ==
--- NOTE | 2019-09-27 03:44 | Emergency Department Note ---
History of Present Illness General Chief complaint: Shortness of Breath/Dyspnea Stated complaint: breathing difficulty Time Seen by Provider: 09/27/19 03:33 Source: patient and EMS Mode of arrival: EMS Limitations: physical limitation (difficulty breathing, on CPAP) History of Present Illness Provider complaint: shortness of breath Location: chest Severity: severe Associated symptoms: + shortness of breath Treatments prior to arrival: other (nitro, CPAP) This is a 89 yo female from a OR facility brought in for shortness of breath. Per NH report to EMS, pt began feeling SOB yesterday. After discussion with pt and family, decision made to continue to monitor the patient there. Pt tonight became more SOB. Initial sats 70% and NH staff placed pt on oxygen via [place]. When EMS arrived, sats 76% on 2 lpm and the initiated CPAP which improved pt's WOB and sats came to 95%. Pt reports feeling improved with CPAP in place. Pt states never a smoker, does have hx of asthma. Pt denies hx of heart problems. Pt is rehabbing from a recent left hip surgery. Pt states she takes blood thinners for a.fib. EMS reports b/l rales on their exam. They gave the patient 5 nitro sprays en route. Pt reports increased LE edema recently. Pt does take lasix daily also. States hx of kidney problems. Accompanying NH paperwork states pt is DNR/DNI. Home Medications Home Medications Medication Instructions Recorded Confirmed Type Eliquis 5 mg PO BID 08/17/18 09/27/19 History Women's One Daily 1 tab PO QAM 08/17/18 09/27/19 History Zioptan (PF) 1 drp OPL HS 08/17/18 09/27/19 History acetaminophen [Tylenol Arthritis 2 tabs PO TID 08/17/18 09/27/19 History Pain] amlodipine 2.5 mg PO QAM 08/17/18 09/27/19 History budesonide-formoterol 2 puff INHALATION BID 08/17/18 09/27/19 History cefadroxil 1,000 mg PO QAM 08/17/18 09/27/19 History dorzolamide-timolol 1 drp OPL BID 08/17/18 09/27/19 History furosemide 40 mg PO QAM 08/17/18 09/27/19 History melatonin 20 mg PO HS PRN 08/17/18 09/27/19 History simvastatin 20 mg PO QPM 08/17/18 09/27/19 History Rhopressa 1 drp OPHTHALMIC (EYE) HS 01/10/19 09/27/19 History ascorbic acid (vitamin C) 500 mg 500 mg PO DAILY 04/01/19 09/27/19 History tablet psyllium husk 0.4 gram capsule 0.4 gm PO BID #30 cap 04/01/19 09/27/19 Rx citalopram 20 mg tablet 30 mg PO QAM #135 tab 06/06/19 09/27/19 History gabapentin 300 mg capsule 300 mg PO TID #90 cap 06/06/19 09/27/19 History carboxymethylcellulose sodium 0.5 1 drops OP BID PRN 07/18/19 09/27/19 History % eye drops nystatin-triamcinolone 100,000 1 appln TOP BID PRN #60 gm 07/18/19 09/27/19 Rx unit/gram-0.1 % topical ointment Calcium 600 + D(3) 1 cap PO DAILY 08/07/19 09/27/19 History potassium chloride 40 meq PO QAM 08/07/19 09/27/19 History metoprolol tartrate 50 mg tablet 75 mg PO BID tab 09/09/19 09/27/19 History omeprazole 40 mg capsule,delayed 40 mg PO DAILY 09/09/19 09/27/19 History release tramadol [Ultram] 50 mg PO Q6H PRN #14 tab 09/13/19 09/27/19 Rx oxycodone-acetaminophen [Percocet] 2 tab PO Q6H PRN 09/27/19 09/27/19 History vitamins A,C,O-rsic-lptrfs 1 cap PO BID 09/27/19 09/27/19 History [PreserVision AREDS] Allergies Allergy/AdvReac Type Severity Reaction Status Date / Time nitrofurantoin Allergy Unknown unknown Verified 09/27/19 04:18 reaction erythromycin base AdvReac Unknown nausea Verified 09/27/19 04:18 Past Med/Surg History Medical History Anxiety Asthma inhaler Atrial fibrillation Chronic back pain Degenerative disc disease Depression Foot drop, right foot GERD (gastroesophageal reflux disease) Glaucoma Hearing deficit History of infection hx infected right TKA- lifetime suppressive therapy (cefadroxil)-- follows with ID (Dr. Henriquez)/surgeon made aware Hyperlipidemia Hypertension IBS (irritable bowel syndrome) Osteoarthritis Osteoporosis Right leg DVT remote hx Spinal stenosis Vision loss, left eye Surgical History History of appendectomy History of carpal tunnel surgery History of colonoscopy History of right knee surgery (for infection)- 2017 History of tonsillectomy History of total abdominal hysterectomy and bilateral salpingo-oophorectomy History of total right knee replacement (TKR) Status post glaucoma surgery 1 YR AGO /LASER PROCEDURE /LEFT Social History Preferred Language: Amharic Communication Ability: Effective 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 and A total of 10 systems reviewed and were otherwise negative Physical Exam Vital Signs Vital Signs - 24 hr 09/27/19 03:29 09/27/19 03:39 09/27/19 03:54 Temperature 36.8 C Temperature Source Oral Pulse Rate 76 Pulse Rate [Right] Pulse Rhythm Regular Pulse Rhythm [Right] Pulse Strength [Right] Respiratory Rate 26 H Respiratory Effort / Characteristics Spontaneous Short of Breath Respiratory Depth Shallow Respiratory Pattern Regular Blood Pressure 143/90 H Blood Pressure [Right Arm] Blood Pressure Mean 107 Blood Pressure Mean [Right Arm] Blood Pressure Position Lying Blood Pressure Position [Right Arm] Pulse Oximetry 100 97 Oxygen Delivery Method CPAP CPAP CPAP Fraction of Inspired Oxygen Sepsis Recent Fever Within 48 Hours No Sepsis Action Taken by Nursing No Action Required 09/27/19 03:56 09/27/19 04:34 Temperature Temperature Source Pulse Rate 70 Pulse Rate [Right] 70 Pulse Rhythm Pulse Rhythm [Right] Regular Pulse Strength [Right] Normal Respiratory Rate 26 H 22 Respiratory Effort / Characteristics Non-Labored Spontaneous Respiratory Depth Normal Respiratory Pattern Blood Pressure Blood Pressure [Right Arm] 157/74 H Blood Pressure Mean Blood Pressure Mean [Right Arm] 101 Blood Pressure Position Blood Pressure Position [Right Arm] Lying Pulse Oximetry 97 94 Oxygen Delivery Method CPAP Fraction of Inspired Oxygen 30 Sepsis Recent Fever Within 48 Hours Sepsis Action Taken by Nursing GENERAL: alert, well appearing, well nourished, no distress, non-toxic EYE EXAM: normal conjunctiva, PERRL and EOM's grossly intact OROPHARYNX: no exudate, no erythema, lips, buccal mucosa, and tongue normal and mucous membranes are moist NECK: supple, no nuchal rigidity, no adenopathy, non-tender LUNGS: Clear to auscultation. Normal chest wall mechanics, b/l rales, mildly increased WOB, CPAP in place, no retractions HEART: no murmurs, S1 normal and S2 normal ABDOMEN: abdomen soft, non-tender, normo-active bowel sounds, no masses, no rebound or guarding. BACK: Back is symmetrical on inspection and there is no deformity, no midline tenderness, no CVA tenderness. SKIN: no rashes and no bruising UPPER EXTREMITIES: upper extremities are grossly normal. FROM, nml pulses b/l. LOWER EXTREMITIES: 2+ b/l pitting edema. FROM, nml pulses b/l. Left hip in cision with jeimy intact. No dehiscence, no drainage, no bleeding. No evidence of surrounding erthema. NEURO EXAM: Normal sensorium, cranial nerves II-XII grossly intact, normal speech, no gross weakness of arms, no gross weakness of legs. Gross sensation intact. Course Course 0423: Pt still satting well on BIPAP. Mild tachypnea, however no retractions. Reports still feeling improved with bipap. 0456: Discussed with Dr. Martinez for additional management. VS stable. Administered Medications Ioversol (Optiray 320 125ml) 125 ml IV ONCE PRN PRN Reason: Interaction Checking Stop: 10/01/19 04:31 Last Admin: 09/27/19 04:32 Dose: 102 ml Documented by: [id number] Miscellaneous Information (Consult) 1 ea N/A UD PRN PRN Reason: Consult Stop: 10/27/19 04:13 Last Admin: 09/27/19 04:19 Dose: 1 ea Documented by: [id number] Discontinued Medications Furosemide (Lasix) 40 mg IV NOW STA Stop: 09/27/19 04:27 Last Admin: 09/27/19 04:43 Dose: 40 mg Documented by: [id number] Piperacillin Sod/Tazobactam Sod (Zosyn) 4.5 gm in 120 mls @ 240 mls/hr IV NOW ONE Stop: 09/27/19 04:43 Last Infusion: 09/27/19 05:02 Dose: 0 mls/hr Documented by: [id number] Admin: 09/27/19 04:19 Dose: 240 mls/hr Documented by: [id number] Levofloxacin/Dextrose (Levaquin/D5w) 750 mg in 150 mls @ 100 mls/hr IV NOW STA Stop: 09/27/19 06:17 Last Admin: 09/27/19 05:05 Dose: 100 mls/hr Documented by: [id number] Critical Care Time Critical Care Time: Yes Total Critical Care Time: 37 Critical care of 37 min performed to assess and manage high likelihood of life- threatening respirator distress, involving labs and imaging performed with assessment to evaluate hypoxia and respiratory distress with frequent reassessment. This time includes bedside time, treatment discussions with patient/family/consultants, documentation time and excludes procedure time. Medical Decision Making Differential Diagnosis Differential diagnoses includes but is not limited to pneumonia, bronchitis, COPD/Asthma exacerbation, pneumothorax, pulmonary embolism, congestive heart failure, acute coronary syndrome Home Medications Current Medication List: was personally reviewed by me Laboratory Data Attestation: I reviewed the patient's lab results. Result diagrams: 09/27/19 03:15 09/27/19 03:15 Lab Results 09/27/19 09/27/19 09/27/19 Range/Units 03:15 03:15 03:54 WBC 13.30 H (4.8-10.8) K/uL RBC 2.88 L (4.2-5.4) M/uL Hgb 9.8 L (12.0-16.0) g/dL Hct 30.3 L (37-47) % MCV 105.2 H (80-100) fL MCH 34.0 (25-34) pg MCHC 32.3 (32-36) g/dL RDW Std Deviation 57.2 H (36.4-46.3) fL RDW Coeff of Anish 14.9 H (11.5-14.5) % Plt Count 306 (130-400) K/uL MPV 9.5 (7.4-10.4) fL Immature Gran % (Auto) 0.5 % Neut % (Auto) 76.2 % Lymph % (Auto) 5.3 % Randall % (Auto) 16.2 % Eos % (Auto) 1.6 % Baso % (Auto) 0.2 % Immature Gran # (Auto) 0.07 H (0.00-0.02) K/uL Neut # (Auto) 10.13 H (1.4-6.5) K/uL Lymph # (Auto) 0.71 L (1.2-3.4) K/uL Randall # (Auto) 2.16 H (0.11-0.59) K/uL Eos # (Auto) 0.21 (0-0.5) K/uL Baso # (Auto) 0.02 (0-0.2) K/uL Sodium 134 L (136-145) mmol/L Potassium 3.7 (3.5-5.1) mmol/L Chloride 99 (98-107) mmol/L Carbon Dioxide 25 (21-32) mmol/L Anion Gap 10.0 (3-11) BUN 27 H (7-18) mg/dl Creatinine 1.00 (0.6-1.2) mg/dl Est Cr Clr Drug Dosing 37.7 ml/min Est GFR ( Amer) 57.8 Est GFR (Non-Af Amer) 49.9 BUN/Creatinine Ratio 26.9 H (10-20) Glucose 161 H (70-99) mg/dl Calcium 8.5 (8.5-10.1) mg/dl Total Bilirubin 1.0 (0.2-1) mg/dl AST 61 H (15-37) U/L ALT 69 (12-78) U/L Alkaline Phosphatase 141 H (45-117) U/L POC Troponin I < 0.03 (0-0.045) ng/ml Troponin I < 0.015 (0-0.045) ng/ml NT-Pro-B Natriuret Pep 4466 H (0-1800) pg/ml Total Protein 6.8 (6.4-8.2) gm/dl Albumin 3.3 L (3.4-5.0) gm/dl Globulin 3.5 (2.5-4.0) gm/dl Albumin/Globulin Ratio 0.9 (0.9-2) Lipase 174 (73-393) U/L Urine Color Urine Appearance (Clear) Urine pH (4.5-7.5) Ur Specific [place] (1.000-1.030) Urine Protein (Negative) Urine Glucose (UA) (Negative) Urine Ketones (Negative) Urine Blood (Negative) Urine Nitrite (Negative) Urine Bilirubin (Negative) Urine Urobilinogen (Negative) Ur Leukocyte Esterase (Negative) Urine WBC (Auto) (0-5) /hpf Urine RBC (Auto) (0-4) /hpf U Hyaline Cast (Auto) (0-5) /lpf U Epithel Cells (Auto) (0-5) /lpf Urine Bacteria (Auto) (Negative) 09/27/19 Range/Units 04:55 WBC (4.8-10.8) K/uL RBC (4.2-5.4) M/uL Hgb (12.0-16.0) g/dL Hct (37-47) % MCV (80-100) fL MCH (25-34) pg MCHC (32-36) g/dL RDW Std Deviation (36.4-46.3) fL RDW Coeff of Anish (11.5-14.5) % Plt Count (130-400) K/uL MPV (7.4-10.4) fL Immature Gran % (Auto) % Neut % (Auto) % Lymph % (Auto) % Randall % (Auto) % Eos % (Auto) % Baso % (Auto) % Immature Gran # (Auto) (0.00-0.02) K/uL Neut # (Auto) (1.4-6.5) K/uL Lymph # (Auto) (1.2-3.4) K/uL Randall # (Auto) (0.11-0.59) K/uL Eos # (Auto) (0-0.5) K/uL Baso # (Auto) (0-0.2) K/uL Sodium (136-145) mmol/L Potassium (3.5-5.1) mmol/L Chloride (98-107) mmol/L Carbon Dioxide (21-32) mmol/L Anion Gap (3-11) BUN (7-18) mg/dl Creatinine (0.6-1.2) mg/dl Est Cr Clr Drug Dosing ml/min Est GFR ( Amer) Est GFR (Non-Af Amer) BUN/Creatinine Ratio (10-20) Glucose (70-99) mg/dl Calcium (8.5-10.1) mg/dl Total Bilirubin (0.2-1) mg/dl AST (15-37) U/L ALT (12-78) U/L Alkaline Phosphatase (45-117) U/L POC Troponin I (0-0.045) ng/ml Troponin I (0-0.045) ng/ml NT-Pro-B Natriuret Pep (0-1800) pg/ml Total Protein (6.4-8.2) gm/dl Albumin (3.4-5.0) gm/dl Globulin (2.5-4.0) gm/dl Albumin/Globulin Ratio (0.9-2) Lipase (73-393) U/L Urine Color Yellow Urine Appearance Clear (Clear) Urine pH 6.0 (4.5-7.5) Ur Specific [place] 1.022 (1.000-1.030) Urine Protein Trace H (Negative) Urine Glucose (UA) Negative (Negative) Urine Ketones Negative (Negative) Urine Blood Negative (Negative) Urine Nitrite Negative (Negative) Urine Bilirubin Negative (Negative) Urine Urobilinogen Negative (Negative) Ur Leukocyte Esterase Negative (Negative) Urine WBC (Auto) 0 (0-5) /hpf Urine RBC (Auto) 0-4 (0-4) /hpf U Hyaline Cast (Auto) 1-5 (0-5) /lpf U Epithel Cells (Auto) 5-10 H (0-5) /lpf Urine Bacteria (Auto) Negative (Negative) Imaging Data My Impression: X-ray: I interpreted the following studies. Chest: A singleview study of the chest was reviewed and was negative for cardiomegaly, pulmonary edema, or wide mediastinum. Right infiltrate and pleural effusion noted with atypical appearance. Radiologist's Impression: CTA chest: No pulmonary embolism or acute aortic syndrome. Overall appearance suggestive of acute heart failure including interstitial and alveolar edma most pronouned within the upper lobes, right greater than left. Bilateral pleural effusions, small on the right and trace on the left. Reflux of contrast into the IVC and hepatic veins. Right atrial dilatation. While airspace opacities in the right upper lobe could represent infection this is considered less likely. Subcarinal adenopathy, nonspecific but favored reactive. Left thyroid nodule measuring 2.1 cm. Radiologist: Eyal Harper MD ECG Data Attestation: I personally reviewed and interpreted this ECG as follows: Indication: + SOB/dyspnea Rate (beats per minute): 71 Rhythm: + normal sinus ECG Intervals/blocks: + Normal QRS and + Normal QT ECG [place]: + Normal ECG ST segments: + Normal ST segments Blood Pressure Blood Pressure Findings: Elevated blood pressure Blood Pressure Disposition: further management by hospitalist MDM Narrative Pt here ill appearing with increased WOB and already on CPAP that had been initiated by EMS. Pt WOB improved here and sats holding in the 90's. Pt afebrile. Pt denies hx of CHF, does admit to asthma. CXR with abnormalities suggestive of atypical appearing infiltrate on right so CT ordered. Pt denied any recent vomiting, coughing with eating, choking/gagging, or difficulty swallowing. No hx of aspiration. CT with appearance of infiltrate, effusion, and rad read included CHF. Pt was initially given zosyn and lasix while awaiting CT results as a precaution. After results viewed, additional antibiotics added to cover for HCAP given recent hospitalization. Pt continued to be well appearing on BIPAP. Pt made aware of all results and was in agreement with plan. No evidence of ACS, PE, tamponade, dissection. No evidence of bacteremia/sepsis. Impression & Plan Acute dyspnea, Pneumonia, Pleural effusion, Elevated brain natriuretic peptide (BNP) level, Hypoxia Discharge Plan Visit Data *Final* Discharge Date/Time: 09/27/19 05:29 Chief Complaint: Shortness of Breath/Dyspnea Stated Complaint: breathing difficulty ED Provider: Ester Mancilla Discharge Problem: Acute dyspnea, Pneumonia, Pleural effusion, Elevated brain natriuretic peptide (BNP) level, Hypoxia Patient Disposition: Admitted As Inpatient Condition: Fair Discharge Instructions Interventions: ED Discharge Assessment Last Done: 09/27/19 05:29 Discharge Problem: Pneumonia Qualifiers: Pneumonia type: due to unspecified organism Laterality: right Lung location: unspecified part of lung Qualified Code(s): J18.9 - Pneumonia, unspecified organism
[2019-09-27 04:04] LABS: Basophils # (auto) 0.02 K/uL (0-0.2); Basophils % (auto) 0.2 %; Eosinophils # (auto) 0.21 K/uL (0-0.5); Eosinophils % (auto) 1.6 %; Hematocrit (blood only) 30.3 % (37-47); Hemoglobin 9.8 g/dL (12.0-16.0); Immature Granulocytes # (auto) 0.07 K/uL (0.00-0.02); Immature Granulocytes % (auto) 0.5 %; Lymphocytes # (auto) 0.71 K/uL (1.2-3.4); Lymphocytes % (auto) 5.3 %; Mean Corpuscular Hgb Conc 32.3 g/dL (32-36); Mean Corpuscular Volume 105.2 fL (80-100); Mean Platelet Volume 9.5 fL (7.4-10.4); Monocytes # (auto) 2.16 K/uL (0.11-0.59); Monocytes % (auto) 16.2 %; Neutrophils # (auto) 10.13 K/uL (1.4-6.5); Neutrophils % (auto) 76.2 %; Platelet Count 306 K/uL (130-400); RDW Coefficient of Variation 14.9 % (11.5-14.5); RDW Standard Deviation 57.2 fL (36.4-46.3); Red Blood Count 2.88 M/uL (4.2-5.4)
[2019-09-27 04:13] LABS: Alanine Aminotransferase 69 U/L (12-78); Albumin Level 3.3 gm/dl (3.4-5.0); Aspartate Aminotransferase 61 U/L (15-37); BUN Creatinine Ratio 26.9 (10-20); Blood Urea Nitrogen 27 mg/dl (7-18); Calcium 8.5 mg/dl (8.5-10.1); Carbon Dioxide 25 mmol/L (21-32); Chloride 99 mmol/L (98-107); Creatinine Clr Calc Pharmacy 37.7 ml/min; Est GFR (African American) 57.8; Est GFR (Non-African American) 49.9; Glucose 161 mg/dl (70-99); Lipase 174 U/L (73-393); Potassium 3.7 mmol/L (3.5-5.1); Sodium 134 mmol/L (136-145)
[2019-09-27] MEDS ORDERED: PIPERACILL/TAZOBAC CONSULT ACTIVE PRN ×2 (04:14→05:57)
[2019-09-27] MEDS ORDERED: PIPERACILLIN/TAZOBACTAM 4.5 GM/120 ML BAG IV ONE (04:14)
[2019-09-27 04:18] LABS: Albumin Globulin Ratio 0.9 (0.9-2); Alkaline Phosphatase 141 U/L (45-117); Globulin 3.5 gm/dl (2.5-4.0); NT Pro B Type Natriuretic Pept 4466 pg/ml (0-1800); Total Protein 6.8 gm/dl (6.4-8.2); Troponin I < 0.015 ng/ml (0-0.045)
[2019-09-27] MEDS ORDERED: FUROSEMIDE 40 MG/4 ML VIAL IV STA (04:26)
[2019-09-27] MEDS ORDERED: OPTIRAY 320 125ml IV PRN (04:32)
[2019-09-27] MEDS ORDERED: LEVOFLOXACIN/D5W 750 MG/150 ML BAG IV STA (04:48)
[2019-09-27] MEDS ORDERED: VANCOMYCIN HCL 1,500 MG in SODIUM CHLORIDE 0.9% 500 ML IV ONE (04:48)
[2019-09-27] MEDS ORDERED: VANCOMYCIN CONSULT ACTIVE PRN ×2 (04:48→05:57)
[2019-09-27] MEDS ORDERED: VANCOMYCIN CONSULT ACTIVE ONE (04:48)
[2019-09-27 05:11] LABS: Appearance Urine Clear (Clear); Bacteria Urine Automated Negative (Negative); Bilirubin Urine Negative (Negative); Blood Urine Negative (Negative); Color Urine Yellow; Glucose Urine UA Negative (Negative); Ketones Urine Negative (Negative); Leukocyte Esterase Urine Negative (Negative); Nitrite Urine Negative (Negative); Protein Urine Trace (Negative); RBC Urine Automated 0-4 /hpf (0-4); Specific Gravity Urine 1.022 (1.000-1.030); Urobilinogen Urine Negative (Negative); WBC Urine Automated 0 /hpf (0-5)
--- NOTE | 2019-09-27 05:55 | History & Physical Report ---
Date of Service September 27, 2019 Assessment & Plan (1) Acute respiratory failure with hypoxia: admit to monitored bed. combination of CHF, COPD and right sided pneumonia. continue BIPAP, taper to NC O2 as symptoms improve. (2) Pneumonia: right side pneumonia/COPD Exacerbation- VancomycinIV Zosyn 4.5 g IV q8h duonebs qid and q2h prn BIPAP as noted Present on Admission?: Yes (3) Paroxysmal atrial fibrillation: PAF/DVT- chronic anticoagulation with eliquis Present on Admission?: Yes (4) Acute CHF: Acute CHF/ LE edema/ HTN received furosemide 40mg IV in the ED Place on furosemide 40mg IV BID Continue metoprolol tartrate, amlodipine and KCl Present on Admission?: Yes (5) Peripheral edema: see above Present on Admission?: Yes (6) COPD exacerbation: as above Present on Admission?: Yes (7) Hypertension: see above Present on Admission?: Yes (8) Anxiety: anxiety /insomnia- continue celexa, melatonin, gabapentin Present on Admission?: Yes (9) Glaucoma: continue all ophthalmic drops Present on Admission?: Yes (10) S/P total hip arthroplasty: s/p R MISSY- incision is good. tramadol 50mg po q4h prn moderate pain oxycodone/acetaminophen 5/325, 2 po q6h prn severe pain Present on Admission?: Yes History of Present Illness Chief Complaint: The patient presents to the ED via EMS from a local senior living where she was noted to be SOB and hypoxic. Primary Care Provider: Lucio Church MD The patient is an 89 yo female with PMH including HTN, COPD, Anxiety/Depression, glaucoma CHF, GPN, insomnia, DVT, PAF, S/P L MISSY on 09/11/19. The patient reportedly began getting SOB yesterday, and when family was consulted their preference was to keep the patient at the [place]. The patient then became more SOB overnight, had a pulse ox in the 70's, and had 2 liters NC O2 placed. When EMS arrived, the patient was 76% on 2 liters, and she was then place on CPA, with pulse ox improved to 95%. Upon arrival in the ED, she was placed on BIPAP, labs were performed, and x-ray suggested right sided pneumonia. The patient was started on Vancomycin IV and Zosyn IV for the pneumonia, and was given Furosemide 40 mg IV for 3+ LE edema. Allergies Allergy/AdvReac Type Severity Reaction Status Date / Time nitrofurantoin Allergy Unknown unknown Verified 09/27/19 04:18 reaction erythromycin base AdvReac Unknown nausea Verified 09/27/19 04:18 Home Medications Home Medications Medication Instructions Recorded Confirmed Type Eliquis 5 mg PO BID 08/17/18 09/27/19 History Women's One Daily 1 tab PO QAM 08/17/18 09/27/19 History Zioptan (PF) 1 drp OPL HS 08/17/18 09/27/19 History acetaminophen [Tylenol Arthritis 2 tabs PO TID 08/17/18 09/27/19 History Pain] amlodipine 2.5 mg PO QAM 08/17/18 09/27/19 History budesonide-formoterol 2 puff INHALATION BID 08/17/18 09/27/19 History cefadroxil 1,000 mg PO QAM 08/17/18 09/27/19 History dorzolamide-timolol 1 drp OPL BID 08/17/18 09/27/19 History furosemide 40 mg PO QAM 08/17/18 09/27/19 History melatonin 20 mg PO HS PRN 08/17/18 09/27/19 History simvastatin 20 mg PO QPM 08/17/18 09/27/19 History Rhopressa 1 drp OPHTHALMIC (EYE) HS 01/10/19 09/27/19 History ascorbic acid (vitamin C) 500 mg 500 mg PO DAILY 04/01/19 09/27/19 History tablet psyllium husk 0.4 gram capsule 0.4 gm PO BID #30 cap 04/01/19 09/27/19 Rx citalopram 20 mg tablet 30 mg PO QAM #135 tab 06/06/19 09/27/19 History gabapentin 300 mg capsule 300 mg PO TID #90 cap 06/06/19 09/27/19 History carboxymethylcellulose sodium 0.5 1 drops OP BID PRN 07/18/19 09/27/19 History % eye drops nystatin-triamcinolone 100,000 1 appln TOP BID PRN #60 gm 07/18/19 09/27/19 Rx unit/gram-0.1 % topical ointment Calcium 600 + D(3) 1 cap PO DAILY 08/07/19 09/27/19 History potassium chloride 40 meq PO QAM 08/07/19 09/27/19 History metoprolol tartrate 50 mg tablet 75 mg PO BID tab 09/09/19 09/27/19 History omeprazole 40 mg capsule,delayed 40 mg PO DAILY 09/09/19 09/27/19 History release tramadol [Ultram] 50 mg PO Q6H PRN #14 tab 09/13/19 09/27/19 Rx oxycodone-acetaminophen [Percocet] 2 tab PO Q6H PRN 09/27/19 09/27/19 History vitamins A,C,G-uikt-ouxido 1 cap PO BID 09/27/19 09/27/19 History [PreserVision AREDS] Past Med/Surg History Medical History Anxiety Asthma inhaler Atrial fibrillation Chronic back pain Degenerative disc disease Depression Foot drop, right foot GERD (gastroesophageal reflux disease) Glaucoma Hearing deficit History of infection hx infected right TKA- lifetime suppressive therapy (cefadroxil)-- follows with ID (Dr. Henriquez)/surgeon made aware Hyperlipidemia Hypertension IBS (irritable bowel syndrome) Osteoarthritis Osteoporosis Right leg DVT remote hx Spinal stenosis Vision loss, left eye Surgical History History of appendectomy History of carpal tunnel surgery History of colonoscopy History of right knee surgery (for infection)- 2016 History of tonsillectomy History of total abdominal hysterectomy and bilateral salpingo-oophorectomy History of total right knee replacement (TKR) Status post glaucoma surgery 1 YR AGO /LASER PROCEDURE /LEFT Social History Preferred Language: Ukrainian Communication Ability: Effective Furnace Cooler Required: No Beliefs That Will Affect Care: None Current Living Situation: Alone Feels Safe at Home: Yes Smoking Status: Never smoker Second Hand Exposure: Yes (father and smoked) ; Hx Alcohol Use: Yes (OCCASSIONAL) Alcohol type: wine Hx Substance Use: No Review of Systems Review of Systems: She denies chest pain, nausea, vomiting, diarrhea, constipation, fevers, chills, dysuria, urinary frequency or nocturia, blood in urine or stool, LOC or rash. ROS included at least 10 systems, and was negative other than for that noted above. Physical Exam Physical Exam: The patient is AAO x 3, lying in bed, with BIPAP mask on, in remaining mild moderate distress HEENT- MM and oropharynx dry. Neck- no JVD or bruits, trachea midline and no thyromegaly. Heart - airna S1 and S2, no M/R/G Lungs- coarse breath sounds throughout on the right, diminished on the left Abdomen- Normal bowel sounds and soft, NT and ND Derm- left hip incision looks very good. Extremities- bilateral 3+ pretibial and pedal edema Neuro- limited and nonfocal Psychiatric- cooperative Results & Data Vital Signs (Past 12 Hours) Vital Signs Temp Pulse Pulse Resp BP BP Pulse Ox 09/27/19 04:34 70 22 157/74 H 94 09/27/19 03:56 70 26 H 97 09/27/19 03:54 97 09/27/19 03:29 98.2 F 76 26 H 143/90 H 100 Laboratory Results Laboratory Results WBC 13.30 K/uL (4.8-10.8) H 09/27/19 03:15 RBC 2.88 M/uL (4.2-5.4) L 09/27/19 03:15 Hgb 9.8 g/dL (12.0-16.0) L 09/27/19 03:15 Hct 30.3 % (37-47) L 09/27/19 03:15 MCV 105.2 fL (80-100) H 09/27/19 03:15 MCH 34.0 pg (25-34) 09/27/19 03:15 MCHC 32.3 g/dL (32-36) 09/27/19 03:15 RDW Std Deviation 57.2 fL (36.4-46.3) H 09/27/19 03:15 RDW Coeff of Anish 14.9 % (11.5-14.5) H 09/27/19 03:15 Plt Count 306 K/uL (130-400) 09/27/19 03:15 MPV 9.5 fL (7.4-10.4) 09/27/19 03:15 Immature Gran % (Auto) 0.5 % 09/27/19 03:15 Neut % (Auto) 76.2 % 09/27/19 03:15 Lymph % (Auto) 5.3 % 09/27/19 03:15 [place] % (Auto) 16.2 % 09/27/19 03:15 Eos % (Auto) 1.6 % 09/27/19 03:15 Baso % (Auto) 0.2 % 09/27/19 03:15 Immature Gran # (Auto) 0.07 K/uL (0.00-0.02) H 09/27/19 03:15 Neut # (Auto) 10.13 K/uL (1.4-6.5) H 09/27/19 03:15 Lymph # (Auto) 0.71 K/uL (1.2-3.4) L 09/27/19 03:15 [place] # (Auto) 2.16 K/uL (0.11-0.59) H 09/27/19 03:15 Eos # (Auto) 0.21 K/uL (0-0.5) 09/27/19 03:15 Baso # (Auto) 0.02 K/uL (0-0.2) 09/27/19 03:15 Sodium 134 mmol/L (136-145) L 09/27/19 03:15 Potassium 3.7 mmol/L (3.5-5.1) 09/27/19 03:15 Chloride 99 mmol/L (98-107) 09/27/19 03:15 Carbon Dioxide 25 mmol/L (21-32) 09/27/19 03:15 Anion Gap 10.0 (3-11) 09/27/19 03:15 BUN 27 mg/dl (7-18) H 09/27/19 03:15 Creatinine 1.00 mg/dl (0.6-1.2) 09/27/19 03:15 Est Cr Clr Drug Dosing 37.7 ml/min 09/27/19 03:15 Est GFR ( Amer) 57.8 09/27/19 03:15 Est GFR (Non-Af Amer) 49.9 09/27/19 03:15 BUN/Creatinine Ratio 26.9 (10-20) H 09/27/19 03:15 Glucose 161 mg/dl (70-99) H 09/27/19 03:15 Calcium 8.5 mg/dl (8.5-10.1) 09/27/19 03:15 Total Bilirubin 1.0 mg/dl (0.2-1) 09/27/19 03:15 AST 61 U/L (15-37) H 09/27/19 03:15 ALT 69 U/L (12-78) 09/27/19 03:15 Alkaline Phosphatase 141 U/L (45-117) H 09/27/19 03:15 POC Troponin I < 0.03 ng/ml (0-0.045) 09/27/19 03:54 Troponin I < 0.015 ng/ml (0-0.045) 09/27/19 03:15 NT-Pro-B Natriuret Pep 4466 pg/ml (0-1800) H 09/27/19 03:15 Total Protein 6.8 gm/dl (6.4-8.2) 09/27/19 03:15 Albumin 3.3 gm/dl (3.4-5.0) L 09/27/19 03:15 Globulin 3.5 gm/dl (2.5-4.0) 09/27/19 03:15 Albumin/Globulin Ratio 0.9 (0.9-2) 09/27/19 03:15 Lipase 174 U/L (73-393) 09/27/19 03:15 Urine Color Yellow 09/27/19 04:55 Urine Appearance Clear (Clear) 09/27/19 04:55 Urine pH 6.0 (4.5-7.5) 09/27/19 04:55 Ur Specific Sylvester 1.022 (1.000-1.030) 09/27/19 04:55 Urine Protein Trace (Negative) H 09/27/19 04:55 Urine Glucose (UA) Negative (Negative) 09/27/19 04:55 Urine Ketones Negative (Negative) 09/27/19 04:55 Urine Blood Negative (Negative) 09/27/19 04:55 Urine Nitrite Negative (Negative) 09/27/19 04:55 Urine Bilirubin Negative (Negative) 09/27/19 04:55 Urine Urobilinogen Negative (Negative) 09/27/19 04:55 Ur Leukocyte Esterase Negative (Negative) 09/27/19 04:55 Urine WBC (Auto) 0 /hpf (0-5) 09/27/19 04:55 Urine RBC (Auto) 0-4 /hpf (0-4) 09/27/19 04:55 U Hyaline Cast (Auto) 1-5 /lpf (0-5) 09/27/19 04:55 U Epithel Cells (Auto) 5-10 /lpf (0-5) H 09/27/19 04:55 Urine Bacteria (Auto) Negative (Negative) 09/27/19 04:55 Code Status & VTE Plan Code Status full code VTE Prophylaxis Plan VTE Prophylaxis will be ordered: Yes PG Care Time/CCT Total # of Minutes Spent Total Time Spent with Patient: Total time spent is greater than 50% in coordination of care (as documented) at patient's floor/unit and/or counseling patient: (1) Pneumonia Laterality: right Lung location: unspecified part of lung Pneumonia type: due to unspecified organism Qualified Code(s): J18.9 - Pneumonia, unspecified organism
[2019-09-27] MEDS ORDERED: ONDANSETRON INJ 2 MG/ML 2 ML VIAL IV PRN (05:57)
[2019-09-27] MEDS ORDERED: ACETAMINOPHEN 325 MG TAB PO PRN (05:57)
[2019-09-27] MEDS ORDERED: ALUMINUM/MAGNESIUM SUSP 30 ML UDC PO PRN (05:57)
[2019-09-27] MEDS ORDERED: MAGNESIUM HYDROXIDE SUSP 30 ML UDC PO PRN (05:57)
[2019-09-27] MEDS ORDERED: POLYETHYLENE (MIRALAX) 17 GM PACK PO PRN (05:57)
[2019-09-27] MEDS ORDERED: ARTIFICIAL TEARS OP PRN (06:27)
--- NOTE | 2019-09-27 06:30 | XRay Report ---
XR chest 1V portable CLINICAL HISTORY: Chest Pain dyspnea COMPARISON STUDY: 08/15/2019 FINDINGS: Interval development of components of congestive heart failure. Potential right apical supe rimposed infiltrate. Trace pleural fluid at the lateral costophrenic angles bilaterally. IMPRESSION: 1. Congestive heart failure. 2. Superimposed infiltrate right pulmonary apex. The above report was generated using voice recognition software. It may contain grammatical, syntax or spelling errors. Electronically signed by: Bao Rivera M.D. 09/27/2019 6:29 AM
[2019-09-27] MEDS: ALBUT/IPRATROP 3MG/0.5MG NEB 3 ML VIAL NEB SCH ×4 (07:01→19:50)
--- NOTE | 2019-09-27 07:16 | CT Scan Report ---
CT ANGIOGRAM OF THE CHEST CLINICAL HISTORY: Atypical chest pain. COMPARISON STUDY: Chest x-ray dated 09/27/2019. Chest CT dated 09/11/2013. TECHNIQUE: Following the IV administration of 102 cc of Optiray 320, CT angiogram of the chest was pe rformed from the upper abdomen to the thoracic inlet utilizing the pulmonary embolus protocol. Images are reviewed in the axial, sagittal, and coronal planes. 3-D MIPS images are created and assessed. I V contrast was administered without complication. A dose lowering technique was utilized adhering to the principles of ALARA. CT DOSE: 611.01 mGy.cm FINDINGS: Thyroid: Imaged portions of the thyroid gland are normal in size and attenuation. A 1.9 cm nodule in the left lobe containing calcification is unchanged dating back to 2012. Thoracic aorta: There is atherosclerotic calcification of the thoracic aorta, which is normal in rika luciana and demonstrates standard 3-vessel arch anatomy. No dissection is seen. Pulmonary vasculature: The main pulmonary arteries are dilated indicating pulmonary artery hypertensi on. There are no filling defects identified in main, lobar, or segmental pulmonary branches to sugges t pulmonary embolus. Heart: The heart is enlarged and without pericardial effusion. The coronary arteries are densely calc ified. Lungs and pleural spaces: Evaluation of the lung parenchyma is degraded by motion artifact. There are small to moderate right and trace left pleural effusions. Patchy airspace consolidation is seen thro ughout the right upper lobe and the superior segment of the right lower lobe. There is also dependent consolidation seen bilaterally. Intralobular septal thickening suggests a component of congestive fa ilure. Plate like atelectasis is present at both lung bases. Mediastinum: There are scattered subcentimeter mediastinal lymph nodes. These are not pathologically enlarged by size criteria and likely on a reactive basis. Nivia: Clear. Axillae: There is no axillary lymphadenopathy. Upper abdomen: Reflux of contrast into the IVC and hepatic veins suggests cardiac dysfunction. The pa rtially imaged kidneys appear atrophic. A 1.4 cm left adrenal nodule is unchanged dating back to 2012 and likely represents an adenoma. Skeletal structures: The examination is degraded by streak artifact from the arms which could not be elevated above the chest as well as by motion artifact. There are mild compression deformities of of T3, T4, T5, T11, and T12. Degenerative change and hyperkyphosis are noted in the thoracic spine. Arth ritic change is seen in the shoulders. Healed left-sided rib fractures are identified. No lytic or bl astic bony lesions are seen. IMPRESSION: 1. There is no evidence of pulmonary embolus in the main, lobar, or segmental pulmonary arteries. 2. Cardiomegaly with evidence of congestive failure. 3. There are small to moderate right and trace left pleural effusions. 4. Patchy airspace consolidation is seen throughout the right lung and there is dependent consolidati on seen bilaterally. Although this could represent a component of asymmetric pulmonary edema, an infe ctious/inflammatory pneumonitis is favored. Clinical correlation will be required and radiographic fo llow-up to resolution is recommended. Electronically signed by: Telly Roach M.D. 09/27/2019 7:15 AM
--- NOTE | 2019-09-27 08:34 | Pharmacy Report ---
Pharmacy Abx Initial Consult - Date of Service September 27, 2019 - Pharmacy Dosing Scope Date of Consult: 09/27/19 Consultation requested by: Dr. Oneill Pharmacy is consulted to initiate Vancomycin and Zosyn IV dosing therapy, order appropriate labs and adjust drug dose/frequency. - Subjective The patient is a 89 year old F admitted on 09/27/19 05:14 from long term with SOB, xray suggesting right sided pneumonia. PMH including HTN, COPD, Anxiety/Depression, glaucoma, CHF, insomnia, DVT, PAF, S/P L MISSY on 09/11/19. - Objective Height: 5 ft 1 in Weight: 72.9 kg Vital Signs (Past 12hrs): Vital Signs Temp Pulse Pulse Resp BP BP Pulse Ox 09/27/19 07:40 36.6 C 67 19 146/74 H 98 09/27/19 07:01 62 24 96 09/27/19 07:00 62 24 96 09/27/19 06:17 63 146/73 H 93 09/27/19 05:53 36.7 C 68 26 H 176/86 H 94 09/27/19 05:29 62 14 148/72 H 93 09/27/19 04:34 70 22 157/74 H 94 09/27/19 03:56 70 26 H 97 09/27/19 03:54 97 09/27/19 03:29 36.8 C 76 26 H 143/90 H 100 Lab Results (24hrs): Laboratory Tests (24 Hours) 09/27/19 09/27/19 03:15 03:15 WBC 13.30 H Neut # (Auto) 10.13 H Creatinine 1.00 Est Cr Clr Drug Dosing 37.7 - Risk Factors for Resistance * Resident in a long term or extended-care facility * Antimicrobial use within the last 90 days - Assessment & Plan Assessment 89 year old F admitted with SOB, xray suggesting right sided pneumonia. Starting IV Vancomycin, Zosyn, and Doxycycline. Plan Vancomycin IV * Estimated PK Parameters: Vd 0.7 L/kg, King 0.036 hr-1, t1/2 19hr * Loading dose: 1500 mg (20.5 mg/kg) given in ED * Maintenance dose: 1250 mg IV (17 mg/kg) every 24 hours * Goal trough level for pneumonia : 15 to 20 mcg/mL * Trough/Random level ordered for 09/29/19 at 2330, prior to 0000 dose on 09/30 Piperacillin/tazobactam * 3.375 g bolus administered over 30 minutes, then 3.375 g IV extended infusion every 8 hours for CrCl greater than 20 mL/min Doxycycline 100mg IV Q12H Pharmacy will continue to follow and will adjust dose/frequency as necessary. Thank you.
[2019-09-27] MEDS ORDERED: FUROSEMIDE 40 MG/4 ML VIAL IV SCH (09:00)
[2019-09-27] MEDS ORDERED: VANCOMYCIN HCL 1,000 MG in SODIUM CHLORIDE 0.9% 250 ML IV SCH (09:00)
[2019-09-27] MEDS: DOXYCYCLINE HYCLATE 100 MG in DEXTROSE 5% 100 ML IV SCH ×2 (09:23→21:09)
[2019-09-27] MEDS: RHOPRESSA~ORDER AWAITING ACTION SCH ×2 (09:24→17:34)
[2019-09-27] MEDS: FUROSEMIDE 40 MG in SYRINGE 0 ML IV SCH ×2 (09:26→17:33)
[2019-09-27] MEDS: DORZOLAMIDE/TIMOLOL 22.3/6.8MG/ML 10 ML BTL OPL SCH ×2 (09:27→21:09)
[2019-09-27] MEDS: GABAPENTIN 300 MG CAP PO SCH ×3 (09:30→21:10)
[2019-09-27] MEDS: POTASSIUM CHLORIDE 20 MEQ TABCR PO SCH (09:30)
[2019-09-27] MEDS: METOPROLOL TARTRATE 25 MG TAB PO SCH ×2 (09:30→21:11)
[2019-09-27] MEDS: PANTOprazole 40 MG TAB PO SCH (09:30)
[2019-09-27] MEDS: CITALOPRAM 20 MG TAB PO SCH (09:31)
[2019-09-27] MEDS: APIXABAN 5 MG TABLET PO SCH ×2 (09:31→21:10)
[2019-09-27] MEDS: PIPERACILLIN/TAZOBACTAM 3.375 GM/115 ML BAG IV SCH ×2 (11:35→17:33)
[2019-09-27] MEDS: TRAMADOL HCL 50 MG TABLET PO PRN (11:49)
--- NOTE | 2019-09-27 16:02 | History & Physical Bridge Note ---
Date of Service September 27, 2019 History & Physical Bridge Note I have examined the patient, reviewed the History & Physical and in the interval since the performance of the History & Physical I have noted the following changes of clinical significance: Patient doing much better and I have asked respiratory therapy to take her off the BiPAP onto nasal cannula. Patient reports she is feeling less short of breath. She has had a large amount of urine output since receiving the IV Lasix. She reports she started feeling very weak and then short of breath in the last few days and then much worse yesterday. She reports she is to have orthopedic follow-up this coming Monday and is to have her jeimy removed. Vitals reviewed Telemetry with sinus arrhythmia and PACs with rates in the 60s to 70s Gen: AAOx3, NAD HEENT: Anicteric sclerae, EOMI CV: RRR no mgr nl S1S2 Pulm: With crackles at the right base and decreased breath sounds Abd: +BS soft NT ND no masses or hernias Ext: Trace edema left lower extremity, dressing over left hip clean dry and intact Skin: No rashes, warm/dry Neuro: Full strength throughout 89-year-old female here with right-sided pneumonia with parapneumonic effusion as well as acute on chronic diastolic CHF. She had echocardiogram just 2 months ago that showed preserved EF and a normal dobutamine stress echocardiogram prior to her recent hip surgery. MRSA swab is negative Continue Zosyn, but can discontinue vancomycin Add doxycycline 100 mg IV every 12 for atypical coverage Continue diuresis Follow chest x-ray again in the morning Mild elevation in LFTs-could be secondary to hepatic congestion or infection -Follow LFTs in the morning For her anemia, most likely secondary to blood loss from recent surgery, however is significantly macrocytic -Check iron studies, B12, folate, TSH in the morning
[2019-09-27] MEDS ORDERED: FUROSEMIDE 40 MG in SYRINGE 0 ML IV SCH (17:00)
[2019-09-27] MEDS: OXYCODONE/ACETAMINOPHEN 5mg/325mg TAB PO PRN (19:45)
[2019-09-27] MEDS: SIMVASTATIN 20 MG TAB PO SCH (21:12)
[2019-09-28] MEDS ORDERED: VANCOMYCIN HCL 1,250 MG in SODIUM CHLORIDE 0.9% 250 ML IV SCH
[2019-09-28] MEDS: RHOPRESSA~ORDER AWAITING ACTION SCH ×4 (00:02→21:32)
[2019-09-28] MEDS: PIPERACILLIN/TAZOBACTAM 3.375 GM/115 ML BAG IV SCH ×2 (02:40→10:22)
--- NOTE | 2019-09-28 07:06 | XRay Report ---
XR chest 1V portable CLINICAL HISTORY: f/u pneumona, effusion dyspnea COMPARISON STUDY: 09/27/2019 FINDINGS: No major change compared to the prior study. Findings of congestive heart failure are perha ps slightly improved. Parenchymal infiltrate right pulmonary apex is perhaps slightly diminished. Thickening of the right minor fissure is unaltered. Trace pleural fluid right base. IMPRESSION: Slight improvement compared to the prior study. Components of congestive failure with a superimposed infiltrate right apex are stable to slightly improved The above report was generated using voice recognition software. It may contain grammatical, syntax or spelling errors. Electronically signed by: Bao Rivera M.D. 09/28/2019 7:04 AM
[2019-09-28 07:10] LABS: Basophils # (auto) 0.04 K/uL (0-0.2); Basophils % (auto) 0.6 %; Eosinophils # (auto) 0.49 K/uL (0-0.5); Eosinophils % (auto) 7.7 %; Hematocrit (blood only) 27.2 % (37-47); Hemoglobin 8.8 g/dL (12.0-16.0); Immature Granulocytes # (auto) 0.02 K/uL (0.00-0.02); Immature Granulocytes % (auto) 0.3 %; Lymphocytes # (auto) 1.19 K/uL (1.2-3.4); Lymphocytes % (auto) 18.7 %; Mean Corpuscular Hemoglobin 33.7 pg (25-34); Mean Corpuscular Hgb Conc 32.4 g/dL (32-36); Mean Corpuscular Volume 104.2 fL (80-100); Mean Platelet Volume 8.8 fL (7.4-10.4); Monocytes # (auto) 1.24 K/uL (0.11-0.59); Monocytes % (auto) 19.5 %; Neutrophils # (auto) 3.38 K/uL (1.4-6.5); Neutrophils % (auto) 53.2 %; Platelet Count 201 K/uL (130-400); RDW Coefficient of Variation 15.1 % (11.5-14.5); Red Blood Count 2.61 M/uL (4.2-5.4); White Blood Count 6.36 K/uL (4.8-10.8)
[2019-09-28] MEDS: ALBUT/IPRATROP 3MG/0.5MG NEB 3 ML VIAL NEB SCH ×4 (07:13→19:09)
[2019-09-28 07:43] LABS: Albumin Level 2.6 gm/dl (3.4-5.0); BUN Creatinine Ratio 18.4 (10-20); Bilirubin Direct 0.3 mg/dl (0-0.2); Creatinine Clr Calc Pharmacy 24.7 ml/min; Est GFR (African American) 38.2; Est GFR (Non-African American) 32.9
[2019-09-28 07:58] LABS: Bilirubin,Total 0.7 mg/dl (0.2-1); Thyroid Stimulating Hormone 1.09 uIu/ml (0.300-4.500); Total Protein 5.7 gm/dl (6.4-8.2)
[2019-09-28] MEDS: DORZOLAMIDE/TIMOLOL 22.3/6.8MG/ML 10 ML BTL OPL SCH ×2 (08:07→20:14)
[2019-09-28] MEDS: FUROSEMIDE 40 MG in SYRINGE 0 ML IV SCH (08:07)
[2019-09-28] MEDS: PANTOprazole 40 MG TAB PO SCH (08:07)
[2019-09-28] MEDS: METOPROLOL TARTRATE 25 MG TAB PO SCH ×2 (08:07→20:15)
[2019-09-28] MEDS: GABAPENTIN 300 MG CAP PO SCH ×3 (08:08→20:15)
[2019-09-28] MEDS: APIXABAN 5 MG TABLET PO SCH ×2 (08:08→20:14)
[2019-09-28] MEDS: POTASSIUM CHLORIDE 20 MEQ TABCR PO SCH (08:08)
[2019-09-28] MEDS: CITALOPRAM 20 MG TAB PO SCH (08:08)
[2019-09-28] MEDS: DOXYCYCLINE HYCLATE 100 MG in DEXTROSE 5% 100 ML IV SCH (08:15)
[2019-09-28] MEDS ORDERED: POTASSIUM CHLORIDE / WTR 10 MEQ/100 ML PLCT IV SCH (08:45)
[2019-09-28] MEDS ORDERED: FUROSEMIDE 40 MG in SYRINGE 0 ML IV SCH (09:00)
[2019-09-28 10:52] LABS: Folate (Folic Acid) 21.25 ng/ml (>5.38)
[2019-09-28] MEDS ORDERED: POTASSIUM CHLORIDE 20 MEQ TABCR PO ONE (12:00)
--- NOTE | 2019-09-28 13:14 | Hospitalist Progress Note ---
Date of Service September 28, 2019 Assessment & Plan (1) Acute respiratory failure with hypoxia: Suspect her symptoms are mostly due to right-sided pneumonia with parapneumonic effusion. Lasix dosing significantly increased creatinine today suggesting euvolemic at least on her arterial vasculature. Continue to wean oxygen, aim sats > 92% (2) Pneumonia: Right-sided pneumonia on CT with parapneumonic effusion. Given significant improvement will tailor antibiotics towards community-acquired pneumonia with ceftriaxone and doxycycline (due to mildly elevated QTC) Reassuringly she had a normal chest x-ray August 15, 2019 making an underlying mass less likely. No blood cultures taken. (3) Pleural effusion: Suspect parapneumonic effusion. Patient appears significantly too well for this to be an empyema. Discussed over the phone with Dr. Tierney for possibility of effusion aspiration however since she is on Eliquis, has no pain, is much improved since admission - plan is to repeat chest x-ray in 2 weeks unless she becomes more unwell. (4) Paroxysmal atrial fibrillation: 2-hour episode overnight. chronic anticoagulation with eliquis (5) Acute CHF: Suspect developed acute diastolic CHF in the setting of rapid ventricular rate with atrial fibrillation due to pneumonia. Furosemide 40mg IV in the ED, started 40 mg IV twice daily yesterday with subsequent bump in creatinine. IV 40 mg daily given today. Will adjust tomorrow's dose based on labs Continue metoprolol tartrate Will discontinue Austin catheter given decent negative balance and risk of catheter associated infection outweighs benefit at this stage. Continue I&Os as able. Daily weights. (6) Peripheral edema: As above for acute CHF (7) COPD exacerbation: No significant wheezing therefore will defer steroids at this point. Continue Symbicort. Continue duo nebs every 4 hourly. (8) Hypertension: Given acute illness and low normal blood pressure will discontinue amlodipine. Continue metoprolol for rate control as above. (9) Anxiety: anxiety /insomnia- continue celexa, melatonin, gabapentin (10) Glaucoma: continue all ophthalmic drops (11) S/P total hip arthroplasty: Consult orthopedics on Monday for wound inspection and staple removal. (12) Macrocytic anemia: Trending down with WBC and PLT count. B12 and folate normal. Iron sats 15%. Ferritin and elevated but in the setting of infection is nondiagnostic. Hypoproteinemia and hypercalcemia (normal corrected) not suggestive of myeloma. We will get reticulocyte count in a.m. to further investigate. (13) DVT prophylaxis: Continue Eliquis 5 mg twice daily (14) Discharge planning issues: PT and OT ordered Code status - DNR/DNI Subjective Patient seen in the morning. Sitting comfortably in the chair. No shortness of breath at rest. She feels much improved since admission. In hindsight she feels she was getting unwell for approximately 3 days prior to admission but was much worse overnight. Continues to have cough. No sputum. Review of Systems Review of Systems: All systems reviewed & are unremarkable except as noted in HPI & below Physical Exam Constitutional: well developed and well nourished; no acute distress and not ill appearing Eyes: + anicteric sclerae; normal pupil size ENMT: external ear and nose normal, oropharynx normal Neck: normal visual inspection and trachea midline Respiratory: normal respiratory effort; no respiratory distress, no labored breathing, no retractions and does not use accessory muscles Auscultation: + diminished lung sounds (Right base) and + crackles (Right base); no rhonchi and no wheezes Cardiovascular: Rate/Rhythm: regular rate and regular rhythm Heart Sounds: no murmur Vessels: no JVD Extremities: normal capillary refill, + calf tenderness (Bilaterally) and + pedal edema (1+ bilaterally to knees) Musculoskeletal: Significant OA changes of left knee and bilateral shoulders. Skin: no rashes, warm and dry Neurologic: moves all extremities and awake; no focal motor deficits and not confused Motor/Sensory: no tremor and no sensory deficit Psychiatric: A+Ox3, euthymic affect Results & Data Vital Signs (Past 12 Hours) Vital Signs Temp Pulse Pulse Pulse Resp BP Pulse Ox 09/28/19 11:38 98.1 F 67 20 117/62 93 09/28/19 11:05 57 L 16 99 09/28/19 08:18 98.2 F 68 17 128/64 94 09/28/19 08:00 56 L 09/28/19 07:13 60 18 95 09/28/19 02:41 97.9 F 66 16 143/74 H 93 Pulse Ox 09/28/19 11:38 09/28/19 11:05 09/28/19 08:18 09/28/19 08:00 93 09/28/19 07:13 09/28/19 02:41 PG Care Time/CCT Total # of Minutes Spent Total Time Spent with Patient: Total time spent is greater than 50% in coordination of care (as documented) at patient's floor/unit and/or counseling patient: (1) Acute CHF Heart failure type: diastolic Qualified Code(s): I50.31 - Acute diastolic (congestive) heart failure (2) S/P total hip arthroplasty Laterality: left Qualified Code(s): Z96.642 - Presence of left artificial hip joint (3) Pneumonia Laterality: right Lung location: unspecified part of lung Pneumonia type: due to unspecified organism Qualified Code(s): J18.9 - Pneumonia, unspecified organism
[2019-09-28] MEDS: TRAMADOL HCL 50 MG TABLET PO PRN (13:25)
[2019-09-28] MEDS: OXYCODONE/ACETAMINOPHEN 5mg/325mg TAB PO PRN (16:21)
[2019-09-28] MEDS: cefTRIAXone SODIUM 1,000 MG in DEXTROSE 5% 50 ML IV SCH (18:06)
[2019-09-28] MEDS: DOXYCYCLINE HYCLATE 100 MG CAP PO SCH (20:16)
[2019-09-28] MEDS: SIMVASTATIN 20 MG TAB PO SCH (20:16)
[2019-09-28] MEDS: BUDESONIDE/FORMOTEROL FUMARATE 160/4.5 60 PUFFS/INHALER INH SCH (20:25)
[2019-09-29 06:42] LABS: Reticulocyte % 6.3 % (0.5-2.0); Reticulocytes # 0.18 10^6/uL (0.02-0.10)
[2019-09-29] MEDS: ALBUT/IPRATROP 3MG/0.5MG NEB 3 ML VIAL NEB SCH ×4 (07:07→19:39)
[2019-09-29] MEDS: BUDESONIDE/FORMOTEROL FUMARATE 160/4.5 60 PUFFS/INHALER INH SCH ×2 (08:25→19:52)
[2019-09-29] MEDS: DORZOLAMIDE/TIMOLOL 22.3/6.8MG/ML 10 ML BTL OPL SCH ×2 (08:25→19:53)
[2019-09-29] MEDS: RHOPRESSA~ORDER AWAITING ACTION SCH ×3 (08:25→23:26)
[2019-09-29] MEDS: DOXYCYCLINE HYCLATE 100 MG CAP PO SCH ×2 (08:29→19:55)
[2019-09-29] MEDS: METOPROLOL TARTRATE 25 MG TAB PO SCH ×2 (08:30→19:54)
[2019-09-29] MEDS: CITALOPRAM 20 MG TAB PO SCH (08:30)
[2019-09-29] MEDS: PANTOprazole 40 MG TAB PO SCH (08:30)
[2019-09-29] MEDS: POTASSIUM CHLORIDE 20 MEQ TABCR PO SCH (08:30)
[2019-09-29] MEDS: APIXABAN 5 MG TABLET PO SCH ×2 (08:30→19:53)
[2019-09-29] MEDS: GABAPENTIN 300 MG CAP PO SCH ×3 (08:30→19:54)
[2019-09-29] MEDS ORDERED: FUROSEMIDE 40 MG TAB PO SCH (09:00)
[2019-09-29 09:24] LABS: Basophils # (auto) 0.03 K/uL (0-0.2); Basophils % (auto) 0.5 %; Hematocrit (blood only) 29.7 % (37-47); Hemoglobin 9.6 g/dL (12.0-16.0); Immature Granulocytes # (auto) 0.02 K/uL (0.00-0.02); Immature Granulocytes % (auto) 0.3 %; Lymphocytes % (auto) 16.1 %; Mean Corpuscular Hemoglobin 33.8 pg (25-34); Mean Corpuscular Volume 104.6 fL (80-100); Mean Platelet Volume 9.8 fL (7.4-10.4); Monocytes # (auto) 1.24 K/uL (0.11-0.59); Monocytes % (auto) 19.9 %; Neutrophils # (auto) 3.43 K/uL (1.4-6.5); Neutrophils % (auto) 55.2 %; Platelet Count 234 K/uL (130-400); RDW Standard Deviation 57.6 fL (36.4-46.3); Red Blood Count 2.84 M/uL (4.2-5.4); White Blood Count 6.22 K/uL (4.8-10.8)
[2019-09-29 09:28] LABS: Mean Corpuscular Hgb Conc 32.3 g/dL (32-36)
[2019-09-29 11:35] LABS: Albumin Globulin Ratio 0.8 (0.9-2); BUN Creatinine Ratio 21.2 (10-20); Bilirubin,Total 0.5 mg/dl (0.2-1); Calcium 8.7 mg/dl (8.5-10.1); Creatinine Clr Calc Pharmacy 29.1 ml/min; Est GFR (African American) 46.9; Est GFR (Non-African American) 40.4; Globulin 3.5 gm/dl (2.5-4.0); Magnesium 2.4 mg/dl (1.8-2.4); Potassium 3.8 mmol/L (3.5-5.1); Total Protein 6.5 gm/dl (6.4-8.2)
--- NOTE | 2019-09-29 12:04 | XRay Report ---
XR chest 1V not portable CLINICAL HISTORY: Increasing shortness of breath. COMPARISON STUDY: 09/28/2019 FINDINGS: The heart is enlarged. There is an increasing right pleural effusion with associated right lower lobe airspace opacities. There are right lung interstitial opacities, possibly representing asy mmetric edema although an right lung interstitial inflammatory processes could appear similar[ IMPRESSION: 1. Increasing right pleural effusion with associated right lower lobe atelectasis/consolidation 2. Asymmetric interstitial edema pattern versus a right lung interstitial pneumonitis. Electronically signed by: Isaac Cabrera M.D. 09/29/2019 12:03 PM
--- NOTE | 2019-09-29 15:28 | Hospitalist Progress Note ---
Date of Service September 29, 2019 Assessment & Plan (1) Acute respiratory failure with hypoxia: Secondary to pneumonia with parapneumonic effusion and pulmonary edema. Continue to wean oxygen, aim sats > 92% (2) Pneumonia: Right-sided pneumonia on CT with parapneumonic effusion. 09/27 Zosyn + Vancomycin 09/28 switched to ceftriaxone and doxycyline Reassuringly she had a normal chest x-ray August 15, 2019 making an underlying mass less likely. No blood cultures taken on admission (3) Pleural effusion: Suspect parapneumonic effusion. Patient appears significantly too well for this to be an empyema. Discussed over the phone with Dr. Tierney 09/28 for possibility of pleural tap however since she is on Eliquis, has no pain, is much improved since admission - plan is to repeat chest x-ray in 2 weeks unless she becomes more unwell. (4) Paroxysmal atrial fibrillation: No further episodes since 09/27 chronic anticoagulation with eliquis (5) Acute CHF: Developed acute diastolic CHF in setting of pneumonia. BNP elevated. No significant valvular disease on previous echocardiogram. Serial troponins negative. TTE ordered despite recent given CT concerning for acute onset mitral regurgitation. Furosemide 40mg IV in the ED, started 40 mg IV twice daily 09/27 with subsequent bump in creatinine. 09/28 Lasix IV 40 mg with reduction in Cr. CXR suggestive of worsening failure and patient more short of breath in AM. Had planned to go back on home doses of lasix PO 40mg however will give additional IV lasix 40mg now. Continue metoprolol tartrate -> consider switch to succinate given admission for HF. Continue I&Os as able. Daily weights. (6) Peripheral edema: As above for acute CHF (7) Asthma: Previously charted on this admission and COPD. However on review of [employer] her diagnosis is asthma. No PFTs found to support this diagnosis. She reports no flare up in years. No wheezing on exam. No further steroids warranted at this time. (8) Hypertension: Discontinued amlodipine due to low normal blood pressures. Continue metoprolol for rate control as above. (9) Anxiety: anxiety /insomnia- continue celexa, melatonin, gabapentin (10) Glaucoma: continue all ophthalmic drops (11) S/P total hip arthroplasty: Consult [facility] orthopedics as jeimy due to be removed tomorrow. (12) Macrocytic anemia: Stable status post left THR although macrocytosis without anemia predates this. B12 and folate normal. Iron sats 15%. Ferritin elevated but nondiagnostic in setting of infection. Appropriately mildly elevated reticulocyte count, normal WBC, PLT. F/U O/P. (13) DVT prophylaxis: Continue Eliquis 5 mg twice daily (14) Discharge planning issues: PT and OT Code status - DNR/DNI Subjective Patient seen in AM and appeared more short of breath but patient reports feeling much the same. No chest pain. She feels she is eating well without any problems coughing after eating. She reports feeling she is improving. Review of Systems Review of Systems: All systems reviewed & are unremarkable except as noted in HPI & below Physical Exam Constitutional: well developed and well nourished; no acute distress and not ill appearing Eyes: + anicteric sclerae; normal pupil size ENMT: external ear and nose normal, oropharynx normal Neck: normal visual inspection and trachea midline Respiratory: normal respiratory effort; no respiratory distress, no labored breathing, no retractions and does not use accessory muscles Auscultation: + diminished lung sounds (Right base) and + crackles (Right sided); no rhonchi and no wheezes Cardiovascular: Rate/Rhythm: regular rate and regular rhythm Heart Sounds: no murmur Vessels: no JVD Extremities: normal capillary refill, + calf tenderness (Bilaterally) and + pedal edema (1+ bilaterally to knees) Musculoskeletal: no cyanosis or clubbing, extremities motor strength 5/5 Skin: no rashes, warm and dry Neurologic: moves all extremities and awake; no focal motor deficits and not confused Motor/Sensory: no sensory deficit Psychiatric: A+Ox3, euthymic affect Results & Data Vital Signs (Past 12 Hours) Vital Signs Temp Pulse Pulse Pulse Resp BP Pulse Ox 09/29/19 11:48 99.3 F 67 19 134/77 94 09/29/19 11:14 61 18 99 09/29/19 09:00 93 H 09/29/19 08:16 74 23 160/76 H 94 09/29/19 07:07 66 18 91 09/29/19 05:41 66 09/29/19 04:25 97.9 F 72 23 170/85 H 91 PG Care Time/CCT Total # of Minutes Spent Total Time Spent with Patient: Total time spent is greater than 50% in coordination of care (as documented) at patient's floor/unit and/or counseling patient: (1) Acute CHF Heart failure type: diastolic Qualified Code(s): I50.31 - Acute diastolic ( congestive) heart failure (2) S/P total hip arthroplasty Laterality: left Qualified Code(s): Z96.642 - Presence of left artificial hip joint (3) Hypertension Hypertension type: essential hypertension Qualified Code(s): I10 - Essential (primary) hypertension (4) Pneumonia Laterality: right Lung location: unspecified part of lung Pneumonia type: due to unspecified organism Qualified Code(s): J18.9 - Pneumonia, unspecified organism (5) Asthma Asthma complication type: unspecified Asthma persistence: persistent Asthma severity: moderate Qualified Code(s): J45.40 - Moderate persistent asthma, uncomplicated
[2019-09-29] MEDS ORDERED: FUROSEMIDE 40 MG in SYRINGE 0 ML IV ONE (15:30)
[2019-09-29] MEDS: TRAMADOL HCL 50 MG TABLET PO PRN (17:49)
[2019-09-29] MEDS: cefTRIAXone SODIUM 1,000 MG in DEXTROSE 5% 50 ML IV SCH (17:53)
[2019-09-29] MEDS: OXYCODONE/ACETAMINOPHEN 5mg/325mg TAB PO PRN (19:41)
[2019-09-29] MEDS: SIMVASTATIN 20 MG TAB PO SCH (19:55)
[2019-09-29] MEDS ORDERED: OXYCODONE/ACETAMINOPHEN 5mg/325mg TAB PO PRN (22:14)
[2019-09-29] MEDS ORDERED: VANCOMYCIN TROUGH ONE (23:30)
[2019-09-30 05:52] LABS: Basophils # (auto) 0.03 K/uL (0-0.2); Basophils % (auto) 0.6 %; Eosinophils # (auto) 0.53 K/uL (0-0.5); Eosinophils % (auto) 9.9 %; Hematocrit (blood only) 29.6 % (37-47); Hemoglobin 9.5 g/dL (12.0-16.0); Immature Granulocytes # (auto) 0.02 K/uL (0.00-0.02); Immature Granulocytes % (auto) 0.4 %; Lymphocytes # (auto) 0.93 K/uL (1.2-3.4); Lymphocytes % (auto) 17.3 %; Mean Corpuscular Hemoglobin 33.5 pg (25-34); Mean Corpuscular Hgb Conc 32.1 g/dL (32-36); Mean Corpuscular Volume 104.2 fL (80-100); Mean Platelet Volume 8.9 fL (7.4-10.4); Monocytes # (auto) 1.04 K/uL (0.11-0.59); Monocytes % (auto) 19.4 %; Neutrophils # (auto) 2.82 K/uL (1.4-6.5); Neutrophils % (auto) 52.4 %; Platelet Count 221 K/uL (130-400); RDW Coefficient of Variation 14.9 % (11.5-14.5); RDW Standard Deviation 56.8 fL (36.4-46.3); Red Blood Count 2.84 M/uL (4.2-5.4); White Blood Count 5.37 K/uL (4.8-10.8)
[2019-09-30 06:25] LABS: BUN Creatinine Ratio 26.4 (10-20); Calcium 8.4 mg/dl (8.5-10.1); Creatinine Clr Calc Pharmacy 31.9 ml/min; Est GFR (African American) 52.7; Est GFR (Non-African American) 45.5; Potassium 3.5 mmol/L (3.5-5.1)
[2019-09-30] MEDS: ALBUT/IPRATROP 3MG/0.5MG NEB 3 ML VIAL NEB SCH ×2 (07:23→11:18)
[2019-09-30] MEDS: RHOPRESSA~ORDER AWAITING ACTION SCH ×2 (09:02→15:32)
[2019-09-30] MEDS ORDERED: FUROSEMIDE 40 MG in SYRINGE 0 ML IV ONE (09:14)
[2019-09-30] MEDS: APIXABAN 5 MG TABLET PO SCH ×2 (09:45→20:32)
[2019-09-30] MEDS: POTASSIUM CHLORIDE 20 MEQ TABCR PO SCH (09:46)
[2019-09-30] MEDS: METOPROLOL TARTRATE 25 MG TAB PO SCH ×2 (09:47→20:34)
[2019-09-30] MEDS: DOXYCYCLINE HYCLATE 100 MG CAP PO SCH ×2 (09:48→20:33)
[2019-09-30] MEDS: PANTOprazole 40 MG TAB PO SCH (09:49)
[2019-09-30] MEDS: GABAPENTIN 300 MG CAP PO SCH ×3 (09:50→20:34)
[2019-09-30] MEDS: CITALOPRAM 20 MG TAB PO SCH (09:52)
[2019-09-30] MEDS: BUDESONIDE/FORMOTEROL FUMARATE 160/4.5 60 PUFFS/INHALER INH SCH ×2 (09:53→20:33)
[2019-09-30] MEDS: DORZOLAMIDE/TIMOLOL 22.3/6.8MG/ML 10 ML BTL OPL SCH ×2 (09:53→20:32)
--- NOTE | 2019-09-30 12:45 | Consultation Report ---
DATE OF CONSULTATION: 09/30/2019 CHIEF COMPLAINT: Left hip status post total hip arthroplasty. HISTORY OF PRESENT ILLNESS: This 89-year-old white female is seen in her room this morning. Orthopedics was consulted for her previous right total hip arthroplasty done 19 days ago. She is to have her jeimy out today. She was scheduled in the office, but was admitted on 09/27/2019 for shortness of breath and dyspnea due to pneumonia and congestive heart failure. She states her hip has been doing fine. She has no discomfort there. She has been afebrile. No other complaints in regards to the hip. PAST MEDICAL HISTORY: Significant for anxiety, asthma, atrial fibrillation, chronic back pain, degenerative disk disease, depression, right foot drop, GERD, glaucoma, hearing deficit, history of right TKA infection with chronic suppression, elevated lipids, hypertension, IBS, osteoarthritis, osteoporosis, and spinal stenosis. PREVIOUS SURGERIES: Appendectomy, carpal tunnel surgery, colonoscopy, right total knee arthroplasty, tonsillectomy, hysterectomy, glaucoma surgery, left hip MISSY 19 days ago. SOCIAL HISTORY: The patient is retired. . No tobacco use, occasional ETOH use. Currently residing at [facility]. REVIEW OF SYSTEMS: A total of 10 systems are reviewed and are significant only for above stated conditions. PHYSICAL EXAMINATION: GENERAL: Well-developed elderly white female in no acute distress. She was sleeping upon my initial examination. She woke easily. Alert and oriented. SKIN: Well-healed surgical incision present over the left hip. She has jeimy intact. Wound edges are well approximated. No drainage. There is no dressing on the wound. No visible ecchymosis or edema. MUSCULOSKELETAL: The patient has intact motor function to her left ankle, knee, and hip. Supple motion of the hip without discomfort. NEUROLOGIC: Gross sensation is intact across left leg by soft touch. Peripheral pulses are 2+. ASSESSMENT: Left hip 19 days status post total hip arthroplasty. PLAN: The patient was educated regarding today's findings. She is just waking up. I will see her back this afternoon for staple removal. I did request that the nurses keep her wound covered with at least an ABD to prevent irritation from her bed sheets/clothing. We will continue to follow while she is in the hospital. The patient will likely benefit from continued PT/OT.
[2019-09-30] MEDS ORDERED: ALBUT/IPRATROP 3MG/0.5MG NEB 3 ML VIAL NEB PRN (13:10)
[2019-09-30] MEDS: cefTRIAXone SODIUM 1,000 MG in DEXTROSE 5% 50 ML IV SCH (17:42)
--- NOTE | 2019-09-30 17:43 | Hospitalist Progress Note ---
Date of Service September 30, 2019 Assessment & Plan (1) Acute respiratory failure with hypoxia: Secondary to pneumonia with parapneumonic effusion and pulmonary edema. Required BiPAP upon admission, now much improved With Right sided pleural effusion enlarging slightly and pulm edema on CXR 09/29 Continue to wean oxygen, aim sats > 92% -continue diuresis with more IV lasix today -treating PNA -follow CXR in AM (2) Pneumonia: Right-sided pneumonia on CT with parapneumonic effusion. Remains afebrile, no leukocytosis, looks well 09/27 Zosyn + Vancomycin 09/28 switched to ceftriaxone and doxycyline and would finish out total 7 day course-last dose 10/03/19 Reassuringly she had a normal chest x-ray August 15, 2019 making an underlying mass less likely. No blood cultures taken on admission -follow CXR to resolution (3) Pleural effusion: Suspect parapneumonic effusion. Patient appears significantly too well for this to be an empyema. Previous hospitalist discussed over the phone with Dr. Tierney of Pulmonology 09/28 for possibility of pleural tap however since she is on Eliquis, has no pain, is much improved since admission - plan as per Pulm is to repeat chest x-ray in 2 weeks unless she becomes more unwell. (4) Paroxysmal atrial fibrillation: No further episodes since 2 hours of rapid Afib on 09/27 chronic anticoagulation with eliquis -continue metoprolol 75mg po bid (5) Acute CHF: Developed acute on chronic diastolic CHF in setting of pneumonia and rapid atrial fibrillation. BNP elevated. No significant valvular disease on previous echocardiogram or current ECHO, with normal EF and with Pulm HTN. Serial troponins negative. Has diuresed quite a bit on lasix IV and clinically improved, has lost -6.9L fluid and weight down -3kg -Continue rate control with metoprolol-no need to switch to succinate as has EF preserved CHF -continue BP control Continue I&Os as able. Daily weights. -gave another Lasix 40mg IV x 1 this AM and will reassess in the AM -convert back to po lasix when improved (6) Peripheral edema: As above for acute CHF, now much improved (7) Asthma: Previously charted on this admission and COPD. However on review of [employer] her diagnosis is asthma. No PFTs found to support this diagnosis. She reports no flare up in years. No wheezing on exam. No further steroids warranted at this time. (8) Hypertension: Discontinued amlodipine due to low normal blood pressures. Continue metoprolol for rate control as above. (9) Pulmonary HTN: Elevated right sided pressure on ECHO here Has asthma, no dx of SIA -needs PFTs as outpt -no evidence of PE on CTA CHest -continue diuresis, treatment of pulm conditions (10) Anxiety: anxiety /insomnia-stable continue celexa, melatonin, gabapentin (11) Glaucoma: continue all ophthalmic drops (12) S/P total hip arthroplasty: Consult [facility] orthopedics as jeimy due to be removed today-removed on 09/30-appreciate follow up (13) Macrocytic anemia: Stable status post left THR although macrocytosis without anemia predates this. B12 and folate normal. Iron sats 15%. Ferritin elevated but nondiagnostic in setting of infection. Appropriately mildly elevated reticu locyte count, normal WBC, PLT. - F/U as an outpatient (14) DVT prophylaxis: Continue Eliquis 5 mg twice daily (15) Discharge planning issues: PT and OT Code status - DNR/DNI Dispo-plan for dc to SNF at [facility] hopefully in the next 1-2 days Subjective Feeling so much better than she did upon admission when I last saw her. Weaned down to NC and POx is good. Minimal cough. No chest pain or SOB with ambulating to bathroom. Feels stronger. Reports not being able to sleep at all last night due to noisy roommate and requestng something mild for sleep. Denies diarrhea or constipation. Is urinating quite a bit but not as much as previous few days. Tele with NSR, PACs Review of Systems Review of Systems: All systems reviewed & are unremarkable except as noted in HPI & below Physical Exam Constitutional: WD/WN, vitals as above (sitting in a chair) Eyes: PERRL, conjunctivae normal, anicteric sclerae ENMT: external ear and nose normal, oropharynx normal Neck: trachea midline, no thyromegaly Respiratory: normal respiratory effort; no labored breathing Auscultation: + diminished lung sounds (at right base); no crackles, no rhonchi and no wheezes Cardiovascular: RRR, no murmur, no edema Chest (Breasts): Chest: normal inspection of chest Gastrointestinal (Abdomen): normal bowel sounds, soft, nontender, no hepatosplenomegaly Musculoskeletal: Extremities: extremities normal to inspection; no cyanosis and no clubbing Skin: no rashes, warm and dry Neurologic: moves all extremities and awake; no focal motor deficits Psychiatric: A+Ox3, euthymic affect Lymphatic: no lymphedema Results & Data Vital Signs (Past 12 Hours) Vital Signs Temp Pulse Pulse Pulse Resp BP Pulse Ox 09/30/19 15:58 61 09/30/19 15:02 36.8 C 68 16 148/72 H 98 09/30/19 12:45 37.8 C H 79 16 139/82 93 09/30/19 11:18 90 16 98 09/30/19 07:23 72 18 94 09/30/19 07:16 62 09/30/19 07:12 36.4 C L 59 L 153/75 H 96 Laboratory Results 09/30/19 09/30/19 Range/Units 05:31 05:31 WBC 5.37 (4.8-10.8) K/uL RBC 2.84 L (4.2-5.4) M/uL Hgb 9.5 L (12.0-16.0) g/dL Hct 29.6 L (37-47) % MCV 104.2 H (80-100) fL MCH 33.5 (25-34) pg MCHC 32.1 (32-36) g/dL RDW Std Deviation 56.8 H (36.4-46.3) fL RDW Coeff of Anish 14.9 H (11.5-14.5) % Plt Count 221 (130-400) K/uL MPV 8.9 (7.4-10.4) fL Immature Gran % (Auto) 0.4 % Neut % (Auto) 52.4 % Lymph % (Auto) 17.3 % [place] % (Auto) 19.4 % Eos % (Auto) 9.9 % Baso % (Auto) 0.6 % Immature Gran # (Auto) 0.02 (0.00-0.02) K/uL Neut # (Auto) 2.82 (1.4-6.5) K/uL Lymph # (Auto) 0.93 L (1.2-3.4) K/uL [place] # (Auto) 1.04 H (0.11-0.59) K/uL Eos # (Auto) 0.53 H (0-0.5) K/uL Baso # (Auto) 0.03 (0-0.2) K/uL Sodium 138 (136-145) mmol/L Potassium 3.5 (3.5-5.1) mmol/L Chloride 100 (98-107) mmol/L Carbon Dioxide 32 (21-32) mmol/L Anion Gap 6.0 (3-11) BUN 29 H (7-18) mg/dl Creatinine 1.08 (0.6-1.2) mg/dl Est Cr Clr Drug Dosing 31.9 ml/min Est GFR ( Amer) 52.7 Est GFR (Non-Af Amer) 45.5 BUN/Creatinine Ratio 26.4 H (10-20) Glucose 104 H (70-99) mg/dl Calcium 8.4 L (8.5-10.1) mg/dl Diagnostic Findings ECHO with preserved EF, with increased RVSP 50-60mmHg PG Care Time/CCT Total # of Minutes Spent Total Time Spent with Patient: Total time spent is greater than 50% in coordination of care (as documented) at patient's floor/unit and/or counseling patient: (1) Acute CHF Heart failure type: diastolic Qualified Code(s): I50.31 - Acute diastolic (congestive) heart failure (2) S/P total hip arthroplasty Laterality: left Qualified Code(s): Z96.642 - Presence of left artificial hip joint (3) Hypertension Hypertension type: essential hypertension Qualified Code(s): I10 - Essential (primary) hypertension (4) Pneumonia Laterality: right Lung location: unspecified part of lung Pneumonia type: due to unspecified organism Qualified Code(s): J18.9 - Pneumonia, unspecified organism (5) Asthma Asthma complication type: unspecified Asthma persistence: persistent Asthma severity: moderate Qualified Code(s): J45.40 - Moderate persistent asthma, uncomplicated
[2019-09-30] MEDS ORDERED: MICONAZOLE NITRATE POWDER 43 GM EXT PRN (18:55)
[2019-09-30] MEDS: SIMVASTATIN 20 MG TAB PO SCH (20:32)
[2019-10-01] MEDS: RHOPRESSA~ORDER AWAITING ACTION SCH ×4 (00:07→23:14)
[2019-10-01 06:38] LABS: Creatinine Clr Calc Pharmacy 34.1 ml/min; Est GFR (African American) 57.2; Est GFR (Non-African American) 49.3; Potassium 3.3 mmol/L (3.5-5.1)
[2019-10-01] MEDS: DORZOLAMIDE/TIMOLOL 22.3/6.8MG/ML 10 ML BTL OPL SCH ×2 (08:39→20:41)
[2019-10-01] MEDS: BUDESONIDE/FORMOTEROL FUMARATE 160/4.5 60 PUFFS/INHALER INH SCH ×2 (08:39→20:40)
[2019-10-01] MEDS: PANTOprazole 40 MG TAB PO SCH (08:40)
[2019-10-01] MEDS: APIXABAN 5 MG TABLET PO SCH ×2 (08:40→20:41)
[2019-10-01] MEDS: GABAPENTIN 300 MG CAP PO SCH ×3 (08:40→20:41)
[2019-10-01] MEDS: DOXYCYCLINE HYCLATE 100 MG CAP PO SCH ×2 (08:40→20:41)
[2019-10-01] MEDS: POTASSIUM CHLORIDE 20 MEQ TABCR PO SCH (08:40)
[2019-10-01] MEDS: METOPROLOL TARTRATE 25 MG TAB PO SCH ×2 (08:40→20:42)
[2019-10-01] MEDS: CITALOPRAM 20 MG TAB PO SCH (08:40)
[2019-10-01] MEDS ORDERED: POTASSIUM CHLORIDE 20 MEQ TABCR PO STA (09:27)
[2019-10-01] MEDS: FUROSEMIDE 40 MG TAB PO SCH (10:10)
--- NOTE | 2019-10-01 13:54 | XRay Report ---
XR chest 1V portable CLINICAL HISTORY: Pneumonia. Effusion. COMPARISON STUDY: 09/29/2019 FINDINGS: The heart remains enlarged. There is decreasing right pleural effusion. There is improving aeration of the right lower lung zone. There are scattered additional areas of interstitial scarring/ atelectasis.[There is no evidence of failure. IMPRESSION: 1. Cardiomegaly 2. Decreasing right pleural effusion with improving aeration of the right lower lung zone. Electronically signed by: Isaac Cabrera M.D. 10/01/2019 1:53 PM
[2019-10-01] MEDS: cefTRIAXone SODIUM 1,000 MG in DEXTROSE 5% 50 ML IV SCH (17:55)
[2019-10-01] MEDS: SIMVASTATIN 20 MG TAB PO SCH (20:42)
--- NOTE | 2019-10-01 23:55 | Hospitalist Progress Note ---
Date of Service October 01, 2019 Assessment & Plan (1) Acute respiratory failure with hypoxia: Secondary to pneumonia with parapneumonic effusion and pulmonary edema. Required BiPAP upon admission, now much improved With Right sided pleural effusion now improving on CXR and pulm edema improving Continue to wean oxygen, aim sats > 92% -received diuresis with IV lasix for many days and now convert to po lasix, home dose -treating PNA -follow CXR to resolution after discharge in 3-4 weeks (2) Pneumonia: Right-sided pneumonia on CT with parapneumonic effusion. Remains afebrile, no leukocytosis, looks well 09/27 Zosyn + Vancomycin 09/28 switched to ceftriaxone and doxycyline and would finish out total 7 day course-last dose 10/03/19 Reassuringly she had a normal chest x-ray August 15, 2019 making an underlying mass less likely. No blood cultures taken on admission -follow CXR to resolution (3) Pleural effusion: Suspect parapneumonic effusion. Patient appears significantly too well for this to be an empyema. Previous hospitalist discussed over the phone with Dr. Tierney of Pulmonology 09/28 for possibility of pleural tap however since she is on Eliquis, has no pain, is much improved since admission - plan as per Pulm is to repeat chest x-ray in 2 weeks unless she becomes more unwell. CXR repeat here on 10/01 is improving (4) Paroxysmal atrial fibrillation: No further episodes since 2 hours of rapid Afib on 09/27 chronic anticoagulation with eliquis -continue metoprolol 75mg po bid (5) Acute CHF: Developed acute on chronic diastolic CHF in setting of pneumonia and rapid atrial fibrillation. BNP elevated. No significant valvular disease on previous echocardiogram or current ECHO, with normal EF and with Pulm HTN. Serial troponins negative. Has diuresed quite a bit on lasix IV and clinically improved, has lost -7L fluid and weight down -4kg -Continue rate control with metoprolol-no need to switch to succinate as has EF preserved CHF -continue BP control Continue I&Os as able. Daily weights. -convert back to po lasix today (6) Peripheral edema: As above for acute CHF, now much improved (7) Asthma: Previously charted on this admission and COPD. However on review of [employer] her diagnosis is asthma. No PFTs found to support this diagnosis. She reports no flare up in years. No wheezing on exam. No further steroids warranted at this time. (8) Hypertension: Discontinued amlodipine due to low normal blood pressures. Continue metoprolol for rate control as above. (9) Pulmonary HTN: Elevated right sided pressure on ECHO here Has asthma, no dx of SIA -needs PFTs as outpt -no evidence of PE on CTA CHest -continue diuresis, treatment of pulm conditions (10) Anxiety: anxiety /insomnia-stable continue celexa, melatonin, gabapentin (11) Glaucoma: continue all ophthalmic drops (12) S/P total hip arthroplasty: Consult [facility] orthopedics for staple removal and f/u-removed on 09/30- appreciate follow up -continue PT/OT (13) Macrocytic anemia: Stable status post left THR although macrocytosis without anemia predates this. B12 and folate normal. Iron sats 15%. Ferritin elevated but nondiagnostic in setting of infection. Appropriately mildly elevated reticulocyte count, normal WBC, PLT. - F/U as an outpatient (14) DVT prophylaxis: Continue Eliquis 5 mg twice daily (15) Discharge planning issues: PT and OT Code status - DNR/DNI Dispo-plan for dc to SNF at [facility], will submit for auth today and likely dc tomorrow as per CM Subjective Feeling better today. Denies cough or SOB. Is vianey po, has no complaints. Feeling strong. Tele with NSR, rates 60-70s Review of Systems Review of Systems: All systems reviewed & are unremarkable except as noted in HPI & below Physical Exam Constitutional: WD/WN, vitals as above (sitting in a chair) Eyes: + anicteric sclerae Neck: trachea midline, no thyromegaly Respiratory: normal respiratory effort; no labored breathing Auscultation: + diminished lung sounds (at right base) and + crackles (right base); no rhonchi and no wheezes Cardiovascular: RRR, no murmur, no edema Chest (Breasts): Chest: normal inspection of chest Gastrointestinal (Abdomen): normal bowel sounds, soft, nontender, no hepatosplenomegaly Musculoskeletal: Extremities: extremities normal to inspection; no cyanosis and no clubbing Skin: no rashes, warm and dry Neurologic: moves all extremities and awake; no focal motor deficits Psychiatric: A+Ox3, euthymic affect Results & Data Vital Signs (Past 12 Hours) Vital Signs Temp Pulse Pulse Pulse Resp BP Pulse Ox 10/01/19 19:39 36.7 C 66 20 170/84 H 94 10/01/19 17:00 63 10/01/19 15:00 36.7 C 68 18 144/81 H 90 Laboratory Results labs reviewed Diagnostic Findings CXR image personally reviewed by me and agree with the following: XR chest 1V portable CLINICAL HISTORY: Pneumonia. Effusion. COMPARISON STUDY: 09/29/2019 FINDINGS: The heart remains enlarged. There is decreasing right pleural effusion. There is improving aeration of the right lower lung zone. There are scattered additional areas of interstitial scarring/atelectasis.[There is no evidence of failure. IMPRESSION: 1. Cardiomegaly 2. Decreasing right pleural effusion with improving aeration of the right lower lung zone. PG Care Time/CCT Total # of Minutes Spent Total Time Spent with Patient: Total time spent is greater than 50% in coordination of care (as documented) at patient's floor/unit and/or counseling patient: (1) Acute CHF Heart failure type: diastolic Qualified Code(s): I50.31 - Acute diastolic (congestive) heart failure (2) S/P total hip arthroplasty Laterality: left Qualified Code(s): Z96.642 - Presence of left artificial hip joint (3) Hypertension Hypertension type: essential hypertension Qualified Code(s): I10 - Essential (primary) hypertension (4) Pneumonia Laterality: right Lung location: unspecified part of lung Pneumonia type: due to unspecified organism Qualified Code(s): J18.9 - Pneumonia, unspecified organism (5) Asthma Asthma complication type: unspecified Asthma persistence: persistent Asthma severity: moderate Qualified Code(s): J45.40 - Moderate persistent asthma, uncomplicated
[2019-10-02 06:27] LABS: BUN Creatinine Ratio 20.7 (10-20); Calcium 9.2 mg/dl (8.5-10.1); Creatinine Clr Calc Pharmacy 30.8 ml/min; Est GFR (African American) 52.1; Potassium 3.6 mmol/L (3.5-5.1)
[2019-10-02] MEDS: RHOPRESSA~ORDER AWAITING ACTION SCH (08:17)
[2019-10-02] MEDS: DOXYCYCLINE HYCLATE 100 MG CAP PO SCH (08:28)
[2019-10-02] MEDS: POTASSIUM CHLORIDE 20 MEQ TABCR PO SCH (08:28)
[2019-10-02] MEDS: PANTOprazole 40 MG TAB PO SCH (08:29)
[2019-10-02] MEDS: BUDESONIDE/FORMOTEROL FUMARATE 160/4.5 60 PUFFS/INHALER INH SCH (08:29)
[2019-10-02] MEDS: APIXABAN 5 MG TABLET PO SCH (08:29)
[2019-10-02] MEDS: CITALOPRAM 20 MG TAB PO SCH (08:29)
[2019-10-02] MEDS: DORZOLAMIDE/TIMOLOL 22.3/6.8MG/ML 10 ML BTL OPL SCH (08:29)
[2019-10-02] MEDS: GABAPENTIN 300 MG CAP PO SCH ×2 (08:29→13:20)
[2019-10-02] MEDS: METOPROLOL TARTRATE 25 MG TAB PO SCH (08:29)
[2019-10-02] MEDS: FUROSEMIDE 40 MG TAB PO SCH (09:05)
--- NOTE | 2019-10-02 14:43 | Discharge Summary ---
Date of Service October 02, 2019 Admission HPI Per Admitting Provider The patient is an 89 yo female with PMH including HTN, COPD, Anxiety/Depression, glaucoma CHF, GPN, insomnia, DVT, PAF, S/P L MISSY on 09/11/19. The patient reportedly began getting SOB yesterday, and when family was consulted their preference was to keep the patient at the NH. The patient then became more SOB overnight, had a pulse ox in the 70's, and had 2 liters NC O2 placed. When EMS arrived, the patient was 76% on 2 liters, and she was then place on CPA, with pulse ox improved to 95%. Upon arrival in the ED, she was placed on BIPAP, labs were performed, and x-ray suggested right sided pneumonia. The patient was started on Vancomycin IV and Zosyn IV for the pneumonia, and was given Furosemide 40 mg IV for 3+ LE edema. Principal Diagnosis Pneumonia, Acute respiratory failure with hypoxia, Acute on chronic diastolic CHF Discharge Exam Constitutional WD/WN, vitals as above (sitting in a chair) Eyes + anicteric sclerae Neck trachea midline, no thyromegaly Respiratory normal respiratory effort; no labored breathing Auscultation: + diminished lung sounds (at right base) and + crackles (right base); no rhonchi and no wheezes Cardiovascular RRR, no murmur, no edema Chest (Breasts) Chest: normal inspection of chest Gastrointestinal (Abdomen) normal bowel sounds, soft, nontender, no hepatosplenomegaly Musculoskeletal Extremities: extremities normal to inspection; no cyanosis and no clubbing Skin no rashes, warm and dry Neurologic moves all extremities and awake; no focal motor deficits Psychiatric A+Ox3, euthymic affect Lymphatic no lymphedema Discharge Data Allergies Allergy/AdvReac Type Severity Reaction Status Date / Time nitrofurantoin Allergy Unknown unknown Verified 10/08/19 14:02 reaction erythromycin base AdvReac Unknown nausea Verified 10/08/19 14:02 Consultations 09/27/19 04:57 ED Decision to Admit Stat 09/27/19 05:57 Consult Case Management - Discharge Planning Routine 09/29/19 21:59 Consult Orthopedic Surgery Routine Ordered Studies 09/27/19 04:14 CT angio chest PE protocol Urgent CXR x 3 ECHO Hospital Course (1) Acute respiratory failure with hypoxia: Secondary to pneumonia with parapneumonic effusion and pulmonary edema. Required BiPAP upon admission, now much improved and only on 2L NC With Right sided pleural effusion now improving on CXR and pulm edema improving Continue to wean oxygen, aim sats > 92% -received diuresis with IV lasix for many days and then converted to po lasix, home dose -continue treating PNA -follow CXR to resolution after discharge in 3-4 weeks (2) Pneumonia: Right-sided pneumonia on CT with parapneumonic effusion. Remains afebrile, no leukocytosis, looks well 09/27 received Zosyn + Vancomycin 09/28 switched to ceftriaxone and doxycyline and would finish out total 7 day course with conversion to cefdinir and doxy po-last dose 10/03/19 Reassuringly she had a normal chest x-ray August 15, 2019 making an underlying mass less likely. No blood cultures taken on admission -follow CXR to resolution (3) Pleural effusion: Suspect parapneumonic effusion. Patient appears significantly too well for this to be an empyema. Previous hospitalist discussed over the phone with Dr. iTerney of Pulmonology 09/28 for possibility of pleural tap however since she is on Eliquis, has no pain, is much improved since admission - plan as per Pulm is to repeat chest x-ray in 2 weeks unless she becomes more unwell. CXR repeat here on 10/01 is improving (4) Paroxysmal atrial fibrillation: No further episodes since 2 hours of rapid Afib on 09/27 chronic anticoagulation with eliquis -continue metoprolol 75mg po bid (5) Acute CHF: Developed acute on chronic diastolic CHF in setting of pneumonia and rapid atrial fibrillation. BNP elevated. No significant valvular disease on previous echocardiogram or current ECHO, with normal EF and with Pulm HTN. Serial troponins negative. Has diuresed quite a bit on lasix IV and clinically improved, has lost -7L fluid and weight down -4kg -Continue rate control with metoprolol-no need to switch to succinate as has EF preserved CHF -continue BP control Continue I&Os as able. Daily weights. -converted back to po lasix prior to discharge (6) Peripheral edema: As above for acute CHF, now much improved (7) Asthma: Previously charted on this admission and COPD. However on review of [employer] her diagnosis is asthma. No PFTs found. She reports no flare up in years. No wheezing on exam. No further steroids warranted at this time. (8) Hypertension: Discontinued amlodipine due to low normal blood pressures. Continue metoprolol for rate control as above. (9) Pulmonary HTN: Elevated right sided pressure on ECHO here Has asthma, no dx of SIA -needs PFTs as outpt -no evidence of PE on CTA CHest -continue diuresis, treatment of pulm conditions (10) Anxiety: anxiety /insomnia-stable continue celexa, melatonin, gabapentin (11) Glaucoma: continue all ophthalmic drops (12) S/P total hip arthroplasty: Of the right hip 2-3 weeks prior to admission Consult [facility] orthopedics for staple removal and f/u-removed on 09/30- appreciate follow up -continue PT/OT (13) Macrocytic anemia: Stable status post left THR although macrocytosis without anemia predates this. B12 and folate normal. Iron sats 15%. Ferritin elevated but nondiagnostic in setting of infection. Appropriately mildly elevated reticulocyte count, normal WBC, PLT. - F/U as an outpatient (14) DVT prophylaxis: Continue Eliquis 5 mg twice daily (15) Discharge planning issues: PT and OT Code status - DNR/DNI Dispo-plan for dc to SNF at [facility] today Total Time Total Time Spent Total Time Spent (In Minutes): 35 min Total Time Includes: Examination of the Patient, Discharge Planning and Medication Reconciliation Discharge Plan Discharge Items Patient Disposition: Transfer [facility] Reason For Visit: ACUTE RESPIRATORY FAILURE WITH HYPOXIA Discharge Diagnosis: Pneumonia, Acute respiratory failure with hypoxia Condition on Discharge: Fair Health Concerns: You have been hospitalized for an acute medical problem. During your stay at [facility], we have made an effort to correct the problem that brought you to the hospital while keeping you as comfortable as possible. Medications were used to bring your condition under control and your discharge instructions will include directions for any medications you should take after leaving the hospital. Please make sure you see your Primary Care Provider as part of your follow up plan. Activity: As commented below Lifting: Gradually increase as tolerated Exercise/Sports: Gradually increase as tolerated Weightbearing: Full weightbearing Weightbearing Comment: With walker Non-emergency contact: Primary Care Provider and Surgeon Call non-emergency contact if: you have any medication questions, your symptoms worsen, your pain is not controlled, your pain is worsening, your pain is unusual for you, your pain is concerning for you, you have a fever, your temperature is above 101, your wound has increased redness, your wound has increased drainage and your wound pain has increased Follow-up/Referrals: Yanira Mejia PA-C [Physician [employer] Supervisor] - Teo Kemp Avant [Primary Care Provider] - Diet: Heart Healthy Addtl Attending Provider Instructions: Please finish out the course of antibiotics as prescribed for your pneumonia. You will need a repeat Chest xray in 2-3 weeks to ensure this is resolved. Please continue the oxygen for now to keep POx greater than 92% but can be weaned off as able to. Needs continued follow up and care for recent left total hip replacement performed 3 weeks ago. Pending Studies at Discharge: No Stand-Alone Forms: My [facility] Skilled Items Patient informed of condition?: Yes DNR: Yes Discharge Level of Care: Skilled Communicable Disease: No Discharge Prognosis: Improving Lines: None Urinary Catheter: No Medications and DC Order Prescriptions: Continued ascorbic acid (vitamin C) 500 mg tablet 500 mg PO DAILY RF: 0 psyllium husk [Metamucil] 0.4 gram capsule 0.4 gm PO BID Qty: 30 RF: 0 citalopram 20 mg tablet 30 mg PO QAM Qty: 135 RF: 0 gabapentin 300 mg capsule 300 mg PO TID Qty: 90 RF: 0 Refresh Tears 0.5 % drops 1 drops OP BID PRN (Reason: Dry Eyes) RF: 0 omeprazole 40 mg capsule,delayed release(DR/EC) 40 mg PO DAILY RF: 0 furosemide 40 mg Tablet 40 mg PO QAM RF: 0 acetaminophen [Tylenol Arthritis Pain] 650 mg Tablet Extended Release 2 tabs PO TID RF: 0 simvastatin 20 mg Tablet 20 mg PO QPM RF: 0 dorzolamide-timolol 22.3-6.8 mg/mL Drops 1 drp OPL BID RF: 0 budesonide-formoterol 160-4.5 mcg/actuation HFA aerosol inhaler 2 puff Inhalation BID RF: 0 Women's One Daily 18 mg iron-400 mcg-500 mg Ca Tablet 1 tab PO QAM RF: 0 Eliquis 5 mg Tablet 5 mg PO BID RF: 0 Zioptan (PF) 0.0015 % Dropperette 1 drp OPL HS RF: 0 metoprolol tartrate [Lopressor] 50 mg tablet 75 mg PO BID RF: 0 Rhopressa 0.02 % Drops 1 drp OPHTHALMIC (EYE) HS RF: 0 potassium chloride 20 mEq tablet extended release 40 meq PO QAM RF: 0 Calcium 600 + D(3) 600 mg calcium- 200 unit Capsule 1 cap PO DAILY RF: 0 PreserVision AREDS [id number] Capsule 1 cap PO BID RF: 0 Changed oxycodone-acetaminophen [Percocet] 5-325 mg tablet 1 tab PO Q6H PRN (Reason: severe pain) Qty: 10 RF: 0 Discontinued nystatin-triamcinolone 100,000-0.1 unit/gram-% ointment 1 appln TOP BID PRN (Reason: vaginitis) Qty: 60 RF: 3 amlodipine 2.5 mg Tablet 2.5 mg PO QAM RF: 0 cefadroxil 1 gram Tablet 1,000 mg PO QAM RF: 0 melatonin 10 mg Tablet 20 mg PO HS PRN (Reason: Sleep) RF: 0 tramadol [Ultram] 50 mg tablet 50 mg PO Q6H PRN (Reason: pain) Qty: 14 RF: 0 Discharge Orders: Discharge Order (Routine); Ordered 10/02/19 Ordered By: Cielo Londono Admission Data Admit Date/Time: 09/27/19 05:14 Attending Provider: Cielo Londono Admit Provider: Kye Martinez Primary Care Provider: Teo Kemp Avant Other Providers: Kye Martinez ; Gerson Montes De Oca Other Interventions: Discharge Summary Assessment (RN) Last Done: 10/02/19 14:55 DC Date/Time DO NOT enter until pt leaves facility: 10/02/19 15:08
== END 2019-10-02 15:08 | DRG 189 ==
LOC: ED 03:31 → SUATTDRO 05:14 → 2E 05:14 → 2N 09-29 19:29